=== PATIENT | female | born 1965 ===

== ENCOUNTER 2017-07-31 14:46 | Emergency (ER) | payer OTHER ==
[2017-07-31 14:46] VITALS: BMI 23.4
[2017-07-31 15:07] VITALS: RESP 18; O2SAT 98
--- NOTE | 2017-07-31 15:30 | ED PDOC ---
HPI: General Adult Time Seen by Provider: 07/31/17 15:08 Chief Complaint (Nursing): Headache Chief Complaint (Provider): Headache History Per: Patient Onset/Duration Of Symptoms: Days (x 4) Current Symptoms Are (Timing): Still Present Additional Complaint(s): 52yo female with past medical history of diabetes and hypertension, presents to the ED for evaluation of headache and blurry vision, present for the past 4 days. Patient states she develops these symptoms when she injects her insulin; also reports that she feels her insulin regimen is not controlling her glucose level. Patient has an additional complaint of abdominal pain; denies nausea, vomiting, and urinary symptoms. No other complaints. PMD: Provider TBD Past Medical History Vital Signs: Last Vital Signs Temp 95.8 F L 07/31/17 14:59 Pulse 91 H 07/31/17 14:59 Resp 18 07/31/17 14:59 BP 158/93 H 07/31/17 14:59 Pulse Ox 98 07/31/17 16:57 - Medical History PMH: Arthritis, Diabetes, HTN, Hypercholesterolemia Denies: HIV, Chronic Kidney Disease - Surgical History Surgical History: - Family History Family History: States: Unknown Family Hx, Diabetes - Social History Alcohol: None Drugs: Denies - Home Medications Home Medications: Ambulatory Orders Medication Instructions Recorded Cephalexin [cephalexin] 500 mg PO Q6 #28 cap 04/22/16 Insulin NPH Hum/Reg Insulin Hm 20 unit SC QPM 04/22/16 [Novolin 70-30 100 Unit/ml Vial] Insulin NPH Hum/Reg Insulin Hm 30 unit SC QAM 04/22/16 [Novolin 70-30 100 Unit/ml Vial] Sulfamethoxazole/Trimethoprim 2 tab PO BID #28 tab 04/22/16 [Bactrim 400 mg-80 mg] Amoxicillin/Clavulanate [Augmentin 1 tab PO BID #14 tab 08/28/16 875 MG-125 MG] Amoxicillin/Clavulanate [Augmentin 1 tab PO BID #20 tab 11/26/16 875 MG-125 MG] Ibuprofen [Motrin Tab] 600 mg PO Q8 PRN #60 tab 11/26/16 traMADol [Ultram] 50 mg PO TID PRN 3 Days tab 11/26/16 Nitrofurantoin Macrocrystals 100 mg PO BID #14 cap 12/07/16 [Macrobid] Cephalexin [Keflex] 500 mg PO BID #14 capsule 06/19/17 Meloxicam [Mobic] 7.5 mg PO DAILY #15 tab 06/19/17 Ciprofloxacin HCl [Cipro] 500 mg PO BID #20 tab 07/31/17 - Allergies Allergies/Adverse Reactions: Allergies Allergy/AdvReac Type Severity Reaction Status Date / Time No Known Allergies Allergy Verified 08/28/16 11:38 Review of Systems ROS Statement: Except As Marked, All Systems Reviewed And Found Negative Gastrointestinal: Positive for: Abdominal Pain. Negative for: Vomiting, Diarrhea Genitourinary Female: Negative for: Dysuria, Frequency Neurological: Positive for: Headache, Other (Blurry Vision) Physical Exam - Reviewed Nursing Documentation Reviewed: Yes Vital Signs Reviewed: Yes - Physical Exam Appears: Positive for: Non-toxic Head Exam: Positive for: ATRAUMATIC, NORMAL INSPECTION, NORMOCEPHALIC Skin: Positive for: Normal Color Eye Exam: Positive for: Normal appearance Neck: Positive for: Supple Cardiovascular/Chest: Positive for: Regular Rate, Rhythm. Negative for: Murmur Respiratory: Positive for: Normal Breath Sounds. Negative for: Respiratory Distress Gastrointestinal/Abdominal: Positive for: Soft, Tenderness (Bilateral Lower Quadrant) Neurologic/Psych: Positive for: Alert, Oriented (x 3). Negative for: Motor/ Sensory Deficits - Laboratory Results Result Diagrams: 07/31/17 15:50 07/31/17 15:50 - ECG O2 Sat by Pulse Oximetry: 98 (RA) Pulse Ox Interpretation: Normal Medical Decision Making Medical Decision Making: Time: 1518 Initial Plan: - CT Head without Contrast - CMP - CBC - Sodium Chloride 0.9% 1,000 ml IV 100 mls/hr - Toradol 30 mg IVP - Zofran Inj 4 mg IVP - Transvaginal Ultrasound Time: 15:50 CT Head Without Contrast FINDINGS: HEMORRHAGE: No intracranial hemorrhage. BRAIN: No mass effect or edema. No atrophy or chronic microvascular ischemic changes. VENTRICLES: Unremarkable. No hydrocephalus. CALVARIUM: Unremarkable. PARANASAL SINUSES: Negative study for acute paranasal sinusitis. Chronic disease involving theethmoid air cells MASTOID AIR CELLS: Unremarkable as visualized. No inflammatory changes. OTHER FINDINGS: None. IMPRESSION: No acute intracranial abnormalities. No significant findings to account for the clinical presentation Time: 2 US Transvaginal IMPRESSION: No acute findings related to/accounting for the clinical presentation. Limitations of the current examination: Nonvisualization of the adnexa bilaterally. Time: 16:49 Transvaginal US FINDINGS: UTERUS: Measures 4.1 x 5.1 x 8.5 cm. Normal in size and appearance. No fibroid or other mass lesion seen. ENDOMETRIUM: Measures 8.2 mm in diameter. No ultrasound findings to suggest gestational sac, fluid, debris, mass or polyp or other pathologic process within the endometrium. CERVIX: No cervical abnormality identified.Incidental finding: Nabothian cysts RIGHT OVARY: Not visualized. LEFT OVARY: Not visualized. FREE FLUID: No significant free fluid noted. OTHER FINDINGS: None. IMPRESSION: No acute findings related to/accounting for the clinical presentation. Limitations of the current examination: Nonvisualization of the adnexa bilaterally. Scribe Attestation: Documented by Noe Gomes, acting as a scribe for Loco Jones MD Provider Scribe Attestation: All medical record entries made by the Scribe were at my direction and personally dictated by me. I have reviewed the chart and agree that the record accurately reflects my personal performance of the history, physical exam, medical decision making, and the department course for this patient. I have also personally directed, reviewed, and agree with the discharge instructions and disposition. Disposition - Clinical Impression Clinical Impression: UTI (urinary tract infection) - Patient ED Disposition Is Patient to be Admitted: No Counseled Patient/Family Regarding: Studies Performed, Diagnosis, Need For Followup, Rx Given - Disposition Referrals: [facility] [Outside] Disposition: Routine/Home Disposition Time: 16:59 Condition: FAIR Prescriptions: Ciprofloxacin HCl [Cipro] 500 mg PO BID #20 tab Instructions: Urinary Tract Infection in Women (ED) Forms: [employer] (Brazilian) Print Language: SINHALA
--- NOTE | 2017-07-31 15:52 | CT ---
PROCEDURE: CT HEAD WITHOUT CONTRAST. HISTORY: headache COMPARISON: None available. TECHNIQUE: Axial computed tomography images were obtained through the head/brain without intravenous contrast. Coronal and sagittal reconstructed images. Radiation dose: Total exam DLP = 824.96 mGy-cm. This CT exam was performed using one or more of the following dose reduction techniques: Automated exposure control, adjustment of the mA and/or kV according to patient size, and/or use of iterative reconstruction technique. FINDINGS: HEMORRHAGE: No intracranial hemorrhage. BRAIN: No mass effect or edema. No atrophy or chronic microvascular ischemic changes. VENTRICLES: Unremarkable. No hydrocephalus. CALVARIUM: Unremarkable. PARANASAL SINUSES: Negative study for acute paranasal sinusitis. Chronic disease involving theethmoid air cells MASTOID AIR CELLS: Unremarkable as visualized. No inflammatory changes. OTHER FINDINGS: None. IMPRESSION: No acute intracranial abnormalities. No significant findings to account for the clinical presentation.
[2017-07-31 15:56] LABS: BASO % 0.1 % (0.0-2.0); EOS # 0.2 K/uL (0.0-0.7); HEMATOCRIT 37.7 % (34.0-47.0); LYMPH # 1.4 K/uL (1.0-4.3); LYMPH % 30.3 % (20.0-40.0); MEAN CELL VOLUME 81.2 fl (81.0-99.0); MEAN CORPUSCULAR HEMOGLOBIN 26.8 pg (27.0-31.0); MEAN PLATELET VOLUME 7.3 fl (7.2-11.7); MONO # 0.3 K/uL (0.0-0.8); MONO % 5.7 % (0.0-10.0); NEUT # 2.8 K/uL (1.8-7.0); NEUT % 59.9 % (50.0-75.0); NRBC % 0.1 % (0.0-0.0); RED CELL DISTRIBUTION WIDTH 15.6 % (11.5-14.5); WHITE BLOOD COUNT 4.6 K/uL (4.8-10.8)
[2017-07-31] MEDS: Sodium Chloride 0.9% 1,000 ML IV STA (16:10)
--- NOTE | 2017-07-31 16:51 | US ---
HISTORY: pelvic pain COMPARISON: None available. TECHNIQUE: Transvaginal only. Real -time technique with 2D, duplex and color Doppler FINDINGS: UTERUS: Measures 4.1 x 5.1 x 8.5 cm. Normal in size and appearance. No fibroid or other mass lesion seen. ENDOMETRIUM: Measures 8.2 mm in diameter. No ultrasound findings to suggest gestational sac, fluid, debris, mass or polyp or other pathologic process within the endometrium. CERVIX: No cervical abnormality identified.Incidental finding: Nabothian cysts RIGHT OVARY: Not visualized. LEFT OVARY: Not visualized. FREE FLUID: No significant free fluid noted. OTHER FINDINGS: None. IMPRESSION: No acute findings related to/accounting for the clinical presentation. Limitations of the current examination: Nonvisualization of the adnexa bilaterally.
[2017-07-31 16:56] LABS: BLOOD UREA NITROGEN 15 mg/dl (7-17); CALCIUM 9.4 mg/dL (8.4-10.2); CARBON DIOXIDE 27 mmol/L (22-30); CHLORIDE 102 mmol/L (98-107); GFR AFRICAN-AMERICAN > 60; GLUCOSE,RANDOM 160 mg/dL (65-105); POTASSIUM 4.2 MMOL/L (3.6-5.0); SODIUM 142 mmol/l (132-148); TOTAL PROTEIN 8.9 G/DL (6.3-8.2)
[2017-07-31 16:57] LABS: ALKALINE PHOSPHATASE 204 U/L (38-126); ALT/SGPT 36 U/L (9-52); AST/SGOT 44 U/L (14-36); BILIRUBIN,TOTAL 0.3 mg/dl (0.2-1.3)
--- NOTE | 2017-07-31 17:11 | ED PDOC ---
- Laboratory Results Result Diagrams: 07/31/17 15:50 07/31/17 15:50 - ECG O2 Sat by Pulse Oximetry: 98 (RA) Pulse Ox Interpretation: Normal - Progress ED Course And Treament: seen and eval by podiatry will f/u in wound care clinic in one week. will d/c on antibiotics. pt agree's wtih plan. Re-evaluation Time: 19:05 Condition: Improved Medical Decision Making Medical Decision Making: Time: 1704 Patient signed out to me by Dr. Jones pending podiatry evaluation. Disposition Counseled Patient/Family Regarding: Studies Performed, Diagnosis, Need For Followup, Rx Given - Clinical Impression Clinical Impression: UTI (urinary tract infection) - POA Present On Arrival: None - Disposition Referrals: [facility] [Outside] Disposition: Routine/Home Disposition Time: 19:06 Condition: FAIR Prescriptions: Ciprofloxacin HCl [Cipro] 500 mg PO BID #20 tab Instructions: Urinary Tract Infection in Women (ED) Forms: [employer] (Guamanian) Print Language: GEORGIAN
--- NOTE | 2017-07-31 19:17 | CP.PCM.CON ---
History of Present Illness - History of Present Illness History of Present Illness: Podiatry Progress Note - Dr. Galloway 52 year old female patient PMHx diabetes, HTN, hypercholesterolemia seen in ED at the request for podiatry consultation. Patient presented to ED for headache and blurry vision. Patient states that she has been seeing Dr. Galloway in the wound care clinic for a healed wound on the top of her right foot along with a wound on the top of her left 4th toe. Patient states the wounds developed approximately 1 month ago, but the wound on the top of her 4th toe has yet to resolve. Patient admits to occasional soreness. Patient denies seeing any drainage or purulence coming from her toe. Patient states she has an appointment with Dr. Galloway tomorrow. Patient denies N/V/F/D/C/SOB/calf pain. Offers no other pedal complaints at this time. Review of Systems - Review of Systems All systems: reviewed and no additional remarkable complaints except (as per HPI ) Past Patient History - Infectious Disease Hx of Infectious Diseases: None - Past Medical History & Family History Past Medical History?: Yes - Past Social History Alcohol: None Drugs: Denies - CARDIAC Hx Hypercholesterolemia: Yes Hx Hypertension: Yes - PULMONARY Hx Respiratory Disorders: No - NEUROLOGICAL Hx Neurological Disorder: No - HEENT Hx HEENT Problems: No - RENAL Hx Chronic Kidney Disease: No - ENDOCRINE/METABOLIC Hx Endocrine Disorders: Yes Hx Diabetes Mellitus Type 2: Yes - HEMATOLOGICAL/ONCOLOGICAL Hx Human Immunodeficiency Virus (HIV): No - INTEGUMENTARY Hx Dermatological Problems: No - MUSCULOSKELETAL/RHEUMATOLOGICAL Hx Arthritis: Yes - GASTROINTESTINAL Hx Gastrointestinal Disorders: No - GENITOURINARY/GYNECOLOGICAL Hx Genitourinary Disorders: No - PSYCHIATRIC Hx Psychophysiologic Disorder: No Hx Emotional Abuse: No Hx Physical Abuse: No Hx Substance Use: No Other/Comment: pyelonephritis - SURGICAL HISTORY 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) - ANESTHESIA Hx Anesthesia: Yes Hx Anesthesia Reactions: No Hx Malignant Hyperthermia: No Meds Home Medications: Home Medication List Medication Instructions Recorded Confirmed Type Ciprofloxacin HCl [Cipro] 500 mg PO BID #20 tab 07/31/17 Rx Allergies/Adverse Reactions: Allergies Allergy/AdvReac Type Severity Reaction Status Date / Time No Known Allergies Allergy Verified 08/28/16 11:38 - Medications Medications: Current Medications Sodium Chloride (Sodium Chloride 0.9%) 1,000 mls @ 100 mls/hr IV .Q10H STA Stop: 08/01/17 01:18 Last Admin: 07/31/17 16:10 Dose: 100 mls/hr Physical Exam - Constitutional Appears: Well, Non-toxic, No Acute Distress - Extremities Exam Additional comments: Dressing to right foot appears clean/dry/intact with no strikethrough noted. CAM walker to RLE VASC: DP/PT pulses palpable 2/4 BL, TG warm to warm, CFT <3 seconds to digits, Nonpitting edema noted to left 4th digit NEURO: Gross sensation diminished bilaterally DERM: Dorsal aspect of L foot 4th digit noted to have superficial ulceration measuring approximately 0.5 x 0.5 x 0.1 cm hyperpigmented rim; no active drainage, purulence, fluctuance noted. ORTHO: No pain on palpation right lateral midfoot and left 4th digit; amputation of left 2nd digit, HAV deformity bilateral, hammering of digits 3-5 on left and 2-5 on right - Neurological Exam Neurological exam: Alert, Oriented x3 - Psychiatric Exam Psychiatric exam: Normal Affect, Normal Mood Results - Vital Signs Recent Vital Signs: Last Vital Signs Temp 95.8 F L 07/31/17 14:59 Pulse 91 H 07/31/17 14:59 Resp 18 07/31/17 14:59 BP 158/93 H 07/31/17 14:59 Pulse Ox 98 07/31/17 19:07 - Labs Result Diagrams: 07/31/17 15:50 07/31/17 15:50 Labs: Laboratory Results - last 24 hr 07/31/17 07/31/17 15:50 15:50 WBC 4.6 L RBC 4.65 Hgb 12.5 Hct 37.7 MCV 81.2 MCH 26.8 L MCHC 33.0 RDW 15.6 H Plt Count 228 MPV 7.3 Neut % (Auto) 59.9 Lymph % (Auto) 30.3 Oliver % (Auto) 5.7 Eos % (Auto) 4.0 Baso % (Auto) 0.1 Neut # 2.8 Lymph # 1.4 Oliver # 0.3 Eos # 0.2 Baso # 0.0 Sodium 142 Potassium 4.2 Chloride 102 Carbon Dioxide 27 Anion Gap 17 BUN 15 Creatinine 0.6 L Est GFR ( Amer) > 60 Est GFR (Non-Af Amer) > 60 Random Glucose 160 H Calcium 9.4 Total Bilirubin 0.3 AST 44 H D ALT 36 Alkaline Phosphatase 204 H D Total Protein 8.9 H Albumin 4.4 Globulin 4.4 H Albumin/Globulin Ratio 1.0 Assessment & Plan - Assessment and Plan (Free Text) Assessment: 52 year old female with superficial ulceration left 4th digit 2/2 DM Plan: Patient seen and evaluated at bedside Discussed with attending, Dr. Galloway afebrile, WBC wnl @ 6.2, glucose 160 Left foot XR reviewed: ST swelling noted to 4th digit, no ST emphysema noted, no acute osseous process Bacitracin applied to left 4th digit and dressed with 4x4 gauze MUKUL bandage applied to R foot to decrease swelling Patient to follow up with Dr. Galloway in wound care clinic tomorrow, 08/01 Stable from podiatry standpoint Thank you for the consult, please re-consult podiatry as needed
[2017-07-31 19:57] VITALS: BP 148/78; PULSE 78; TEMP 98.4
--- NOTE | 2017-08-01 08:43 | RAD ---
PROCEDURE: Left Foot Radiographs. HISTORY: pain COMPARISON: Left foot radiographs dated 04/22/2016. FINDINGS: BONES: Stable hallux valgus deformity stable appearance of distal 2nd transmetatarsal amputation. Enthesophyte at the insertion of the Achilles tendon. Calcaneal plantar spur. JOINTS: Degenerative changes. SOFT TISSUES: Swelling. OTHER FINDINGS: None. 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 No evidence of fracture, dislocation or periosteal reaction.
== END 2017-07-31 19:58 | disposition home or self-care (01) ==
LOC: H.ER 14:46
DX: N39.0 Urinary tract infection, site not specified (principal); E11.9 Type 2 diabetes mellitus without complications; I10 Essential (primary) hypertension; E78.00 Pure hypercholesterolemia, unspecified; Z79.4 Long term (current) use of insulin
CPT/HCPCS: 70450; 73630; 76830; 80053; 81025; 82948; 85025; 96374; 96375; 99283; J1885; J2405; J7040

== ENCOUNTER 2017-10-26 07:00 | Inpatient (IN) | payer MEDICAID, SELFPAY ==
[2017-10-26 07:22] VITALS: BMI 27.3
[2017-10-26] MEDS ORDERED: Sodium Chloride 0.9% 1,000 ML IV STA ×2 (07:57→12:11)
--- NOTE | 2017-10-26 08:03 | ED PDOC ---
HPI: Abdomen Time Seen by Provider: 10/26/17 07:18 Chief Complaint (Nursing): Flu-like Symptoms Chief Complaint (Provider): Flu-like symptoms History Per: Patient History/Exam Limitations: no limitations Onset/Duration Of Symptoms: Days (x10) Current Symptoms Are (Timing): Still Present Quality Of Discomfort: "Pain" Associated Symptoms: Fever, Chills. denies: Vomiting, Diarrhea Additional Complaint(s): Concepción Zheng is a 52 year old female, with a past medical history of diabetes and hypertension, who presents to the emergency department complaining of fever, chills, dry cough, and abdominal pain onset for x10 days. Patient states the pain radiates to the hip and down the legs bilaterally. She took medication for the fever at 6:00am today. She denies any vomiting, or diarrhea. No further medical complaints. PMD: None provided. Past Medical History Reviewed: Historical Data, Nursing Documentation, Vital Signs Vital Signs: Last Vital Signs Temp 98.6 F 10/26/17 11:33 Pulse 97 H 10/26/17 11:33 Resp 18 10/26/17 10:06 BP 130/78 10/26/17 11:33 Pulse Ox 98 10/26/17 10:25 - Medical History PMH: Arthritis, Diabetes, HTN, Hypercholesterolemia Denies: HIV, Chronic Kidney Disease - Surgical History Surgical History: Other surgeries: ovarian cysts removal - Family History Family History: States: Unknown Family Hx, Diabetes - Social History Ex-Smoker (has not smoked in the last 12 months): Yes Alcohol: None Drugs: Denies - Home Medications Home Medications: Ambulatory Orders Medication Instructions Recorded Cephalexin [cephalexin] 500 mg PO Q6 #28 cap 04/22/16 Insulin NPH Hum/Reg Insulin Hm 20 unit SC QPM 04/22/16 [Novolin 70-30 100 Unit/ml Vial] Insulin NPH Hum/Reg Insulin Hm 30 unit SC QAM 04/22/16 [Novolin 70-30 100 Unit/ml Vial] Sulfamethoxazole/Trimethoprim 2 tab PO BID #28 tab 04/22/16 [Bactrim 400 mg-80 mg] Amoxicillin/Clavulanate [Augmentin 1 tab PO BID #14 tab 08/28/16 875 MG-125 MG] Amoxicillin/Clavulanate [Augmentin 1 tab PO BID #20 tab 11/26/16 875 MG-125 MG] Ibuprofen [Motrin Tab] 600 mg PO Q8 PRN #60 tab 11/26/16 traMADol [Ultram] 50 mg PO TID PRN 3 Days tab 11/26/16 Nitrofurantoin Macrocrystals 100 mg PO BID #14 cap 12/07/16 [Macrobid] Cephalexin [Keflex] 500 mg PO BID #14 capsule 06/19/17 Meloxicam [Mobic] 7.5 mg PO DAILY #15 tab 06/19/17 Ciprofloxacin HCl [Cipro] 500 mg PO BID #20 tab 07/31/17 - Allergies Allergies/Adverse Reactions: Allergies Allergy/AdvReac Type Severity Reaction Status Date / Time No Known Allergies Allergy Verified 08/28/16 11:38 Review of Systems ROS Statement: Except As Marked, All Systems Reviewed And Found Negative Constitutional: Positive for: Fever, Chills Respiratory: Positive for: Cough (dry) Gastrointestinal: Positive for: Abdominal Pain (radiates to hip and b/l legs.). Negative for: Vomiting, Diarrhea Physical Exam - Reviewed Nursing Documentation Reviewed: Yes Vital Signs Reviewed: Yes - Physical Exam Appears: Positive for: Non-toxic Head Exam: Positive for: ATRAUMATIC, NORMAL INSPECTION, NORMOCEPHALIC Skin: Positive for: Normal Color, Warm, Dry Eye Exam: Positive for: Normal appearance, EOMI, PERRL Neck: Positive for: Painless ROM, Supple Cardiovascular/Chest: Positive for: Tachycardia. Negative for: Murmur Respiratory: Positive for: Normal Breath Sounds (clear b/l). Negative for: Respiratory Distress Gastrointestinal/Abdominal: Positive for: Normal Exam, Soft. Negative for: Tenderness, Guarding, Rebound Back: Positive for: Normal Inspection. Negative for: L CVA Tenderness, R CVA Tenderness, Vertebral Tenderness Extremity: Positive for: Normal ROM. Negative for: Tenderness, Deformity, Swelling Neurologic/Psych: Positive for: Alert, Oriented - Laboratory Results Result Diagrams: 10/26/17 08:00 10/26/17 08:00 - ECG O2 Sat by Pulse Oximetry: 98 (RA) Pulse Ox Interpretation: Normal Medical Decision Making Medical Decision Making: Initial Impression: Viral syndrome Initial Plan: --EKG --CMP --Urine dipstick --CBC w/ differential --PTT --PT --Chest two views (PA/LAT) [RAD] --Motrin tab 600 mg PO --Sodium Chloride 1,000 ml IV 1,000 mls/hr --Tylenol 325mg tab 650 mg PO --Blood culture --reevaluation 09:57 CXR FINDINGS: LUNGS: Poor inspiration with low lung volumes, crowded bronchovascular markings and mild bibasilar atelectasis. PLEURA: No significant pleural effusion identified. No pneumothorax apparent. CARDIOVASCULAR: Normal. OSSEOUS STRUCTURES: No significant abnormalities. VISUALIZED UPPER ABDOMEN: Normal. OTHER FINDINGS: None. IMPRESSION: Poor inspiration with low lung volumes, crowded bronchovascular markings and mild bibasilar atelectasis. Scribe Attestation: Documented by Kenny Lomax, acting as a scribe for Isabel Arnold MD Provider Scribe Attestation: All medical record entries made by the Scribe were at my direction and personally dictated by me. I have reviewed the chart and agree that the record accurately reflects my personal performance of the history, physical exam, medical decision making, and the department course for this patient. I have also personally directed, reviewed, and agree with the discharge instructions and disposition. Disposition - Clinical Impression Clinical Impression: UTI (urinary tract infection), Sepsis - Patient ED Disposition Is Patient to be Admitted: Yes - Disposition Disposition Time: 12:11 Condition: STABLE Forms: [employer] (German) - Pt Status Changed To: Hospital Disposition Of: Inpatient - Admit Certification Admit to Inpatient:: After my assessment, the patient will require hospitalization for at least two midnights. This is because of the severity of symptoms shown, intensity of services needed, and/or the medical risk in this patient being treated as an outpatient. - POA Present On Arrival: Poor Glycemic Control
[2017-10-26 08:26] LABS: BASO % 0.5 % (0.0-2.0); EOS # 0.1 K/uL (0.0-0.7); EOS % 0.6 % (0.0-4.0); HEMOGLOBIN 12.4 g/dL (12.0-16.0); LYMPH # 0.4 K/uL (1.0-4.3); MEAN CELL VOLUME 77.5 fl (81.0-99.0); MEAN CORPUSCULAR HEMOGLOBIN 26.3 pg (27.0-31.0); MEAN PLATELET VOLUME 7.2 fl (7.2-11.7); MONO # 0.3 K/uL (0.0-0.8); MONO % 3.4 % (0.0-10.0); NEUT # 8.3 K/uL (1.8-7.0); NEUT % 91.5 % (50.0-75.0); PLATELET COUNT 194 K/uL (130-400); RBC 4.72 Mil/uL (3.80-5.20); RED CELL DISTRIBUTION WIDTH 14.9 % (11.5-14.5); WHITE BLOOD COUNT 9.1 K/uL (4.8-10.8)
[2017-10-26 08:29] LABS: SQUAMOUS EPITHIAL 22 /hpf (0-5); URINE BACTERIA MANY (<OCC); URINE BILIRUBIN NEGATIVE (NEGATIVE); URINE BLOOD SMALL (NEGATIVE); URINE CLARITY CLOUDY (Clear); URINE COLOR YELLOW (YELLOW); URINE GLUCOSE (UA) 50 mg/dL (Normal); URINE LEUKOCYTE ESTERASE LARGE Leu/uL (Negative); URINE NITRATE POSITIVE (NEGATIVE); URINE PROTEIN 100 mg/dL (NEGATIVE); URINE UROBILINOGEN 0.2-1.0 mg/dL (0.2-1.0)
[2017-10-26 08:36] LABS: ALBUMIN 4.1 g/dL (3.5-5.0); ALT/SGPT 20 U/L (9-52); AST/SGOT 24 U/L (14-36); BLOOD UREA NITROGEN 19 mg/dl (7-17); CALCIUM 9.5 mg/dL (8.4-10.2); GFR AFRICAN-AMERICAN > 60; GFR NON-AFRICAN AMERICAN > 60
[2017-10-26 08:44] LABS: INR 1.2 (0.9-1.2)
--- NOTE | 2017-10-26 09:59 | RAD ---
HISTORY: Cough COMPARISON: No prior. TECHNIQUE: Chest PA and lateral FINDINGS: LUNGS: Poor inspiration with low lung volumes, crowded bronchovascular markings and mild bibasilar atelectasis. PLEURA: No significant pleural effusion identified. No pneumothorax apparent. CARDIOVASCULAR: Normal. OSSEOUS STRUCTURES: No significant abnormalities. VISUALIZED UPPER ABDOMEN: Normal. OTHER FINDINGS: None. IMPRESSION: Poor inspiration with low lung volumes, crowded bronchovascular markings and mild bibasilar atelectasis.
--- NOTE | 2017-10-26 10:49 | CARD ---
APPROVED REPORT EKG Measurement Heart [id number] <Conclusion> Sinus tachycardia ST & T wave abnormality, consider inferior ischemia Abnormal ECG
[2017-10-26 12:06] LABS: VENOUS BLOOD GAS BASE EXCESS 0.3 mmol/L (0.0-2.0); VENOUS BLOOD GAS PCO2 48 mmHg (40-60); VENOUS BLOOD GAS PO2 14 mm/Hg (30-55); VENOUS BLOOD PH 7.35 (7.32-7.43)
[2017-10-26] MEDS ORDERED: cefTRIAXone (Rocephin) 1 gm Inj ONE (12:25)
[2017-10-26 15:28] LABS: BANDS 3 % (0-2); LYMPHOCYTE 5 % (20-50); MONOCYTE 1 % (0-10); NEUTROPHIL 91 % (42-75); TOTAL CELLS COUNTED 100
[2017-10-26 15:29] LABS: ANISOCYTOSIS SLIGHT; MICROCYTOSIS SLIGHT; PLATELET ESTIMATE NORMAL (NORMAL)
[2017-10-26 15:31] LABS: LARGE PLATELETS PRESENT
--- NOTE | 2017-10-26 16:07 | CP.PCM.HP ---
History of Present Illness - History of Present Illness History of Present Illness: CC: abdominal pain HPI: 52 y/o woman w/ pmh of HTN and IDDM2 presents to ED w/ abdominal pain. Patient reports pain started 2 weeks ago but became unbearable today. Patient reports pain is in lower abdomen bilaterally, cramping in nature, radiating to the back, not alleviated by anything, worsened w/ urination. Patient reports dysuria, vaginal pruritus, and fishy odor but denies erythema, rash, discharge, and hematuria. Patient reports generalized body ache, tension headache, chest pain w/ respiration and cough. Patient denies SOB, nausea, vomiting, diarrhea. ED course: vitals: 103.1 F, 125 beats/min, 162/84 mm Hg, resp 20, O2 98% RA CBC w/ differential: 9.1>12.4/36.6<194 CMP: 140/4.6, 102/25, 19/0.7, glucose 226, AST 24, ALT 20, alk phos 240 VBG: pH 7.35, pCO2 48, pO2 14, pHCO3 22.9, K+ 4.6, lactate 0.8, FiO2 21.0 INR: 1.2 PTT: 27.0 PT: 13.0 UA: cloudy, pH 7.0, protein 100, glucose 50, blood small, nitrate positive, large leukocyte esterase, negative for ketones and bilirubin influenza AB: negative Blood culture: pending Urine culture: pending EKG: sinus tachycardia, no acute ST elevation/depression, no prolonged QTc, QRS , or [place] Chest two views (PA/LAT) [RAD]: poor inspiration w/ low lung volumes, crowded bronchovascular markings and mild bibasilar atelectasis Motrin tab 600 mg PO Sodium Chloride 1,000 ml IV 1,000 mls/hr x2 Tylenol 325mg tab 650 mg PO Ceftriaxone 1 gm IV PMD: [facility] PMH: HTN, IDDM2 allergies: NKDA meds: see meds list PSH: ovarian cyst removal 20 years ago Fam: mother 76 y/o has HTN, DM2, and rheumatoid arthritis SOC: denies smoking, alcohol, and drugs ROS: 12 points assessed and negative unless otherwise reported in HPI Present on Admission - Present on Admission Any Indicators Present on Admission: No History of DVT/PE: No History of Uncontrolled Diabetes: No Urinary Catheter: No Decubitus Ulcer Present: No Review of Systems - Review of Systems All systems: reviewed and no additional remarkable complaints except - Constitutional Constitutional: As Per HPI, Chills, Fever, Headache, Malaise - EENT Eyes: Change in Vision - Cardiovascular Cardiovascular: absent: Dyspnea, Dyspnea on Exertion, Leg Edema, Pedal Edema - Respiratory Respiratory: Cough, Pain with Coughing. absent: Wheezing - Gastrointestinal Gastrointestinal: Abdominal Pain. absent: Diarrhea, Hematochezia, Nausea, Vomiting - Genitourinary Genitourinary: Dysuria, Flank Pain. absent: Pyuria - Reproductive: Female Reproductive:Female: Menopausal, Vaginal Odor, Vaginal Pruritis. absent: Vaginal Discharge - Integumentary Integumentary: absent: Rash - Neurological Neurological: absent: Dizziness Past Patient History - Infectious Disease Hx of Infectious Diseases: None - Past Medical History & Family History Past Medical History?: Yes - Past Social History Alcohol: None Drugs: Denies - CARDIAC Hx Hypercholesterolemia: Yes Hx Hypertension: Yes - PULMONARY Hx Respiratory Disorders: No - NEUROLOGICAL Hx Neurological Disorder: No - HEENT Hx HEENT Problems: No - RENAL Hx Chronic Kidney Disease: No - ENDOCRINE/METABOLIC Hx Endocrine Disorders: Yes Hx Diabetes Mellitus Type 2: Yes - HEMATOLOGICAL/ONCOLOGICAL Hx Human Immunodeficiency Virus (HIV): No - INTEGUMENTARY Hx Dermatological Problems: No - MUSCULOSKELETAL/RHEUMATOLOGICAL Hx Arthritis: Yes - GASTROINTESTINAL Hx Gastrointestinal Disorders: No - GENITOURINARY/GYNECOLOGICAL Hx Genitourinary Disorders: No - PSYCHIATRIC Hx Psychophysiologic Disorder: No Hx Emotional Abuse: No Hx Physical Abuse: No Hx Substance Use: No Other/Comment: pyelonephritis - SURGICAL HISTORY 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) - ANESTHESIA Hx Anesthesia: Yes Hx Anesthesia Reactions: No Hx Malignant Hyperthermia: No Meds Allergies/Adverse Reactions: Allergies Allergy/AdvReac Type Severity Reaction Status Date / Time No Known Allergies Allergy Verified 08/28/16 11:38 Physical Exam - Constitutional Appears: No Acute Distress - Head Exam Head Exam: ATRAUMATIC, NORMAL INSPECTION, NORMOCEPHALIC - Eye Exam Eye Exam: Normal appearance - ENT Exam ENT Exam: Mucous Membranes Moist - Neck Exam Neck exam: Positive for: Full Rom. Negative for: Tenderness - Respiratory Exam Respiratory Exam: Clear to Auscultation Bilateral, NORMAL BREATHING PATTERN. absent: Decreased Breath Sounds, Rales, Rhonchi, Wheezes, Respiratory Distress - Cardiovascular Exam Cardiovascular Exam: REGULAR RHYTHM. absent: Tachycardia - GI/Abdominal Exam GI & Abdominal Exam: Normal Bowel Sounds, Soft, Tenderness. absent: Distended, Guarding, Rigid - Extremities Exam Extremities exam: Positive for: normal inspection. Negative for: calf tenderness, pedal edema, tenderness - Back Exam Back exam: CVA tenderness (L), CVA tenderness (R) Additional comments: CVA tenderness more on the left than the right - Neurological Exam Neurological exam: Alert, Oriented x3 - Skin Skin Exam: Dry, Intact, Normal Color, Warm Results - Vital Signs Recent Vital Signs: Last Vital Signs Temp 98.2 F 10/26/17 15:11 Pulse 98 H 10/26/17 15:11 Resp 18 10/26/17 15:11 BP 112/65 10/26/17 15:11 Pulse Ox 98 10/26/17 15:11 - Labs Result Diagrams: 10/26/17 08:00 10/26/17 08:00 Labs: Laboratory Results - last 24 hr 10/26/17 10/26/17 10/26/17 08:00 08:00 08:00 WBC 9.1 D RBC 4.72 Hgb 12.4 Hct 36.6 MCV 77.5 L D MCH 26.3 L MCHC 34.0 RDW 14.9 H Plt Count 194 MPV 7.2 Neut % (Auto) 91.5 H Lymph % (Auto) 4.0 L [place] % (Auto) 3.4 Eos % (Auto) 0.6 Baso % (Auto) 0.5 Neut # (Auto) 8.3 H Lymph # (Auto) 0.4 L [place] # (Auto) 0.3 Eos # (Auto) 0.1 Baso # (Auto) 0.0 Neutrophils % (Manual) 91 H Band Neutrophils % 3 H Lymphocytes % (Manual) 5 L Monocytes % (Manual) 1 Platelet Estimate Normal Large Platelets Present Anisocytosis (manual) Slight Microcytosis (manual) Slight PT 13.0 INR 1.2 APTT 27.0 pO2 VBG pH VBG pCO2 VBG HCO3 VBG Total CO2 VBG O2 Sat (Calc) VBG Base Excess VBG Potassium Glucose Lactate FiO2 Sodium 140 Potassium 4.6 Chloride 102 Carbon Dioxide 25 Anion Gap 18 BUN 19 H Creatinine 0.7 Est GFR ( Amer) > 60 Est GFR (Non-Af Amer) > 60 POC Glucose (mg/dL) Random Glucose 226 H Calcium 9.5 Total Bilirubin 0.5 AST 24 ALT 20 Alkaline Phosphatase 240 H Total Protein 8.2 Albumin 4.1 Globulin 4.1 H Albumin/Globulin Ratio 1.0 Venous Blood Potassium Urine Color Urine Clarity Urine pH Ur Specific [place] Urine Protein Urine Glucose (UA) Urine Ketones Urine Blood Urine Nitrate Urine Bilirubin Urine Urobilinogen Ur Leukocyte Esterase Urine RBC (Auto) Urine Microscopic WBC Ur Squamous Epith Cells Urine Bacteria Influenza Typ A,B (EIA) 10/26/17 10/26/17 10/26/17 08:00 08:19 12:01 WBC RBC Hgb Hct MCV MCH MCHC RDW Plt Count MPV Neut % (Auto) Lymph % (Auto) [place] % (Auto) Eos % (Auto) Baso % (Auto) Neut # (Auto) Lymph # (Auto) [place] # (Auto) Eos # (Auto) Baso # (Auto) Neutrophils % (Manual) Band Neutrophils % Lymphocytes % (Manual) Monocytes % (Manual) Platelet Estimate Large Platelets Anisocytosis (manual) Microcytosis (manual) PT INR APTT pO2 14 L VBG pH 7.35 VBG pCO2 48 VBG HCO3 22.9 VBG Total CO2 28.0 VBG O2 Sat (Calc) 21.9 L VBG Base Excess 0.3 VBG Potassium 4.6 Glucose 189 H Lactate 0.8 FiO2 21.0 Sodium 140.0 Potassium Chloride 108.0 H Carbon Dioxide Anion Gap BUN Creatinine Est GFR ( Amer) Est GFR (Non-Af Amer) POC Glucose (mg/dL) 182 H Random Glucose Calcium Total Bilirubin AST ALT Alkaline Phosphatase Total Protein Albumin Globulin Albumin/Globulin Ratio Venous Blood Potassium 4.6 Urine Color Yellow Urine Clarity Cloudy Urine pH 7.0 Ur Specific [place] 1.019 Urine Protein 100 Urine Glucose (UA) 50 Urine Ketones Negative Urine Blood Small Urine Nitrate Positive H Urine Bilirubin Negative Urine Urobilinogen 0.2-1.0 Ur Leukocyte Esterase Large Urine RBC (Auto) 33 H Urine Microscopic WBC 260 H Ur Squamous Epith Cells 22 H Urine Bacteria Many H Influenza Typ A,B (EIA) 10/26/17 12:20 WBC RBC Hgb Hct MCV MCH MCHC RDW Plt Count MPV Neut % (Auto) Lymph % (Auto) [place] % (Auto) Eos % (Auto) Baso % (Auto) Neut # (Auto) Lymph # (Auto) [place] # (Auto) Eos # (Auto) Baso # (Auto) Neutrophils % (Manual) Band Neutrophils % Lymphocytes % (Manual) Monocytes % (Manual) Platelet Estimate Large Platelets Anisocytosis (manual) Microcytosis (manual) PT INR APTT pO2 VBG pH VBG pCO2 VBG HCO3 VBG Total CO2 VBG O2 Sat (Calc) VBG Base Excess VBG Potassium Glucose Lactate FiO2 Sodium Potassium Chloride Carbon Dioxide Anion Gap BUN Creatinine Est GFR ( Amer) Est GFR (Non-Af Amer) POC Glucose (mg/dL) Random Glucose Calcium Total Bilirubin AST ALT Alkaline Phosphatase Total Protein Albumin Globulin Albumin/Globulin Ratio Venous Blood Potassium Urine Color Urine Clarity Urine pH Ur Specific [place] Urine Protein Urine Glucose (UA) Urine Ketones Urine Blood Urine Nitrate Urine Bilirubin Urine Urobilinogen Ur Leukocyte Esterase Urine RBC (Auto) Urine Microscopic WBC Ur Squamous Epith Cells Urine Bacteria Influenza Typ A,B (EIA) Negative for flu a/b Assessment & Plan - Assessment and Plan (Free Text) Assessment: 52 y/o woman w/ pmh of HTN and IDDM2 presents to ED w/ abdominal pain. Plan: Urosepsis - on admission patient febrile, tachycardic, with urine as source of infection - vitals: 103.1 F, 125 beats/min, 162/84 mm Hg, resp 20, O2 98% RA - CBC w/ differential: 9.1>12.4/36.6<194 - CMP: 140/4.6, 102/25, 19/0.7, glucose 226, AST 24, ALT 20, alk phos 240 - UA: cloudy, pH 7.0, protein 100, glucose 50, blood small, nitrate positive, large leukocyte esterase, negative for ketones and bilirubin - Blood culture: pending - Urine culture: pending - given Motrin tab 600 mg PO - given Sodium Chloride 1,000 ml IV 1,000 mls/hr x2 - given Tylenol 325mg tab 650 mg PO - given Ceftriaxone 1 gm IV - IVF NS @ 100 mL/Hr - c/w Ceftriaxone 1 gm IV daily - f/u CBC, CMP, procalcitonin - admit Tele - monitor for acute changes Bacterial Vaginosis - patient reports fishy odor and vaginal pruritus, denies discharge, rash, and erythema - metronidazole 0.75% Vag BID HTN - controlled w/ medication - on enalapril 5 mg PO daily IDDM2 - Last HbA1c 8.8% (07/24/2017) - on insulin NPH 100 Units/mL 10 units SC HS, 30 units SC QAM, and 20 units SC QPM - hypoglycemic protocol - insulin correction scale - monitor for acute changes Prophylactic measures - DVT: lovenox 40 mg SC daily - GI: PPI
[2017-10-26] MEDS ORDERED: Dextrose 50% SYRINGE Inj (50 ml) IV PRN (16:46)
[2017-10-26] MEDS ORDERED: Glucagon Recombinant 1 mg Inj IM PRN (16:46)
[2017-10-26] MEDS: Insulin NPH Human 100 Units/ml Inj SC SCH ×2 (18:42→22:10)
[2017-10-26] MEDS: METRONIDAZOLE 0.75% VAG SCH (19:21)
[2017-10-27] MEDS: Insulin Lispro (humaLOG) 100 Units/ml Inj SC SCH ×5 (00:15→23:01)
[2017-10-27 05:45] LABS: HEMOGLOBIN 10.4 g/dL (12.0-16.0); MEAN CELL VOLUME 78.6 fl (81.0-99.0); MEAN CORPUSCULAR HEMOGLOBIN 25.5 pg (27.0-31.0); MEAN CORPUSCULAR HGB CONC 32.4 g/dL (33.0-37.0); RBC 4.1 Mil/uL (3.80-5.20); RED CELL DISTRIBUTION WIDTH 14.8 % (11.5-14.5); WHITE BLOOD COUNT 7.4 K/uL (4.8-10.8)
[2017-10-27 06:09] LABS: ALB/GLOB RATIO 0.9 (1.0-2.1); ALT/SGPT 28 U/L (9-52); AST/SGOT 40 U/L (14-36); BLOOD UREA NITROGEN 12 mg/dl (7-17); CALCIUM 8.2 mg/dL (8.4-10.2); GFR AFRICAN-AMERICAN > 60; GFR NON-AFRICAN AMERICAN > 60
--- NOTE | 2017-10-27 08:53 | CP.PCM.PN ---
Subjective - Date & Time of Evaluation Date of Evaluation: 10/27/17 Time of Evaluation: 08:53 - Subjective Subjective: Patient seen and examined bedside this morning. The patient had febrile spike overnight, vomited tylenol PO, given tylenol suppository instead, fever resolved. Patient laying in bed comfortably, NAD. Patient reports feeling better, pain is improved but still present. Patient also complains of left foot pain due to chronic ulcer Objective - Vital Signs/Intake and Output Vital Signs (last 24 hours): Temp Pulse Resp BP Pulse Ox 98.8 F 97 H 18 100/64 95 10/27/17 08:00 10/27/17 08:00 10/27/17 08:00 10/27/17 08:00 10/27/17 08:00 - Medications Medications: Current Medications Acetaminophen (Tylenol 325mg Tab) 650 mg PO Q4 PRN PRN Reason: Fever >100.4 F Last Admin: 10/27/17 00:35 Dose: 650 mg Acetaminophen (Tylenol 650 Mg Supp) 650 mg HI ONCE PRN PRN Reason: Fever >100.4 F Last Admin: 10/27/17 00:54 Dose: 650 mg Dextrose (Dextrose 50% Inj) 0 ml IV STAT PRN; Protocol PRN Reason: Hypoglycemia Protocol Dextrose (Glutose 15) 0 gm PO ONCE PRN; Protocol PRN Reason: Hypoglycemia Protocol Enalapril Maleate (Vasotec) 5 mg PO DAILY RADHA Enoxaparin Sodium (Lovenox) 40 mg SC DAILY RADHA PRN Reason: Protocol Gabapentin (Neurontin) 200 mg PO HS PRN PRN Reason: Nerve pain/neuropathy Glucagon (Glucagen Diagnostic Kit) 0 mg IM STAT PRN; Protocol PRN Reason: Hypoglycemia Protocol Ceftriaxone Sodium 1 gm/ (Sodium Chloride) 100 mls @ 100 mls/hr IVPB DAILY RADHA PRN Reason: Protocol Sodium Chloride (Sodium Chloride 0.9%) 1,000 mls @ 100 mls/hr IV .Q10H RADHA Stop: 10/27/17 16:47 Insulin Human Lispro (Humalog) 0 units SC ACHS RADHA PRN Reason: Protocol Last Admin: 10/27/17 06:44 Dose: 3 units Insulin Human NPH (Humulin N) 10 units SC HS [facility] Last Admin: 10/26/17 22:10 Dose: 10 units Insulin Human NPH (Humulin N) 30 units SC QAM [facility] Insulin Human NPH (Humulin N) 20 units SC QPM [facility] Last Admin: 10/26/17 18:42 Dose: Not Given Metronidazole (Metrogel Cream) 1 applic VAG BID [facility] Last Admin: 10/26/17 19:21 Dose: Not Given Ondansetron HCl (Zofran Inj) 4 mg IVP Q6 PRN PRN Reason: Nausea/Vomiting Last Admin: 10/27/17 00:52 Dose: 4 mg Pantoprazole Sodium (Protonix Ec Tab) 20 mg PO DAILY [facility] - Labs Labs: 10/27/17 05:20 10/27/17 05:20 PT 13.0 Seconds (9.8-13.1) 10/26/17 08:00 INR 1.2 (0.9-1.2) 10/26/17 08:00 APTT 27.0 Seconds (25.6-37.1) 10/26/17 08:00 - Constitutional Appears: No Acute Distress - Head Exam Head Exam: ATRAUMATIC, NORMAL INSPECTION, NORMOCEPHALIC - Eye Exam Eye Exam: Normal appearance - ENT Exam ENT Exam: Mucous Membranes Moist - Neck Exam Neck Exam: Full ROM. absent: Tenderness - Respiratory Exam Respiratory Exam: Clear to Ausculation Bilateral. absent: Decreased Breath Sounds, Rales, Rhonchi, Wheezes, Respiratory Distress - Cardiovascular Exam Cardiovascular Exam: REGULAR RHYTHM. absent: Tachycardia - GI/Abdominal Exam GI & Abdominal Exam: Soft, Tenderness, Normal Bowel Sounds. absent: Distended - Extremities Exam Extremities Exam: absent: Calf Tenderness, Pedal Edema, Tenderness - Back Exam Back Exam: CVA tenderness (L), CVA tenderness (R) Additional comments: CVA tenderness more on the left than the right - Neurological Exam Neurological Exam: Alert, Awake, Oriented x3 - Skin Skin Exam: Dry, Intact, Normal Color, Warm Assessment and Plan - Assessment and Plan (Free Text) Assessment: 52 y/o woman w/ pmh of HTN and IDDM2 presents to ED w/ abdominal pain Plan: Urosepsis - Gram positive bacteremia - on admission patient febrile, tachycardic, with urine as source of infection - on admission vitals: 103.1 F, 125 beats/min, 162/84 mm Hg, resp 20, O2 98% RA - CBC w/ differential: 7.4>10.4/32.2<167 - CMP: 144/4.1, 106/26, 12/0.7, glucose 227, AST 40, ALT 28, alk phos 139 - UA: cloudy, pH 7.0, protein 100, glucose 50, blood small, nitrate positive, large leukocyte esterase, negative for ketones and bilirubin - Blood culture: gram positive cocci - Urine culture: pending - given Motrin tab 600 mg PO - given Sodium Chloride 1,000 ml IV 1,000 mls/hr x2 - given Tylenol 325mg tab 650 mg PO - given Ceftriaxone 1 gm IV - IVF NS @ 100 mL/Hr - DC Ceftriaxone 1 gm IV daily - start cefepime 1 gm Q8h - start vancomycin 1 gm IV Q12 - keep vanc trough <20 - procalcitonin: 1.92 - f/u echo - monitor for acute changes - ID consulted, Dr. Solares, recommendations appreciated - f/u CBC, CMP Left Foot Ulcer - Patient reports following up w/ Dr. Gomez - start vancomycin 1 gm IV Q12 - keep vanc trough <20 - positive blood culture most likely secondary to staph from foot ulcer - podiatry consulted, Dr. Borja - f/u ESR - f/u foot XR Bacterial Vaginosis - patient reports fishy odor and vaginal pruritus, denies discharge, rash, and erythema - metronidazole 0.75% Vag BID HTN - controlled w/ medication - on enalapril 5 mg PO daily - heart healthy diet Depression - patient feels down due to problems from DM2 - psychiatry consulted, Dr. Mayers, recommendations appreciated IDDM2 - Last HbA1c 8.8% (07/24/2017) - on insulin NPH 100 Units/mL 10 units SC HS, 30 units SC QAM, and 20 units SC QPM - hypoglycemic protocol - insulin correction scale - monitor for acute changes Prophylactic measures - DVT: lovenox 40 mg SC daily - GI: PPI
[2017-10-27] MEDS: Insulin NPH Human 100 Units/ml Inj SC SCH ×3 (08:59→23:03)
[2017-10-27] MEDS: METRONIDAZOLE 0.75% VAG SCH ×2 (09:00→16:23)
[2017-10-27] MEDS: Enoxaparin 40 mg Syringe SC SCH (09:00)
[2017-10-27] MEDS: Sodium Chloride 0.9% 1,000 ML IV SCH ×2 (09:01→15:17)
[2017-10-27] MEDS: Pantoprazole 20 mg EC Tab PO SCH (09:01)
--- NOTE | 2017-10-27 11:11 | CP.PCM.CON ---
History of Present Illness - History of Present Illness History of Present Illness: Infectious Disease Consultation Note- Asked to see this patient at the request of family practice team for fever and pos blood cx. HPI- Patient is a 52 year old female with PMH of DM II, HTN, HLD who is admitted with c/o 2 weeks of abdominal pain after eating which has progressively worsened and today had nausea and vomiting as well. pt. states the abdominal pain radiates to her left groin and flank region. + fever . she also c/o itching and burning with urination, however, she states she has h/ o vaginitis frequently as well. she denies any h/o renal stones. ED course: vitals: 103.1 F, 125 beats/min, 162/84 mm Hg, resp 20, O2 98% RA CBC w/ differential: 9.1>12.4/36.6<194 CMP: 140/4.6, 102/25, 19/0.7, glucose 226, AST 24, ALT 20, alk phos 240 VBG: pH 7.35, pCO2 48, pO2 14, pHCO3 22.9, K+ 4.6, lactate 0.8, FiO2 21.0 INR: 1.2 PTT: 27.0 PT: 13.0 UA: cloudy, pH 7.0, protein 100, glucose 50, blood small, nitrate positive, large leukocyte esterase, negative for ketones and bilirubin influenza AB: negative EKG: sinus tachycardia, no acute ST elevation/depression, no prolonged QTc, QRS , or SD Chest two views (PA/LAT) [RAD]: poor inspiration w/ low lung volumes, crowded bronchovascular markings and mild bibasilar atelectasis Motrin tab 600 mg PO Sodium Chloride 1,000 ml IV 1,000 mls/hr x2 Tylenol 325mg tab 650 mg PO Ceftriaxone 1 gm IV PMD: GAC PMH: HTN, IDDM2 allergies: NKDA meds: see meds list PSH: ovarian cyst removal 20 years ago Fam: mother 76 y/o has HTN, DM2, and rheumatoid arthritis SOC: denies smoking, alcohol, and drugs Review of Systems - Review of Systems Review of Systems: ROS- + fever + abd pain in left side radiating to left groin and flank, + nause and vomiting , denies any diarrhea, + dysurea and also vaginal itchy discharge denies any sob, denies any chest pain, denies any [place] denies any recent travel denies any sick contacts Past Patient History - Infectious Disease Hx of Infectious Diseases: None - Past Medical History & Family History Past Medical History?: Yes - Past Social History Smoking Status: Never Smoked Alcohol: None Drugs: Denies Home Situation {Lives}: With Family - CARDIAC Hx Hypercholesterolemia: Yes Hx Hypertension: Yes - PULMONARY Hx Respiratory Disorders: No - NEUROLOGICAL Hx Neurological Disorder: No - HEENT Hx HEENT Problems: No - RENAL Hx Chronic Kidney Disease: No - ENDOCRINE/METABOLIC Hx Endocrine Disorders: Yes Hx Diabetes Mellitus Type 2: Yes - HEMATOLOGICAL/ONCOLOGICAL Hx Blood Disorders: No - INTEGUMENTARY Hx Dermatological Problems: No - MUSCULOSKELETAL/RHEUMATOLOGICAL Hx Arthritis: Yes Hx Falls: No - GASTROINTESTINAL Hx Gastrointestinal Disorders: No - GENITOURINARY/GYNECOLOGICAL Hx Genitourinary Disorders: No - PSYCHIATRIC Hx Psychophysiologic Disorder: No Hx Depression: Yes Hx Emotional Abuse: No Hx Physical Abuse: No Hx Substance Use: No Other/Comment: pyelonephritis - SURGICAL HISTORY 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) - ANESTHESIA Hx Anesthesia: Yes Hx Anesthesia Reactions: No Hx Malignant Hyperthermia: No Meds Allergies/Adverse Reactions: Allergies Allergy/AdvReac Type Severity Reaction Status Date / Time No Known Allergies Allergy Verified 08/28/16 11:38 - Medications Medications: Current Medications Acetaminophen (Tylenol 325mg Tab) 650 mg PO Q4 PRN PRN Reason: Fever >100.4 F Last Admin: 10/27/17 00:35 Dose: 650 mg Acetaminophen (Tylenol 650 Mg Supp) 650 mg SD ONCE PRN PRN Reason: Fever >100.4 F Last Admin: 10/27/17 00:54 Dose: 650 mg Dextrose (Dextrose 50% Inj) 0 ml IV STAT PRN; Protocol PRN Reason: Hypoglycemia Protocol Dextrose (Glutose 15) 0 gm PO ONCE PRN; Protocol PRN Reason: Hypoglycemia Protocol Enalapril Maleate (Vasotec) 5 mg PO DAILY [facility] Last Admin: 10/27/17 09:01 Dose: 5 mg Enoxaparin Sodium (Lovenox) 40 mg SC DAILY [facility] PRN Reason: Protocol Last Admin: 10/27/17 09:00 Dose: 40 mg Gabapentin (Neurontin) 200 mg PO HS PRN PRN Reason: Nerve pain/neuropathy Glucagon (Glucagen Diagnostic Kit) 0 mg IM STAT PRN; Protocol PRN Reason: Hypoglycemia Protocol Ceftriaxone Sodium 1 gm/ (Sodium Chloride) 100 mls @ 100 mls/hr IVPB DAILY [facility] PRN Reason: Protocol Last Admin: 10/27/17 09:02 Dose: 100 mls/hr Sodium Chloride (Sodium Chloride 0.9%) 1,000 mls @ 100 mls/hr IV .Q10H [facility] Stop: 10/27/17 16:47 Last Admin: 10/27/17 09:01 Dose: 100 mls/hr Insulin Human Lispro (Humalog) 0 units SC ACHS [facility] PRN Reason: Protocol Last Admin: 10/27/17 10:56 Dose: 8 units Insulin Human NPH (Humulin N) 10 units SC HS [facility] Last Admin: 10/26/17 22:10 Dose: 10 units Insulin Human NPH (Humulin N) 30 units SC QAM [facility] Last Admin: 10/27/17 08:59 Dose: 30 units Insulin Human NPH (Humulin N) 20 units SC QPM [facility] Last Admin: 10/26/17 18:42 Dose: Not Given Metronidazole (Metrogel Cream) 1 applic VAG BID [facility] Last Admin: 10/27/17 09:00 Dose: 1 applic Ondansetron HCl (Zofran Inj) 4 mg IVP Q6 PRN PRN Reason: Nausea/Vomiting Last Admin: 10/27/17 00:52 Dose: 4 mg Pantoprazole Sodium (Protonix Ec Tab) 20 mg PO DAILY [facility] Last Admin: 10/27/17 09:01 Dose: 20 mg Physical Exam - Constitutional Appears: No Acute Distress - Head Exam Head Exam: ATRAUMATIC - Eye Exam Eye Exam: EOMI, PERRL - ENT Exam ENT Exam: Normal Oropharynx - Neck Exam Neck exam: Positive for: Full Rom - Respiratory Exam Respiratory Exam: Clear to Auscultation Bilateral, NORMAL BREATHING PATTERN - Cardiovascular Exam Cardiovascular Exam: RRR, +S1, +S2 - GI/Abdominal Exam GI & Abdominal Exam: Normal Bowel Sounds, Soft Additional comments: + tenderness in left lower quadrant and pelvic region mild left CVA tenderness as well - Extremities Exam Extremities exam: Positive for: normal inspection - Neurological Exam Neurological exam: Alert, Oriented x3 Results - Vital Signs Recent Vital Signs: Last Vital Signs Temp 98.8 F 10/27/17 08:00 Pulse 97 H 10/27/17 08:00 Resp 18 10/27/17 08:00 BP 100/64 10/27/17 08:00 Pulse Ox 95 10/27/17 08:00 - Labs Result Diagrams: 10/27/17 05:20 10/27/17 05:20 Labs: Laboratory Results - last 24 hr 10/26/17 10/26/17 10/26/17 08:00 12:01 12:20 WBC RBC Hgb Hct MCV MCH MCHC RDW Plt Count Neutrophils % (Manual) 91 H Band Neutrophils % 3 H Lymphocytes % (Manual) 5 L Monocytes % (Manual) 1 Platelet Estimate Normal Large Platelets Present Anisocytosis (manual) Slight Microcytosis (manual) Slight pO2 14 L VBG pH 7.35 VBG pCO2 48 VBG HCO3 22.9 VBG Total CO2 28.0 VBG O2 Sat (Calc) 21.9 L VBG Base Excess 0.3 VBG Potassium 4.6 Sodium 140.0 Chloride 108.0 H Glucose 189 H Lactate 0.8 FiO2 21.0 Potassium Carbon Dioxide Anion Gap BUN Creatinine Est GFR ( Amer) Est GFR (Non-Af Amer) POC Glucose (mg/dL) Random Glucose Calcium Total Bilirubin AST ALT Alkaline Phosphatase Troponin I Total Protein Albumin Globulin Albumin/Globulin Ratio Venous Blood Potassium 4.6 Influenza Typ A,B (EIA) Negative for flu a/b 10/26/17 10/26/17 10/27/17 20:19 21:18 05:20 WBC 7.4 RBC 4.10 Hgb 10.4 L D Hct 32.2 L MCV 78.6 L MCH 25.5 L MCHC 32.4 L RDW 14.8 H Plt Count 167 Neutrophils % (Manual) Band Neutrophils % Lymphocytes % (Manual) Monocytes % (Manual) Platelet Estimate Large Platelets Anisocytosis (manual) Microcytosis (manual) pO2 VBG pH VBG pCO2 VBG HCO3 VBG Total CO2 VBG O2 Sat (Calc) VBG Base Excess VBG Potassium Sodium Chloride Glucose Lactate FiO2 Potassium Carbon Dioxide Anion Gap BUN Creatinine Est GFR ( Amer) Est GFR (Non-Af Amer) POC Glucose (mg/dL) 290 H Random Glucose Calcium Total Bilirubin AST ALT Alkaline Phosphatase Troponin I < 0.0120 Total Protein Albumin Globulin Albumin/Globulin Ratio Venous Blood Potassium Influenza Typ A,B (EIA) 10/27/17 10/27/1718 05:20 05:20 05:41 WBC RBC Hgb Hct MCV MCH MCHC RDW Plt Count Neutrophils % (Manual) Band Neutrophils % Lymphocytes % (Manual) Monocytes % (Manual) Platelet Estimate Large Platelets Anisocytosis (manual) Microcytosis (manual) pO2 VBG pH VBG pCO2 VBG HCO3 VBG Total CO2 VBG O2 Sat (Calc) VBG Base Excess VBG Potassium Sodium 144 Chloride 106 Glucose Lactate FiO2 Potassium 4.1 Carbon Dioxide 26 Anion Gap 16 BUN 12 Creatinine 0.7 Est GFR ( Amer) > 60 Est GFR (Non-Af Amer) > 60 POC Glucose (mg/dL) 229 H Random Glucose 227 H Calcium 8.2 L Total Bilirubin 0.3 AST 40 H D ALT 28 Alkaline Phosphatase 139 H D Troponin I < 0.0120 Total Protein 6.5 Albumin 3.0 L D Globulin 3.4 Albumin/Globulin Ratio 0.9 L Venous Blood Potassium Influenza Typ A,B (EIA) 10/27/17 10/27/17 08:39 10:48 WBC RBC Hgb Hct MCV MCH MCHC RDW Plt Count Neutrophils % (Manual) Band Neutrophils % Lymphocytes % (Manual) Monocytes % (Manual) Platelet Estimate Large Platelets Anisocytosis (manual) Microcytosis (manual) pO2 VBG pH VBG pCO2 VBG HCO3 VBG Total CO2 VBG O2 Sat (Calc) VBG Base Excess VBG Potassium Sodium Chloride Glucose Lactate FiO2 Potassium Carbon Dioxide Anion Gap BUN Creatinine Est GFR ( Amer) Est GFR (Non-Af Amer) POC Glucose (mg/dL) 366 H Random Glucose Calcium Total Bilirubin AST ALT Alkaline Phosphatase Troponin I < 0.0120 Total Protein Albumin Globulin Albumin/Globulin Ratio Venous Blood Potassium Influenza Typ A,B (EIA) Laboratory Results - last 72 hr 10/26/17 10/26/17 10/26/17 08:00 08:00 08:00 WBC 9.1 D RBC 4.72 Hgb 12.4 Hct 36.6 MCV 77.5 L D MCH 26.3 L MCHC 34.0 RDW 14.9 H Plt Count 194 MPV 7.2 Neut % (Auto) 91.5 H Lymph % (Auto) 4.0 L [place] % (Auto) 3.4 Eos % (Auto) 0.6 Baso % (Auto) 0.5 Neut # (Auto) 8.3 H Lymph # (Auto) 0.4 L [place] # (Auto) 0.3 Eos # (Auto) 0.1 Baso # (Auto) 0.0 Neutrophils % (Manual) 91 H Band Neutrophils % 3 H Lymphocytes % (Manual) 5 L Monocytes % (Manual) 1 Platelet Estimate Normal Large Platelets Present Anisocytosis (manual) Slight Microcytosis (manual) Slight PT 13.0 INR 1.2 APTT 27.0 pO2 VBG pH VBG pCO2 VBG HCO3 VBG Total CO2 VBG O2 Sat (Calc) VBG Base Excess VBG Potassium Glucose Lactate FiO2 Sodium 140 Potassium 4.6 Chloride 102 Carbon Dioxide 25 Anion Gap 18 BUN 19 H Creatinine 0.7 Est GFR ( Amer) > 60 Est GFR (Non-Af Amer) > 60 POC Glucose (mg/dL) Random Glucose 226 H Calcium 9.5 Total Bilirubin 0.5 AST 24 ALT 20 Alkaline Phosphatase 240 H Troponin I Total Protein 8.2 Albumin 4.1 Globulin 4.1 H Albumin/Globulin Ratio 1.0 Venous Blood Potassium Urine Color Urine Clarity Urine pH Ur Specific [place] Urine Protein Urine Glucose (UA) Urine Ketones Urine Blood Urine Nitrate Urine Bilirubin Urine Urobilinogen Ur Leukocyte Esterase Urine RBC (Auto) Urine Microscopic WBC Ur Squamous Epith Cells Urine Bacteria Influenza Typ A,B (EIA) 10/26/17 10/26/17 10/26/17 08:00 08:19 12:01 WBC RBC Hgb Hct MCV MCH MCHC RDW Plt Count MPV Neut % (Auto) Lymph % (Auto) [place] % (Auto) Eos % (Auto) Baso % (Auto) Neut # (Auto) Lymph # (Auto) [place] # (Auto) Eos # (Auto) Baso # (Auto) Neutrophils % (Manual) Band Neutrophils % Lymphocytes % (Manual) Monocytes % (Manual) Platelet Estimate Large Platelets Anisocytosis (manual) Microcytosis (manual) PT INR APTT pO2 14 L VBG pH 7.35 VBG pCO2 48 VBG HCO3 22.9 VBG Total CO2 28.0 VBG O2 Sat (Calc) 21.9 L VBG Base Excess 0.3 VBG Potassium 4.6 Glucose 189 H Lactate 0.8 FiO2 21.0 Sodium 140.0 Potassium Chloride 108.0 H Carbon Dioxide Anion Gap BUN Creatinine Est GFR ( Amer) Est GFR (Non-Af Amer) POC Glucose (mg/dL) 182 H Random Glucose Calcium Total Bilirubin AST ALT Alkaline Phosphatase Troponin I Total Protein Albumin Globulin Albumin/Globulin Ratio Venous Blood Potassium 4.6 Urine Color Yellow Urine Clarity Cloudy Urine pH 7.0 Ur Specific [place] 1.019 Urine Protein 100 Urine Glucose (UA) 50 Urine Ketones Negative Urine Blood Small Urine Nitrate Positive H Urine Bilirubin Negative Urine Urobilinogen 0.2-1.0 Ur Leukocyte Esterase Large Urine RBC (Auto) 33 H Urine Microscopic WBC 260 H Ur Squamous Epith Cells 22 H Urine Bacteria Many H Influenza Typ A,B (EIA) 10/26/17 10/26/17 10/26/17 12:20 20:19 21:18 WBC RBC Hgb Hct MCV MCH MCHC RDW Plt Count MPV Neut % (Auto) Lymph % (Auto) [place] % (Auto) Eos % (Auto) Baso % (Auto) Neut # (Auto) Lymph # (Auto) [place] # (Auto) Eos # (Auto) Baso # (Auto) Neutrophils % (Manual) Band Neutrophils % Lymphocytes % (Manual) Monocytes % (Manual) Platelet Estimate Large Platelets Anisocytosis (manual) Microcytosis (manual) PT INR APTT pO2 VBG pH VBG pCO2 VBG HCO3 VBG Total CO2 VBG O2 Sat (Calc) VBG Base Excess VBG Potassium Glucose Lactate FiO2 Sodium Potassium Chloride Carbon Dioxide Anion Gap BUN Creatinine Est GFR ( Amer) Est GFR (Non-Af Amer) POC Glucose (mg/dL) 290 H Random Glucose Calcium Total Bilirubin AST ALT Alkaline Phosphatase Troponin I < 0.0120 Total Protein Albumin Globulin Albumin/Globulin Ratio Venous Blood Potassium Urine Color Urine Clarity Urine pH Ur Specific [place] Urine Protein Urine Glucose (UA) Urine Ketones Urine Blood Urine Nitrate Urine Bilirubin Urine Urobilinogen Ur Leukocyte Esterase Urine RBC (Auto) Urine Microscopic WBC Ur Squamous Epith Cells Urine Bacteria Influenza Typ A,B (EIA) Negative for flu a/b 10/27/17 10/27/17 10/27/17 05:20 05:20 05:20 WBC 7.4 RBC 4.10 Hgb 10.4 L D Hct 32.2 L MCV 78.6 L MCH 25.5 L MCHC 32.4 L RDW 14.8 H Plt Count 167 MPV Neut % (Auto) Lymph % (Auto) [place] % (Auto) Eos % (Auto) Baso % (Auto) Neut # (Auto) Lymph # (Auto) [place] # (Auto) Eos # (Auto) Baso # (Auto) Neutrophils % (Manual) Band Neutrophils % Lymphocytes % (Manual) Monocytes % (Manual) Platelet Estimate Large Platelets Anisocytosis (manual) Microcytosis (manual) PT INR APTT pO2 VBG pH VBG pCO2 VBG HCO3 VBG Total CO2 VBG O2 Sat (Calc) VBG Base Excess VBG Potassium Glucose Lactate FiO2 Sodium 144 Potassium 4.1 Chloride 106 Carbon Dioxide 26 Anion Gap 16 BUN 12 Creatinine 0.7 Est GFR ( Amer) > 60 Est GFR (Non-Af Amer) > 60 POC Glucose (mg/dL) Random Glucose 227 H Calcium 8.2 L Total Bilirubin 0.3 AST 40 H D ALT 28 Alkaline Phosphatase 139 H D Troponin I < 0.0120 Total Protein 6.5 Albumin 3.0 L D Globulin 3.4 Albumin/Globulin Ratio 0.9 L Venous Blood Potassium Urine Color Urine Clarity Urine pH Ur Specific [place] Urine Protein Urine Glucose (UA) Urine Ketones Urine Blood Urine Nitrate Urine Bilirubin Urine Urobilinogen Ur Leukocyte Esterase Urine RBC (Auto) Urine Microscopic WBC Ur Squamous Epith Cells Urine Bacteria Influenza Typ A,B (EIA) 10/27/17 10/27/17 10/27/17 05:41 08:39 10:48 WBC RBC Hgb Hct MCV MCH MCHC RDW Plt Count MPV Neut % (Auto) Lymph % (Auto) [place] % (Auto) Eos % (Auto) Baso % (Auto) Neut # (Auto) Lymph # (Auto) [place] # (Auto) Eos # (Auto) Baso # (Auto) Neutrophils % (Manual) Band Neutrophils % Lymphocytes % (Manual) Monocytes % (Manual) Platelet Estimate Large Platelets Anisocytosis (manual) Microcytosis (manual) PT INR APTT pO2 VBG pH VBG pCO2 VBG HCO3 VBG Total CO2 VBG O2 Sat (Calc) VBG Base Excess VBG Potassium Glucose Lactate FiO2 Sodium Potassium Chloride Carbon Dioxide Anion Gap BUN Creatinine Est GFR ( Amer) Est GFR (Non-Af Amer) POC Glucose (mg/dL) 229 H 366 H Random Glucose Calcium Total Bilirubin AST ALT Alkaline Phosphatase Troponin I < 0.0120 Total Protein Albumin Globulin Albumin/Globulin Ratio Venous Blood Potassium Urine Color Urine Clarity Urine pH Ur Specific [place] Urine Protein Urine Glucose (UA) Urine Ketones Urine Blood Urine Nitrate Urine Bilirubin Urine Urobilinogen Ur Leukocyte Esterase Urine RBC (Auto) Urine Microscopic WBC Ur Squamous Epith Cells Urine Bacteria Influenza Typ A,B (EIA) Microbiology 10/26/17 17:20 Urine Urine Culture - Preliminary Gram Negative Chris 10/26/17 08:00 Blood S.aureus & Coag-Neg Staph PNA FISH - Preliminary 10/26/17 08:00 Blood Blood Culture - Preliminary Gram Positive Cocci 10/26/17 08:00 Blood Gram Stain - Final Microbiology 07/24/17 13:18 Urine,Clean Catch Urine Culture - Final Escherichia Coli 06/23/17 16:15 Foot - Right Gram Stain - Final 06/23/17 16:15 Foot - Right Wound Culture - Final Coagulase Neg Staphylococcus 06/19/17 13:02 Blood-Venous Blood Culture - Final 06/19/17 13:02 Blood-Venous Gram Stain - Final NO GROWTH AFTER 5 DAYS TEST NOT PERFORMED 06/19/17 12:47 Blood-Venous Blood Culture - Final 06/19/17 12:47 Blood-Venous Gram Stain - Final NO GROWTH AFTER 5 DAYS TEST NOT PERFORMED 12/16/16 15:40 Foot - Right Gram Stain - Final 12/16/16 15:40 Foot - Right Wound Culture - Final Corynebacterium Species Patient Name / ID : FREDA CRAFT / [id number] Exam Date : 10/26/2017 08:03:47 ( Approved ) Study Comment : Sex / Age : F / [id number] Creator : Faheem Saini MD Dictator : Faheem Saini MD Data Migration Consultant : Iron Setter : Faheem Saini MD Approver2 : Report Date : 10/26/2017 09:57:14 My Comment : HISTORY: Cough COMPARISON: No prior. TECHNIQUE: Chest PA and lateral FINDINGS: LUNGS: Poor inspiration with low lung volumes, crowded bronchovascular markings and mild bibasilar atelectasis. PLEURA: No significant pleural effusion identified. No pneumothorax apparent. CARDIOVASCULAR: Normal. OSSEOUS STRUCTURES: No significant abnormalities. VISUALIZED UPPER ABDOMEN: Normal. OTHER FINDINGS: None. IMPRESSION: Poor inspiration with low lung volumes, crowded bronchovascular markings and mild bibasilar atelectasis. Assessment & Plan (1) Sepsis Status: Acute (2) UTI (urinary tract infection) Status: Acute (3) Diabetes Status: Acute (4) Bacteremia Status: Acute - Assessment and Plan (Free Text) Assessment: A/P- 52 y/o female with DM II, HTN, HLD admitted with LLQ abd pain and dysurea. found to be febrile + UA and urine cx prelim - GNR Blood cx prelim GPC. plan- await ID and sens of the blood cx could be contaminant but also based on previous cx report shad GPC in foot cx in past , hence advise to start IV vancomycin pending further results. keep trough <20. advise to d/c ceftriaxone and start pt. on cefepime pending ID and sens of the GNR in Urine cx. check TTE r/o vegetations. check 2 more blood cx. may need abd Ct r/o pyelo. Thank you for allowing me to take part in the care of this patient. All above d/w patient at length and answered all her questions. case d/w Dr.Pierre Johnson as well.
--- NOTE | 2017-10-27 16:05 | CP.PCM.CON ---
History of Present Illness - History of Present Illness History of Present Illness: HPI: 52 y/o woman w/ pmh of HTN and IDDM2 presents to ED w/ abdominal pain. pt has been noted by staff to be depressed, on evaluation pt reported depressed mood due to diabetic neuropathy, reported decreased sleep, no changes in appetite no other depressive manic or psychotic symptoms denied S/HI Past Patient History - Infectious Disease Hx of Infectious Diseases: None - Past Medical History & Family History Past Medical History?: Yes - Past Social History Smoking Status: Never Smoked - CARDIAC Hx Hypercholesterolemia: Yes Hx Hypertension: Yes - PULMONARY Hx Respiratory Disorders: No - NEUROLOGICAL Hx Neurological Disorder: No - HEENT Hx HEENT Problems: No - RENAL Hx Chronic Kidney Disease: No - ENDOCRINE/METABOLIC Hx Endocrine Disorders: Yes Hx Diabetes Mellitus Type 2: Yes - HEMATOLOGICAL/ONCOLOGICAL Hx Human Immunodeficiency Virus (HIV): No - INTEGUMENTARY Hx Dermatological Problems: No - MUSCULOSKELETAL/RHEUMATOLOGICAL Hx Arthritis: Yes Hx Falls: No - GASTROINTESTINAL Hx Gastrointestinal Disorders: No - GENITOURINARY/GYNECOLOGICAL Hx Genitourinary Disorders: No - PSYCHIATRIC Hx Psychophysiologic Disorder: No Hx Depression: Yes Hx Emotional Abuse: No Hx Physical Abuse: No Hx Substance Use: No Other/Comment: pyelonephritis - SURGICAL HISTORY 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) - ANESTHESIA Hx Anesthesia: Yes Hx Anesthesia Reactions: No Hx Malignant Hyperthermia: No Meds Allergies/Adverse Reactions: Allergies Allergy/AdvReac Type Severity Reaction Status Date / Time No Known Allergies Allergy Verified 08/28/16 11:38 - Medications Medications: Current Medications Acetaminophen (Tylenol 325mg Tab) 650 mg PO Q4 PRN PRN Reason: Fever >100.4 F Last Admin: 10/27/17 00:35 Dose: 650 mg Acetaminophen (Tylenol 650 Mg Supp) 650 mg RI ONCE PRN PRN Reason: Fever >100.4 F Last Admin: 10/27/17 00:54 Dose: 650 mg Dextrose (Dextrose 50% Inj) 0 ml IV STAT PRN; Protocol PRN Reason: Hypoglycemia Protocol Dextrose (Glutose 15) 0 gm PO ONCE PRN; Protocol PRN Reason: Hypoglycemia Protocol Enalapril Maleate (Vasotec) 5 mg PO DAILY [facility] Last Admin: 10/27/17 09:01 Dose: 5 mg Enoxaparin Sodium (Lovenox) 40 mg SC DAILY [facility] PRN Reason: Protocol Last Admin: 10/27/17 09:00 Dose: 40 mg Gabapentin (Neurontin) 200 mg PO HS PRN PRN Reason: Nerve pain/neuropathy Glucagon (Glucagen Diagnostic Kit) 0 mg IM STAT PRN; Protocol PRN Reason: Hypoglycemia Protocol Hydromorphone HCl (Dilaudid) 0.25 mg IVP Q6H PRN PRN Reason: Pain, severe (8-10) Last Admin: 10/27/17 15:13 Dose: 0.25 mg Ceftriaxone Sodium 1 gm/ (Sodium Chloride) 100 mls @ 100 mls/hr IVPB DAILY [facility] PRN Reason: Protocol Last Admin: 10/27/17 09:02 Dose: 100 mls/hr Sodium Chloride (Sodium Chloride 0.9%) 1,000 mls @ 100 mls/hr IV .Q10H [facility] Stop: 10/27/17 16:47 Last Admin: 10/27/17 15:17 Dose: 100 mls/hr Ibuprofen (Motrin Tab) 600 mg PO Q8 PRN PRN Reason: Pain, moderate (4-7) Last Admin: 10/27/17 13:47 Dose: 600 mg Insulin Human Lispro (Humalog) 0 units SC ACHS [facility] PRN Reason: Protocol Last Admin: 10/27/17 10:56 Dose: 8 units Insulin Human NPH (Humulin N) 10 units SC HS [facility] Last Admin: 10/26/17 22:10 Dose: 10 units Insulin Human NPH (Humulin N) 30 units SC QAM [facility] Last Admin: 10/27/17 08:59 Dose: 30 units Insulin Human NPH (Humulin N) 20 units SC QPM [facility] Last Admin: 10/26/17 18:42 Dose: Not Given Metronidazole (Metrogel Cream) 1 applic VAG BID [facility] Last Admin: 10/27/17 09:00 Dose: 1 applic Ondansetron HCl (Zofran Inj) 4 mg IVP Q6 PRN PRN Reason: Nausea/Vomiting Last Admin: 10/27/17 00:52 Dose: 4 mg Pantoprazole Sodium (Protonix Ec Tab) 20 mg PO DAILY [facility] Last Admin: 10/27/17 09:01 Dose: 20 mg Physical Exam - Psychiatric Exam Additional comments: PT SEEN IN BED [employer] CONTACT SPEECH NORMAL THOUGHT FORM COHERENT MOOD REPORTED SAD AT TIMES , AFFECT APPROPRIATE DENIED SUICIDAL OR HOMIOCIDAL IDEATIONS DENIED PERCEPTUAL DISTURBANCES Results - Vital Signs Recent Vital Signs: Last Vital Signs Temp 100.0 F H 10/27/17 15:58 Pulse 82 10/27/17 15:58 Resp 20 10/27/17 15:58 BP 100/65 10/27/17 15:58 Pulse Ox 97 10/27/17 15:58 - Labs Result Diagrams: 10/27/17 05:20 10/27/17 05:20 Labs: Laboratory Results - last 24 hr 10/26/17 10/26/17 10/27/17 20:19 21:18 05:20 WBC 7.4 RBC 4.10 Hgb 10.4 L D Hct 32.2 L MCV 78.6 L MCH 25.5 L MCHC 32.4 L RDW 14.8 H Plt Count 167 Sodium Potassium Chloride Carbon Dioxide Anion Gap BUN Creatinine Est GFR ( Amer) Est GFR (Non-Af Amer) POC Glucose (mg/dL) 290 H Random Glucose Calcium Total Bilirubin AST ALT Alkaline Phosphatase Troponin I < 0.0120 Total Protein Albumin Globulin Albumin/Globulin Ratio 10/27/17 10/27/17 10/27/17 05:20 05:20 05:41 WBC RBC Hgb Hct MCV MCH MCHC RDW Plt Count Sodium 144 Potassium 4.1 Chloride 106 Carbon Dioxide 26 Anion Gap 16 BUN 12 Creatinine 0.7 Est GFR ( Amer) > 60 Est GFR (Non-Af Amer) > 60 POC Glucose (mg/dL) 229 H Random Glucose 227 H Calcium 8.2 L Total Bilirubin 0.3 AST 40 H D ALT 28 Alkaline Phosphatase 139 H D Troponin I < 0.0120 Total Protein 6.5 Albumin 3.0 L D Globulin 3.4 Albumin/Globulin Ratio 0.9 L 10/27/17 10/27/17 08:39 10:48 WBC RBC Hgb Hct MCV MCH MCHC RDW Plt Count Sodium Potassium Chloride Carbon Dioxide Anion Gap BUN Creatinine Est GFR ( Amer) Est GFR (Non-Af Amer) POC Glucose (mg/dL) 366 H Random Glucose Calcium Total Bilirubin AST ALT Alkaline Phosphatase Troponin I < 0.0120 Total Protein Albumin Globulin Albumin/Globulin Ratio Assessment & Plan - Assessment and Plan (Free Text) Assessment: MOOD DISORDER DUE TO MEDICAL CONDITION WITH DEPRESSIVE FEATURES Plan: RECOMMEND [employer] RESPIRATORY CARE ASSISTANT TO ASSIST IN LINKING THE PT TO OUTPATIENT PSYCHIATRIC CARE
[2017-10-27] MEDS: Cefepime 1 GM in Sodium Chloride 0.9% 100 ML IVPB SCH (17:31)
--- NOTE | 2017-10-27 18:50 | CARD ---
APPROVED REPORT EXAM: Two-dimensional and M-mode echocardiogram with Doppler and color Doppler. Other Information Quality : AverageRhythm : Tachycardia INDICATION ICD: Sepsis 2D DIMENSIONS IVSd1.03 (0.7-1.1cm)LVDd3.29 (3.9-5.9cm) LVOT Diameter1.91 (1.8-2.4cm)PWd0.99 (0.7-1.1cm) IVSs1.59 (0.8-1.2cm)LVDs2.01 (2.5-4.0cm) FS (%) 38.9 %PWs1.30 (0.8-1.2cm) M-Mode DIMENSIONS Left Atrium (MM)3.97 (2.5-4.0cm)IVSd0.88 (0.7-1.1cm) Aortic Root2.67 (2.2-3.7cm)LVDd3.92 (4.0-5.6cm) Aortic Cusp Exc.1.82 (1.5-2.0cm)PWd1.02 (0.7-1.1cm) IVSs1.68 cmFS (%) 51 % LVDs1.93 (2.0-3.8cm)PWs1.49 cm Mitral Valve E/A ratio0.0 TDI E/Lateral E'0.0E/Medial E'0.0 Pulmonary Valve PV Peak Eurjmrtv54.8cm/s LEFT VENTRICLE The left ventricle is normal in size. There is normal left ventricular wall thickness. The left ventricular function is normal. The left ventricular ejection fraction is - 70%. There is normal LV segmental wall motion. Transmitral Doppler flow pattern is abnormal. No left ventricle thrombus noted on this study. There is no ventricular septal defect visualized. There is no left ventricular aneurysm. There is no mass noted in the left ventricle. RIGHT VENTRICLE The right ventricle is normal size. There is normal right ventricular wall thickness. The right ventricular systolic function is normal. ATRIA The left atrium size is normal. There is no thrombus suspected in the left atrium. The right atrium size is normal. The interatrial septum is intact with no evidence for an atrial septal defect. AORTIC VALVE The aortic valve is normal in structure. No aortic regurgitation is present. There is no aortic valvular stenosis. There is no aortic valvular vegetation. MITRAL VALVE The mitral valve is normal in structure. There is no evidence of mitral valve prolapse. There is no mitral valve stenosis. Mitral regurgitation is trace. TRICUSPID VALVE The tricuspid valve is normal in structure. There is no tricuspid valve regurgitation noted. There is no tricuspid valve prolapse or vegetation. There is no tricuspid valve stenosis. PULMONIC VALVE The pulmonary valve is normal in structure. There is no pulmonic valvular regurgitation. GREAT VESSELS The aortic root is normal in size. The IVC is normal in size and collapses >50% with inspiration. PERICARDIAL EFFUSION The pericardium appears normal. There is no pleural effusion. <Conclusion> The left ventricle is normal in size and wall thickness. The left ventricular function is normal. The left ventricular ejection fraction is - 70%. The left atrium, right ventricle and right atrium are normal in size. The mitral, aortic and tricuspid valves are normal No valvular vegetations were seen. There is trace mitral regurgitation.
--- NOTE | 2017-10-27 19:01 | CARD ---
APPROVED REPORT EKG Measurement Heart [id number] <Conclusion> Normal sinus rhythm Normal ECG
[2017-10-27] MEDS ORDERED: Povidone Iodine Topical 10% Sol ONE (20:56)
--- NOTE | 2017-10-27 21:34 | CP.PCM.CON ---
History of Present Illness - History of Present Illness History of Present Illness: Consult note - Dr. Gomez 52 year old female patient with PMHx of diabetes, HTN, hypercholesterolemia was seen and evaluated at bedside for left foot 4th digit wound and right lateral foot wound. Patient reports that she has been seeing Dr. Gomez in the wound care center for the wounds. Patient reports that she came to the hospital for abdominal pain couple of days ago. Patient reports that she has had these wounds for a while. Patient reports that she has little pain on the left side but does not bother her too much. Patient reports that she has been having fever and has been vomiting. Patient denies of any other pedal complains at this time. PMHx: diabetes, HTN, hypercholesterolemia PSHx: ovarian cyst removal 20 years ago Allergies: NKDA SHx: denies smoking, alcohol, and drugs Review of Systems - Constitutional Constitutional: As Per HPI Past Patient History - Infectious Disease Hx of Infectious Diseases: None - Past Medical History & Family History Past Medical History?: Yes - Past Social History Smoking Status: Never Smoked Alcohol: None Drugs: Denies Home Situation {Lives}: With Family - CARDIAC Hx Hypercholesterolemia: Yes Hx Hypertension: Yes - PULMONARY Hx Respiratory Disorders: No - NEUROLOGICAL Hx Neurological Disorder: No - HEENT Hx HEENT Problems: No - RENAL Hx Chronic Kidney Disease: No - ENDOCRINE/METABOLIC Hx Endocrine Disorders: Yes Hx Diabetes Mellitus Type 2: Yes - HEMATOLOGICAL/ONCOLOGICAL Hx Blood Disorders: No - INTEGUMENTARY Hx Dermatological Problems: No - MUSCULOSKELETAL/RHEUMATOLOGICAL Hx Arthritis: Yes Hx Falls: No - GASTROINTESTINAL Hx Gastrointestinal Disorders: No - GENITOURINARY/GYNECOLOGICAL Hx Genitourinary Disorders: No - PSYCHIATRIC Hx Psychophysiologic Disorder: No Hx Depression: Yes Hx Emotional Abuse: No Hx Physical Abuse: No Hx Substance Use: No Other/Comment: pyelonephritis - SURGICAL HISTORY 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) - ANESTHESIA Hx Anesthesia: Yes Hx Anesthesia Reactions: No Hx Malignant Hyperthermia: No Meds Allergies/Adverse Reactions: Allergies Allergy/AdvReac Type Severity Reaction Status Date / Time No Known Allergies Allergy Verified 08/28/16 11:38 - Medications Medications: Current Medications Acetaminophen (Tylenol 325mg Tab) 650 mg PO Q4 PRN PRN Reason: Fever >100.4 F Last Admin: 10/27/17 00:35 Dose: 650 mg Acetaminophen (Tylenol 650 Mg Supp) 650 mg NE ONCE PRN PRN Reason: Fever >100.4 F Last Admin: 10/27/17 00:54 Dose: 650 mg Dextrose (Dextrose 50% Inj) 0 ml IV STAT PRN; Protocol PRN Reason: Hypoglycemia Protocol Dextrose (Glutose 15) 0 gm PO ONCE PRN; Protocol PRN Reason: Hypoglycemia Protocol Enalapril Maleate (Vasotec) 5 mg PO DAILY [facility] Last Admin: 10/27/17 09:01 Dose: 5 mg Enoxaparin Sodium (Lovenox) 40 mg SC DAILY [facility] PRN Reason: Protocol Last Admin: 10/27/17 09:00 Dose: 40 mg Gabapentin (Neurontin) 200 mg PO HS PRN PRN Reason: Nerve pain/neuropathy Glucagon (Glucagen Diagnostic Kit) 0 mg IM STAT PRN; Protocol PRN Reason: Hypoglycemia Protocol Hydromorphone HCl (Dilaudid) 0.25 mg IVP Q6H PRN PRN Reason: Pain, severe (8-10) Last Admin: 10/27/17 15:13 Dose: 0.25 mg Vancomycin HCl 1 gm/ Sodium (Chloride) 250 mls @ 166.667 mls/hr IVPB Q12 [facility] PRN Reason: Protocol Last Admin: 10/27/17 20:32 Dose: 166.667 mls/hr Cefepime HCl 1 gm/ Sodium (Chloride) 100 mls @ 100 mls/hr IVPB Q8 [facility] PRN Reason: Protocol Last Admin: 10/27/17 17:31 Dose: 100 mls/hr Ibuprofen (Motrin Tab) 600 mg PO Q8 PRN PRN Reason: Pain, moderate (4-7) Last Admin: 10/27/17 13:47 Dose: 600 mg Insulin Human Lispro (Humalog) 0 units SC ACHS [facility] PRN Reason: Protocol Last Admin: 10/27/17 16:25 Dose: 4 units Insulin Human NPH (Humulin N) 10 units SC HS [facility] Last Admin: 10/26/17 22:10 Dose: 10 units Insulin Human NPH (Humulin N) 30 units SC QAM [facility] Last Admin: 10/27/17 08:59 Dose: 30 units Insulin Human NPH (Humulin N) 20 units SC QPM [facility] Last Admin: 10/27/17 17:34 Dose: 20 unit Metronidazole (Metrogel Cream) 1 applic VAG BID [facility] Last Admin: 10/27/17 16:23 Dose: 1 applic Ondansetron HCl (Zofran Inj) 4 mg IVP Q6 PRN PRN Reason: Nausea/Vomiting Last Admin: 10/27/17 17:30 Dose: 4 mg Pantoprazole Sodium (Protonix Ec Tab) 20 mg PO DAILY [facility] Last Admin: 10/27/17 09:01 Dose: 20 mg Physical Exam - Constitutional Appears: Well, Non-toxic, No Acute Distress - Extremities Exam Additional comments: Bilateral LE exam: VASC: DP/PT pulses are palpable 2/4 B/L. Cap refill time: < 3 seconds to all digits. Skin temperature warm to warm from proximal to distal on the left and warm to cool from proximal to distal. mild non-pitting edema noted at the distal aspect of the foot on the left accompanied by erythema which extends proximally to the level of midfoot DERM: left foot 4th digit appears to have hyperpigmented gangrenous changes to the distal medial aspect of the digit with superficial skin shedding and purulent drainage, malodor present, + probe to bone to the middle/head of the proximal phalanx, erythema extending to the midfoot, suspicious of active infection. Proximal lateral aspect of the right foot appears to have two small circular wounds surrounded by very macerated skin measuring approx 3 cm x 4 cm. No active drainage, no purulence, mild fluctuence, no yao-wound erythema, suspicious of an abscess NEURO: Protective sensation grossly diminished ORTHO: mild tenderness on palpation of the left foot 4th digit - Neurological Exam Neurological exam: Alert, Oriented x3 - Psychiatric Exam Psychiatric exam: Normal Affect, Normal Mood Results - Vital Signs Recent Vital Signs: Last Vital Signs Temp 97.6 F 10/27/17 21:05 Pulse 88 10/27/17 21:05 Resp 20 10/27/17 21:05 BP 119/76 10/27/17 21:05 Pulse Ox 97 10/27/17 21:05 - Labs Result Diagrams: 10/27/17 05:20 10/27/17 05:20 Labs: Laboratory Results - last 24 hr 10/26/17 10/26/17 10/27/17 18:54 21:18 05:20 WBC 7.4 RBC 4.10 Hgb 10.4 L D Hct 32.2 L MCV 78.6 L MCH 25.5 L MCHC 32.4 L RDW 14.8 H Plt Count 167 ESR Sodium Potassium Chloride Carbon Dioxide Anion Gap BUN Creatinine Est GFR ( Amer) Est GFR (Non-Af Amer) POC Glucose (mg/dL) 290 H Random Glucose Calcium Total Bilirubin AST ALT Alkaline Phosphatase Troponin I Total Protein Albumin Globulin Albumin/Globulin Ratio Procalcitonin 1.92 H 10/27/17 10/27/17 10/27/17 05:20 05:20 05:41 WBC RBC Hgb Hct MCV MCH MCHC RDW Plt Count ESR Sodium 144 Potassium 4.1 Chloride 106 Carbon Dioxide 26 Anion Gap 16 BUN 12 Creatinine 0.7 Est GFR ( Amer) > 60 Est GFR (Non-Af Amer) > 60 POC Glucose (mg/dL) 229 H Random Glucose 227 H Calcium 8.2 L Total Bilirubin 0.3 AST 40 H D ALT 28 Alkaline Phosphatase 139 H D Troponin I < 0.0120 Total Protein 6.5 Albumin 3.0 L D Globulin 3.4 Albumin/Globulin Ratio 0.9 L Procalcitonin 10/27/17 10/27/17 10/27/17 08:39 10:48 16:53 WBC RBC Hgb Hct MCV MCH MCHC RDW Plt Count ESR 95 H Sodium Potassium Chloride Carbon Dioxide Anion Gap BUN Creatinine Est GFR ( Amer) Est GFR (Non-Af Amer) POC Glucose (mg/dL) 366 H Random Glucose Calcium Total Bilirubin AST ALT Alkaline Phosphatase Troponin I < 0.0120 Total Protein Albumin Globulin Albumin/Globulin Ratio Procalcitonin Assessment & Plan - Assessment and Plan (Free Text) Assessment: 52 year old female patient with PMHx of DM, HTN evaluated at bedside for 1). left foot 4th digit infected wound with gangrenous changes 2) cellulitis of the left foot 3). possible abscess on the right foot Plan: Patient seen and evaluated at bedside Patient discussed in details with attending Dr. Gomez Labs, vitals and charts reviewed - febrile, no leukocytosis Blood culture: + for G + cocci Bilateral wound cultures taken - Pending results X-rays of the bilateral foot ordered - pending MRI of the bilateral LE ordered - pending IV abx as per ID - Cedepimeme, Vancomycin Patient will need medical optimization for OR next week Thank you for the podiatry consult and allowing to take part in patient care Podiatry to follow patient while in-house - Date & Time Date: 10/27/17 Time: 21:50
[2017-10-28] MEDS: Cefepime 1 GM in Sodium Chloride 0.9% 100 ML IVPB SCH ×2 (00:17→08:39)
[2017-10-28] MEDS: Insulin Lispro (humaLOG) 100 Units/ml Inj SC SCH (06:50)
[2017-10-28 06:56] LABS: HEMOGLOBIN 10.3 g/dL (12.0-16.0); MEAN CELL VOLUME 77.3 fl (81.0-99.0); MEAN CORPUSCULAR HEMOGLOBIN 25.9 pg (27.0-31.0); MEAN CORPUSCULAR HGB CONC 33.6 g/dL (33.0-37.0); RBC 3.95 Mil/uL (3.80-5.20); RED CELL DISTRIBUTION WIDTH 14.8 % (11.5-14.5); WHITE BLOOD COUNT 5.6 K/uL (4.8-10.8)
[2017-10-28 07:41] LABS: ALB/GLOB RATIO 0.8 (1.0-2.1); ALT/SGPT 25 U/L (9-52); AST/SGOT 22 U/L (14-36); BLOOD UREA NITROGEN 9 mg/dl (7-17); CALCIUM 8.4 mg/dL (8.4-10.2); GFR AFRICAN-AMERICAN > 60; GFR NON-AFRICAN AMERICAN > 60
[2017-10-28] MEDS ORDERED: Potassium Chloride 20 mEq ER Tab PO ONE (08:01)
[2017-10-28] MEDS: Pantoprazole 20 mg EC Tab PO SCH (08:36)
[2017-10-28] MEDS: Enoxaparin 40 mg Syringe SC SCH (08:37)
[2017-10-28] MEDS: METRONIDAZOLE 0.75% VAG SCH ×2 (08:38→16:27)
[2017-10-28] MEDS: Insulin NPH Human 100 Units/ml Inj SC SCH (08:49)
--- NOTE | 2017-10-28 09:14 | RAD ---
PROCEDURE: HISTORY: possible OM of the left 3rd digit R lateral calc COMPARISON: 07/31/2017 TECHNIQUE: Multiple views FINDINGS: Status post right midfoot surgery with bilateral screws. Extensive degenerative changes with paraspinous deformity and spur formation and partial ankylosis of the midfoot bones. No acute fracture. Hallux valgus of the left foot. No acute fracture. IMPRESSION: As above.
--- NOTE | 2017-10-28 09:15 | CP.PCM.PN ---
Subjective - Date & Time of Evaluation Date of Evaluation: 10/28/17 Time of Evaluation: 08:40 - Subjective Subjective: Progress note - Dr. Gomez 52 year old female patient with PMHx of DM, HTN was seen and evaluated at bedside for left 4th digit infected wound with wet gangrenous changes accompanied with cellulitis and possible abscess on the right foot. Patient is AAOx3 and is in NAD. Patient appears to be resting comfortably in her bed and denies of any acute overnight events. Patient reports she has mild pain to her left foot and leg but she is managing it well. Patient denies of any other pedal complains today. Patient denies of having overnight F/N/V/C/SOB/CP/ headache/diarrhea. Objective - Vital Signs/Intake and Output Vital Signs (last 24 hours): Temp Pulse Resp BP Pulse Ox 98.4 F 91 H 18 118/74 96 10/28/17 08:00 10/28/17 08:00 10/28/17 08:00 10/28/17 08:00 10/28/17 08:00 Intake and Output: 10/28/17 10/28/17 06:59 18:59 Intake Total 1950 Balance 1950 - Medications Medications: Current Medications Acetaminophen (Tylenol 325mg Tab) 650 mg PO Q4 PRN PRN Reason: Fever >100.4 F Last Admin: 10/27/17 00:35 Dose: 650 mg Acetaminophen (Tylenol 650 Mg Supp) 650 mg CO ONCE PRN PRN Reason: Fever >100.4 F Last Admin: 10/27/17 00:54 Dose: 650 mg Dextrose (Dextrose 50% Inj) 0 ml IV STAT PRN; Protocol PRN Reason: Hypoglycemia Protocol Dextrose (Glutose 15) 0 gm PO ONCE PRN; Protocol PRN Reason: Hypoglycemia Protocol Enalapril Maleate (Vasotec) 5 mg PO DAILY [facility] Last Admin: 10/28/17 08:36 Dose: 5 mg Enoxaparin Sodium (Lovenox) 40 mg SC DAILY [facility] PRN Reason: Protocol Last Admin: 10/28/17 08:37 Dose: 40 mg Gabapentin (Neurontin) 200 mg PO HS PRN PRN Reason: Nerve pain/neuropathy Glucagon (Glucagen Diagnostic Kit) 0 mg IM STAT PRN; Protocol PRN Reason: Hypoglycemia Protocol Hydromorphone HCl (Dilaudid) 0.25 mg IVP Q6H PRN PRN Reason: Pain, severe (8-10) Last Admin: 10/27/17 15:13 Dose: 0.25 mg Vancomycin HCl 1 gm/ Sodium (Chloride) 250 mls @ 166.667 mls/hr IVPB Q12 [facility] PRN Reason: Protocol Last Admin: 10/27/17 20:32 Dose: 166.667 mls/hr Cefepime HCl 1 gm/ Sodium (Chloride) 100 mls @ 100 mls/hr IVPB Q8 [facility] PRN Reason: Protocol Last Admin: 10/28/17 08:39 Dose: 100 mls/hr Ibuprofen (Motrin Tab) 600 mg PO Q8 PRN PRN Reason: Pain, moderate (4-7) Last Admin: 10/27/17 13:47 Dose: 600 mg Insulin Human Lispro (Humalog) 0 units SC ACHS [facility] PRN Reason: Protocol Last Admin: 10/28/17 06:50 Dose: 2 units Insulin Human NPH (Humulin N) 10 units SC HS [facility] Last Admin: 10/27/17 23:03 Dose: 10 units Insulin Human NPH (Humulin N) 30 units SC QAM [facility] Last Admin: 10/28/17 08:49 Dose: 30 units Insulin Human NPH (Humulin N) 20 units SC QPM [facility] Last Admin: 10/27/17 17:34 Dose: 20 unit Metronidazole (Metrogel Cream) 1 applic VAG BID [facility] Last Admin: 10/28/17 08:38 Dose: 1 applic Ondansetron HCl (Zofran Inj) 4 mg IVP Q6 PRN PRN Reason: Nausea/Vomiting Last Admin: 10/27/17 23:25 Dose: 4 mg Pantoprazole Sodium (Protonix Ec Tab) 20 mg PO DAILY [facility] Last Admin: 10/28/17 08:36 Dose: 20 mg - Labs Labs: 10/28/17 06:30 10/28/17 06:30 PT 13.0 Seconds (9.8-13.1) 10/26/17 08:00 INR 1.2 (0.9-1.2) 10/26/17 08:00 APTT 27.0 Seconds (25.6-37.1) 10/26/17 08:00 - Constitutional Appears: Well, Non-toxic, No Acute Distress - Extremities Exam Extremities Exam: absent: Calf Tenderness Additional comments: Bilateral LE exam: VASC: DP/PT pulses are palpable 2/4 B/L. Cap refill time: < 3 seconds to all digits. Skin temperature warm to warm from proximal to distal on the left and warm to cool from proximal to distal. mild non-pitting edema noted at the distal aspect of the foot on the left accompanied by erythema which extends proximally to the level of midfoot DERM: left foot 4th digit appears to have hyperpigmented gangrenous changes to the distal medial aspect of the digit with superficial skin shedding and purulent drainage, malodor present, + probe to bone to the middle/head of the proximal phalanx, erythema extending to the midfoot, suspicious of active infection. Proximal lateral aspect of the right foot appears to have two small circular wounds surrounded by very macerated skin measuring approx 3 cm x 4 cm - maceration appears to be resolving; No active drainage, no purulence, mild fluctuence, no yao-wound erythema, suspicious of an abscess NEURO: Protective sensation grossly diminished ORTHO: mild tenderness on palpation of the left foot 4th digit - Neurological Exam Neurological Exam: Alert, Awake, Oriented x3 - Psychiatric Exam Psychiatric exam: Normal Affect, Normal Mood Assessment and Plan - Assessment and Plan (Free Text) Assessment: 52 year old female patient with PMHx of DM, HTN evaluated at bedside for 1). left foot 4th digit infected wound with wet gangrenous changes 2) cellulitis of the left foot 3). possible abscess on the right foot Plan: Patient seen and evaluated at bedside Patient discussed in details with attending Dr. Gomez Labs, vitals and charts reviewed - febrile, no leukocytosis Blood culture: + for G + cocci Bilateral wound cultures taken - Pending results X-rays of the bilateral foot ordered/reviewed - No evidence of soft tissue emphysema MRI of the LLE ordered/reviewed - On T2 and STIR image, increase in signal intensity extending to the base of the 4th proximal phalanx, possibly distal aspect of the 4th metatarsal head - consistent with OM of the 4th ray IV abx as per ID - Cefepime, Vancomycin Patient will need medical optimization for OR next week Podiatry to follow patient while in-house
--- NOTE | 2017-10-28 09:29 | CP.PCM.PN ---
Subjective - Date & Time of Evaluation Date of Evaluation: 10/28/17 Time of Evaluation: 09:29 - Subjective Subjective: Patient seen and examined bedside this morning. The patient had febrile spike overnight, vomited tylenol PO, given tylenol suppository instead, fever resolved. Patient laying in bed comfortably, NAD. Patient reports feeling better, pain is improved but still present. Patient also complains of left foot pain due to chronic ulcer Objective - Vital Signs/Intake and Output Vital Signs (last 24 hours): Temp Pulse Resp BP Pulse Ox 98.4 F 91 H 18 118/74 96 10/28/17 08:00 10/28/17 08:00 10/28/17 08:00 10/28/17 08:00 10/28/17 08:00 Intake and Output: 10/28/17 10/28/17 06:59 18:59 Intake Total 1950 Balance 1950 - Medications Medications: Current Medications Acetaminophen (Tylenol 325mg Tab) 650 mg PO Q4 PRN PRN Reason: Fever >100.4 F Last Admin: 10/27/17 00:35 Dose: 650 mg Acetaminophen (Tylenol 650 Mg Supp) 650 mg NE ONCE PRN PRN Reason: Fever >100.4 F Last Admin: 10/27/17 00:54 Dose: 650 mg Dextrose (Dextrose 50% Inj) 0 ml IV STAT PRN; Protocol PRN Reason: Hypoglycemia Protocol Dextrose (Glutose 15) 0 gm PO ONCE PRN; Protocol PRN Reason: Hypoglycemia Protocol Enalapril Maleate (Vasotec) 5 mg PO DAILY [facility] Last Admin: 10/28/17 08:36 Dose: 5 mg Enoxaparin Sodium (Lovenox) 40 mg SC DAILY RADHA PRN Reason: Protocol Last Admin: 10/28/17 08:37 Dose: 40 mg Gabapentin (Neurontin) 200 mg PO HS PRN PRN Reason: Nerve pain/neuropathy Glucagon (Glucagen Diagnostic Kit) 0 mg IM STAT PRN; Protocol PRN Reason: Hypoglycemia Protocol Hydromorphone HCl (Dilaudid) 0.25 mg IVP Q6H PRN PRN Reason: Pain, severe (8-10) Last Admin: 10/27/17 15:13 Dose: 0.25 mg Vancomycin HCl 1 gm/ Sodium (Chloride) 250 mls @ 166.667 mls/hr IVPB Q12 RADHA PRN Reason: Protocol Last Admin: 10/27/17 20:32 Dose: 166.667 mls/hr Cefepime HCl 1 gm/ Sodium (Chloride) 100 mls @ 100 mls/hr IVPB Q8 RADHA PRN Reason: Protocol Last Admin: 10/28/17 08:39 Dose: 100 mls/hr Ibuprofen (Motrin Tab) 600 mg PO Q8 PRN PRN Reason: Pain, moderate (4-7) Last Admin: 10/27/17 13:47 Dose: 600 mg Insulin Human Lispro (Humalog) 0 units SC ACHS [facility] PRN Reason: Protocol Last Admin: 10/28/17 06:50 Dose: 2 units Insulin Human NPH (Humulin N) 10 units SC HS [facility] Last Admin: 10/27/17 23:03 Dose: 10 units Insulin Human NPH (Humulin N) 30 units SC QAM [facility] Last Admin: 10/28/17 08:49 Dose: 30 units Insulin Human NPH (Humulin N) 20 units SC QPM [facility] Last Admin: 10/27/17 17:34 Dose: 20 unit Metronidazole (Metrogel Cream) 1 applic VAG BID [facility] Last Admin: 10/28/17 08:38 Dose: 1 applic Ondansetron HCl (Zofran Inj) 4 mg IVP Q6 PRN PRN Reason: Nausea/Vomiting Last Admin: 10/27/17 23:25 Dose: 4 mg Pantoprazole Sodium (Protonix Ec Tab) 20 mg PO DAILY [facility] Last Admin: 10/28/17 08:36 Dose: 20 mg - Labs Labs: 10/28/17 06:30 10/28/17 06:30 PT 13.0 Seconds (9.8-13.1) 10/26/17 08:00 INR 1.2 (0.9-1.2) 10/26/17 08:00 APTT 27.0 Seconds (25.6-37.1) 10/26/17 08:00 - Constitutional Appears: No Acute Distress - Head Exam Head Exam: ATRAUMATIC, NORMAL INSPECTION, NORMOCEPHALIC - Eye Exam Eye Exam: Normal appearance - ENT Exam ENT Exam: Mucous Membranes Moist - Neck Exam Neck Exam: Full ROM. absent: Tenderness - Respiratory Exam Respiratory Exam: Clear to Ausculation Bilateral, NORMAL BREATHING PATTERN. absent: Decreased Breath Sounds, Rales, Rhonchi, Wheezes, Respiratory Distress - Cardiovascular Exam Cardiovascular Exam: REGULAR RHYTHM. absent: Tachycardia - GI/Abdominal Exam GI & Abdominal Exam: Soft, Tenderness, Normal Bowel Sounds. absent: Distended - Extremities Exam Extremities Exam: absent: Calf Tenderness Additional comments: left foot 4th digit appears to have hyperpigmented gangrenous changes to the distal medial aspect of the digit with superficial skin shedding and purulent drainage, malodor present, + probe to bone to the middle/head of the proximal phalanx, erythema extending to the midfoot, suspicious of active infection. Proximal lateral aspect of the right foot appears to have two small circular wounds surrounded by very macerated skin measuring approx 3 cm x 4 cm - maceration appears to be resolving; No active drainage, no purulence, mild fluctuence, no yao-wound erythema, suspicious of an abscess - Back Exam Back Exam: CVA tenderness (L), CVA tenderness (R) Additional comments: CVA tenderness more on the left than the right - Neurological Exam Neurological Exam: Alert, Awake, Oriented x3 - Skin Skin Exam: Dry Assessment and Plan - Assessment and Plan (Free Text) Assessment: 52 y/o woman w/ pmh of HTN and IDDM2 presents to ED w/ abdominal pain Plan: Urosepsis - ESBL E. coli - possibly 2/2 pyelonephritis - on admission patient febrile, tachycardic, with urine as source of infection - on admission vitals: 103.1 F, 125 beats/min, 162/84 mm Hg, resp 20, O2 98% RA - CBC w/ differential: 5.6>10.3/30.6<177 - CMP: 142/3.5, 107/25, 14/0.5, glucose 170, AST 22, ALT 25, alk phos 134 - UA: cloudy, pH 7.0, protein 100, glucose 50, blood small, nitrate positive, large leukocyte esterase, negative for ketones and bilirubin - Blood culture: gram positive cocci - Urine culture: ESBL E.coli - start for ESBL meropenem 1 gm IV Q8 - vancomycin 1 gm IV Q12 day 1 - keep vanc trough <20 - procalcitonin: 1.92 - echo: no valvular vegetations - monitor for acute changes - ID consulted, Dr. Solares, recommendations appreciated - f/u CBC, CMP - f/u blood culture - f/u renal ultrasound Left Foot Ulcer and infected 4th digit - Patient reports following up w/ Dr. Gomez - left foot 4th digit infected wound with wet gangrenous changes, cellulitis of the left foot, possible abscess on the right foot - vancomycin 1 gm IV Q12 day 1 - keep vanc trough <20 - possible debridement and amputation of 4th digit next week - podiatry consulted, Dr. Borja, recommendations appreciated - ESR: 95 - b/l foot XR: No evidence of soft tissue emphysema - f/u b/l foot MRI Bacterial Vaginosis - patient reports fishy odor and vaginal pruritus, denies discharge, rash, and erythema - metronidazole 0.75% Vag BID HTN - controlled w/ medication - on enalapril 5 mg PO daily - heart healthy diet Depression - patient feels down due to problems from DM2 - psychiatry consulted, Dr. Mayers, recommendations appreciated IDDM2 - Last HbA1c 8.8% (07/24/2017) - on insulin NPH 100 Units/mL 10 units SC HS, 30 units SC QAM, and 20 units SC QPM - uncontrolled blood glucose - hypoglycemic protocol - endocrinology consulted, Dr. Bedoya, recommendations appreciated - Insulin NPH 20 units SC HS - Insulin 30 units SC ACB - Insulin humulin 12 units SC ACBD - insulin humulin correction scale: - less than 250 = none - 251-300 = 3 units - 301-350 = 4 units - 351-400 = 5 units - 401-higher= 6 units - monitor for acute changes Prophylactic measures - DVT: lovenox 40 mg SC daily
[2017-10-28] MEDS ORDERED: Insulin Lispro (humaLOG) 100 Units/ml Inj SC SCH (11:11)
--- NOTE | 2017-10-28 14:21 | CP.PCM.PN ---
Subjective - Date & Time of Evaluation Date of Evaluation: 10/28/17 Time of Evaluation: 14:21 - Subjective Subjective: ID Note- Pt. seen and examined today. States feels a bit better and has less abd pain. states feels cold but there is no fever. states has mild burning with urination still. Objective - Vital Signs/Intake and Output Vital Signs (last 24 hours): Temp Pulse Resp BP Pulse Ox 99.1 F 117 H 18 159/98 H 96 10/28/17 12:00 10/28/17 12:00 10/28/17 12:00 10/28/17 12:00 10/28/17 12:00 Intake and Output: 10/28/17 10/28/17 06:59 18:59 Intake Total 1950 Balance 1950 - Medications Medications: Current Medications Acetaminophen (Tylenol 325mg Tab) 650 mg PO Q4 PRN PRN Reason: Fever >100.4 F Last Admin: 10/27/17 00:35 Dose: 650 mg Acetaminophen (Tylenol 650 Mg Supp) 650 mg IA ONCE PRN PRN Reason: Fever >100.4 F Last Admin: 10/27/17 00:54 Dose: 650 mg Dextrose (Dextrose 50% Inj) 0 ml IV STAT PRN; Protocol PRN Reason: Hypoglycemia Protocol Dextrose (Glutose 15) 0 gm PO ONCE PRN; Protocol PRN Reason: Hypoglycemia Protocol Enalapril Maleate (Vasotec) 5 mg PO DAILY [facility] Last Admin: 10/28/17 08:36 Dose: 5 mg Enoxaparin Sodium (Lovenox) 40 mg SC DAILY [facility] PRN Reason: Protocol Last Admin: 10/28/17 08:37 Dose: 40 mg Gabapentin (Neurontin) 300 mg PO HS [facility] Glucagon (Glucagen Diagnostic Kit) 0 mg IM STAT PRN; Protocol PRN Reason: Hypoglycemia Protocol Hydromorphone HCl (Dilaudid) 0.25 mg IVP Q6H PRN PRN Reason: Pain, severe (8-10) Last Admin: 10/27/17 15:13 Dose: 0.25 mg Vancomycin HCl 1 gm/ Sodium (Chloride) 250 mls @ 166.667 mls/hr IVPB Q12 RAD[facility] PRN Reason: Protocol Last Admin: 10/28/17 11:14 Dose: 166.667 mls/hr Ibuprofen (Motrin Tab) 600 mg PO Q8 PRN PRN Reason: Pain, moderate (4-7) Last Admin: 10/27/17 13:47 Dose: 600 mg Insulin Human NPH (Humulin N) 20 units SC HS [facility] Insulin Human NPH (Humulin N) 30 units SC ACB [facility] Insulin Human Regular (Humulin R) 0 units SC ACHS [facility] Insulin Human Regular (Humulin R) 12 units SC ACBD [facility] Lidocaine (Lidoderm) 2 ea TD DAILY [facility] Metoprolol Tartrate (Lopressor) 12.5 mg PO Q12 [facility] Metronidazole (Metrogel Cream) 1 applic VAG BID [facility] Last Admin: 10/28/17 08:38 Dose: 1 applic Morphine Sulfate (Morphine Immediate Release Tab) 15 mg PO BID [facility] Ondansetron HCl (Zofran Inj) 4 mg IVP Q6 PRN PRN Reason: Nausea/Vomiting Last Admin: 10/27/17 23:25 Dose: 4 mg Pantoprazole Sodium (Protonix Ec Tab) 20 mg PO DAILY [facility] Last Admin: 10/28/17 08:36 Dose: 20 mg - Labs Labs: - Additional Findings Additional findings: - Constitutional Appears: No Acute Distress - Head Exam Head Exam: ATRAUMATIC - Eye Exam Eye Exam: EOMI, PERRL - ENT Exam ENT Exam: Normal Oropharynx - Neck Exam Neck exam: Positive for: Full Rom - Respiratory Exam Respiratory Exam: Clear to Auscultation Bilateral, NORMAL BREATHING PATTERN - Cardiovascular Exam Cardiovascular Exam: RRR, +S1, +S2 - GI/Abdominal Exam GI & Abdominal Exam: Normal Bowel Sounds, Soft Additional comments: less tenderness in left lower quadrant and pelvic region no distention - Extremities Exam Extremities exam: left foot 4th digit gangrenous changes to the distal aspect of the digit with superficial skin shedding and purulent drainage, malodor present - Neurological Exam Neurological exam: Alert, Oriented x 3 Laboratory Results - last 72 hr 10/26/17 10/26/17 10/26/17 08:00 08:00 08:00 WBC 9.1 D RBC 4.72 Hgb 12.4 Hct 36.6 MCV 77.5 L D MCH 26.3 L MCHC 34.0 RDW 14.9 H Plt Count 194 MPV 7.2 Neut % (Auto) 91.5 H Lymph % (Auto) 4.[address] [place] % (Auto) 3.4 Eos % (Auto) 0.6 Baso % (Auto) 0.5 Neut # (Auto) 8.3 H Lymph # (Auto) 0.[address] [place] # (Auto) 0.3 Eos # (Auto) 0.1 Baso # (Auto) 0.0 Neutrophils % (Manual) 91 H Band Neutrophils % 3 H Lymphocytes % (Manual) 5 L Monocytes % (Manual) 1 Platelet Estimate Normal Large Platelets Present Anisocytosis (manual) Slight Microcytosis (manual) Slight ESR PT 13.0 INR 1.2 APTT 27.0 pO2 VBG pH VBG pCO2 VBG HCO3 VBG Total CO2 VBG O2 Sat (Calc) VBG Base Excess VBG Potassium Glucose Lactate FiO2 Sodium 140 Potassium 4.6 Chloride 102 Carbon Dioxide 25 Anion Gap 18 BUN 19 H Creatinine 0.7 Est GFR ( Amer) > 60 Est GFR (Non-Af Amer) > 60 POC Glucose (mg/dL) Random Glucose 226 H Calcium 9.5 Total Bilirubin 0.5 AST 24 ALT 20 Alkaline Phosphatase 240 H Troponin I Total Protein 8.2 Albumin 4.1 Globulin 4.1 H Albumin/Globulin Ratio 1.0 Procalcitonin Venous Blood Potassium Urine Color Urine Clarity Urine pH Ur Specific [place] Urine Protein Urine Glucose (UA) Urine Ketones Urine Blood Urine Nitrate Urine Bilirubin Urine Urobilinogen Ur Leukocyte Esterase Urine RBC (Auto) Urine Microscopic WBC Ur Squamous Epith Cells Urine Bacteria Influenza Typ A,B (EIA) 10/26/17 10/26/17 10/26/17 08:00 08:19 12:01 WBC RBC Hgb Hct MCV MCH MCHC RDW Plt Count MPV Neut % (Auto) Lymph % (Auto) [place] % (Auto) Eos % (Auto) Baso % (Auto) Neut # (Auto) Lymph # (Auto) [place] # (Auto) Eos # (Auto) Baso # (Auto) Neutrophils % (Manual) Band Neutrophils % Lymphocytes % (Manual) Monocytes % (Manual) Platelet Estimate Large Platelets Anisocytosis (manual) Microcytosis (manual) ESR PT INR APTT pO2 14 L VBG pH 7.35 VBG pCO2 48 VBG HCO3 22.9 VBG Total CO2 28.0 VBG O2 Sat (Calc) 21.9 L VBG Base Excess 0.3 VBG Potassium 4.6 Glucose 189 H Lactate 0.8 FiO2 21.0 Sodium 140.0 Potassium Chloride 108.0 H Carbon Dioxide Anion Gap BUN Creatinine Est GFR ( Amer) Est GFR (Non-Af Amer) POC Glucose (mg/dL) 182 H Random Glucose Calcium Total Bilirubin AST ALT Alkaline Phosphatase Troponin I Total Protein Albumin Globulin Albumin/Globulin Ratio Procalcitonin Venous Blood Potassium 4.6 Urine Color Yellow Urine Clarity Cloudy Urine pH 7.0 Ur Specific [place] 1.019 Urine Protein 100 Urine Glucose (UA) 50 Urine Ketones Negative Urine Blood Small Urine Nitrate Positive H Urine Bilirubin Negative Urine Urobilinogen 0.2-1.0 Ur Leukocyte Esterase Large Urine RBC (Auto) 33 H Urine Microscopic WBC 260 H Ur Squamous Epith Cells 22 H Urine Bacteria Many H Influenza Typ A,B (EIA) 10/26/17 10/26/17 10/26/17 12:20 18:54 20:19 WBC RBC Hgb Hct MCV MCH MCHC RDW Plt Count MPV Neut % (Auto) Lymph % (Auto) [place] % (Auto) Eos % (Auto) Baso % (Auto) Neut # (Auto) Lymph # (Auto) [place] # (Auto) Eos # (Auto) Baso # (Auto) Neutrophils % (Manual) Band Neutrophils % Lymphocytes % (Manual) Monocytes % (Manual) Platelet Estimate Large Platelets Anisocytosis (manual) Microcytosis (manual) ESR PT INR APTT pO2 VBG pH VBG pCO2 VBG HCO3 VBG Total CO2 VBG O2 Sat (Calc) VBG Base Excess VBG Potassium Glucose Lactate FiO2 Sodium Potassium Chloride Carbon Dioxide Anion Gap BUN Creatinine Est GFR ( Amer) Est GFR (Non-Af Amer) POC Glucose (mg/dL) Random Glucose Calcium Total Bilirubin AST ALT Alkaline Phosphatase Troponin I < 0.0120 Total Protein Albumin Globulin Albumin/Globulin Ratio Procalcitonin 1.92 H Venous Blood Potassium Urine Color Urine Clarity Urine pH Ur Specific [place] Urine Protein Urine Glucose (UA) Urine Ketones Urine Blood Urine Nitrate Urine Bilirubin Urine Urobilinogen Ur Leukocyte Esterase Urine RBC (Auto) Urine Microscopic WBC Ur Squamous Epith Cells Urine Bacteria Influenza Typ A,B (EIA) Negative for flu a/b 10/26/17 10/27/17 10/27/17 21:18 05:20 05:20 WBC 7.4 RBC 4.10 Hgb 10.4 L D Hct 32.2 L MCV 78.6 L MCH 25.5 L MCHC 32.4 L RDW 14.8 H Plt Count 167 MPV Neut % (Auto) Lymph % (Auto) [place] % (Auto) Eos % (Auto) Baso % (Auto) Neut # (Auto) Lymph # (Auto) [place] # (Auto) Eos # (Auto) Baso # (Auto) Neutrophils % (Manual) Band Neutrophils % Lymphocytes % (Manual) Monocytes % (Manual) Platelet Estimate Large Platelets Anisocytosis (manual) Microcytosis (manual) ESR PT INR APTT pO2 VBG pH VBG pCO2 VBG HCO3 VBG Total CO2 VBG O2 Sat (Calc) VBG Base Excess VBG Potassium Glucose Lactate FiO2 Sodium 144 Potassium 4.1 Chloride 106 Carbon Dioxide 26 Anion Gap 16 BUN 12 Creatinine 0.7 Est GFR ( Amer) > 60 Est GFR (Non-Af Amer) > 60 POC Glucose (mg/dL) 290 H Random Glucose 227 H Calcium 8.2 L Total Bilirubin 0.3 AST 40 H D ALT 28 Alkaline Phosphatase 139 H D Troponin I Total Protein 6.5 Albumin 3.0 L D Globulin 3.4 Albumin/Globulin Ratio 0.9 L Procalcitonin Venous Blood Potassium Urine Color Urine Clarity Urine pH Ur Specific [place] Urine Protein Urine Glucose (UA) Urine Ketones Urine Blood Urine Nitrate Urine Bilirubin Urine Urobilinogen Ur Leukocyte Esterase Urine RBC (Auto) Urine Microscopic WBC Ur Squamous Epith Cells Urine Bacteria Influenza Typ A,B (EIA) 10/27/17 10/27/17 10/27/17 05:20 05:41 08:39 WBC RBC Hgb Hct MCV MCH MCHC RDW Plt Count MPV Neut % (Auto) Lymph % (Auto) [place] % (Auto) Eos % (Auto) Baso % (Auto) Neut # (Auto) Lymph # (Auto) [place] # (Auto) Eos # (Auto) Baso # (Auto) Neutrophils % (Manual) Band Neutrophils % Lymphocytes % (Manual) Monocytes % (Manual) Platelet Estimate Large Platelets Anisocytosis (manual) Microcytosis (manual) ESR PT INR APTT pO2 VBG pH VBG pCO2 VBG HCO3 VBG Total CO2 VBG O2 Sat (Calc) VBG Base Excess VBG Potassium Glucose Lactate FiO2 Sodium Potassium Chloride Carbon Dioxide Anion Gap BUN Creatinine Est GFR ( Amer) Est GFR (Non-Af Amer) POC Glucose (mg/dL) 229 H Random Glucose Calcium Total Bilirubin AST ALT Alkaline Phosphatase Troponin I < 0.0120 < 0.0120 Total Protein Albumin Globulin Albumin/Globulin Ratio Procalcitonin Venous Blood Potassium Urine Color Urine Clarity Urine pH Ur Specific [place] Urine Protein Urine Glucose (UA) Urine Ketones Urine Blood Urine Nitrate Urine Bilirubin Urine Urobilinogen Ur Leukocyte Esterase Urine RBC (Auto) Urine Microscopic WBC Ur Squamous Epith Cells Urine Bacteria Influenza Typ A,B (EIA) 10/27/17 10/27/17 10/27/17 10:48 16:24 16:53 WBC RBC Hgb Hct MCV MCH MCHC RDW Plt Count MPV Neut % (Auto) Lymph % (Auto) [place] % (Auto) Eos % (Auto) Baso % (Auto) Neut # (Auto) Lymph # (Auto) [place] # (Auto) Eos # (Auto) Baso # (Auto) Neutrophils % (Manual) Band Neutrophils % Lymphocytes % (Manual) Monocytes % (Manual) Platelet Estimate Large Platelets Anisocytosis (manual) Microcytosis (manual) ESR 95 H PT INR APTT pO2 VBG pH VBG pCO2 VBG HCO3 VBG Total CO2 VBG O2 Sat (Calc) VBG Base Excess VBG Potassium Glucose Lactate FiO2 Sodium Potassium Chloride Carbon Dioxide Anion Gap BUN Creatinine Est GFR ( Amer) Est GFR (Non-Af Amer) POC Glucose (mg/dL) 366 H 252 H Random Glucose Calcium Total Bilirubin AST ALT Alkaline Phosphatase Troponin I Total Protein Albumin Globulin Albumin/Globulin Ratio Procalcitonin Venous Blood Potassium Urine Color Urine Clarity Urine pH Ur Specific [place] Urine Protein Urine Glucose (UA) Urine Ketones Urine Blood Urine Nitrate Urine Bilirubin Urine Urobilinogen Ur Leukocyte Esterase Urine RBC (Auto) Urine Microscopic WBC Ur Squamous Epith Cells Urine Bacteria Influenza Typ A,B (EIA) 10/27/17 10/28/17 10/28/17 21:55 06:30 06:30 WBC 5.6 RBC 3.95 Hgb 10.3 L Hct 30.6 L MCV 77.3 L MCH 25.9 L MCHC 33.6 RDW 14.8 H Plt Count 177 MPV Neut % (Auto) Lymph % (Auto) [place] % (Auto) Eos % (Auto) Baso % (Auto) Neut # (Auto) Lymph # (Auto) [place] # (Auto) Eos # (Auto) Baso # (Auto) Neutrophils % (Manual) Band Neutrophils % Lymphocytes % (Manual) Monocytes % (Manual) Platelet Estimate Large Platelets Anisocytosis (manual) Microcytosis (manual) ESR PT INR APTT pO2 VBG pH VBG pCO2 VBG HCO3 VBG Total CO2 VBG O2 Sat (Calc) VBG Base Excess VBG Potassium Glucose Lactate FiO2 Sodium 142 Potassium 3.5 L Chloride 107 Carbon Dioxide 25 Anion Gap 14 BUN 9 Creatinine 0.5 L Est GFR ( Amer) > 60 Est GFR (Non-Af Amer) > 60 POC Glucose (mg/dL) 231 H Random Glucose 170 H Calcium 8.4 Total Bilirubin 0.5 AST 22 ALT 25 Alkaline Phosphatase 134 H Troponin I Total Protein 6.7 Albumin 3.0 L Globulin 3.7 Albumin/Globulin Ratio 0.8 L Procalcitonin Venous Blood Potassium Urine Color Urine Clarity Urine pH Ur Specific [place] Urine Protein Urine Glucose (UA) Urine Ketones Urine Blood Urine Nitrate Urine Bilirubin Urine Urobilinogen Ur Leukocyte Esterase Urine RBC (Auto) Urine Microscopic WBC Ur Squamous Epith Cells Urine Bacteria Influenza Typ A,B (EIA) 10/28/17 11:18 WBC RBC Hgb Hct MCV MCH MCHC RDW Plt Count MPV Neut % (Auto) Lymph % (Auto) [place] % (Auto) Eos % (Auto) Baso % (Auto) Neut # (Auto) Lymph # (Auto) [place] # (Auto) Eos # (Auto) Baso # (Auto) Neutrophils % (Manual) Band Neutrophils % Lymphocytes % (Manual) Monocytes % (Manual) Platelet Estimate Large Platelets Anisocytosis (manual) Microcytosis (manual) ESR PT INR APTT pO2 VBG pH VBG pCO2 VBG HCO3 VBG Total CO2 VBG O2 Sat (Calc) VBG Base Excess VBG Potassium Glucose Lactate FiO2 Sodium Potassium Chloride Carbon Dioxide Anion Gap BUN Creatinine Est GFR ( Amer) Est GFR (Non-Af Amer) POC Glucose (mg/dL) 183 H Random Glucose Calcium Total Bilirubin AST ALT Alkaline Phosphatase Troponin I Total Protein Albumin Globulin Albumin/Globulin Ratio Procalcitonin Venous Blood Potassium Urine Color Urine Clarity Urine pH Ur Specific [place] Urine Protein Urine Glucose (UA) Urine Ketones Urine Blood Urine Nitrate Urine Bilirubin Urine Urobilinogen Ur Leukocyte Esterase Urine RBC (Auto) Urine Microscopic WBC Ur Squamous Epith Cells Urine Bacteria Influenza Typ A,B (EIA) Microbiology 10/26/17 17:20 Urine Urine Culture - Final Escherichia Coli 10/27/17 10:20 Blood Blood Culture - Preliminary NO GROWTH AFTER 24 HOURS 10/26/17 08:00 Blood S.aureus & Coag-Neg Staph PNA FISH - Preliminary 10/26/17 08:00 Blood Blood Culture - Preliminary Gram Positive Cocci 10/26/17 08:00 Blood Gram Stain - Final Accession No. : [id number] Patient Name / ID : FREDA CRAFT / [id number] Exam Date : 10/27/2017 22:05:43 ( Approved ) Study Comment : Sex / Age : F / 52Y Creator : Gigi Pozo MD Dictator : Gigi Pozo MD Vice President [employer] : Industrial Automation Engineer : Gigi Pozo MD Approver2 : Report Date : 10/28/2017 09:08:13 My Comment : PROCEDURE: HISTORY: possible OM of the left 3rd digit R lateral calc COMPARISON: 07/31/2017 TECHNIQUE: Multiple views FINDINGS: Status post right midfoot surgery with bilateral screws. Extensive degenerative changes with paraspinous deformity and spur formation and partial ankylosis of the midfoot bones. No acute fracture. Hallux valgus of the left foot. No acute fracture. IMPRESSION: As above. Assessment and Plan (1) Sepsis Status: Acute (2) UTI (urinary tract infection) Status: Acute (3) Diabetes Status: Acute (4) Bacteremia Status: Acute - Assessment and Plan (Free Text) Assessment: A/P- 52 y/o female with DM II, HTN, HLD admitted with LLQ abd pain and dysurea. afebrile today + UA urine cx- IDentified as ESBL e.coli R to cefepime Blood cx - GPC left fourth toe wound cx- pending plan- await ID and sens of the blood cx GPC, source most likely the fourth gangrenous digit advise to continue with IV vancomycin at this time. keep trough <20 d/c cefepime. start meropnem for ESBL e.coli UTI. check 2 more blood cx. check TTE r/o veg. await wound cx.
[2017-10-28] MEDS ORDERED: Piperacillin/Tazobact 3.375 GM in Sodium Chloride 0.9% 100 ML IVPB SCH (16:00)
[2017-10-28] MEDS ORDERED: Sodium Chloride 0.9% 1,000 ML IV SCH (16:30)
[2017-10-28] MEDS: Meropenem 1 GM in Sodium Chloride 0.9% 100 ML IVPB SCH (16:37)
[2017-10-28] MEDS: Insulin Regular 100 units/ml SC SCH ×3 (17:18→22:22)
[2017-10-28] MEDS: Lidocaine 5% Patch TD SCH (17:47)
[2017-10-28] MEDS: Morphine 15 mg Immediate Release Tab PO SCH (18:26)
[2017-10-28] MEDS: Sodium Chloride 0.9% 1,000 ML IV SCH (19:50)
[2017-10-28] MEDS ORDERED: Insulin NPH Human 100 Units/ml Inj SC SCH (22:00)
--- NOTE | 2017-10-28 22:50 | CON ---
ENDOCRINOLOGY CONSULT DATE: LOCATION: In room 410. HISTORY OF PRESENT ILLNESS: This is a 52-year-old female with known history of type 2 insulin-requiring diabetes, now admitted with diffuse lower abdominal pain with associated dysuria and urinary tract infection and is now being referred for diabetic evaluation and management. PAST MEDICAL HISTORY: As mentioned above, history of type 2 insulin-requiring diabetes, currently on a premixed insulin regimen using Humulin 70/30, given as 30 units in the morning, 20 units at dinnertime, and 10 units at bedtime, history of hypertensive cardiovascular disease and dyslipidemia, history of diabetic retinopathy, and polyneuropathy. FAMILY HISTORY: Positive for diabetes and hypertension. SOCIAL HISTORY: The patient has supportive family. No known substance use. REVIEW OF SYSTEMS: Admits to generalized body weakness with easy fatigability and tiredness and suboptimal energy level, worse in the last week or so prior to admission. Also admits to episodic dizziness and lightheadedness, worse on the day of admission. No chest pains or palpitations or PND. Her oral intake has been variable with nausea, dyspepsia, and supervening diffuse abdominal pain localized in the lower abdominal quadrants as noted. She also admits to marked polyuria, nocturia, and polydipsia with severe dysuria, worse on the day of admission. PHYSICAL EXAMINATION: GENERAL: This is an average-built female in no apparent distress. VITAL SIGNS: Blood pressure of 140/80, pulse of 70 beats per minute and regular, temperature 98, respirations 20, height is 5 feet 3 inches, and weight is 154 pounds. HEENT: Head normocephalic. Eyes anicteric with pink conjunctivae. Funduscopy not possible at this time. Ears, nose, and throat otherwise normal. NECK: Supple. Thyroid gland is normal in size. No carotid bruits or cervical adenopathy. CARDIOPULMONARY: Some adynamic precordium. S1 and S2 is rapid and regular. LUNGS: Clear to auscultation. ABDOMEN: Flat and soft with positive bowel sounds. No rebound tenderness noted. EXTREMITIES: No peripheral edema. Pulses are +2 bilaterally. LABORATORY DATA: Her chemistry showed a BUN of 9, sodium 142, potassium 3.5, chloride 107, CO2 27, glucose 170, and creatinine 0.5. Her glucose levels are ranging from 183 to 231 and 366 mg/dL. ASSESSMENT AND PLAN: This is a 52-year-old female with uncontrolled and decompensated type 2 insulin-requiring diabetes, presenting here with lower abdominal pain and associated dysuria, polyuria, and nocturia with the possibility of an urinary tract infection and bacteremia and is undergoing IV antibiotic management as given. Plan of management as discussed with the patient and staff. We will modify her current insulin regimen to a more physiologic basal and bolus drug combination, especially with the underlying financial constraints and expensive insulin analogues as would have been ideal for her at this time. We will compromise with more affordable conventional insulin combination therapy and we will start her with Humulin NPH given as 30 units in the morning and 20 units at bedtime to start today. We will also add regular insulin to be given as twice daily before breakfast and before dinner to start today also. We will titrate incremental as indicated to optimize metabolic control. We will modify the coverage scale to obviate hypoglycemia and regular insulin coverage will also be given a.c. and at bedtime as ordered. We will add basal insulin with NPH given at bedtime at 20 units subcutaneously as ordered to start tonight. We will obtain serial chemistries and supplement accordingly as needed. We will follow. Violet Bedoya MD
[2017-10-29] MEDS: Meropenem 1 GM in Sodium Chloride 0.9% 100 ML IVPB SCH ×3 (00:20→16:36)
[2017-10-29] MEDS: Sodium Chloride 0.9% 1,000 ML IV SCH ×3 (03:20→16:37)
[2017-10-29] MEDS: Insulin Regular 100 units/ml SC SCH ×6 (06:37→22:47)
[2017-10-29 07:00] LABS: HEMOGLOBIN 9.7 g/dL (12.0-16.0); MEAN CELL VOLUME 78.1 fl (81.0-99.0); MEAN CORPUSCULAR HEMOGLOBIN 25.5 pg (27.0-31.0); MEAN CORPUSCULAR HGB CONC 32.6 g/dL (33.0-37.0); RBC 3.81 Mil/uL (3.80-5.20); RED CELL DISTRIBUTION WIDTH 14.6 % (11.5-14.5); WHITE BLOOD COUNT 5.9 K/uL (4.8-10.8)
[2017-10-29] MEDS ORDERED: Insulin NPH Human 100 Units/ml Inj SC SCH (07:30)
[2017-10-29 07:39] LABS: ALB/GLOB RATIO 0.8 (1.0-2.1); ALBUMIN 2.9 g/dL (3.5-5.0); ALT/SGPT 24 U/L (9-52); AST/SGOT 25 U/L (14-36); BLOOD UREA NITROGEN 5 mg/dl (7-17); CALCIUM 8.5 mg/dL (8.4-10.2); GFR AFRICAN-AMERICAN > 60; GFR NON-AFRICAN AMERICAN > 60
[2017-10-29] MEDS: Enoxaparin 40 mg Syringe SC SCH (08:14)
[2017-10-29] MEDS: METRONIDAZOLE 0.75% VAG SCH ×2 (08:15→16:36)
[2017-10-29] MEDS: Lidocaine 5% Patch TD SCH (08:17)
[2017-10-29] MEDS: Morphine 15 mg Immediate Release Tab PO SCH ×2 (08:20→16:39)
--- NOTE | 2017-10-29 09:35 | CP.PCM.PN ---
Subjective - Date & Time of Evaluation Date of Evaluation: 10/29/17 Time of Evaluation: 08:15 - Subjective Subjective: Patient seen and examined at bedside. She is sitting comfortably in bed eating breakfast. Patient reports mild pain in the distal lower extremities b/l (Lt>Rt) . Pain is pins and needles like and worse with weight bearing. Pain has been improving. She reports that her abdominal/flank pain has resolved. She had fever and chills overnight but denies nausea, vomiting. Urine culture returned positive for ESBL ecoli and patient is on contact precautions. Objective - Vital Signs/Intake and Output Vital Signs (last 24 hours): Temp Pulse Resp BP Pulse Ox 100.2 F H 93 H 18 139/83 96 10/29/17 08:00 10/29/17 08:16 10/29/17 08:00 10/29/17 08:16 10/29/17 08:00 - Medications Medications: Current Medications Acetaminophen (Tylenol 325mg Tab) 650 mg PO Q4 PRN PRN Reason: Fever >100.4 F Last Admin: 10/28/17 16:23 Dose: 650 mg Acetaminophen (Tylenol 650 Mg Supp) 650 mg IN ONCE PRN PRN Reason: Fever >100.4 F Last Admin: 10/27/17 00:54 Dose: 650 mg Dextrose (Dextrose 50% Inj) 0 ml IV STAT PRN; Protocol PRN Reason: Hypoglycemia Protocol Dextrose (Glutose 15) 0 gm PO ONCE PRN; Protocol PRN Reason: Hypoglycemia Protocol Enalapril Maleate (Vasotec) 5 mg PO DAILY [facility] Last Admin: 10/29/17 08:17 Dose: 5 mg Enoxaparin Sodium (Lovenox) 40 mg SC DAILY [facility] PRN Reason: Protocol Last Admin: 10/29/17 08:14 Dose: 40 mg Gabapentin (Neurontin) 300 mg PO HS [facility] Last Admin: 10/28/17 21:27 Dose: Not Given Glucagon (Glucagen Diagnostic Kit) 0 mg IM STAT PRN; Protocol PRN Reason: Hypoglycemia Protocol Hydromorphone HCl (Dilaudid) 0.25 mg IVP Q6H PRN PRN Reason: Pain, severe (8-10) Last Admin: 10/27/17 15:13 Dose: 0.25 mg Vancomycin HCl 1 gm/ Sodium (Chloride) 250 mls @ 166.667 mls/hr IVPB Q12 [facility] PRN Reason: Protocol Last Admin: 10/29/17 08:13 Dose: 166.667 mls/hr Meropenem 1 gm/ Sodium (Chloride) 100 mls @ 100 mls/hr IVPB Q8 [facility] PRN Reason: Protocol Last Admin: 10/29/17 08:14 Dose: 100 mls/hr Sodium Chloride (Sodium Chloride 0.9%) 1,000 mls @ 150 mls/hr IV .Q6H40M [facility] Stop: 10/29/17 16:23 Last Admin: 10/29/17 08:26 Dose: 150 mls/hr Ibuprofen (Motrin Tab) 600 mg PO Q8 PRN PRN Reason: Pain, moderate (4-7) Last Admin: 10/27/17 13:47 Dose: 600 mg Insulin Human NPH (Humulin N) 20 units SC HS [facility] Last Admin: 10/28/17 22:22 Dose: Not Given Insulin Human NPH (Humulin N) 30 units SC ACB [facility] Insulin Human Regular (Humulin R) 0 units SC ACHS [facility] Last Admin: 10/29/17 06:37 Dose: Not Given Insulin Human Regular (Humulin R) 12 units SC ACBD [facility] Last Admin: 10/29/17 08:17 Dose: 12 u Lidocaine (Lidoderm) 2 ea TD DAILY [facility] Last Admin: 10/29/17 08:17 Dose: 2 ea Metoprolol Tartrate (Lopressor) 12.5 mg PO Q12 [facility] Last Admin: 10/29/17 08:16 Dose: 12.5 mg Metronidazole (Metrogel Cream) 1 applic VAG BID [facility] Last Admin: 10/29/17 08:15 Dose: 1 applic Morphine Sulfate (Morphine Immediate Release Tab) 15 mg PO BID [facility] Last Admin: 10/29/17 08:20 Dose: 15 mg Ondansetron HCl (Zofran Inj) 4 mg IVP Q6 PRN PRN Reason: Nausea/Vomiting Last Admin: 10/27/17 23:25 Dose: 4 mg - Labs Labs: 10/29/17 06:21 10/29/17 06:21 PT 13.0 Seconds (9.8-13.1) 10/26/17 08:00 INR 1.2 (0.9-1.2) 10/26/17 08:00 APTT 27.0 Seconds (25.6-37.1) 10/26/17 08:00 - Constitutional Appears: Non-toxic, No Acute Distress - Head Exam Head Exam: ATRAUMATIC, NORMAL INSPECTION, NORMOCEPHALIC - Eye Exam Eye Exam: EOMI, Normal appearance - ENT Exam ENT Exam: Mucous Membranes Moist - Respiratory Exam Respiratory Exam: Clear to Ausculation Bilateral, NORMAL BREATHING PATTERN. absent: Rales, Rhonchi, Wheezes - Cardiovascular Exam Cardiovascular Exam: RRR, +S1, +S2 - GI/Abdominal Exam GI & Abdominal Exam: Soft, Tenderness (mild suprapubic tenderness), Normal Bowel Sounds. absent: Guarding, Rebound - Extremities Exam Additional comments: b/l lower extremity dressings in place are clean, dry intact to ankle. no proximal erythema or warmth palpable b/l. no calf tenderness b/l. - Neurological Exam Neurological Exam: Alert, Oriented x3 - Psychiatric Exam Psychiatric exam: Normal Affect, Normal Mood Assessment and Plan - Assessment and Plan (Free Text) Assessment: 52 y/o F with PMH including IDDM2, HTN and diabetic foot ulcers presented to with abdominal/left flank pain associated with fever. During admission patient found to have positive ESBL ecoli urine culture and gram positive bacteremia. Currently receiving IV antiobiotics. Plan: Sepsis, improving -Etiology possible seconday to UTI/Pyelonephritis vs infected diabetic foot ulcer -Patient hemodynamically stable today -Last temp: 100.2 this AM. Tmax 24hr: 102.8 on 10/28 @16:23. -No leukocytosis. WBC: 5.9 today. -Blood culture from 10/26 reveals gram positive bacteremia, final ID/sensitivity pending -Urine culture reveals ESBL ecoli -Echo: no valvular vegetation -Meropenem 1gm IV Q8h (Started 10/28, Current day 2) -Vancomycin 1gm IV Q12h (Started 10/27, Current day 3) -Received cefepime 1gm Q8h (10/27-10/28) -Keep vanc trough <20 -ID consulted, Dr. Solares, recommendations appreciated ESBL E Coli UTI -Urine culture from 10/26 reveals ESBL E.coli -On meropenem 1 gm IV Q8 -Contact precautions Left foot ulcer and infected 4th digit -Left foot 4th digit infected wound with wet gangrenous changes, cellulitis of the left foot, possible abscess on the right foot -Wound culture pending -ESR: 95 -On empiric Vancomycin 1 gm IV Q12 (Started 10/27, Current day 3) -Target vanc trough <20 -Podiatry consulted, Dr. Borja, recommendations appreciated -Pending possible debridement and amputation of 4th digit -B/l foot XRay: No evidence of soft tissue emphysema -B/l foot MRI ordered, results pending -Pain control: -Morphine 15mg PO BID [facility] -Gabapentin 300mg PO HS for neuropathic pain -Lidoderm patch daily -Motrin 600mg PO Q8h prn moderate -Dilaudid 0.25mg IV Q6h prn severe IDDM2, with hyperglycemia -Last HbA1c 8.8% (07/24/2017) -Endocrinology consulted, Dr. Bedoya, recommendations appreciated and insulin coverage adjusted as follows: -Insulin NPH 30 units SC ACB and 20 units SC HS for long acting coverage -Humulin R 12 units SC ACBD -Sliding scale -ACCUchecks ACHS -Hypoglycemia precautions HTN -Controlled w/ medication -Enalapril 5 mg PO daily -Metoprolol 12.5mg PO Q12 added due to associated tachycardia -Heart healthy diet Bacterial Vaginosis -On empiric metronidazole 0.75% Vag BID Depression -Patient feels down due to problems from DM2 -Psychiatry consulted, Dr. Mayers, recommendations appreciated DVT Prophylaxis -Lovenox 40 mg SC daily
--- NOTE | 2017-10-29 10:18 | RAD ---
PROCEDURE: CHEST RADIOGRAPH, 1 VIEW HISTORY: tachycardia, fever COMPARISON: None available. FINDINGS: LUNGS: Clear. PLEURA: No pneumothorax or pleural fluid seen. CARDIOVASCULAR: Normal. OSSEOUS STRUCTURES: No significant abnormalities. VISUALIZED UPPER ABDOMEN: Normal. OTHER FINDINGS: None. IMPRESSION: No active disease.
--- NOTE | 2017-10-29 10:55 | MRI ---
PROCEDURE: MRI Right Foot HISTORY: Pain. COMPARISON: Radiographs dated 06/29/2018 TECHNIQUE: Multiecho multiplanar sequences were performed through the right foot without the use of intravenous contrast. FINDINGS: Evaluation demonstrates minimal high signal in the base of the 2nd metatarsal with increased bone marrow signal in the 3rd and 4th metatarsal base and proximal shaft. Findings suspicious for early osteomyelitis. There is an ulcer in the plantar surface of the foot with a pocket of fluid near the base of the 3rd and 4th metatarsal heads seen on STIR images. Recommend correlation with fluid from ulceration drainage On previous radiographs there is lucency surrounding the screw traversing the cuboid. The possibility of loosening or hardware infection is not excluded. Moderate degenerative changes involving the lateral ankle mortise is present. Moderate to severe degenerative changes involving the medial ankle mortise is noted. There is diffuse narrowing of the ankle joint. Screws traversing the tarsal bones are noted. There is blooming hardware artifact which limits assessment. Soft tissue swelling is noted overlying the plantar surface of the tarsal bones. IMPRESSION: Findings suspicious for osteomyelitis. Please see discussion above.
--- NOTE | 2017-10-29 11:01 | MRI ---
PROCEDURE: MRI Left Foot HISTORY: Pain. COMPARISON: Radiographs of the foot dated 06/19/2017 TECHNIQUE: Multiecho multiplanar sequences were performed through the left foot without the use of intravenous contrast. 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 There are subchondral changes involving the head of the metatarsal base of the proximal phalanx of the great toe heterogeneous marrow signal involving the distal tuft of the great toe is noted. The 2nd metatarsals unremarkable. There is minimal fluid around the medial surface of the head of the 4th metatarsal as well as along the head of the 3rd metatarsal. Edema is noted in the proximal phalanx of the 4th toe suspicious for osteomyelitis with dorsal soft tissue ulcer. There is soft tissue swelling involving the dorsal and plantar surface of the left forefoot and midfoot representing edema and cellulitis. IMPRESSION: Findings suspicious for osteomyelitis of the proximal phalanx of the 4th toe with associated dorsal soft tissue ulcer. Please see discussion above.
--- NOTE | 2017-10-29 12:58 | CP.PCM.PN ---
Subjective - Date & Time of Evaluation Date of Evaluation: 10/29/17 Time of Evaluation: 12:00 - Subjective Subjective: Progress note - Dr. Gomez 52 year old female patient with PMHx of DM, HTN was seen and evaluated at bedside for left 4th digit infected wound with wet gangrenous changes accompanied with cellulitis and possible abscess on the right foot. Patient is AAOx3 and is in NAD. Patient appears to be resting comfortably in her bed and denies of any acute overnight events. Patient reports that she is feeling a lot better today. Patient reports she has mild pain to her left foot and leg but she is managing it well. Patient denies of any other pedal complains today. Patient denies of having overnight F/N/V/C/SOB/CP/headache/diarrhea. Objective - Vital Signs/Intake and Output Vital Signs (last 24 hours): Temp Pulse Resp BP Pulse Ox 98.2 F 84 18 102/66 96 10/29/17 12:00 10/29/17 12:00 10/29/17 12:00 10/29/17 12:00 10/29/17 12:00 - Medications Medications: Current Medications Acetaminophen (Tylenol 325mg Tab) 650 mg PO Q4 PRN PRN Reason: Fever >100.4 F Last Admin: 10/28/17 16:23 Dose: 650 mg Acetaminophen (Tylenol 650 Mg Supp) 650 mg LA ONCE PRN PRN Reason: Fever >100.4 F Last Admin: 10/27/17 00:54 Dose: 650 mg Dextrose (Dextrose 50% Inj) 0 ml IV STAT PRN; Protocol PRN Reason: Hypoglycemia Protocol Dextrose (Glutose 15) 0 gm PO ONCE PRN; Protocol PRN Reason: Hypoglycemia Protocol Enalapril Maleate (Vasotec) 5 mg PO DAILY [facility] Last Admin: 10/29/17 08:17 Dose: 5 mg Enoxaparin Sodium (Lovenox) 40 mg SC DAILY [facility] PRN Reason: Protocol Last Admin: 10/29/17 08:14 Dose: 40 mg Gabapentin (Neurontin) 300 mg PO HS [facility] Last Admin: 10/28/17 21:27 Dose: Not Given Glucagon (Glucagen Diagnostic Kit) 0 mg IM STAT PRN; Protocol PRN Reason: Hypoglycemia Protocol Hydromorphone HCl (Dilaudid) 0.25 mg IVP Q6H PRN PRN Reason: Pain, severe (8-10) Last Admin: 10/27/17 15:13 Dose: 0.25 mg Vancomycin HCl 1 gm/ Sodium (Chloride) 250 mls @ 166.667 mls/hr IVPB Q12 [facility] PRN Reason: Protocol Last Admin: 10/29/17 09:30 Dose: 166.667 mls/hr Meropenem 1 gm/ Sodium (Chloride) 100 mls @ 100 mls/hr IVPB Q8 [facility] PRN Reason: Protocol Last Admin: 10/29/17 09:00 Dose: 100 mls/hr Sodium Chloride (Sodium Chloride 0.9%) 1,000 mls @ 150 mls/hr IV .Q6H40M [facility] Stop: 10/29/17 16:23 Last Admin: 10/29/17 08:26 Dose: 150 mls/hr Ibuprofen (Motrin Tab) 600 mg PO Q8 PRN PRN Reason: Pain, moderate (4-7) Last Admin: 10/27/17 13:47 Dose: 600 mg Insulin Human NPH (Humulin N) 24 units SC HS [facility] Insulin Human NPH (Humulin N) 34 units SC ACB [facility] Insulin Human Regular (Humulin R) 0 units SC ACHS [facility] Last Admin: 10/29/17 12:04 Dose: Not Given Insulin Human Regular (Humulin R) 14 units SC ACBD [facility] Lidocaine (Lidoderm) 2 ea TD DAILY [facility] Last Admin: 10/29/17 08:17 Dose: 2 ea Metoprolol Tartrate (Lopressor) 12.5 mg PO Q12 [facility] Last Admin: 10/29/17 08:16 Dose: 12.5 mg Metronidazole (Metrogel Cream) 1 applic VAG BID [facility] Last Admin: 10/29/17 08:15 Dose: 1 applic Morphine Sulfate (Morphine Immediate Release Tab) 15 mg PO BID [facility] Last Admin: 10/29/17 08:20 Dose: 15 mg Ondansetron HCl (Zofran Inj) 4 mg IVP Q6 PRN PRN Reason: Nausea/Vomiting Last Admin: 10/27/17 23:25 Dose: 4 mg - Labs Labs: 10/29/17 06:21 10/29/17 06:21 PT 13.0 Seconds (9.8-13.1) 10/26/17 08:00 INR 1.2 (0.9-1.2) 10/26/17 08:00 APTT 27.0 Seconds (25.6-37.1) 10/26/17 08:00 - Constitutional Appears: Well, Non-toxic, No Acute Distress - Extremities Exam Additional comments: Bilateral LE exam: VASC: DP/PT pulses are palpable 2/4 B/L. Cap refill time: < 3 seconds to all digits. Skin temperature warm to warm from proximal to distal on the left and warm to cool from proximal to distal. mild non-pitting edema noted at the distal aspect of the foot on the left accompanied by erythema which extends proximally to the level of midfoot - appears to have mild improvement DERM: left foot 4th digit appears to have hyperpigmented gangrenous changes to the distal medial aspect of the digit with superficial skin shedding and purulent drainage, malodor present, + probe to bone to the middle/head of the proximal phalanx, erythema extending to the midfoot (appears to have some improvement today), suspicious of active infection. Proximal lateral aspect of the right foot appears to have two small circular wounds surrounded by very macerated skin measuring approx 3 cm x 4 cm - maceration appears to be resolving ; No active drainage, no purulence, mild fluctuence, no yao-wound erythema, suspicious of an abscess NEURO: Protective sensation grossly diminished ORTHO: mild tenderness on palpation of the left foot 4th digit - Neurological Exam Neurological Exam: Alert, Awake, Oriented x3 - Psychiatric Exam Psychiatric exam: Normal Affect, Normal Mood Assessment and Plan - Assessment and Plan (Free Text) Assessment: 52 year old female patient with PMHx of DM, HTN evaluated at bedside for 1). left foot 4th digit infected wound with wet gangrenous changes 2) cellulitis of the left foot 3). possible abscess on the right foot Plan: Patient seen and evaluated at bedside Patient discussed in details with attending Dr. Gomez Labs, vitals and charts reviewed - afebrile, no leukocytosis Blood culture: + for G + cocci Bilateral wound cultures taken - Right foot: Corynebacterium; Left foot: pending X-rays of the bilateral foot ordered/reviewed - No evidence of soft tissue emphysema MRI of the LLE ordered/reviewed - On T2 and STIR image, increase in signal intensity extending to the base of the 4th proximal phalanx, possibly distal aspect of the 4th metatarsal head - consistent with OM of the 4th ray IV abx as per ID - Meropenem, Vancomycin Patient will need medical optimization for OR next week Podiatry to follow patient while in-house
--- NOTE | 2017-10-29 13:56 | US ---
PROCEDURE: Ultrasound of the Kidneys HISTORY: uti r/o pyelonephritis COMPARISON: None available. TECHNIQUE: Sonogram of the kidneys. FINDINGS: RIGHT KIDNEY: Measures: cm. Normal in size, contour and echogenicity. No stone, solid mass lesion or hydronephrosis visualized. LEFT KIDNEY: Measures: cm. Normal in size, contour and echogenicity. No stone, solid mass lesion or hydronephrosis visualized. OTHER FINDINGS: None. IMPRESSION: Unremarkable renal sonogram.
--- NOTE | 2017-10-29 18:03 | PN ---
ENDOCRINOLOGY FOLLOWUP NOTE DATE: LOCATION: In room 412 telemetry SUBJECTIVE: This is a 52-year-old female with recent uncontrolled type 2 insulin-requiring diabetes, now being followed closely for metabolic management. Her glycemic levels are fluctuating, but improved and the glucose levels have ranged from 95 to 218 mg/dL. The latest chemistry showed a BUN of 5, sodium 139, potassium 3.8, chloride 105, CO2 of 26, glucose 221, and creatinine 0.6. So, at this time, we will modify once again her basal and bolus insulin regimen and increase the regular insulin to 14 units before breakfast and dinner to start tonight. We will also increase her basal insulin with NPH given as 34 units before breakfast and 24 units at bedtime as ordered. We will titrate incremental as indicated to optimize metabolic control. We will follow and advise accordingly. Violet Bedoya MD
[2017-10-29] MEDS: Insulin NPH Human 100 Units/ml Inj SC SCH (22:46)
[2017-10-30] MEDS: Meropenem 1 GM in Sodium Chloride 0.9% 100 ML IVPB SCH ×3 (01:48→18:49)
--- NOTE | 2017-10-30 07:04 | CP.PCM.PN ---
Subjective - Date & Time of Evaluation Date of Evaluation: 10/30/17 Time of Evaluation: 07:04 - Subjective Subjective: Patient seen and examined at bedside this morning. Patient laying in bed comfortably, NAD. Patient reports mild pain in the distal lower extremities b/ l (Lt>Rt). Pain is pins and needles-like and worse with weight bearing. Pain improving and relieved with meds but returns when wears off. She reports that her abdominal/flank pain has resolved. Patient afebrile overnight. Patient denies nausea, vomiting. Urine culture returned positive for ESBL E.coli and patient is on contact precautions. Patient is medically optimized for procedure tomorrow. Objective - Vital Signs/Intake and Output Vital Signs (last 24 hours): Temp Pulse Resp BP Pulse Ox 98.6 F 91 H 18 128/78 95 10/30/17 05:42 10/30/17 05:42 10/30/17 05:42 10/30/17 05:42 10/30/17 05:42 - Medications Medications: Current Medications Acetaminophen (Tylenol 325mg Tab) 650 mg PO Q4 PRN PRN Reason: Fever >100.4 F Last Admin: 10/28/17 16:23 Dose: 650 mg Acetaminophen (Tylenol 650 Mg Supp) 650 mg HI ONCE PRN PRN Reason: Fever >100.4 F Last Admin: 10/27/17 00:54 Dose: 650 mg Dextrose (Dextrose 50% Inj) 0 ml IV STAT PRN; Protocol PRN Reason: Hypoglycemia Protocol Dextrose (Glutose 15) 0 gm PO ONCE PRN; Protocol PRN Reason: Hypoglycemia Protocol Enalapril Maleate (Vasotec) 5 mg PO DAILY [facility] Last Admin: 10/29/17 08:17 Dose: 5 mg Enoxaparin Sodium (Lovenox) 40 mg SC DAILY [facility] PRN Reason: Protocol Last Admin: 10/29/17 08:14 Dose: 40 mg Gabapentin (Neurontin) 300 mg PO HS [facility] Last Admin: 10/29/17 22:48 Dose: 300 mg Glucagon (Glucagen Diagnostic Kit) 0 mg IM STAT PRN; Protocol PRN Reason: Hypoglycemia Protocol Hydromorphone HCl (Dilaudid) 0.25 mg IVP Q6H PRN PRN Reason: Pain, severe (8-10) Last Admin: 10/27/17 15:13 Dose: 0.25 mg Vancomycin HCl 1 gm/ Sodium (Chloride) 250 mls @ 166.667 mls/hr IVPB Q12 [facility] PRN Reason: Protocol Last Admin: 10/29/17 22:49 Dose: Not Given Meropenem 1 gm/ Sodium (Chloride) 100 mls @ 100 mls/hr IVPB Q8 [facility] PRN Reason: Protocol Last Admin: 10/30/17 01:48 Dose: 100 mls/hr Ibuprofen (Motrin Tab) 600 mg PO Q8 PRN PRN Reason: Pain, moderate (4-7) Last Admin: 10/27/17 13:47 Dose: 600 mg Insulin Human NPH (Humulin N) 24 units SC HS [facility] Last Admin: 10/29/17 22:46 Dose: 24 unit Insulin Human NPH (Humulin N) 34 units SC ACB [facility] Insulin Human Regular (Humulin R) 0 units SC ACHS [facility] Last Admin: 10/29/17 22:47 Dose: 3 unit Insulin Human Regular (Humulin R) 14 units SC ACBD [facility] Last Admin: 10/29/17 16:35 Dose: 14 units Lidocaine (Lidoderm) 2 ea TD DAILY [facility] Last Admin: 10/29/17 08:17 Dose: 2 ea Metoprolol Tartrate (Lopressor) 12.5 mg PO Q12 [facility] Last Admin: 10/29/17 22:42 Dose: Not Given Metronidazole (Metrogel Cream) 1 applic VAG BID [facility] Last Admin: 10/29/17 16:36 Dose: 1 applic Morphine Sulfate (Morphine Immediate Release Tab) 15 mg PO BID [facility] Last Admin: 10/29/17 16:39 Dose: 15 mg Ondansetron HCl (Zofran Inj) 4 mg IVP Q6 PRN PRN Reason: Nausea/Vomiting Last Admin: 10/27/17 23:25 Dose: 4 mg - Labs Labs: 10/29/17 06:21 10/29/17 06:21 PT 13.0 Seconds (9.8-13.1) 10/26/17 08:00 INR 1.2 (0.9-1.2) 10/26/17 08:00 APTT 27.0 Seconds (25.6-37.1) 10/26/17 08:00 - Constitutional Appears: No Acute Distress - Head Exam Head Exam: ATRAUMATIC, NORMAL INSPECTION, NORMOCEPHALIC - Eye Exam Eye Exam: Normal appearance - ENT Exam ENT Exam: Mucous Membranes Moist - Neck Exam Neck Exam: Full ROM. absent: Tenderness - Respiratory Exam Respiratory Exam: Clear to Ausculation Bilateral, NORMAL BREATHING PATTERN. absent: Decreased Breath Sounds, Rales, Rhonchi, Wheezes, Respiratory Distress - Cardiovascular Exam Cardiovascular Exam: RRR. absent: Tachycardia - GI/Abdominal Exam GI & Abdominal Exam: Soft, Tenderness, Normal Bowel Sounds. absent: Distended Additional comments: mild suprapubic tenderness - Extremities Exam Extremities Exam: absent: Calf Tenderness Additional comments: b/l lower extremity dressings in place are clean, dry intact to ankle. no proximal erythema or warmth palpable b/l. no calf tenderness b/l. - Back Exam Back Exam: absent: CVA tenderness (L), CVA tenderness (R) Additional comments: no CVA tenderness today - Neurological Exam Neurological Exam: Alert, Awake, Oriented x3 - Skin Skin Exam: Dry Assessment and Plan - Assessment and Plan (Free Text) Assessment: 52 y/o woman w/ pmh of IDDM2, HTN and diabetic foot ulcers presented with abdominal/left flank pain associated with fever. During admission patient found to have positive ESBL ecoli urine culture and gram positive bacteremia. Currently receiving IV antiobiotics. Plan: Sepsis, improving - Etiology possible seconday to UTI/Pyelonephritis vs infected diabetic foot ulcer - Patient hemodynamically stable today - Last temp: 98.7 this AM. Tmax 24hr: 100.2 on 10/29 @08:00. - No leukocytosis. WBC: 5.9 today. - Blood culture from 10/26 reveals gram positive bacteremia, final ID/ sensitivity pending - Urine culture reveals ESBL ecoli - Echo: no valvular vegetation - Meropenem 1gm IV Q8h (Started 10/28, Current day 3) - Received cefepime 1gm Q8h (10/27-10/28) - ID consulted, Dr. Solares, recommendations appreciated ESBL E Coli UTI - Urine culture from 10/26 reveals ESBL E.coli - On meropenem 1 gm IV Q8h day 3 - Contact precautions Left foot ulcer and infected 4th digit - Osteomyelitis - Left foot 4th digit infected wound with wet gangrenous changes, cellulitis of the left foot, osteomyelitis, possible abscess on the right foot - Wound culture: Corynebacterium species - ESR: 95 - On empiric Vancomycin 1 gm IV Q12 (Started 10/27, Current day 4) - Keep vanc trough <20 - vanc trough 22 (10/29/2017) - PICC line insertion ordered - Podiatry consulted, Dr. Borja, recommendations appreciated - Debridement and amputation of 4th digit tomorrow @ 15:30, patient is medically optimized for procedure tomorrow (CXR: no active disease, EKG NSR, Echo normal) - NPO after midnight - B/l foot XRay: No evidence of soft tissue emphysema - B/l foot MRI: - right, findings suspicious for osteomyelitis of the proximal phalanx of the 4th toe w/ associated dorsal soft tissue ulcer - left, suspicious for osteomyelitis - Pain control: - Morphine 15mg PO BID RADHA - Gabapentin 300mg PO BID for neuropathic pain - Lidoderm patch daily - Motrin 600mg PO Q8h prn moderate - Dilaudid 0.25mg IV Q6h prn severe IDDM2, with hyperglycemia - Last HbA1c 8.8% (07/24/2017) - Endocrinology consulted, Dr. Bedoya, recommendations appreciated and insulin coverage adjusted as follows: - Insulin NPH 34 units SC ACB and 24 units SC HS for long acting coverage - Humulin R 14 units SC ACBD - Correction scale - ACCUchecks ACHS - Hypoglycemia precautions HTN - Controlled w/ medication - Enalapril 5 mg PO daily - Metoprolol 25 mg PO Q12 added due to associated tachycardia - Heart healthy diet Bacterial Vaginosis - On empiric metronidazole 0.75% Vag BID Depression - Patient feels down due to problems from DM2 - Psychiatry consulted, Dr. Mayers, recommendations appreciated DVT Prophylaxis - Lovenox 40 mg SC daily, hold tomorrow for procedure
--- NOTE | 2017-10-30 07:09 | CP.PCM.PN ---
Subjective - Date & Time of Evaluation Date of Evaluation: 10/30/17 Time of Evaluation: 07:20 - Subjective Subjective: Progress note - Dr. Gomez 52 year old female patient with PMHx of DM, HTN was seen and evaluated at bedside for left 4th digit infected wound with wet gangrenous changes accompanied with cellulitis and possible abscess on the right foot. Patient is AAOx3 and is in NAD. Patient appears to be resting comfortably in her bed and denies of any acute overnight events. Patient denies of any pain today but reports that she has a little itchy feeling to the left foot toe. Patient denies of any other pedal complains today. Patient denies of having overnight F/ N/V/C/SOB/CP/headache/diarrhea. Objective - Vital Signs/Intake and Output Vital Signs (last 24 hours): Temp Pulse Resp BP Pulse Ox 98.6 F 91 H 18 128/78 95 10/30/17 05:42 10/30/17 05:42 10/30/17 05:42 10/30/17 05:42 10/30/17 05:42 - Medications Medications: Current Medications Acetaminophen (Tylenol 325mg Tab) 650 mg PO Q4 PRN PRN Reason: Fever >100.4 F Last Admin: 10/28/17 16:23 Dose: 650 mg Acetaminophen (Tylenol 650 Mg Supp) 650 mg OR ONCE PRN PRN Reason: Fever >100.4 F Last Admin: 10/27/17 00:54 Dose: 650 mg Dextrose (Dextrose 50% Inj) 0 ml IV STAT PRN; Protocol PRN Reason: Hypoglycemia Protocol Dextrose (Glutose 15) 0 gm PO ONCE PRN; Protocol PRN Reason: Hypoglycemia Protocol Enalapril Maleate (Vasotec) 5 mg PO DAILY [facility] Last Admin: 10/29/17 08:17 Dose: 5 mg Enoxaparin Sodium (Lovenox) 40 mg SC DAILY [facility] PRN Reason: Protocol Last Admin: 10/29/17 08:14 Dose: 40 mg Gabapentin (Neurontin) 300 mg PO HS [facility] Last Admin: 10/29/17 22:48 Dose: 300 mg Glucagon (Glucagen Diagnostic Kit) 0 mg IM STAT PRN; Protocol PRN Reason: Hypoglycemia Protocol Hydromorphone HCl (Dilaudid) 0.25 mg IVP Q6H PRN PRN Reason: Pain, severe (8-10) Last Admin: 10/27/17 15:13 Dose: 0.25 mg Vancomycin HCl 1 gm/ Sodium (Chloride) 250 mls @ 166.667 mls/hr IVPB Q12 [facility] PRN Reason: Protocol Last Admin: 10/29/17 22:49 Dose: Not Given Meropenem 1 gm/ Sodium (Chloride) 100 mls @ 100 mls/hr IVPB Q8 [facility] PRN Reason: Protocol Last Admin: 10/30/17 01:48 Dose: 100 mls/hr Ibuprofen (Motrin Tab) 600 mg PO Q8 PRN PRN Reason: Pain, moderate (4-7) Last Admin: 10/27/17 13:47 Dose: 600 mg Insulin Human NPH (Humulin N) 24 units SC HS [facility] Last Admin: 10/29/17 22:46 Dose: 24 unit Insulin Human NPH (Humulin N) 34 units SC ACB [facility] Insulin Human Regular (Humulin R) 0 units SC ACHS [facility] Last Admin: 10/29/17 22:47 Dose: 3 unit Insulin Human Regular (Humulin R) 14 units SC ACBD [facility] Last Admin: 10/29/17 16:35 Dose: 14 units Lidocaine (Lidoderm) 2 ea TD DAILY [facility] Last Admin: 10/29/17 08:17 Dose: 2 ea Metoprolol Tartrate (Lopressor) 12.5 mg PO Q12 [facility] Last Admin: 10/29/17 22:42 Dose: Not Given Metronidazole (Metrogel Cream) 1 applic VAG BID [facility] Last Admin: 10/29/17 16:36 Dose: 1 applic Morphine Sulfate (Morphine Immediate Release Tab) 15 mg PO BID [facility] Last Admin: 10/29/17 16:39 Dose: 15 mg Ondansetron HCl (Zofran Inj) 4 mg IVP Q6 PRN PRN Reason: Nausea/Vomiting Last Admin: 10/27/17 23:25 Dose: 4 mg - Labs Labs: 10/29/17 06:21 10/29/17 06:21 PT 13.0 Seconds (9.8-13.1) 10/26/17 08:00 INR 1.2 (0.9-1.2) 10/26/17 08:00 APTT 27.0 Seconds (25.6-37.1) 10/26/17 08:00 - Constitutional Appears: Well, Non-toxic, No Acute Distress - Extremities Exam Additional comments: Bilateral LE exam: VASC: DP/PT pulses are palpable 2/4 B/L. Cap refill time: < 3 seconds to all digits. Skin temperature warm to warm from proximal to distal on the left and warm to cool from proximal to distal. mild non-pitting edema noted at the distal aspect of the foot on the left accompanied by erythema which extends proximally to the level of midfoot - appears to have mild improvement DERM: left foot 4th digit appears to have hyperpigmented gangrenous changes to the distal medial aspect of the digit with superficial skin shedding and purulent drainage, malodor present, + probe to bone to the middle/head of the proximal phalanx, erythema extending to the midfoot (appears to have some improvement today), suspicious of active infection. Proximal lateral aspect of the right foot appears to have two small circular wounds surrounded by very macerated skin measuring approx 3 cm x 4 cm - maceration appears to be resolved ; No active drainage, no purulence, no fluctuence, no yao-wound erythema, since there is no drainage from squeezing the wound and no fluctuence at this point and no maceration not suspecting an abscess at this point NEURO: Protective sensation grossly diminished ORTHO: mild tenderness on palpation of the left foot 4th digit - Neurological Exam Neurological Exam: Alert, Awake, Oriented x3 - Psychiatric Exam Psychiatric exam: Normal Affect, Normal Mood Assessment and Plan - Assessment and Plan (Free Text) Assessment: 52 year old female patient with PMHx of DM, HTN evaluated at bedside for 1). left foot 4th digit infected wound with wet gangrenous changes 2) cellulitis of the left foot 3). non-infected wound to the right Plan: Patient seen and evaluated at bedside Patient discussed in details with attending Dr. Gomez Labs, vitals and charts reviewed - afebrile, no leukocytosis Blood culture: + for G + cocci Bilateral wound cultures taken - bilateral foot: Corynebacterium X-rays of the bilateral foot ordered/reviewed - No evidence of soft tissue emphysema MRI of the LLE ordered/reviewed - On T2 and STIR image, increase in signal intensity extending to the base of the 4th proximal phalanx, possibly distal aspect of the 4th metatarsal head - consistent with OM of the 4th ray IV abx as per ID - Meropenem, Vancomycin Patient will need medical optimization for OR tomorrow at 3:30 PM for left foot 4th digit amputation and debridement -Patient to remain NPO -Hold [facility] tomorrow Podiatry to follow patient while in-house
[2017-10-30] MEDS: Insulin NPH Human 100 Units/ml Inj SC SCH ×2 (08:10→22:52)
[2017-10-30] MEDS: Insulin Regular 100 units/ml SC SCH ×7 (08:22→22:53)
--- NOTE | 2017-10-30 09:10 | CARD ---
APPROVED REPORT EKG Measurement Heart [id number] <Conclusion> Normal sinus rhythm Normal ECG
[2017-10-30] MEDS: Morphine 15 mg Immediate Release Tab PO SCH ×2 (09:50→18:51)
[2017-10-30] MEDS: METRONIDAZOLE 0.75% VAG SCH ×2 (09:50→18:52)
[2017-10-30] MEDS: Enoxaparin 40 mg Syringe SC SCH (09:50)
[2017-10-30] MEDS: Lidocaine 5% Patch TD SCH (09:51)
--- NOTE | 2017-10-30 10:33 | CP.PCM.PN ---
Subjective - Date & Time of Evaluation Date of Evaluation: 10/30/17 Time of Evaluation: 13:00 - Subjective Subjective: ID Note- pt. seen and examined today with nurse at bedside. Pt. states she feels better and no longer has any abdominal or flank pain but states her feet are bothering her. as per pt's nurse pt. is supposed to have left 4th gangrenous toe amputation tomm. Objective - Vital Signs/Intake and Output Vital Signs (last 24 hours): Temp Pulse Resp BP Pulse Ox 98.7 F 89 20 155/89 H 97 10/30/17 08:00 10/30/17 08:00 10/30/17 08:00 10/30/17 08:00 10/30/17 08:00 - Medications Medications: Current Medications Acetaminophen (Tylenol 325mg Tab) 650 mg PO Q4 PRN PRN Reason: Fever >100.4 F Last Admin: 10/28/17 16:23 Dose: 650 mg Acetaminophen (Tylenol 650 Mg Supp) 650 mg DE ONCE PRN PRN Reason: Fever >100.4 F Last Admin: 10/27/17 00:54 Dose: 650 mg Dextrose (Dextrose 50% Inj) 0 ml IV STAT PRN; Protocol PRN Reason: Hypoglycemia Protocol Dextrose (Glutose 15) 0 gm PO ONCE PRN; Protocol PRN Reason: Hypoglycemia Protocol Enalapril Maleate (Vasotec) 5 mg PO DAILY [facility] Last Admin: 10/30/17 09:53 Dose: 5 mg Enoxaparin Sodium (Lovenox) 40 mg SC DAILY [facility] PRN Reason: Protocol Last Admin: 10/30/17 09:50 Dose: 40 mg Gabapentin (Neurontin) 300 mg PO HS [facility] Last Admin: 10/29/17 22:48 Dose: 300 mg Glucagon (Glucagen Diagnostic Kit) 0 mg IM STAT PRN; Protocol PRN Reason: Hypoglycemia Protocol Hydromorphone HCl (Dilaudid) 0.25 mg IVP Q6H PRN PRN Reason: Pain, severe (8-10) Last Admin: 10/27/17 15:13 Dose: 0.25 mg Vancomycin HCl 1 gm/ Sodium (Chloride) 250 mls @ 166.667 mls/hr IVPB Q12 [facility] PRN Reason: Protocol Last Admin: 10/30/17 09:53 Dose: 166.667 mls/hr Meropenem 1 gm/ Sodium (Chloride) 100 mls @ 100 mls/hr IVPB Q8 RADHA PRN Reason: Protocol Last Admin: 10/30/17 09:52 Dose: 100 mls/hr Ibuprofen (Motrin Tab) 600 mg PO Q8 PRN PRN Reason: Pain, moderate (4-7) Last Admin: 10/27/17 13:47 Dose: 600 mg Insulin Human NPH (Humulin N) 24 units SC HS [facility] Last Admin: 10/29/17 22:46 Dose: 24 unit Insulin Human NPH (Humulin N) 34 units SC ACB [facility] Last Admin: 10/30/17 08:10 Dose: 34 unit Insulin Human Regular (Humulin R) 0 units SC ACHS [facility] Last Admin: 10/30/17 08:22 Dose: Not Given Insulin Human Regular (Humulin R) 14 units SC ACBD [facility] Last Admin: 10/30/17 09:59 Dose: 14 units Lidocaine (Lidoderm) 2 ea TD DAILY [facility] Last Admin: 10/30/17 09:51 Dose: 2 ea Metoprolol Tartrate (Lopressor) 12.5 mg PO Q12 [facility] Last Admin: 10/30/17 09:51 Dose: 12.5 mg Metronidazole (Metrogel Cream) 1 applic VAG BID [facility] Last Admin: 10/30/17 09:50 Dose: 1 applic Morphine Sulfate (Morphine Immediate Release Tab) 15 mg PO BID [facility] Last Admin: 10/30/17 09:50 Dose: 15 mg Ondansetron HCl (Zofran Inj) 4 mg IVP Q6 PRN PRN Reason: Nausea/Vomiting Last Admin: 10/27/17 23:25 Dose: 4 mg - Labs Labs: - Additional Findings Additional findings: - Constitutional Appears: No Acute Distress - Head Exam Head Exam: ATRAUMATIC - Eye Exam Eye Exam: EOMI, PERRL - ENT Exam ENT Exam: Normal Oropharynx - Neck Exam Neck exam: Positive for: Full Rom - Respiratory Exam Respiratory Exam: Clear to Auscultation Bilateral, NORMAL BREATHING PATTERN - Cardiovascular Exam Cardiovascular Exam: RRR, +S1, +S2 - GI/Abdominal Exam GI & Abdominal Exam: Normal Bowel Sounds, Soft Additional comments: No tenderness, No distention - Extremities Exam Extremities exam: left foot 4th digit gangrenous changes to the distal aspect of the digit with superficial skin shedding and purulent drainage, malodor present and right dorsal lateral foot with slight edema and 2 small round areas of pus like discharge - Neurological Exam Neurological exam: Alert, Oriented x 3 Laboratory Results - last 72 hr 10/26/17 10/27/17 10/27/17 18:54 16:24 16:53 WBC RBC Hgb Hct MCV MCH MCHC RDW Plt Count ESR 95 H Sodium Potassium Chloride Carbon Dioxide Anion Gap BUN Creatinine Est GFR ( Amer) Est GFR (Non-Af Amer) POC Glucose (mg/dL) 252 H Random Glucose Calcium Total Bilirubin AST ALT Alkaline Phosphatase Total Protein Albumin Globulin Albumin/Globulin Ratio Procalcitonin 1.92 H Vancomycin Trough 10/27/17 10/28/17 10/28/17 21:55 05:37 06:30 WBC 5.6 RBC 3.95 Hgb 10.3 L Hct 30.6 L MCV 77.3 L MCH 25.9 L MCHC 33.6 RDW 14.8 H Plt Count 177 ESR Sodium Potassium Chloride Carbon Dioxide Anion Gap BUN Creatinine Est GFR ( Amer) Est GFR (Non-Af Amer) POC Glucose (mg/dL) 231 H 174 H Random Glucose Calcium Total Bilirubin AST ALT Alkaline Phosphatase Total Protein Albumin Globulin Albumin/Globulin Ratio Procalcitonin Vancomycin Trough 10/28/17 10/28/17 10/28/17 06:30 11:18 15:58 WBC RBC Hgb Hct MCV MCH MCHC RDW Plt Count ESR Sodium 142 Potassium 3.5 L Chloride 107 Carbon Dioxide 25 Anion Gap 14 BUN 9 Creatinine 0.5 L Est GFR ( Amer) > 60 Est GFR (Non-Af Amer) > 60 POC Glucose (mg/dL) 183 H 190 H Random Glucose 170 H Calcium 8.4 Total Bilirubin 0.5 AST 22 ALT 25 Alkaline Phosphatase 134 H Total Protein 6.7 Albumin 3.0 L Globulin 3.7 Albumin/Globulin Ratio 0.8 L Procalcitonin Vancomycin Trough 10/28/17 10/29/17 10/29/17 21:38 05:29 06:21 WBC 5.9 RBC 3.81 Hgb 9.7 L Hct 29.7 L MCV 78.1 L MCH 25.5 L MCHC 32.6 L RDW 14.6 H Plt Count 181 ESR Sodium Potassium Chloride Carbon Dioxide Anion Gap BUN Creatinine Est GFR ( Amer) Est GFR (Non-Af Amer) POC Glucose (mg/dL) 95 218 H Random Glucose Calcium Total Bilirubin AST ALT Alkaline Phosphatase Total Protein Albumin Globulin Albumin/Globulin Ratio Procalcitonin Vancomycin Trough 10/29/17 10/29/17 10/29/17 06:21 08:36 11:00 WBC RBC Hgb Hct MCV MCH MCHC RDW Plt Count ESR Sodium 139 Potassium 3.8 Chloride 105 Carbon Dioxide 26 Anion Gap 12 BUN 5 L Creatinine 0.6 L Est GFR ( Amer) > 60 Est GFR (Non-Af Amer) > 60 POC Glucose (mg/dL) 221 H Random Glucose 221 H Calcium 8.5 Total Bilirubin 0.2 AST 25 ALT 24 Alkaline Phosphatase 130 H Total Protein 6.6 Albumin 2.9 L Globulin 3.7 Albumin/Globulin Ratio 0.8 L Procalcitonin Vancomycin Trough 22.0 H 10/29/17 10/29/17 10/30/17 16:12 22:12 05:41 WBC RBC Hgb Hct MCV MCH MCHC RDW Plt Count ESR Sodium Potassium Chloride Carbon Dioxide Anion Gap BUN Creatinine Est GFR ( Amer) Est GFR (Non-Af Amer) POC Glucose (mg/dL) 178 H 234 H 157 H Random Glucose Calcium Total Bilirubin AST ALT Alkaline Phosphatase Total Protein Albumin Globulin Albumin/Globulin Ratio Procalcitonin Vancomycin Trough 10/30/17 11:32 WBC RBC Hgb Hct MCV MCH MCHC RDW Plt Count ESR Sodium Potassium Chloride Carbon Dioxide Anion Gap BUN Creatinine Est GFR ( Amer) Est GFR (Non-Af Amer) POC Glucose (mg/dL) 236 H Random Glucose Calcium Total Bilirubin AST ALT Alkaline Phosphatase Total Protein Albumin Globulin Albumin/Globulin Ratio Procalcitonin Vancomycin Trough Microbiology 10/27/17 10:20 Blood Blood Culture - Preliminary NO GROWTH AFTER 3 DAYS 10/29/17 06:21 Blood Blood Culture - Preliminary NO GROWTH AFTER 24 HOURS 10/26/17 08:00 Blood S.aureus & Coag-Neg Staph PNA FISH - Final 10/26/17 08:00 Blood Blood Culture - Final Streptococcus Pyogenes Grp A 10/26/17 08:00 Blood Gram Stain - Final 10/28/17 16:20 Foot - Left Gram Stain - Final 10/28/17 16:20 Foot - Left Wound Culture - Final Corynebacterium Species 10/27/17 08:10 Foot - Right Gram Stain - Final 10/27/17 08:10 Foot - Right Wound Culture - Final Corynebacterium Species 10/26/17 17:20 Urine Urine Culture - FinAccession No. : [id number] Patient Name / ID : FREDA CRAFT / [id number] Exam Date : 10/28/2017 10:33:45 ( Approved ) Study Comment : Sex / Age : F / 52Y Creator : Gigi Pozo MD Dictator : Gigi Pozo MD Hot Car Operator : Systems Trainer : Gigi Pozo MD Approver2 : Report Date : 10/29/2017 10:55:00 My Comment : PROCEDURE: MRI Left Foot HISTORY: Pain. COMPARISON: Radiographs of the foot dated 06/19/2017 TECHNIQUE: Multiecho multiplanar sequences were performed through the left foot without the use of intravenous contrast. 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 There are subchondral changes involving the head of the metatarsal base of the proximal phalanx of the great toe heterogeneous marrow signal involving the distal tuft of the great toe is noted. The 2nd metatarsals unremarkable. There is minimal fluid around the medial surface of the head of the 4th metatarsal as well as along the head of the 3rd metatarsal. Edema is noted in the proximal phalanx of the 4th toe suspicious for osteomyelitis with dorsal soft tissue ulcer. There is soft tissue swelling involving the dorsal and plantar surface of the left forefoot and midfoot representing edema and cellulitis. IMPRESSION: Findings suspicious for osteomyelitis of the proximal phalanx of the 4th toe with associated dorsal soft tissue ulcer. Please see discussion above. Accession No. : [id number] Patient Name / ID : FREDA CRAFT / [id number] Exam Date : 10/28/2017 15:14:45 ( Approved ) Study Comment : Sex / Age : F / 52Y Creator : Gigi Pozo MD Dictator : Gigi Pozo MD Hot Car Operator : Systems Trainer : Gigi Pozo MD Approver2 : Report Date : 10/29/2017 13:50:20 My Comment : PROCEDURE: Ultrasound of the Kidneys HISTORY: uti r/o pyelonephritis COMPARISON: None available. TECHNIQUE: Sonogram of the kidneys. FINDINGS: RIGHT KIDNEY: Measures: cm. Normal in size, contour and echogenicity. No stone, solid mass lesion or hydronephrosis visualized. LEFT KIDNEY: Measures: cm. Normal in size, contour and echogenicity. No stone, solid mass lesion or hydronephrosis visualized. OTHER FINDINGS: None. IMPRESSION: Unremarkable renal sonogram. Assessment and Plan (1) Sepsis Status: Acute (2) UTI (urinary tract infection) Status: Acute (3) Diabetes Status: Acute (4) Bacteremia Status: Acute - Assessment and Plan (Free Text) Assessment: A/P- 52 y/o female with DM II, HTN, HLD admitted with LLQ abd pain and dysurea. afebrile today + UA urine cx- IDentified as ESBL e.coli Blood cx 10/26/2017- strep pyogenes blood cx from 10/27 and 10/29- neg left fourth toe wound cx- corynebacterium right foot wound cx- corynebacterium MRI report- OM of left fourth toe TTE- no vegetation as per report. plan- advise to continue with IV vancomycin for strep pyogenes bacteremia day #4 keep trough <20 will need at least 2 weeks of the Iv vanco. vanco would treat the corynabcaterium as well, however, will ask micro to Identify the type (species) of corynebacterium. continue with meropnem for ESBL e.coli UTI. day #3 advise to send bone biospy and bone culture as well form OR.
--- NOTE | 2017-10-30 22:21 | PN ---
ENDOCRINOLOGY FOLLOWUP NOTE DATE: LOCATION: In room 412, telemetry. SUBJECTIVE: This is a 52-year-old female with recent uncontrolled type 2 insulin-requiring diabetes presenting here with urinary tract infection and possible bacteremia, and is now being followed closely for metabolic management. Her glycemic levels are fluctuating, but improved and have ranged from 157 to 234 and 236 mg/dL. So, at this time, we will continue the same basal and bolus insulin drug combination as given with Humulin NPH given as 34 units in the morning and 24 units in the evening to start tonight. We will also continue the long-acting basal insulin with NPH given as 34 units before breakfast and 24 units before bedtime as ordered. We will continue the regular insulin given as 14 units subcutaneously t.i.d. before meals as given. We will titrate incremental as indicated to optimize metabolic control. We will follow. Violet Bedoya MD
[2017-10-31] MEDS: Meropenem 1 GM in Sodium Chloride 0.9% 100 ML IVPB SCH ×3 (01:35→17:18)
[2017-10-31 06:03] LABS: MEAN CELL VOLUME 78.6 fl (81.0-99.0); MEAN CORPUSCULAR HEMOGLOBIN 24.9 pg (27.0-31.0); MEAN CORPUSCULAR HGB CONC 31.7 g/dL (33.0-37.0); RBC 3.6 Mil/uL (3.80-5.20); RED CELL DISTRIBUTION WIDTH 14.9 % (11.5-14.5); WHITE BLOOD COUNT 5.1 K/uL (4.8-10.8)
[2017-10-31 06:15] LABS: BLOOD UREA NITROGEN 6 mg/dl (7-17); CALCIUM 8.6 mg/dL (8.4-10.2); GFR AFRICAN-AMERICAN > 60; GFR NON-AFRICAN AMERICAN > 60
--- NOTE | 2017-10-31 07:29 | CP.PCM.PN ---
Subjective - Date & Time of Evaluation Date of Evaluation: 10/31/17 Time of Evaluation: 07:30 - Subjective Subjective: Progress note - Dr. Gomez 52 year old female patient with PMHx of DM, HTN was seen and evaluated at bedside for left 4th digit infected wound with wet gangrenous changes accompanied with cellulitis and possible abscess on the right foot. Patient is AAOx3 and is in NAD. Patient appears to be resting comfortably in her bed and denies of any acute overnight events. Patient confirms the NPO status and is aware of the surgery today. Patient reports that she has a little pain in her foot today but she is managing it well. Denies of F/N/V/C/SOB/CP. Denies of any other pedal complains at this time. Objective - Vital Signs/Intake and Output Vital Signs (last 24 hours): Temp Pulse Resp BP Pulse Ox 98.3 F 76 18 107/67 94 L 10/31/17 04:47 10/31/17 04:47 10/31/17 04:47 10/31/17 04:47 10/31/17 04:47 - Medications Medications: Current Medications Acetaminophen (Tylenol 325mg Tab) 650 mg PO Q4 PRN PRN Reason: Fever >100.4 F Last Admin: 10/28/17 16:23 Dose: 650 mg Acetaminophen (Tylenol 650 Mg Supp) [address] ONCE PRN PRN Reason: Fever >100.4 F Last Admin: 10/27/17 00:54 Dose: 650 mg Atorvastatin Calcium (Lipitor) 40 mg PO DAILY [facility] Last Admin: 10/30/17 13:43 Dose: 40 mg Dextrose (Dextrose 50% Inj) 0 ml IV STAT PRN; Protocol PRN Reason: Hypoglycemia Protocol Dextrose (Glutose 15) 0 gm PO ONCE PRN; Protocol PRN Reason: Hypoglycemia Protocol Enalapril Maleate (Vasotec) 5 mg PO DAILY [facility] Last Admin: 10/30/17 09:53 Dose: 5 mg Enoxaparin Sodium (Lovenox) 40 mg SC DAILY [facility] PRN Reason: Protocol Last Admin: 10/30/17 09:50 Dose: 40 mg Gabapentin (Neurontin) 300 mg PO BID [facility] Last Admin: 10/30/17 18:52 Dose: 300 mg Glucagon (Glucagen Diagnostic Kit) 0 mg IM STAT PRN; Protocol PRN Reason: Hypoglycemia Protocol Hydromorphone HCl (Dilaudid) 0.25 mg IVP Q6H PRN PRN Reason: Pain, severe (8-10) Last Admin: 10/27/17 15:13 Dose: 0.25 mg Vancomycin HCl 1 gm/ Sodium (Chloride) 250 mls @ 166.667 mls/hr IVPB Q12 [facility] PRN Reason: Protocol Last Admin: 10/30/17 09:53 Dose: 166.667 mls/hr Meropenem 1 gm/ Sodium (Chloride) 100 mls @ 100 mls/hr IVPB Q8 [facility] PRN Reason: Protocol Last Admin: 10/31/17 01:35 Dose: 100 mls/hr Ibuprofen (Motrin Tab) 600 mg PO Q8 PRN PRN Reason: Pain, moderate (4-7) Last Admin: 10/27/17 13:47 Dose: 600 mg Insulin Human NPH (Humulin N) 24 units SC HS [facility] Last Admin: 10/30/17 22:52 Dose: 24 unit Insulin Human NPH (Humulin N) 34 units SC ACB [facility] Last Admin: 10/30/17 08:10 Dose: 34 unit Insulin Human Regular (Humulin R) 0 units SC ACHS [facility] Last Admin: 10/30/17 22:53 Dose: Not Given Insulin Human Regular (Humulin R) 14 units SC ACBD [facility] Last Admin: 10/30/17 18:47 Dose: 14 units Lidocaine (Lidoderm) 2 ea TD DAILY [facility] Last Admin: 10/30/17 09:51 Dose: 2 ea Metoprolol Tartrate (Lopressor) 25 mg PO Q12 [facility] Last Admin: 10/30/17 21:54 Dose: 25 mg Metronidazole (Metrogel Cream) 1 applic VAG BID [facility] Last Admin: 10/30/17 18:52 Dose: 1 applic Morphine Sulfate (Morphine Immediate Release Tab) 15 mg PO BID [facility] Last Admin: 10/30/17 18:51 Dose: 15 mg Ondansetron HCl (Zofran Inj) 4 mg IVP Q6 PRN PRN Reason: Nausea/Vomiting Last Admin: 10/27/17 23:25 Dose: 4 mg - Labs Labs: 10/31/17 04:30 10/31/17 04:30 PT 13.0 Seconds (9.8-13.1) 10/26/17 08:00 INR 1.2 (0.9-1.2) 10/26/17 08:00 APTT 27.0 Seconds (25.6-37.1) 10/26/17 08:00 - Constitutional Appears: Well, Non-toxic, No Acute Distress - Extremities Exam Additional comments: Dressing is clean, dry and intact. No active strike through noted from the dressing aside from betadine spots. - Neurological Exam Neurological Exam: Alert, Awake, Oriented x3 - Psychiatric Exam Psychiatric exam: Normal Affect, Normal Mood Assessment and Plan - Assessment and Plan (Free Text) Assessment: 52 year old female patient with PMHx of DM, HTN evaluated at bedside for 1). left foot 4th digit infected wound with wet gangrenous changes 2) cellulitis of the left foot 3). non-infected wound to the right Plan: Patient seen and evaluated at bedside Patient discussed in details with attending Dr. Gomez Labs, vitals and charts reviewed - afebrile, no leukocytosis Blood culture: + for G + cocci Bilateral wound cultures taken - bilateral foot: Corynebacterium X-rays of the bilateral foot ordered/reviewed - No evidence of soft tissue emphysema MRI of the LLE ordered/reviewed - On T2 and STIR image, increase in signal intensity extending to the base of the 4th proximal phalanx, possibly distal aspect of the 4th metatarsal head - consistent with OM of the 4th ray IV abx as per ID - Meropenem, Vancomycin Patient to go to OR today for 4th digit amputation -[facility] remain [facility] while in-house
[2017-10-31] MEDS: Insulin Regular 100 units/ml SC SCH ×6 (08:41→22:39)
--- NOTE | 2017-10-31 08:45 | CP.PCM.PN ---
Subjective - Date & Time of Evaluation Date of Evaluation: 10/31/17 Time of Evaluation: 07:20 - Subjective Subjective: Patient seen and examined at bedside this morning. Patient laying in bed comfortably, NAD. Patient reports mild pain in the distal lower extremities b/ l (Lt>Rt). Pain is pins and needles-like and worse with weight bearing. Pain improving and relieved with meds. She reports that her abdominal/flank pain has resolved. Patient afebrile over 48 hours. Patient denies nausea, vomiting. Urine culture returned positive for ESBL E.coli and patient is on contact precautions. Patient had PICC line placed this morning. Patient is medically optimized for procedure today. Objective - Vital Signs/Intake and Output Vital Signs (last 24 hours): Temp Pulse Resp BP Pulse Ox 98.7 F 69 20 116/69 97 10/31/17 08:00 10/31/17 08:32 10/31/17 08:00 10/31/17 08:00 10/31/17 08:00 - Medications Medications: Current Medications Acetaminophen (Tylenol 325mg Tab) 650 mg PO Q4 PRN PRN Reason: Fever >100.4 F Last Admin: 10/28/17 16:23 Dose: 650 mg Acetaminophen (Tylenol 650 Mg Supp) 650 mg IN ONCE PRN PRN Reason: Fever >100.4 F Last Admin: 10/27/17 00:54 Dose: 650 mg Atorvastatin Calcium (Lipitor) 40 mg PO DAILY [facility] Last Admin: 10/30/17 13:43 Dose: 40 mg Dextrose (Dextrose 50% Inj) 0 ml IV STAT PRN; Protocol PRN Reason: Hypoglycemia Protocol Dextrose (Glutose 15) 0 gm PO ONCE PRN; Protocol PRN Reason: Hypoglycemia Protocol Enalapril Maleate (Vasotec) 5 mg PO DAILY [facility] Last Admin: 10/30/17 09:53 Dose: 5 mg Enoxaparin Sodium (Lovenox) 40 mg SC DAILY [facility] PRN Reason: Protocol Last Admin: 10/30/17 09:50 Dose: 40 mg Gabapentin (Neurontin) 300 mg PO BID [facility] Last Admin: 10/30/17 18:52 Dose: 300 mg Glucagon (Glucagen Diagnostic Kit) 0 mg IM STAT PRN; Protocol PRN Reason: Hypoglycemia Protocol Hydromorphone HCl (Dilaudid) 0.25 mg IVP Q6H PRN PRN Reason: Pain, severe (8-10) Last Admin: 10/27/17 15:13 Dose: 0.25 mg Vancomycin HCl 1 gm/ Sodium (Chloride) 250 mls @ 166.667 mls/hr IVPB Q12 [facility] PRN Reason: Protocol Last Admin: 10/30/17 09:53 Dose: 166.667 mls/hr Meropenem 1 gm/ Sodium (Chloride) 100 mls @ 100 mls/hr IVPB Q8 [facility] PRN Reason: Protocol Last Admin: 10/31/17 01:35 Dose: 100 mls/hr Ibuprofen (Motrin Tab) 600 mg PO Q8 PRN PRN Reason: Pain, moderate (4-7) Last Admin: 10/27/17 13:47 Dose: 600 mg Insulin Human NPH (Humulin N) 24 units SC HS [facility] Last Admin: 10/30/17 22:52 Dose: 24 unit Insulin Human NPH (Humulin N) 34 units SC ACB [facility] Last Admin: 10/30/17 08:10 Dose: 34 unit Insulin Human Regular (Humulin R) 0 units SC ACHS [facility] Last Admin: 10/31/17 08:41 Dose: Not Given Insulin Human Regular (Humulin R) 14 units SC ACBD [facility] Last Admin: 10/31/17 08:42 Dose: Not Given Lidocaine (Lidoderm) 2 ea TD DAILY [facility] Last Admin: 10/30/17 09:51 Dose: 2 ea Metoprolol Tartrate (Lopressor) 25 mg PO Q12 [facility] Last Admin: 10/30/17 21:54 Dose: 25 mg Metronidazole (Metrogel Cream) 1 applic VAG BID [facility] Last Admin: 10/30/17 18:52 Dose: 1 applic Morphine Sulfate (Morphine Immediate Release Tab) 15 mg PO BID [facility] Last Admin: 10/30/17 18:51 Dose: 15 mg Ondansetron HCl (Zofran Inj) 4 mg IVP Q6 PRN PRN Reason: Nausea/Vomiting Last Admin: 10/27/17 23:25 Dose: 4 mg - Labs Labs: 10/31/17 04:30 10/31/17 04:30 PT 13.0 Seconds (9.8-13.1) 10/26/17 08:00 INR 1.2 (0.9-1.2) 10/26/17 08:00 APTT 27.0 Seconds (25.6-37.1) 10/26/17 08:00 - Constitutional Appears: No Acute Distress - Head Exam Head Exam: ATRAUMATIC, NORMAL INSPECTION, NORMOCEPHALIC - Eye Exam Eye Exam: Normal appearance - ENT Exam ENT Exam: Mucous Membranes Moist - Neck Exam Neck Exam: Full ROM. absent: Tenderness - Respiratory Exam Respiratory Exam: Clear to Ausculation Bilateral, NORMAL BREATHING PATTERN. absent: Decreased Breath Sounds, Rales, Rhonchi, Wheezes, Respiratory Distress - Cardiovascular Exam Cardiovascular Exam: RRR. absent: Tachycardia - GI/Abdominal Exam GI & Abdominal Exam: Soft, Normal Bowel Sounds. absent: Distended, Tenderness Additional comments: minimal suprapubic tenderness - Extremities Exam Extremities Exam: absent: Calf Tenderness Additional comments: b/l lower extremity dressings in place are clean, dry intact to ankle. no proximal erythema or warmth palpable b/l. no calf tenderness b/l. - Back Exam Back Exam: absent: CVA tenderness (L), CVA tenderness (R) - Neurological Exam Neurological Exam: Alert, Awake, Oriented x3 - Skin Skin Exam: Dry Assessment and Plan - Assessment and Plan (Free Text) Assessment: 52 y/o woman w/ pmh of IDDM2, HTN and diabetic foot ulcers presented with abdominal/left flank pain associated with fever. During admission patient found to have positive ESBL ecoli urine culture and gram positive bacteremia. Currently receiving IV antiobiotics. Plan: Sepsis, improving - Etiology possible seconday to UTI/Pyelonephritis vs infected diabetic foot ulcer - Patient hemodynamically stable today - Last temp: 98.7 this AM. Tmax 24hr: 98.8 on 10/31 @00:13. - No leukocytosis. WBC: 5.1 today. - Blood culture from 10/26 reveals gram positive bacteremia, final ID/ sensitivity pending - Urine culture reveals ESBL ecoli - Echo: no valvular vegetation - Meropenem 1gm IV Q8h (Started 10/28, Current day 4) - Received cefepime 1gm Q8h (10/27-10/28) - ID consulted, Dr. Solares, recommendations appreciated ESBL E Coli UTI - Urine culture from 10/26 reveals ESBL E.coli - On meropenem 1 gm IV Q8h day 4 - Contact precautions Left foot ulcer and infected 4th digit - Osteomyelitis - Left foot 4th digit infected wound with wet gangrenous changes, cellulitis of the left foot, osteomyelitis, possible abscess on the right foot - Wound culture: Corynebacterium species - ESR: 95 - On empiric Vancomycin 1 gm IV Q12 (Started 10/27, Current day 5) - Keep vanc trough <20 - random vanc trough 8.7 (10/31/2017) (dose was skipped 10/29 @ 21:00) - PICC line insertion, right arm, this morning for long-term antibiotics - Podiatry consulted, Dr. Borja, recommendations appreciated - Debridement and amputation of 4th digit today @ 15:30, patient is medically optimized for procedure tomorrow (CXR: no active disease, EKG NSR, Echo normal) - NPO after midnight - B/l foot XRay: No evidence of soft tissue emphysema - B/l foot MRI: - right, findings suspicious for osteomyelitis of the proximal phalanx of the 4th toe w/ associated dorsal soft tissue ulcer - left, suspicious for osteomyelitis - Pain control: - Morphine 15mg PO BID RADHA - Gabapentin 300mg PO BID for neuropathic pain - Lidoderm patch daily - Motrin 600mg PO Q8h prn moderate - Dilaudid 0.25mg IV Q6h prn severe Anemia - Hb today 9.0, previous 9.7 - patient had been given IVF boluses and maintenance fluids for sepsis treatment but currently not on IVF - f/u CBC, iron studies, and FOBT IDDM2, with hyperglycemia - Last HbA1c 8.8% (07/24/2017) - Endocrinology consulted, Dr. Bedoya, recommendations appreciated and insulin coverage adjusted as follows: - Insulin NPH 34 units SC ACB and 24 units SC HS for long acting coverage - Humulin R 14 units SC ACBD - Correction scale - ACCUchecks ACHS - Hypoglycemia precautions - morning NPH 34 units held this morning due to NPO status for procedure and morning blood glucose of 102 HTN - Controlled w/ medication - Enalapril 5 mg PO daily - Metoprolol 25 mg PO Q12 added due to associated tachycardia - Heart healthy diet Bacterial Vaginosis - On empiric metronidazole 0.75% Vag BID day 5 Depression - Patient feels down due to problems from DM2 - Psychiatry consulted, Dr. Mayers, recommendations appreciated DVT Prophylaxis - Lovenox 40 mg SC daily, hold today for procedure, resume tomorrow
[2017-10-31] MEDS ORDERED: Lidocaine 1% Inj (20ml) ONE ×2 (09:07→18:47)
--- NOTE | 2017-10-31 09:40 | PCM.SURG1 ---
Surgeon's Initial Post Op Note - Surgeon's Notes Surgeon: Norman Olivarez MD Material Expeditor: NONE Type of Anesthesia: Local Pre-Operative Diagnosis: Poor venous access Operative Findings: US showed patent brachial vein Post-Operative Diagnosis: Poor venous access Operation Performed: placement of a single lumen right arm picc, 33 cm. Tip is in the SVC. Specimen/Specimens Removed: none Estimated Blood Loss: EBL {In ML}: 2 Blood Products Given: N/A Drains Used: No Drains Post-Op Condition: Fair Date of Surgery/Procedure: 10/31/17 Time of Surgery/Procedure: 09:35
[2017-10-31] MEDS: Insulin NPH Human 100 Units/ml Inj SC SCH ×2 (10:18→22:38)
[2017-10-31] MEDS: Morphine 15 mg Immediate Release Tab PO SCH ×2 (10:20→19:31)
[2017-10-31] MEDS: METRONIDAZOLE 0.75% VAG SCH ×2 (10:23→17:20)
[2017-10-31] MEDS: Lidocaine 5% Patch TD SCH (10:24)
[2017-10-31] MEDS ORDERED: Bupivacaine 0.5% Inj(30mL) ONE (18:47)
[2017-10-31] MEDS ORDERED: Dextrose 5%/0.9% NS 1,000 ML IV ONE (18:48)
[2017-10-31] MEDS ORDERED: Propofol 10 mg/ml Inj (20 ML) ONE (18:50)
[2017-10-31] MEDS ORDERED: Midazolam 2 MG/2 ML VIAL ONE (18:50)
[2017-10-31] MEDS ORDERED: Lidocaine 1% Inj (20ml) IJ ONE (19:06)
[2017-10-31] MEDS ORDERED: Bupivacaine 0.5% 50 ML IJ ONE (19:06)
[2017-10-31] MEDS ORDERED: Sodium Chloride 0.9% 500 ML IV ONE (19:23)
--- NOTE | 2017-10-31 19:31 | PCM.SURG1 ---
Surgeon's Initial Post Op Note - Surgeon's Notes Surgeon: Dr. Gaurav Gomez DPM [employer]: Dr. Melissa Walker DPM PGY-1, Dr. Nicole Astudillo DPM PGY-1 Type of Anesthesia: IV Sedation, Local Anesthesia Administered By: Dr. Christophe LAKE Pre-Operative Diagnosis: See dictation. M: none. I: 13 cc of 1:1 1% lidocain plain : 0.5% marcain plain Operative Findings: See dictation Post-Operative Diagnosis: Same Operation Performed: Excision of left 4th digit with removal of all non-viable soft tissue Specimen/Specimens Removed: left 4th digit. Intra-op cultures taken Estimated Blood Loss: EBL {In ML}: 10 Blood Products Given: N/A Drains Used: No Drains Post-Op Condition: Good Date of Surgery/Procedure: 10/31/17 Time of Surgery/Procedure: 19:31
[2017-10-31] MEDS: Sodium Chloride 0.9% 500 ML IV SCH (21:00)
[2017-11-01] MEDS: Meropenem 1 GM in Sodium Chloride 0.9% 100 ML IVPB SCH ×3 (00:18→18:07)
[2017-11-01] MEDS: Sodium Chloride 0.9% 500 ML IV SCH ×5 (00:20→22:00)
[2017-11-01 05:30] LABS: HEMOGLOBIN 10.2 g/dL (12.0-16.0); MEAN CELL VOLUME 77.7 fl (81.0-99.0); MEAN CORPUSCULAR HEMOGLOBIN 26.3 pg (27.0-31.0); MEAN CORPUSCULAR HGB CONC 33.9 g/dL (33.0-37.0); RBC 3.87 Mil/uL (3.80-5.20); RED CELL DISTRIBUTION WIDTH 14.5 % (11.5-14.5); WHITE BLOOD COUNT 6.4 K/uL (4.8-10.8)
[2017-11-01 06:18] LABS: IRON 33 ug/dL (37-170)
[2017-11-01 06:23] LABS: BLOOD UREA NITROGEN 6 mg/dl (7-17); CALCIUM 8.7 mg/dL (8.4-10.2); GFR AFRICAN-AMERICAN > 60; GFR NON-AFRICAN AMERICAN > 60
[2017-11-01 06:27] LABS: % IRON SATURATION 13 % (20-55); TOTAL IRON BINDING CAPACITY 259 ug/dL (250-450)
[2017-11-01] MEDS: Insulin Regular 100 units/ml SC SCH ×6 (06:37→21:28)
--- NOTE | 2017-11-01 08:21 | CP.PCM.PN ---
Subjective - Date & Time of Evaluation Date of Evaluation: 11/01/17 Time of Evaluation: 08:30 - Subjective Subjective: Progress note - Dr. Gomez 52 year old female patient with PMHx of DM, HTN was seen and evaluated at bedside 1 day s/p left 4th digit amputation. Patient is AAOx3 and is in NAD. Patient appears to be resting comfortably in her bed and denies of any acute overnight events. Patient reports that she has a little pain in her foot today but she is managing it well. Denies of F/N/V/C/SOB/CP. Denies of any other pedal complains at this time. Objective - Vital Signs/Intake and Output Vital Signs (last 24 hours): Temp Pulse Resp BP Pulse Ox 98.8 F 80 20 154/83 H 97 11/01/17 08:00 11/01/17 08:00 11/01/17 08:00 11/01/17 08:00 11/01/17 08:00 Intake and Output: 11/01/17 11/01/17 06:59 18:59 Intake Total 100 Balance 100 - Medications Medications: Current Medications Acetaminophen (Tylenol 325mg Tab) 650 mg PO Q4 PRN PRN Reason: Fever >100.4 F Last Admin: 10/28/17 16:23 Dose: 650 mg Acetaminophen (Tylenol 650 Mg Supp) 650 mg SC ONCE PRN PRN Reason: Fever >100.4 F Last Admin: 10/27/17 00:54 Dose: 650 mg Atorvastatin Calcium (Lipitor) 40 mg PO DAILY [facility] Last Admin: 10/31/17 10:19 Dose: Not Given Dextrose (Dextrose 50% Inj) 0 ml IV STAT PRN; Protocol PRN Reason: Hypoglycemia Protocol Dextrose (Glutose 15) 0 gm PO ONCE PRN; Protocol PRN Reason: Hypoglycemia Protocol Enalapril Maleate (Vasotec) 5 mg PO DAILY [facility] Last Admin: 10/31/17 11:21 Dose: 5 mg Enoxaparin Sodium (Lovenox) 40 mg SC DAILY [facility] PRN Reason: Protocol Last Admin: 10/30/17 09:50 Dose: 40 mg Gabapentin (Neurontin) 300 mg PO BID [facility] Last Admin: 10/31/17 19:31 Dose: Not Given Glucagon (Glucagen Diagnostic Kit) 0 mg IM STAT PRN; Protocol PRN Reason: Hypoglycemia Protocol Hydromorphone HCl (Dilaudid) 0.25 mg IVP Q6H PRN PRN Reason: Pain, severe (8-10) Last Admin: 10/27/17 15:13 Dose: 0.25 mg Vancomycin HCl 1 gm/ Sodium (Chloride) 250 mls @ 166.667 mls/hr IVPB Q12 [facility] PRN Reason: Protocol Last Admin: 10/31/17 22:42 Dose: 166.667 mls/hr Meropenem 1 gm/ Sodium (Chloride) 100 mls @ 100 mls/hr IVPB Q8 [facility] PRN Reason: Protocol Last Admin: 11/01/17 00:18 Dose: 100 mls/hr Sodium Chloride (Sodium Chloride 0.9%) 500 mls @ 100 mls/hr IV .Q5H [facility] Last Admin: 11/01/17 05:25 Dose: Not Given Ibuprofen (Motrin Tab) 600 mg PO Q8 PRN PRN Reason: Pain, moderate (4-7) Last Admin: 10/27/17 13:47 Dose: 600 mg Insulin Human NPH (Humulin N) 34 units SC ACB [facility] Last Admin: 10/31/17 10:18 Dose: Not Given Insulin Human NPH (Humulin N) 20 units SC HS [facility] Last Admin: 10/31/17 22:38 Dose: Not Given Insulin Human Regular (Humulin R) 0 units SC ACHS [facility] Last Admin: 11/01/17 06:37 Dose: Not Given Insulin Human Regular (Humulin R) 12 units SC ACBD [facility] Last Admin: 10/31/17 17:16 Dose: Not Given Lidocaine (Lidoderm) 2 ea TD DAILY [facility] Last Admin: 10/31/17 10:24 Dose: 2 ea Metoprolol Tartrate (Lopressor) 25 mg PO Q12 [facility] Last Admin: 10/31/17 22:34 Dose: 25 mg Metronidazole (Metrogel Cream) 1 applic VAG BID [facility] Last Admin: 10/31/17 17:20 Dose: 1 applic Morphine Sulfate (Morphine Immediate Release Tab) 15 mg PO BID [facility] Last Admin: 10/31/17 19:31 Dose: Not Given Ondansetron HCl (Zofran Inj) 4 mg IVP Q6 PRN PRN Reason: Nausea/Vomiting Last Admin: 10/27/17 23:25 Dose: 4 mg - Labs Labs: 11/01/17 04:35 11/01/17 04:35 PT 13.0 Seconds (9.8-13.1) 10/26/17 08:00 INR 1.2 (0.9-1.2) 10/26/17 08:00 APTT 27.0 Seconds (25.6-37.1) 10/26/17 08:00 - Constitutional Appears: Well, Non-toxic, No Acute Distress - Extremities Exam Additional comments: Bilateral LE exam: VASC: DP/PT pulses are palpable 2/4 B/L. Cap refill time: < 3 seconds to all digits. Skin temperature warm to cool from proximal to distal on the left and warm to cool from proximal to distal. mild non-pitting edema noted at the distal aspect of the foot DERM: Surgical site remains open with active healthy bleeding, metatarsal head exposed, no periwound erythema, no clinical suspicion of active infection at this time. Proximal lateral aspect of the right foot appears to have two small circular wounds surrounded by very macerated skin measuring approx 3 cm x 4 cm - maceration appears to be resolved; No active drainage, no purulence, no fluctuence, no yao-wound erythema, since there is no drainage from squeezing the wound and no fluctuence at this point and no maceration not suspecting an abscess at this point NEURO: Protective sensation grossly diminished ORTHO: mild tenderness on palpation of the left foot 4th digit - Neurological Exam Neurological Exam: Alert, Awake, Oriented x3 - Psychiatric Exam Psychiatric exam: Normal Affect, Normal Mood Assessment and Plan - Assessment and Plan (Free Text) Assessment: 52 year old female patient with PMHx of DM, HTN evaluated at bedside for 1). 1 day s/p left 4th digit amputation 2). non-infected wound to the right Plan: Patient seen and evaluated at bedside Patient discussed in details with attending Dr. Gomez Labs, vitals and charts reviewed - afebrile, no leukocytosis Blood culture: + for G + cocci Bilateral wound cultures taken - Pre-op: bilateral foot: Corynebacterium Intra-op cultures taken - pending Pre-op X-rays of the bilateral foot ordered/reviewed - No evidence of soft tissue emphysema Pre-op MRI of the LLE ordered/reviewed - On T2 and STIR image, increase in signal intensity extending to the base of the 4th proximal phalanx, possibly distal aspect of the 4th metatarsal head - consistent with OM of the 4th ray IV abx as per ID - Meropenem, Vancomycin Patient is stable from podiatry standpoint Podiatry to follow patient while in-house - please follow up with Dr. Gomez in wound care center once discharged from the hospital
[2017-11-01] MEDS: Insulin NPH Human 100 Units/ml Inj SC SCH ×2 (08:30→21:29)
--- NOTE | 2017-11-01 09:08 | CP.PCM.PN ---
Subjective - Date & Time of Evaluation Date of Evaluation: 11/01/17 Time of Evaluation: 08:25 - Subjective Subjective: Patient seen and examined at bedside this morning. Patient laying in bed comfortably, NAD. Patient reports mild pain in the distal lower extremities b/ l (Lt>Rt). Patient is post-op day 1 s/p left foot 4th digit amputation, had procedure yesterday and is recovering appropriately. Pain improving and relieved with meds. She reports that her abdominal/flank pain has resolved. Patient afebrile over 3 days. Patient denies nausea, vomiting. Urine culture returned positive for ESBL E.coli and patient is on contact precautions. Patient had PICC line placed 10/31/2017. Objective - Vital Signs/Intake and Output Vital Signs (last 24 hours): Temp Pulse Resp BP Pulse Ox 98.8 F 80 20 154/83 H 97 11/01/17 08:00 11/01/17 08:00 11/01/17 08:00 11/01/17 08:00 11/01/17 08:00 Intake and Output: 11/01/17 11/01/17 06:59 18:59 Intake Total 100 Balance 100 - Medications Medications: Current Medications Acetaminophen (Tylenol 325mg Tab) 650 mg PO Q4 PRN PRN Reason: Fever >100.4 F Last Admin: 10/28/17 16:23 Dose: 650 mg Acetaminophen (Tylenol 650 Mg Supp) 650 mg [place] ONCE PRN PRN Reason: Fever >100.4 F Last Admin: 10/27/17 00:54 Dose: 650 mg Atorvastatin Calcium (Lipitor) 40 mg PO DAILY [facility] Last Admin: 10/31/17 10:19 Dose: Not Given Dextrose (Dextrose 50% Inj) 0 ml IV STAT PRN; Protocol PRN Reason: Hypoglycemia Protocol Dextrose (Glutose 15) 0 gm PO ONCE PRN; Protocol PRN Reason: Hypoglycemia Protocol Enalapril Maleate (Vasotec) 5 mg PO DAILY [facility] Last Admin: 10/31/17 11:21 Dose: 5 mg Enoxaparin Sodium (Lovenox) 40 mg SC DAILY [facility] PRN Reason: Protocol Last Admin: 10/30/17 09:50 Dose: 40 mg Gabapentin (Neurontin) 300 mg PO BID [facility] Last Admin: 10/31/17 19:31 Dose: Not Given Glucagon (Glucagen Diagnostic Kit) 0 mg IM STAT PRN; Protocol PRN Reason: Hypoglycemia Protocol Hydromorphone HCl (Dilaudid) 0.25 mg IVP Q6H PRN PRN Reason: Pain, severe (8-10) Last Admin: 10/27/17 15:13 Dose: 0.25 mg Vancomycin HCl 1 gm/ Sodium (Chloride) 250 mls @ 166.667 mls/hr IVPB Q12 [facility] PRN Reason: Protocol Last Admin: 10/31/17 22:42 Dose: 166.667 mls/hr Meropenem 1 gm/ Sodium (Chloride) 100 mls @ 100 mls/hr IVPB Q8 [facility] PRN Reason: Protocol Last Admin: 11/01/17 00:18 Dose: 100 mls/hr Sodium Chloride (Sodium Chloride 0.9%) 500 mls @ 100 mls/hr IV .Q5H [facility] Last Admin: 11/01/17 05:25 Dose: Not Given Ibuprofen (Motrin Tab) 600 mg PO Q8 PRN PRN Reason: Pain, moderate (4-7) Last Admin: 10/27/17 13:47 Dose: 600 mg Insulin Human NPH (Humulin N) 34 units SC ACB [facility] Last Admin: 10/31/17 10:18 Dose: Not Given Insulin Human NPH (Humulin N) 20 units SC HS [facility] Last Admin: 10/31/17 22:38 Dose: Not Given Insulin Human Regular (Humulin R) 0 units SC ACHS [facility] Last Admin: 11/01/17 06:37 Dose: Not Given Insulin Human Regular (Humulin R) 12 units SC ACBD [facility] Last Admin: 10/31/17 17:16 Dose: Not Given Lidocaine (Lidoderm) 2 ea TD DAILY [facility] Last Admin: 10/31/17 10:24 Dose: 2 ea Metoprolol Tartrate (Lopressor) 25 mg PO Q12 [facility] Last Admin: 10/31/17 22:34 Dose: 25 mg Metronidazole (Metrogel Cream) 1 applic VAG BID [facility] Last Admin: 10/31/17 17:20 Dose: 1 applic Morphine Sulfate (Morphine Immediate Release Tab) 15 mg PO BID [facility] Last Admin: 10/31/17 19:31 Dose: Not Given Ondansetron HCl (Zofran Inj) 4 mg IVP Q6 PRN PRN Reason: Nausea/Vomiting Last Admin: 10/27/17 23:25 Dose: 4 mg - Labs Labs: 11/01/17 04:35 11/01/17 04:35 PT 13.0 Seconds (9.8-13.1) 10/26/17 08:00 INR 1.2 (0.9-1.2) 10/26/17 08:00 APTT 27.0 Seconds (25.6-37.1) 10/26/17 08:00 - Constitutional Appears: No Acute Distress - Head Exam Head Exam: ATRAUMATIC, NORMAL INSPECTION, NORMOCEPHALIC - Eye Exam Eye Exam: Normal appearance - ENT Exam ENT Exam: Mucous Membranes Moist - Neck Exam Neck Exam: Full ROM. absent: Tenderness - Respiratory Exam Respiratory Exam: Clear to Ausculation Bilateral, NORMAL BREATHING PATTERN. absent: Decreased Breath Sounds, Rales, Rhonchi, Wheezes, Respiratory Distress - Cardiovascular Exam Cardiovascular Exam: REGULAR RHYTHM - GI/Abdominal Exam GI & Abdominal Exam: Soft, Normal Bowel Sounds. absent: Distended, Tenderness - Extremities Exam Extremities Exam: absent: Calf Tenderness Additional comments: b/l lower extremity dressings in place are clean, dry intact to ankle. no proximal erythema or warmth palpable b/l. no calf tenderness b/l. - Back Exam Back Exam: absent: CVA tenderness (L), CVA tenderness (R) - Neurological Exam Neurological Exam: Alert, Awake, Oriented x3 - Skin Skin Exam: Dry Assessment and Plan - Assessment and Plan (Free Text) Assessment: 52 y/o woman w/ pmh of IDDM2, HTN and diabetic foot ulcers presented with abdominal/left flank pain associated with fever. During admission patient found to have positive ESBL ecoli urine culture. Currently receiving IV antiobiotics. Plan: 1. Sepsis, improving - Etiology possible seconday to UTI vs infected diabetic foot ulcer - Blood culture from 10/26: Streptococcus pyogenes group A - blood cultures 10/27 and 10/29 show no growth - Urine culture reveals ESBL ecoli - Echo: no valvular vegetation - Meropenem 1gm IV Q8h (Started 10/28, Current day 5) - ID consulted, Dr. Solares, recommendations appreciated 2. ESBL E Coli UTI - Urine culture from 10/26 reveals ESBL E.coli - On meropenem 1 gm IV Q8h day 5 - Contact precautions 3. Left foot ulcer and infected 4th digit - Osteomyelitis - Left foot 4th digit infected wound with wet gangrenous changes, cellulitis of the left foot, osteomyelitis, possible abscess on the right foot - Wound culture: Corynebacterium species - ESR: 95 - On empiric Vancomycin 1 gm IV Q12 (Started 10/27, however dose held for 1 day, current day 4) - Keep vanc trough <20 - random vanc trough 8.7 (10/31/2017) (dose held 10/29 @ 21:00, 10/30 @21:00, @ 09:00) - PICC line insertion, right arm, this morning for long-term antibiotics - Podiatry consulted, Dr. Borja, recommendations appreciated - Post-op Day 1 s/p Debridement and amputation of 4th digit - B/l foot XRay: No evidence of soft tissue emphysema - B/l foot MRI: - right, findings suspicious for osteomyelitis of the proximal phalanx of the 4th toe w/ associated dorsal soft tissue ulcer - left, suspicious for osteomyelitis 4. Pain management - Morphine 15mg PO BID [facility] - Gabapentin 300mg PO BID for neuropathic pain - Lidoderm patch daily - Motrin 600mg PO Q8h prn moderate - Dilaudid 0.25mg IV Q6h prn severe Anemia - Hb today 10.2, previous 9.0 - patient had been given IVF boluses and maintenance fluids for sepsis treatment but currently not on IVF - iron 33, % saturation 13 - TIBC 259 - ferritin 148 - f/u FOBT IDDM2, with hyperglycemia - Last HbA1c 8.8% (07/24/2017) - Endocrinology consulted, Dr. Bedoya, recommendations appreciated and insulin coverage adjusted as follows: - Insulin NPH 34 units SC ACB and 24 units SC HS for long acting coverage - Humulin R 14 units SC ACBD - Correction scale - ACCUchecks ACHS - Hypoglycemia precautions HTN - Controlled w/ medication - Enalapril 5 mg PO daily - Metoprolol 25 mg PO Q12 added due to associated tachycardia - Heart healthy diet Bacterial Vaginosis - On empiric metronidazole 0.75% Vag BID day 6 Depression - Patient feels down due to problems from DM2 - Psychiatry consulted, Dr. Mayers, recommendations appreciated DVT Prophylaxis - Lovenox 40 mg SC daily Dispo: transfer to [facility]
[2017-11-01] MEDS: Enoxaparin 40 mg Syringe SC SCH (09:19)
[2017-11-01] MEDS: METRONIDAZOLE 0.75% VAG SCH ×2 (09:19→19:04)
[2017-11-01] MEDS: Lidocaine 5% Patch TD SCH (09:21)
[2017-11-01] MEDS: Morphine 15 mg Immediate Release Tab PO SCH ×2 (09:36→18:03)
--- NOTE | 2017-11-01 10:32 | VASCULAR ---
PROCEDURE: Date of procedure: 10/31/2017 Procedure: 1. Placement of a right arm PICC with ultrasound and fluoroscopic guidance, CPT 97366 2. PICC tip confirmation with spot radiograph and is in the superior vena cava Medications: 1 percent lidocaine Total Fluoro time: 3.4 seconds Radiation: 0.53 MGy EBL: 2 cc HISTORY: Infection requiring long-term IV antibiotics TECHNIQUE: Following informed consent and procedure time-out, the patient was placed supine on the interventional table and the right arm prepped and draped in the usual sterile fashion. Ultrasound showed a patent and compressible right basilic vein. After the skin was anesthetized with lidocaine, the basilic vein was accessed with micro micropuncture technique using ultrasound guidance. A guidewire was then advanced under fluoroscopic guidance into the superior vena cava. An image documenting ultrasound guidance for vascular access was permanently saved. The length of the single-lumen 4 [place] PICC was trimmed to 33 centimeters and advanced through a peel-away sheath. The PICC was position with tip of PICC confirm a spot radiograph the superior vena cava. The PICC was secured to the patient's skin. The PICC was flushed. A biopatch and sterile dressing was applied. IMPRESSION: Placement of a single-lumen 4 [place] PICC trimmed to 33 centimeters via right basilic vein. The tip of the PICC is confirmed with spot radiograph and is in the superior vena cava.
[2017-11-02] MEDS: Meropenem 1 GM in Sodium Chloride 0.9% 100 ML IVPB SCH ×3 (00:46→17:25)
[2017-11-02] MEDS: Sodium Chloride 0.9% 500 ML IV SCH ×4 (01:20→21:31)
[2017-11-02] MEDS: Insulin Regular 100 units/ml SC SCH ×6 (06:49→23:02)
[2017-11-02] MEDS: Insulin NPH Human 100 Units/ml Inj SC SCH ×2 (08:45→23:06)
[2017-11-02] MEDS: METRONIDAZOLE 0.75% VAG SCH ×2 (08:49→17:26)
[2017-11-02] MEDS: Enoxaparin 40 mg Syringe SC SCH (08:49)
[2017-11-02] MEDS: Lidocaine 5% Patch TD SCH (08:51)
[2017-11-02] MEDS: Morphine 15 mg Immediate Release Tab PO SCH (08:54)
--- NOTE | 2017-11-02 09:24 | CP.PCM.PN ---
Subjective - Date & Time of Evaluation Date of Evaluation: 11/02/17 Time of Evaluation: 08:00 - Subjective Subjective: Progress note - Dr. Gomez 52 year old female patient with PMHx of DM, HTN was seen and evaluated at bedside 2 day s/p left 4th digit amputation. Patient appears to be resting comfortably in her bed and denies of any acute overnight events. Patient is AAOx3 and is in NAD. Patient denies of any pain today. Denies of F/N/V/C/SOB/ CP. Denies of any other pedal complains at this time. Objective - Vital Signs/Intake and Output Vital Signs (last 24 hours): Temp Pulse Resp BP Pulse Ox 98.3 F 79 18 144/78 98 11/02/17 08:00 11/02/17 08:50 11/02/17 08:00 11/02/17 08:50 11/02/17 08:00 Intake and Output: 11/02/17 11/02/17 06:59 18:59 Intake Total 1200 Balance 1200 - Medications Medications: Current Medications Acetaminophen (Tylenol 325mg Tab) 650 mg PO Q4 PRN PRN Reason: Fever >100.4 F Last Admin: 10/28/17 16:23 Dose: 650 mg Acetaminophen (Tylenol 650 Mg Supp) 650 mg NE ONCE PRN PRN Reason: Fever >100.4 F Last Admin: 10/27/17 00:54 Dose: 650 mg Atorvastatin Calcium (Lipitor) 40 mg PO DAILY [facility] Last Admin: 11/02/17 08:51 Dose: 40 mg Dextrose (Dextrose 50% Inj) 0 ml IV STAT PRN; Protocol PRN Reason: Hypoglycemia Protocol Dextrose (Glutose 15) 0 gm PO ONCE PRN; Protocol PRN Reason: Hypoglycemia Protocol Enalapril Maleate (Vasotec) 5 mg PO DAILY [facility] Last Admin: 11/02/17 08:50 Dose: 5 mg Enoxaparin Sodium (Lovenox) 40 mg SC DAILY [facility] PRN Reason: Protocol Last Admin: 11/02/17 08:49 Dose: 40 mg Gabapentin (Neurontin) 300 mg PO BID [facility] Last Admin: 11/02/17 08:49 Dose: 300 mg Glucagon (Glucagen Diagnostic Kit) 0 mg IM STAT PRN; Protocol PRN Reason: Hypoglycemia Protocol Hydromorphone HCl (Dilaudid) 0.25 mg IVP Q6H PRN PRN Reason: Pain, severe (8-10) Last Admin: 10/27/17 15:13 Dose: 0.25 mg Vancomycin HCl 1 gm/ Sodium (Chloride) 250 mls @ 166.667 mls/hr IVPB Q12 [facility] PRN Reason: Protocol Last Admin: 11/01/17 21:25 Dose: 166.667 mls/hr Meropenem 1 gm/ Sodium (Chloride) 100 mls @ 100 mls/hr IVPB Q8 [facility] PRN Reason: Protocol Last Admin: 11/02/17 08:48 Dose: 100 mls/hr Sodium Chloride (Sodium Chloride 0.9%) 500 mls @ 100 mls/hr IV .Q5H [facility] Last Admin: 11/02/17 06:54 Dose: 100 mls/hr Ibuprofen (Motrin Tab) 600 mg PO Q8 PRN PRN Reason: Pain, moderate (4-7) Last Admin: 10/27/17 13:47 Dose: 600 mg Insulin Human NPH (Humulin N) 34 units SC ACB [facility] Last Admin: 11/02/17 08:45 Dose: Not Given Insulin Human NPH (Humulin N) 20 units SC HS [facility] Last Admin: 11/01/17 21:29 Dose: Not Given Insulin Human Regular (Humulin R) 0 units SC ACHS [facility] Last Admin: 11/02/17 06:49 Dose: Not Given Insulin Human Regular (Humulin R) 12 units SC ACBD [facility] Last Admin: 11/02/17 08:46 Dose: Not Given Lidocaine (Lidoderm) 2 ea TD DAILY [facility] Last Admin: 11/02/17 08:51 Dose: 2 ea Metoprolol Tartrate (Lopressor) 25 mg PO Q12 [facility] Last Admin: 11/02/17 08:50 Dose: 25 mg Metronidazole (Metrogel Cream) 1 applic VAG BID [facility] Last Admin: 11/02/17 08:49 Dose: 1 applic Morphine Sulfate (Morphine Immediate Release Tab) 15 mg PO BID [facility] Last Admin: 11/02/17 08:54 Dose: 15 mg Ondansetron HCl (Zofran Inj) 4 mg IVP Q6 PRN PRN Reason: Nausea/Vomiting Last Admin: 10/27/17 23:25 Dose: 4 mg - Labs Labs: 11/01/17 04:35 11/01/17 04:35 PT 13.0 Seconds (9.8-13.1) 10/26/17 08:00 INR 1.2 (0.9-1.2) 10/26/17 08:00 APTT 27.0 Seconds (25.6-37.1) 10/26/17 08:00 - Constitutional Appears: Well, Non-toxic, No Acute Distress - Extremities Exam Additional comments: Bilateral LE exam: VASC: DP/PT pulses are palpable 2/4 B/L. Cap refill time: < 3 seconds to all digits. Skin temperature warm to cool from proximal to distal on the left and warm to cool from proximal to distal. mild non-pitting edema noted at the distal aspect of the foot DERM: Surgical site remains open with active healthy bleeding which has decreased since yesterday - very minimal to no bleeding during dressing change today, metatarsal head exposed, no periwound erythema, mild maceration noted surrounding the surgical site, no clinical suspicion of active infection at this time. Proximal lateral aspect of the right foot appears to have two small circular wounds surrounded by very macerated skin measuring approx 3 cm x 4 cm - maceration appears to be resolved; No active drainage, no purulence, no fluctuence, no yao-wound erythema, since there is no drainage from squeezing the wound and no fluctuence at this time and no maceration - not suspecting an abscess at this point NEURO: Protective sensation grossly diminished ORTHO: mild tenderness on palpation of the surgical site - Neurological Exam Neurological Exam: Alert, Awake, Oriented x3 - Psychiatric Exam Psychiatric exam: Normal Affect, Normal Mood Assessment and Plan - Assessment and Plan (Free Text) Assessment: 52 year old female patient with PMHx of DM, HTN evaluated at bedside for 1). 2 days s/p left 4th digit amputation 2). non-infected wound to the right Plan: Patient seen and evaluated at bedside Patient discussed in details with attending Dr. Gomez Labs, vitals and charts reviewed - afebrile, no leukocytosis Blood culture: No growth Bilateral wound cultures taken - Pre-op: bilateral foot: Corynebacterium Intra-op cultures taken - no growth Pre-op X-rays of the bilateral foot ordered/reviewed - No evidence of soft tissue emphysema Pre-op MRI of the LLE ordered/reviewed - On T2 and STIR image, increase in signal intensity extending to the base of the 4th proximal phalanx, possibly distal aspect of the 4th metatarsal head - consistent with OM of the 4th ray IV abx as per ID - Meropenem, Vancomycin Patient is stable from podiatry standpoint Podiatry to follow patient while in-house - please follow up with Dr. Gomez in wound care center once discharged from the hospital
--- NOTE | 2017-11-02 09:56 | CP.PCM.PN ---
Subjective - Date & Time of Evaluation Date of Evaluation: 11/02/17 Time of Evaluation: 09:35 - Subjective Subjective: Patient seen and examined at bedside this morning. Patient laying in bed comfortably, NAD. Patient reports mild pain in the distal lower extremities b/ l (Lt>Rt). Patient is post-op day 2 s/p left foot 4th digit amputation and is recovering appropriately. Pain improving and relieved with meds. She reports that her abdominal/flank pain has resolved. Patient afebrile over 4 days. Patient denies nausea, vomiting. Urine culture returned positive for ESBL E.coli and patient is on contact precautions. Patient had PICC line placed . Objective - Vital Signs/Intake and Output Vital Signs (last 24 hours): Temp Pulse Resp BP Pulse Ox 98.3 F 79 18 144/78 98 11/02/17 08:00 11/02/17 08:50 11/02/17 08:00 11/02/17 08:50 11/02/17 08:00 Intake and Output: 11/02/17 11/02/17 06:59 18:59 Intake Total 1200 Balance 1200 - Medications Medications: Current Medications Acetaminophen (Tylenol 325mg Tab) 650 mg PO Q4 PRN PRN Reason: Fever >100.4 F Last Admin: 10/28/17 16:23 Dose: 650 mg Acetaminophen (Tylenol 650 Mg Supp) 650 mg [place] ONCE PRN PRN Reason: Fever >100.4 F Last Admin: 10/27/17 00:54 Dose: 650 mg Atorvastatin Calcium (Lipitor) 40 mg PO DAILY [facility]S [facility] Last Admin: 11/02/17 08:51 Dose: 40 mg Dextrose (Dextrose 50% Inj) 0 ml IV STAT PRN; Protocol PRN Reason: Hypoglycemia Protocol Dextrose (Glutose 15) 0 gm PO ONCE PRN; Protocol PRN Reason: Hypoglycemia Protocol Enalapril Maleate (Vasotec) 5 mg PO DAILY [facility]S [facility] Last Admin: 11/02/17 08:50 Dose: 5 mg Enoxaparin Sodium (Lovenox) 40 mg SC DAILY [facility] PRN Reason: Protocol Last Admin: 11/02/17 08:49 Dose: 40 mg Gabapentin (Neurontin) 300 mg PO BID [facility] 234 B[facility]S [facility] Last Admin: 11/02/17 08:49 Dose: 300 mg Glucagon (Glucagen Diagnostic Kit) 0 mg IM STAT PRN; Protocol PRN Reason: Hypoglycemia Protocol Hydromorphone HCl (Dilaudid) 0.25 mg IVP Q6H PRN PRN Reason: Pain, severe (8-10) Last Admin: 10/27/17 15:13 Dose: 0.25 mg Vancomycin HCl 1 gm/ Sodium (Chloride) 250 mls @ 166.667 mls/hr IVPB Q12 [facility] PRN Reason: Protocol Last Admin: 11/01/17 21:25 Dose: 166.667 mls/hr Meropenem 1 gm/ Sodium (Chloride) 100 mls @ 100 mls/hr IVPB Q8 [facility] PRN Reason: Protocol Last Admin: 11/02/17 08:48 Dose: 100 mls/hr Sodium Chloride (Sodium Chloride 0.9%) 500 mls @ 100 mls/hr IV .Q5H [facility] 234 B[facility]S [facility] Last Admin: 11/02/17 06:54 Dose: 100 mls/hr Ibuprofen (Motrin Tab) 600 mg PO Q8 PRN PRN Reason: Pain, moderate (4-7) Last Admin: 10/27/17 13:47 Dose: 600 mg Insulin Human NPH (Humulin N) 34 units SC ACB [facility] 234 B[facility]S [facility] Last Admin: 11/02/17 08:45 Dose: Not Given Insulin Human NPH (Humulin N) 20 units SC HS [facility] 234 [facility]S [facility] Last Admin: 11/01/17 21:29 Dose: Not Given Insulin Human Regular (Humulin R) 0 units SC ACHS [facility] 234 B[facility]S [facility] Last Admin: 11/02/17 06:49 Dose: Not Given Insulin Human Regular (Humulin R) 12 units SC ACBD [facility] 234 [facility]S [facility] Last Admin: 11/02/17 08:46 Dose: Not Given Lidocaine (Lidoderm) 2 ea TD DAILY [facility] Last Admin: 11/02/17 08:51 Dose: 2 ea Metoprolol Tartrate (Lopressor) 25 mg PO Q12 [facility] 234 [facility]S [facility] Last Admin: 11/02/17 08:50 Dose: 25 mg Metronidazole (Metrogel Cream) 1 applic VAG BID [facility] 234 B[facility]S AT [facility] Last Admin: 11/02/17 08:49 Dose: 1 applic Morphine Sulfate (Morphine Immediate Release Tab) 15 mg PO BID [facility]S [facility] Last Admin: 11/02/17 08:54 Dose: 15 mg Ondansetron HCl (Zofran Inj) 4 mg IVP Q6 PRN PRN Reason: Nausea/Vomiting Last Admin: 10/27/17 23:25 Dose: 4 mg - Labs Labs: 11/01/17 04:35 11/01/17 04:35 PT 13.0 Seconds (9.8-13.1) 10/26/17 08:00 INR 1.2 (0.9-1.2) 10/26/17 08:00 APTT 27.0 Seconds (25.6-37.1) 10/26/17 08:00 - Constitutional Appears: No Acute Distress - Head Exam Head Exam: ATRAUMATIC, NORMAL INSPECTION, NORMOCEPHALIC - Eye Exam Eye Exam: Normal appearance - ENT Exam ENT Exam: Mucous Membranes Moist - Neck Exam Neck Exam: Full ROM. absent: Tenderness - Respiratory Exam Respiratory Exam: Clear to Ausculation Bilateral, NORMAL BREATHING PATTERN. absent: Decreased Breath Sounds, Rales, Rhonchi, Wheezes, Respiratory Distress - Cardiovascular Exam Cardiovascular Exam: REGULAR RHYTHM. absent: Tachycardia - GI/Abdominal Exam GI & Abdominal Exam: Soft, Normal Bowel Sounds. absent: Distended, Tenderness - Extremities Exam Extremities Exam: absent: Calf Tenderness Additional comments: b/l lower extremity dressings in place are clean, dry intact to ankle. no proximal erythema or warmth palpable b/l. no calf tenderness b/l. - Back Exam Back Exam: absent: CVA tenderness (L), CVA tenderness (R) - Neurological Exam Neurological Exam: Alert, Awake, Oriented x3 - Skin Skin Exam: Dry Assessment and Plan - Assessment and Plan (Free Text) Assessment: 52 y/o woman w/ pmh of IDDM2, HTN and diabetic foot ulcers presented with abdominal/left flank pain associated with fever. During admission patient found to have positive ESBL ecoli urine culture. Currently receiving IV antiobiotics. Plan: 1. Sepsis, improving - Etiology possible seconday to UTI vs infected diabetic foot ulcer - Blood culture from 10/26: Streptococcus pyogenes group A - blood cultures 10/27 and 10/29 show no growth - Urine culture reveals ESBL ecoli - Echo: no valvular vegetation - Meropenem 1gm IV Q8h (Started 10/28, Current day 6) - ID consulted, Dr. Solares, recommendations appreciated 2. ESBL E Coli UTI - Urine culture from 10/26 reveals ESBL E.coli - On meropenem 1 gm IV Q8h day 6 - Contact precautions - as per ID, 2 more days of meropenem - f/u UA 3. Left foot ulcer and infected 4th digit - Osteomyelitis - Left foot 4th digit infected wound with wet gangrenous changes, cellulitis of the left foot, osteomyelitis, possible abscess on the right foot - Wound culture: Corynebacterium species - ESR: 95 - On empiric Vancomycin 1 gm IV Q12 (Started 10/27, however dose held for 1 day, current day 5) - as per ID, 8 more days of vanc - Keep vanc trough <20 - f/u vanc trough - PICC line insertion, right arm, this morning for long-term antibiotics - Podiatry consulted, Dr. Borja, recommendations appreciated - Post-op Day 2 s/p Debridement and amputation of 4th digit - B/l foot XRay: No evidence of soft tissue emphysema - B/l foot MRI: - right, findings suspicious for osteomyelitis of the proximal phalanx of the 4th toe w/ associated dorsal soft tissue ulcer - left, suspicious for osteomyelitis 4. Pain management - Morphine 15mg PO BID prn - Gabapentin 300mg PO BID for neuropathic pain - Lidoderm patch daily - Motrin 600mg PO Q8h prn moderate - Dilaudid 0.25mg IV Q6h prn severe 5. Anemia - stable - Hb today 10.2, previous 9.0 - patient had been given IVF boluses and maintenance fluids for sepsis treatment but currently not on IVF - iron 33, % saturation 13 - TIBC 259 - ferritin 148 - FOBT : negative 6. IDDM2, with hyperglycemia - Last HbA1c 8.8% (07/24/2017) - Endocrinology consulted, Dr. Bedoya, recommendations appreciated and insulin coverage adjusted as follows: - Insulin NPH 34 units SC ACB and 24 units SC HS for long acting coverage - Humulin R 14 units SC ACBD - Correction scale - ACCUchecks ACHS - Hypoglycemia precautions 7. HTN - Controlled w/ medication - Enalapril 5 mg PO daily - Metoprolol 25 mg PO Q12 added due to associated tachycardia - Heart healthy diet 8. Bacterial Vaginosis - On empiric metronidazole 0.75% Vag BID day 7 9. Depression - Patient feels down due to problems from DM2 - Psychiatry consulted, Dr. Mayers, recommendations appreciated 10. DVT Prophylaxis - Lovenox 40 mg SC daily Dispo: transfer to [facility]
[2017-11-02] MEDS ORDERED: Morphine 15 mg Immediate Release Tab PO PRN (11:32)
--- NOTE | 2017-11-02 12:05 | CP.PCM.PN ---
Subjective - Date & Time of Evaluation Date of Evaluation: 11/02/17 Time of Evaluation: 12:05 - Subjective Subjective: ID Note- Pt. seen and examined today. pt. in good spirits and denies any complaints today. remains afebrile s/p left fourth toe amputation 2 days ago by podiatry. Objective - Vital Signs/Intake and Output Vital Signs (last 24 hours): Temp Pulse Resp BP Pulse Ox 98.2 F 74 18 130/76 93 L 11/02/17 11:52 11/02/17 11:52 11/02/17 11:52 11/02/17 11:52 11/02/17 11:52 Intake and Output: 11/02/17 11/02/17 06:59 18:59 Intake Total 1200 Balance 1200 - Medications Medications: Current Medications Acetaminophen (Tylenol 325mg Tab) 650 mg PO Q4 PRN PRN Reason: Fever >100.4 F Last Admin: 10/28/17 16:23 Dose: 650 mg Acetaminophen (Tylenol 650 Mg Supp) 650 mg [place] ONCE PRN PRN Reason: Fever >100.4 F Last Admin: 10/27/17 00:54 Dose: 650 mg Atorvastatin Calcium (Lipitor) 40 mg PO DAILY [facility] Last Admin: 11/02/17 08:51 Dose: 40 mg Dextrose (Dextrose 50% Inj) 0 ml IV STAT PRN; Protocol PRN Reason: Hypoglycemia Protocol Dextrose (Glutose 15) 0 gm PO ONCE PRN; Protocol PRN Reason: Hypoglycemia Protocol Enalapril Maleate (Vasotec) 5 mg PO DAILY [facility] Last Admin: 11/02/17 08:50 Dose: 5 mg Enoxaparin Sodium (Lovenox) 40 mg SC DAILY [facility] PRN Reason: Protocol Last Admin: 11/02/17 08:49 Dose: 40 mg Gabapentin (Neurontin) 300 mg PO BID [facility] Last Admin: 11/02/17 08:49 Dose: 300 mg Glucagon (Glucagen Diagnostic Kit) 0 mg IM STAT PRN; Protocol PRN Reason: Hypoglycemia Protocol Hydromorphone HCl (Dilaudid) 0.25 mg IVP Q6H PRN PRN Reason: Pain, severe (8-10) Last Admin: 10/27/17 15:13 Dose: 0.25 mg Vancomycin HCl 1 gm/ Sodium (Chloride) 250 mls @ 166.667 mls/hr IVPB Q12 [facility] PRN Reason: Protocol Last Admin: 11/01/17 21:25 Dose: 166.667 mls/hr Meropenem 1 gm/ Sodium (Chloride) 100 mls @ 100 mls/hr IVPB Q8 [facility] PRN Reason: Protocol Last Admin: 11/02/17 08:48 Dose: 100 mls/hr Sodium Chloride (Sodium Chloride 0.9%) 500 mls @ 100 mls/hr IV .Q5H [facility] Last Admin: 11/02/17 06:54 Dose: 100 mls/hr Ibuprofen (Motrin Tab) 600 mg PO Q8 PRN PRN Reason: Pain, moderate (4-7) Last Admin: 10/27/17 13:47 Dose: 600 mg Insulin Human NPH (Humulin N) 34 units SC ACB [facility] Last Admin: 11/02/17 08:45 Dose: Not Given Insulin Human NPH (Humulin N) 20 units SC HS [facility] Last Admin: 11/01/17 21:29 Dose: Not Given Insulin Human Regular (Humulin R) 0 units SC ACHS [facility] Last Admin: 11/02/17 06:49 Dose: Not Given Insulin Human Regular (Humulin R) 12 units SC ACBD [facility] Last Admin: 11/02/17 08:46 Dose: Not Given Lidocaine (Lidoderm) 2 ea TD DAILY [facility] Last Admin: 11/02/17 08:51 Dose: 2 ea Metoprolol Tartrate (Lopressor) 25 mg PO Q12 [facility] Last Admin: 11/02/17 08:50 Dose: 25 mg Metronidazole (Metrogel Cream) 1 applic VAG BID [facility] Last Admin: 11/02/17 08:49 Dose: 1 applic Morphine Sulfate (Morphine Immediate Release Tab) 15 mg PO BID PRN PRN Reason: Pain, moderate (4-7) Ondansetron HCl (Zofran Inj) 4 mg IVP Q6 PRN PRN Reason: Nausea/Vomiting Last Admin: 10/27/17 23:25 Dose: 4 mg - Labs Labs: - Additional Findings Additional findings: - Constitutional Appears: No Acute Distress - Head Exam Head Exam: ATRAUMATIC - Eye Exam Eye Exam: EOMI, PERRL - ENT Exam ENT Exam: Normal Oropharynx - Neck Exam Neck exam: Positive for: Full Rom - Respiratory Exam Respiratory Exam: Clear to Auscultation Bilateral, NORMAL BREATHING PATTERN - Cardiovascular Exam Cardiovascular Exam: RRR, +S1, +S2 - GI/Abdominal Exam GI & Abdominal Exam: Normal Bowel Sounds, Soft Additional comments: No tenderness, No distention - Extremities Exam Extremities exam: left foot 4th digit amputation site with open wound, no purulent discharge, sanguinous discharge only and right dorsal lateral foot with slight edema and 2 small round areas of minimal yellow like discharge - Neurological Exam Neurological exam: Alert, Oriented x 3 Laboratory Results - last 72 hr 10/30/17 10/30/17 10/31/17 16:18 20:56 04:30 WBC RBC Hgb Hct MCV MCH MCHC RDW Plt Count Retic Count Sodium Potassium Chloride Carbon Dioxide Anion Gap BUN Creatinine Est GFR ( Amer) Est GFR (Non-Af Amer) POC Glucose (mg/dL) 261 H 130 H Random Glucose Calcium Iron TIBC % Saturation Ferritin Stool Occult Blood Vancomycin Trough 8.7 10/31/17 10/31/17 10/31/17 04:30 04:30 05:04 WBC 5.1 RBC 3.60 L Hgb 9.0 L Hct 28.3 L MCV 78.6 L MCH 24.9 L MCHC 31.7 L RDW 14.9 H Plt Count 206 Retic Count Sodium 142 Potassium 3.9 Chloride 102 Carbon Dioxide 28 Anion Gap 16 BUN 6 L Creatinine 0.6 L Est GFR ( Amer) > 60 Est GFR (Non-Af Amer) > 60 POC Glucose (mg/dL) 102 Random Glucose 114 H Calcium 8.6 Iron TIBC % Saturation Ferritin Stool Occult Blood Vancomycin Trough 10/31/17 10/31/17 10/31/17 11:37 15:48 18:43 WBC RBC Hgb Hct MCV MCH MCHC RDW Plt Count Retic Count Sodium Potassium Chloride Carbon Dioxide Anion Gap BUN Creatinine Est GFR ( Amer) Est GFR (Non-Af Amer) POC Glucose (mg/dL) 94 88 95 Random Glucose Calcium Iron TIBC % Saturation Ferritin Stool Occult Blood Vancomycin Trough 10/31/17 10/31/17 11/01/17 19:27 21:15 04:35 WBC RBC Hgb Hct MCV MCH MCHC RDW Plt Count Retic Count Sodium Potassium Chloride Carbon Dioxide Anion Gap BUN Creatinine Est GFR ( Amer) Est GFR (Non-Af Amer) POC Glucose (mg/dL) 164 H 126 H Random Glucose Calcium Iron 33 L TIBC 259 % Saturation 13 L Ferritin Stool Occult Blood Vancomycin Trough 11/01/17 11/01/17 11/01/17 04:35 04:35 05:14 WBC 6.4 RBC 3.87 Hgb 10.2 L Hct 30.1 L MCV 77.7 L MCH 26.3 L MCHC 33.9 RDW 14.5 Plt Count 248 Retic Count 1.6 H Sodium 141 Potassium 3.9 Chloride 103 Carbon Dioxide 29 Anion Gap 13 BUN 6 L Creatinine 0.6 L Est GFR ( Amer) > 60 Est GFR (Non-Af Amer) > 60 POC Glucose (mg/dL) 150 H Random Glucose 178 H Calcium 8.7 Iron TIBC % Saturation Ferritin 148.0 Stool Occult Blood Vancomycin Trough 11/01/17 11/01/17 11/01/17 09:28 11:36 15:48 WBC RBC Hgb Hct MCV MCH MCHC RDW Plt Count Retic Count Sodium Potassium Chloride Carbon Dioxide Anion Gap BUN Creatinine Est GFR ( Amer) Est GFR (Non-Af Amer) POC Glucose (mg/dL) 159 H 113 H Random Glucose Calcium Iron TIBC % Saturation Ferritin Stool Occult Blood Negative Vancomycin Trough 11/01/17 11/02/17 11/02/17 21:06 05:20 10:54 WBC RBC Hgb Hct MCV MCH MCHC RDW Plt Count Retic Count Sodium Potassium Chloride Carbon Dioxide Anion Gap BUN Creatinine Est GFR ( Amer) Est GFR (Non-Af Amer) POC Glucose (mg/dL) 162 H 71 117 H Random Glucose Calcium Iron TIBC % Saturation Ferritin Stool Occult Blood Vancomycin Trough Microbiology 10/31/17 12:00 Toe Gram Stain - Final 10/31/17 12:00 Toe Wound Culture - Preliminary NO GROWTH AFTER 24 HOURS 10/29/17 06:21 Blood Blood Culture - Preliminary NO GROWTH AFTER 4 DAYS 10/27/17 10:20 Blood Blood Culture - Final NO GROWTH AFTER 5 DAYS 10/27/17 10:20 Blood Gram Stain - Final TEST NOT PERFORMED 10/26/17 08:00 Blood S.aureus & Coag-Neg Staph PNA FISH - Final 10/26/17 08:00 Blood Blood Culture - Final Streptococcus Pyogenes Grp A 10/26/17 08:00 Blood Gram Stain - Final 10/28/17 16:20 Foot - Left Gram Stain - Final 10/28/17 16:20 Foot - Left Wound Culture - Final Corynebacterium Species 10/27/17 08:10 Foot - Right Gram Stain - Final 10/27/17 08:10 Foot - Right Wound Culture - Final Corynebacterium Species 10/26/17 17:20 Urine Urine Culture - Final Escherichia Coli Assessment and Plan (1) Sepsis Status: Acute (2) UTI (urinary tract infection) Status: Acute (3) Diabetes Status: Acute (4) Bacteremia Status: Acute - Assessment and Plan (Free Text) Assessment: A/P- 52 y/o female with DM II, HTN, HLD admitted with LLQ abd pain and dysurea. afebrile past 2 days. + UA urine cx- ESBL e.coli Blood cx 10/26/2017- strep pyogenes blood cx from 10/27 and 10/29- neg left fourth toe wound cx- corynebacterium right foot wound cx- corynebacterium OR wound cx from 10/31/2017-negative so far MRI report- OM of left fourth toe TTE- no vegetation as per report. plan- advise to continue with IV vancomycin for strep pyogenes bacteremia day #6 keep trough <20 will need at least 2 weeks of the Iv vanco.( 8 more days) vanco would treat the corynabcaterium as well, however, will ask micro to Identify the type (species) of corynebacterium. continue with meropnem for ESBL e.coli UTI. day #5. check repeat UA. continue meropnem for 2 more days. all above d/w Dr.Pierre Johnson.
--- NOTE | 2017-11-02 13:24 | OP ---
PROCEDURE DATE: 10/31/2017 PREOPERATIVE DIAGNOSIS: Left foot fourth digit osteomyelitis with gangrenous changes. POSTOPERATIVE DIAGNOSIS: Left foot fourth digit osteomyelitis with gangrenous changes.. NAME OF THE PROCEDURE: Left foot fourth digit amputation. SURGEON: Gaurav Galloway DPM PLASTIC ROLLER: 1. Melissa Walker, PGY-1 2. Nicole Astudillo, PGY-1 ANESTHESIOLOGIST: Malik Huffman MD TYPE OF ANESTHESIA: IV sedation with local. INDICATIONS: The patient is a 52-year-old female with the above diagnosis. The patient has exhausted all conservative treatment at this time and now requires surgical interventions. The patient signed the consent after careful explanation of the risks, benefits, complications, and alternatives for surgical procedure. No guarantees were given nor implied. N.p.o. status was confirmed prior to taking the patient to the OR. PREPARATION: The patient was brought into the operating room and placed on the operating room table in a supine position. Time-out was performed for identification of the correct patient and procedure. The patient received a total of 13 mL of a 1:1 mixture of 1% lidocaine plain and 0.5% Marcaine plain in a digital block fashion to the left foot fourth digit. The left foot was then prepped and draped in normal sterile manner and the procedure began. No tourniquet was utilized during the procedure. DESCRIPTION OF THE PROCEDURE: Attention was then drawn to the dorsal aspect of the left foot fourth digit, where a fishmouth circumferential incision was made extending from the dorsal aspect of the fourth metatarsal head distally and plantarly around the fourth digit using a number 15 blade. The incision was then extending down to the subcutaneous layers down to the level of bone. Using a bone clamp to stabilized the toe, the fourth digit was then disarticulated from the foot at the level of the MPJ. All bone and soft tissue was sent for pathology at this time. At this time, deep wound cultures were performed. The wound was then copiously irrigated with sterile saline. The surgical site was then left open and packed with 0.5 inch iodoform packing and dressed with 4 x 4 gauze, ABD pads and Kerlix dressing with light Mikie bandage. POSTOPERATIVE CONDITION: The patient tolerated the local anesthesia and IV sedation as well as procedure well and was escorted to the recovery room with neurovascular status intact to the left foot. The patient is to remain nonweightbearing at this time. The patient will remain in house and Podiatry will continue to follow. Upon discharge, the patient is to followup in the [facility] with Dr. Galloway, within one week of discharge. Melissa Walker DPM Gaurav Galloway DPM
[2017-11-03] MEDS: Meropenem 1 GM in Sodium Chloride 0.9% 100 ML IVPB SCH ×3 (01:21→16:09)
[2017-11-03 05:58] LABS: HEMOGLOBIN 9.6 g/dL (12.0-16.0); MEAN CELL VOLUME 78.6 fl (81.0-99.0); MEAN CORPUSCULAR HEMOGLOBIN 25.9 pg (27.0-31.0); MEAN CORPUSCULAR HGB CONC 32.9 g/dL (33.0-37.0); RBC 3.71 Mil/uL (3.80-5.20); RED CELL DISTRIBUTION WIDTH 14.4 % (11.5-14.5); WHITE BLOOD COUNT 4.1 K/uL (4.8-10.8)
[2017-11-03 06:47] LABS: BLOOD UREA NITROGEN 10 mg/dl (7-17); CALCIUM 8.4 mg/dL (8.4-10.2); GFR AFRICAN-AMERICAN > 60; GFR NON-AFRICAN AMERICAN > 60
[2017-11-03] MEDS: Insulin Regular 100 units/ml SC SCH ×6 (06:54→21:48)
--- NOTE | 2017-11-03 08:45 | CP.PCM.PN ---
Subjective - Date & Time of Evaluation Date of Evaluation: 11/03/17 Time of Evaluation: 08:00 - Subjective Subjective: Progress note - Dr. Gomez 52 year old female patient with PMHx of DM, HTN was seen and evaluated at bedside 3 day s/p left 4th digit amputation. Patient appears to be resting comfortably in her bed and denies of any acute overnight events. Patient is AAOx3 and is in NAD. Patient denies of any pain today. Denies of F/N/V/C/SOB/ CP. Denies of any other pedal complains at this time. Objective - Vital Signs/Intake and Output Vital Signs (last 24 hours): Temp Pulse Resp BP Pulse Ox 98.4 F 70 18 148/78 96 11/03/17 08:00 11/03/17 08:00 11/03/17 08:00 11/03/17 08:00 11/03/17 08:00 - Medications Medications: Current Medications Acetaminophen (Tylenol 325mg Tab) 650 mg PO Q4 PRN PRN Reason: Fever >100.4 F Last Admin: 10/28/17 16:23 Dose: 650 mg Acetaminophen (Tylenol 650 Mg Supp) 650 mg LA ONCE PRN PRN Reason: Fever >100.4 F Last Admin: 10/27/17 00:54 Dose: 650 mg Atorvastatin Calcium (Lipitor) 40 mg PO DAILY [facility] Last Admin: 11/02/17 08:51 Dose: 40 mg Dextrose (Dextrose 50% Inj) 0 ml IV STAT PRN; Protocol PRN Reason: Hypoglycemia Protocol Dextrose (Glutose 15) 0 gm PO ONCE PRN; Protocol PRN Reason: Hypoglycemia Protocol Enalapril Maleate (Vasotec) 5 mg PO DAILY [facility] Last Admin: 11/02/17 08:50 Dose: 5 mg Enoxaparin Sodium (Lovenox) 40 mg SC DAILY [facility] PRN Reason: Protocol Last Admin: 11/02/17 08:49 Dose: 40 mg Gabapentin (Neurontin) 300 mg PO BID [facility] Last Admin: 11/02/17 17:31 Dose: 300 mg Glucagon (Glucagen Diagnostic Kit) 0 mg IM STAT PRN; Protocol PRN Reason: Hypoglycemia Protocol Hydromorphone HCl (Dilaudid) 0.25 mg IVP Q6H PRN PRN Reason: Pain, severe (8-10) Last Admin: 10/27/17 15:13 Dose: 0.25 mg Vancomycin HCl 1 gm/ Sodium (Chloride) 250 mls @ 166.667 mls/hr IVPB Q12 [facility] PRN Reason: Protocol Last Admin: 11/02/17 21:24 Dose: 166.667 mls/hr Meropenem 1 gm/ Sodium (Chloride) 100 mls @ 100 mls/hr IVPB Q8 [facility] PRN Reason: Protocol Last Admin: 11/03/17 01:21 Dose: 100 mls/hr Sodium Chloride (Sodium Chloride 0.9%) 500 mls @ 100 mls/hr IV .Q5H [facility] Last Admin: 11/02/17 21:31 Dose: 100 mls/hr Ibuprofen (Motrin Tab) 600 mg PO Q8 PRN PRN Reason: Pain, moderate (4-7) Last Admin: 10/27/17 13:47 Dose: 600 mg Insulin Human NPH (Humulin N) 30 units SC ACB [facility] Insulin Human NPH (Humulin N) 14 units SC HS [facility] Last Admin: 11/02/17 23:06 Dose: 14 units Insulin Human Regular (Humulin R) 0 units SC ACHS [facility] Last Admin: 11/03/17 06:54 Dose: Not Given Insulin Human Regular (Humulin R) 10 units SC ACBD [facility] Last Admin: 11/02/17 17:28 Dose: 10 units Lidocaine (Lidoderm) 2 ea TD DAILY [facility] Last Admin: 11/02/17 08:51 Dose: 2 ea Metoprolol Tartrate (Lopressor) 25 mg PO Q12 [facility] Last Admin: 11/02/17 21:23 Dose: 25 mg Metronidazole (Metrogel Cream) 1 applic VAG BID [facility] Last Admin: 11/02/17 17:26 Dose: 1 applic Morphine Sulfate (Morphine Immediate Release Tab) 15 mg PO BID PRN PRN Reason: Pain, moderate (4-7) Ondansetron HCl (Zofran Inj) 4 mg IVP Q6 PRN PRN Reason: Nausea/Vomiting Last Admin: 10/27/17 23:25 Dose: 4 mg - Labs Labs: 11/03/17 05:15 11/03/17 05:15 PT 13.0 Seconds (9.8-13.1) 10/26/17 08:00 INR 1.2 (0.9-1.2) 10/26/17 08:00 APTT 27.0 Seconds (25.6-37.1) 10/26/17 08:00 - Constitutional Appears: Well, Non-toxic, No Acute Distress - Extremities Exam Additional comments: Bilateral LE exam: VASC: DP/PT pulses are palpable 2/4 B/L. Cap refill time: < 3 seconds to all digits. Skin temperature warm to cool from proximal to distal on the left and warm to cool from proximal to distal. mild non-pitting edema noted at the distal aspect of the foot DERM: Surgical site remains open with metatarsal head exposed, no periwound erythema, mild maceration noted surrounding the surgical site, no bleeding noted at this time, no active purulence, no malodor, no clinical suspicion of active infection at this time. Proximal lateral aspect of the right foot appears to have two small circular wounds measuring approx 3 cm x 4 cm - maceration appears to be resolved; No active drainage, no purulence, no fluctuence, no yao-wound erythema, since there is no drainage from squeezing the wound and no fluctuence at this time and no maceration - not suspecting an abscess at this point NEURO: Protective sensation grossly diminished ORTHO: mild tenderness on palpation of the surgical site - Neurological Exam Neurological Exam: Alert, Awake, Oriented x3 - Psychiatric Exam Psychiatric exam: Normal Affect, Normal Mood Assessment and Plan - Assessment and Plan (Free Text) Assessment: 52 year old female patient with PMHx of DM, HTN evaluated at bedside for 1). 3 days s/p left 4th digit amputation 2). non-infected wound to the right Plan: Patient seen and evaluated at bedside Patient discussed in details with attending Dr. Gomez Labs, vitals and charts reviewed - afebrile, no leukocytosis Blood culture: No growth Bilateral wound cultures taken - Pre-op: bilateral foot: Corynebacterium Intra-op cultures taken - no growth Pre-op X-rays of the bilateral foot ordered/reviewed - No evidence of soft tissue emphysema Pre-op MRI of the LLE ordered/reviewed - On T2 and STIR image, increase in signal intensity extending to the base of the 4th proximal phalanx, possibly distal aspect of the 4th metatarsal head - consistent with OM of the 4th ray IV abx as per ID - Meropenem, Vancomycin Patient is stable from podiatry standpoint Podiatry to follow patient while in-house - please follow up with Dr. Gomez in wound care center once discharged from the hospital
--- NOTE | 2017-11-03 08:53 | CP.PCM.PN ---
Subjective - Date & Time of Evaluation Date of Evaluation: 11/03/17 Time of Evaluation: 07:40 - Subjective Subjective: Patient seen and examined at bedside this morning. Patient laying in bed comfortably, NAD. Patient reports mild pain in the distal lower extremities b/ l (Lt>Rt) relieved w/ medication. Patient is post-op day 3 s/p left foot 4th digit amputation and is recovering appropriately. Patient afebrile over 5 days. Patient denies nausea, vomiting. Urine culture returned positive for ESBL E.coli and patient is on contact precautions. Patient had PICC line placed 10/31/2017. Objective - Vital Signs/Intake and Output Vital Signs (last 24 hours): Temp Pulse Resp BP Pulse Ox 98.4 F 70 18 148/78 96 11/03/17 08:00 11/03/17 08:00 11/03/17 08:00 11/03/17 08:00 11/03/17 08:00 - Medications Medications: Current Medications Acetaminophen (Tylenol 325mg Tab) 650 mg PO Q4 PRN PRN Reason: Fever >100.4 F Last Admin: 10/28/17 16:23 Dose: 650 mg Acetaminophen (Tylenol 650 Mg Supp) 650 mg VT ONCE PRN PRN Reason: Fever >100.4 F Last Admin: 10/27/17 00:54 Dose: 650 mg Atorvastatin Calcium (Lipitor) 40 mg PO DAILY [facility] Last Admin: 11/02/17 08:51 Dose: 40 mg Dextrose (Dextrose 50% Inj) 0 ml IV STAT PRN; Protocol PRN Reason: Hypoglycemia Protocol Dextrose (Glutose 15) 0 gm PO ONCE PRN; Protocol PRN Reason: Hypoglycemia Protocol Enalapril Maleate (Vasotec) 5 mg PO DAILY [facility] Last Admin: 11/02/17 08:50 Dose: 5 mg Enoxaparin Sodium (Lovenox) 40 mg SC DAILY [facility] PRN Reason: Protocol Last Admin: 11/02/17 08:49 Dose: 40 mg Gabapentin (Neurontin) 300 mg PO BID [facility] Last Admin: 11/02/17 17:31 Dose: 300 mg Glucagon (Glucagen Diagnostic Kit) 0 mg IM STAT PRN; Protocol PRN Reason: Hypoglycemia Protocol Hydromorphone HCl (Dilaudid) 0.25 mg IVP Q6H PRN PRN Reason: Pain, severe (8-10) Last Admin: 10/27/17 15:13 Dose: 0.25 mg Vancomycin HCl 1 gm/ Sodium (Chloride) 250 mls @ 166.667 mls/hr IVPB Q12 [facility] PRN Reason: Protocol Last Admin: 11/02/17 21:24 Dose: 166.667 mls/hr Meropenem 1 gm/ Sodium (Chloride) 100 mls @ 100 mls/hr IVPB Q8 [facility] PRN Reason: Protocol Last Admin: 11/03/17 01:21 Dose: 100 mls/hr Sodium Chloride (Sodium Chloride 0.9%) 500 mls @ 100 mls/hr IV .Q5H [facility] Last Admin: 11/02/17 21:31 Dose: 100 mls/hr Ibuprofen (Motrin Tab) 600 mg PO Q8 PRN PRN Reason: Pain, moderate (4-7) Last Admin: 10/27/17 13:47 Dose: 600 mg Insulin Human NPH (Humulin N) 30 units SC ACB [facility] Insulin Human NPH (Humulin N) 14 units SC HS [facility] Last Admin: 11/02/17 23:06 Dose: 14 units Insulin Human Regular (Humulin R) 0 units SC ACHS [facility] Last Admin: 11/03/17 06:54 Dose: Not Given Insulin Human Regular (Humulin R) 10 units SC ACBD [facility] Last Admin: 11/02/17 17:28 Dose: 10 units Lidocaine (Lidoderm) 2 ea TD DAILY [facility] Last Admin: 11/02/17 08:51 Dose: 2 ea Metoprolol Tartrate (Lopressor) 25 mg PO Q12 [facility] Last Admin: 11/02/17 21:23 Dose: 25 mg Metronidazole (Metrogel Cream) 1 applic VAG BID [facility] Last Admin: 11/02/17 17:26 Dose: 1 applic Morphine Sulfate (Morphine Immediate Release Tab) 15 mg PO BID PRN PRN Reason: Pain, moderate (4-7) Ondansetron HCl (Zofran Inj) 4 mg IVP Q6 PRN PRN Reason: Nausea/Vomiting Last Admin: 10/27/17 23:25 Dose: 4 mg - Labs Labs: 11/03/17 05:15 11/03/17 05:15 PT 13.0 Seconds (9.8-13.1) 10/26/17 08:00 INR 1.2 (0.9-1.2) 10/26/17 08:00 APTT 27.0 Seconds (25.6-37.1) 10/26/17 08:00 - Constitutional Appears: No Acute Distress - Head Exam Head Exam: ATRAUMATIC, NORMAL INSPECTION, NORMOCEPHALIC - Eye Exam Eye Exam: Normal appearance - ENT Exam ENT Exam: Mucous Membranes Moist - Neck Exam Neck Exam: Full ROM. absent: Tenderness - Respiratory Exam Respiratory Exam: Clear to Ausculation Bilateral. absent: Rhonchi, Wheezes, Respiratory Distress - Cardiovascular Exam Cardiovascular Exam: REGULAR RHYTHM. absent: Tachycardia - GI/Abdominal Exam GI & Abdominal Exam: Soft. absent: Distended, Tenderness - Extremities Exam Extremities Exam: absent: Calf Tenderness Additional comments: b/l lower extremity dressings in place are clean, dry intact to ankle. no proximal erythema or warmth palpable b/l. no calf tenderness b/l. - Back Exam Back Exam: absent: CVA tenderness (L), CVA tenderness (R) - Neurological Exam Neurological Exam: Alert, Awake, Oriented x3 - Skin Skin Exam: Dry Assessment and Plan - Assessment and Plan (Free Text) Assessment: 52 y/o woman w/ pmh of IDDM2, HTN and diabetic foot ulcers presented with abdominal/left flank pain associated with fever. During admission patient found to have positive ESBL ecoli urine culture. Currently receiving IV antiobiotics. Plan: 1. Sepsis, improving - Etiology possible seconday to UTI vs infected diabetic foot ulcer - Blood culture from 10/26: Streptococcus pyogenes group A - blood cultures 10/27 and 10/29 show no growth - Urine culture reveals ESBL ecoli - Echo: no valvular vegetation - Meropenem 1gm IV Q8h (Started 10/28, Current day 7) - ID consulted, Dr. Solares, recommendations appreciated 2. ESBL E Coli UTI - Urine culture from 10/26 reveals ESBL E.coli - On meropenem 1 gm IV Q8h day 7 - Contact precautions - as per ID, 1 more day of meropenem - f/u UA 3. Left foot ulcer and infected 4th digit - Osteomyelitis - Left foot 4th digit infected wound with wet gangrenous changes, cellulitis of the left foot, osteomyelitis, possible abscess on the right foot - Wound culture: Corynebacterium species - ESR: 95 - On empiric Vancomycin 1 gm IV Q12 (Started 10/27, however dose held for 1 day, current day 6) - as per ID, 7 more days of vanc - Keep vanc trough <20 - vanc trough: 24.3 - PICC line insertion, right arm, this morning for long-term antibiotics - Podiatry consulted, Dr. Borja, recommendations appreciated - Post-op Day 2 s/p Debridement and amputation of 4th digit - B/l foot XRay: No evidence of soft tissue emphysema - B/l foot MRI: - right, findings suspicious for osteomyelitis of the proximal phalanx of the 4th toe w/ associated dorsal soft tissue ulcer - left, suspicious for osteomyelitis 4. Pain management - Morphine 15 mg PO BID prn - Gabapentin 300 mg PO BID for neuropathic pain - Lidoderm patch daily - Motrin 600 mg PO Q8h prn moderate - Dilaudid 0.25 mg IV Q6h prn severe 5. Anemia - stable - Hb today 9.6, previous 10.2 - patient had been given IVF boluses and maintenance fluids for sepsis treatment but currently not on IVF - iron 33, % saturation 13 - TIBC 259 - ferritin 148 - FOBT : negative - monitor for acute changes 6. IDDM2, with hyperglycemia - Last HbA1c 8.8% (07/24/2017) - Endocrinology consulted, Dr. Bedoya, recommendations appreciated and insulin coverage adjusted as follows: - Insulin NPH 34 units SC ACB and 24 units SC HS for long acting coverage - Humulin R 14 units SC ACBD - Correction scale - ACCUchecks ACHS - Hypoglycemia precautions 7. HTN - Controlled w/ medication - Enalapril 5 mg PO daily - Metoprolol 25 mg PO Q12 added due to associated tachycardia - Heart healthy diet 8. Bacterial Vaginosis - On empiric metronidazole 0.75% Vag BID day 7 - DC'ed metrogel 9. Depression - Patient feels down due to problems from DM2 - Psychiatry consulted, Dr. Mayers, recommendations appreciated 10. Deconditioning - physical therapy consulted, recommendations appreciated - patient ambulatory w/ surgical walking shoes 11. DVT Prophylaxis - Lovenox 40 mg SC daily Dispo: transfer to [facility]
[2017-11-03] MEDS: Enoxaparin 40 mg Syringe SC SCH (09:29)
[2017-11-03] MEDS: METRONIDAZOLE 0.75% VAG SCH (09:31)
[2017-11-03] MEDS: Sodium Chloride 0.9% 500 ML IV SCH ×2 (09:31→22:30)
[2017-11-03] MEDS: Insulin NPH Human 100 Units/ml Inj SC SCH ×2 (09:32→21:45)
[2017-11-03] MEDS: Lidocaine 5% Patch TD SCH (09:34)
[2017-11-04] MEDS: Meropenem 1 GM in Sodium Chloride 0.9% 100 ML IVPB SCH ×3 (01:03→17:10)
[2017-11-04] MEDS: Sodium Chloride 0.9% 500 ML IV SCH (03:30)
[2017-11-04] MEDS: Insulin Regular 100 units/ml SC SCH ×6 (06:41→22:26)
[2017-11-04] MEDS: Insulin NPH Human 100 Units/ml Inj SC SCH ×2 (08:35→22:26)
[2017-11-04] MEDS: Lidocaine 5% Patch TD SCH (08:40)
[2017-11-04] MEDS: Enoxaparin 40 mg Syringe SC SCH (08:44)
--- NOTE | 2017-11-04 09:40 | CP.PCM.PN ---
Subjective - Date & Time of Evaluation Date of Evaluation: 11/04/17 Time of Evaluation: 09:10 - Subjective Subjective: Patient seen and examined at bedside this morning. Patient laying in bed comfortably, NAD. Patient reports mild pain in the distal lower extremities b/ l (Lt>Rt) relieved w/ medication. Patient is post-op day 4 s/p left foot 4th digit amputation and is recovering appropriately. Patient afebrile. Patient denies nausea, vomiting. Urine culture returned positive for ESBL E.coli and patient is on contact precautions. Patient had PICC line placed 10/31/2017. Objective - Vital Signs/Intake and Output Vital Signs (last 24 hours): Temp Pulse Resp BP Pulse Ox 98.4 F 81 18 149/88 95 11/04/17 08:15 11/04/17 08:44 11/04/17 08:15 11/04/17 08:44 11/04/17 08:15 - Medications Medications: Current Medications Acetaminophen (Tylenol 325mg Tab) 650 mg PO Q4 PRN PRN Reason: Fever >100.4 F Last Admin: 10/28/17 16:23 Dose: 650 mg Acetaminophen (Tylenol 650 Mg Supp) 650 mg MS ONCE PRN PRN Reason: Fever >100.4 F Last Admin: 10/27/17 00:54 Dose: 650 mg Atorvastatin Calcium (Lipitor) 40 mg PO DAILY [facility] Last Admin: 11/04/17 08:44 Dose: 40 mg Dextrose (Dextrose 50% Inj) 0 ml IV STAT PRN; Protocol PRN Reason: Hypoglycemia Protocol Dextrose (Glutose 15) 0 gm PO ONCE PRN; Protocol PRN Reason: Hypoglycemia Protocol Enalapril Maleate (Vasotec) 5 mg PO DAILY [facility] Last Admin: 11/04/17 08:44 Dose: 5 mg Enoxaparin Sodium (Lovenox) 40 mg SC DAILY [facility] PRN Reason: Protocol Last Admin: 11/04/17 08:44 Dose: 40 mg Gabapentin (Neurontin) 300 mg PO BID [facility] Last Admin: 11/04/17 08:45 Dose: 300 mg Glucagon (Glucagen Diagnostic Kit) 0 mg IM STAT PRN; Protocol PRN Reason: Hypoglycemia Protocol Hydromorphone HCl (Dilaudid) 0.25 mg IVP Q6H PRN PRN Reason: Pain, severe (8-10) Last Admin: 10/27/17 15:13 Dose: 0.25 mg Meropenem 1 gm/ Sodium (Chloride) 100 mls @ 100 mls/hr IVPB Q8 [facility] PRN Reason: Protocol Last Admin: 11/04/17 08:45 Dose: 100 mls/hr Sodium Chloride (Sodium Chloride 0.9%) 500 mls @ 100 mls/hr IV .Q5H [facility] Last Admin: 11/04/17 03:30 Dose: 100 mls/hr Vancomycin HCl 1 gm/ Sodium (Chloride) 250 mls @ 166.667 mls/hr IVPB DAILY [facility] PRN Reason: Protocol Ibuprofen (Motrin Tab) 600 mg PO Q8 PRN PRN Reason: Pain, moderate (4-7) Last Admin: 10/27/17 13:47 Dose: 600 mg Insulin Human NPH (Humulin N) 30 units SC ACB [facility] Last Admin: 11/04/17 08:35 Dose: 30 units Insulin Human NPH (Humulin N) 14 units SC HS [facility] Last Admin: 11/03/17 21:45 Dose: 14 units Insulin Human Regular (Humulin R) 0 units SC ACHS [facility] Last Admin: 11/04/17 06:41 Dose: Not Given Insulin Human Regular (Humulin R) 10 units SC ACBD [facility] Last Admin: 11/04/17 08:38 Dose: 10 units Lidocaine (Lidoderm) 2 ea TD DAILY [facility] Last Admin: 11/04/17 08:40 Dose: 2 ea Metoprolol Tartrate (Lopressor) 25 mg PO Q12 [facility] Last Admin: 11/04/17 08:44 Dose: 25 mg Morphine Sulfate (Morphine Immediate Release Tab) 15 mg PO BID PRN PRN Reason: Pain, moderate (4-7) Ondansetron HCl (Zofran Inj) 4 mg IVP Q6 PRN PRN Reason: Nausea/Vomiting Last Admin: 10/27/17 23:25 Dose: 4 mg - Labs Labs: 11/03/17 05:15 11/03/17 05:15 PT 13.0 Seconds (9.8-13.1) 10/26/17 08:00 INR 1.2 (0.9-1.2) 10/26/17 08:00 APTT 27.0 Seconds (25.6-37.1) 10/26/17 08:00 - Constitutional Appears: No Acute Distress - Head Exam Head Exam: ATRAUMATIC, NORMAL INSPECTION, NORMOCEPHALIC - Eye Exam Eye Exam: Normal appearance - ENT Exam ENT Exam: Mucous Membranes Moist - Neck Exam Neck Exam: Full ROM. absent: Tenderness - Respiratory Exam Respiratory Exam: Clear to Ausculation Bilateral. absent: Decreased Breath Sounds, Rales, Rhonchi, Wheezes, Respiratory Distress - Cardiovascular Exam Cardiovascular Exam: REGULAR RHYTHM. absent: Tachycardia - GI/Abdominal Exam GI & Abdominal Exam: Distended, Soft, Normal Bowel Sounds. absent: Tenderness - Extremities Exam Extremities Exam: absent: Calf Tenderness Additional comments: b/l lower extremity dressings in place are clean, dry intact to ankle. no proximal erythema or warmth palpable b/l. no calf tenderness b/l. - Back Exam Back Exam: absent: CVA tenderness (L), CVA tenderness (R) - Neurological Exam Neurological Exam: Alert, Awake, Oriented x3 - Skin Skin Exam: Dry Assessment and Plan - Assessment and Plan (Free Text) Assessment: 52 y/o woman w/ pmh of IDDM2, HTN and diabetic foot ulcers presented with abdominal/left flank pain associated with fever. During admission patient found to have positive ESBL ecoli urine culture. Currently receiving IV antibiotics. Plan: 1. Sepsis, improving - Etiology possible seconday to UTI vs infected diabetic foot ulcer - Blood culture from 10/26: Streptococcus pyogenes group A - blood cultures 10/27 and 10/29 show no growth - Urine culture reveals ESBL ecoli - Echo: no valvular vegetation - Meropenem 1gm IV Q8h (Started 10/28, Current day 8) - ID consulted, Dr. Solares, recommendations appreciated 2. ESBL E Coli UTI - Urine culture from 10/26 reveals ESBL E.coli - On meropenem 1 gm IV Q8h day 8 - Contact precautions - meropenem course completed - f/u UA, urine culture 3. Left foot ulcer and infected 4th digit - Osteomyelitis - Left foot 4th digit infected wound with wet gangrenous changes, cellulitis of the left foot, osteomyelitis, possible abscess on the right foot - Wound culture: Corynebacterium species - ESR: 95 - On empiric Vancomycin 1 gm IV Q12 (Started 10/27, however dose held for 1 day, current day 7) - as per ID, 7 more days of vanc - Keep vanc trough <20 - f/u vanc trough - PICC line insertion, right arm, this morning for long-term antibiotics - Podiatry consulted, Dr. Borja, recommendations appreciated - Post-op Day 4 s/p Debridement and amputation of 4th digit - B/l foot XRay: No evidence of soft tissue emphysema - B/l foot MRI: - right, findings suspicious for osteomyelitis of the proximal phalanx of the 4th toe w/ associated dorsal soft tissue ulcer - left, suspicious for osteomyelitis 4. Pain management - Morphine 15 mg PO BID prn - Gabapentin 300 mg PO BID for neuropathic pain - Lidoderm patch daily - Motrin 600 mg PO Q8h prn moderate - Dilaudid 0.25 mg IV Q6h prn severe 5. Anemia - stable - Hb today 9.6, previous 10.2 - patient had been given IVF boluses and maintenance fluids for sepsis treatment but currently not on IVF - iron 33, % saturation 13 - TIBC 259 - ferritin 148 - FOBT : negative - monitor for acute changes 6. IDDM2, with hyperglycemia - Last HbA1c 8.8% (07/24/2017) - Endocrinology consulted, Dr. Bedoya, recommendations appreciated and insulin coverage adjusted as follows: - Insulin NPH 34 units SC ACB and 24 units SC HS for long acting coverage - Humulin R 14 units SC ACBD - Correction scale - ACCUchecks ACHS - Hypoglycemia precautions 7. HTN - Controlled w/ medication - Enalapril 5 mg PO daily - Metoprolol 25 mg PO Q12 added due to associated tachycardia - Heart healthy diet 8. Bacterial Vaginosis - On empiric metronidazole 0.75% Vag BID day 7 - DC'ed metrogel 9. Depression - Patient feels down due to problems from DM2 - Psychiatry consulted, Dr. Mayers, recommendations appreciated 10. Deconditioning - physical therapy consulted, recommendations appreciated - patient ambulatory w/ surgical walking shoes 11. DVT Prophylaxis - Lovenox 40 mg SC daily Dispo: Discharge tomorrow 11/05/2017, return to infusion center for daily vanc starting 11/06/2017
--- NOTE | 2017-11-04 13:49 | CP.PCM.PN ---
Subjective - Date & Time of Evaluation Date of Evaluation: 11/04/17 Time of Evaluation: 11:00 - Subjective Subjective: Podiatry Progress note - Dr. Gomez 52 year old female patient with PMHx of DM, HTN was seen and evaluated at bedside 4 day s/p left 4th digit amputation. Patient appears to be resting comfortably in bed, in NAD, and AA0x3. Patient denies of any acute overnight events. Denies of F/N/V/C/SOB/CP. Denies of any other pedal complains at this time. Objective - Vital Signs/Intake and Output Vital Signs (last 24 hours): Temp Pulse Resp BP Pulse Ox 98.5 F 75 18 144/80 97 11/04/17 12:18 11/04/17 12:18 11/04/17 12:18 11/04/17 12:18 11/04/17 12:18 - Medications Medications: Current Medications Acetaminophen (Tylenol 325mg Tab) 650 mg PO Q4 PRN PRN Reason: Fever >100.4 F Last Admin: 10/28/17 16:23 Dose: 650 mg Acetaminophen (Tylenol 650 Mg Supp) 650 mg IA ONCE PRN PRN Reason: Fever >100.4 F Last Admin: 10/27/17 00:54 Dose: 650 mg Atorvastatin Calcium (Lipitor) 40 mg PO DAILY [facility] Last Admin: 11/04/17 08:44 Dose: 40 mg Dextrose (Dextrose 50% Inj) 0 ml IV STAT PRN; Protocol PRN Reason: Hypoglycemia Protocol Dextrose (Glutose 15) 0 gm PO ONCE PRN; Protocol PRN Reason: Hypoglycemia Protocol Enalapril Maleate (Vasotec) 5 mg PO DAILY [facility] Last Admin: 11/04/17 08:44 Dose: 5 mg Enoxaparin Sodium (Lovenox) 40 mg SC DAILY [facility] PRN Reason: Protocol Last Admin: 11/04/17 08:44 Dose: 40 mg Gabapentin (Neurontin) 300 mg PO BID [facility] Last Admin: 11/04/17 08:45 Dose: 300 mg Glucagon (Glucagen Diagnostic Kit) 0 mg IM STAT PRN; Protocol PRN Reason: Hypoglycemia Protocol Hydromorphone HCl (Dilaudid) 0.25 mg IVP Q6H PRN PRN Reason: Pain, severe (8-10) Last Admin: 10/27/17 15:13 Dose: 0.25 mg Meropenem 1 gm/ Sodium (Chloride) 100 mls @ 100 mls/hr IVPB Q8 [facility] PRN Reason: Protocol Last Admin: 11/04/17 08:45 Dose: 100 mls/hr Sodium Chloride (Sodium Chloride 0.9%) 500 mls @ 100 mls/hr IV .Q5H [facility] Last Admin: 11/04/17 03:30 Dose: 100 mls/hr Vancomycin HCl 1 gm/ Sodium (Chloride) 250 mls @ 166.667 mls/hr IVPB DAILY [facility] PRN Reason: Protocol Last Admin: 11/04/17 10:37 Dose: 166.667 mls/hr Ibuprofen (Motrin Tab) 600 mg PO Q8 PRN PRN Reason: Pain, moderate (4-7) Last Admin: 10/27/17 13:47 Dose: 600 mg Insulin Human NPH (Humulin N) 30 units SC ACB [facility] Last Admin: 11/04/17 08:35 Dose: 30 units Insulin Human NPH (Humulin N) 14 units SC HS [facility] Last Admin: 11/03/17 21:45 Dose: 14 units Insulin Human Regular (Humulin R) 0 units SC ACHS [facility] Last Admin: 11/04/17 12:57 Dose: 4 unit Insulin Human Regular (Humulin R) 10 units SC ACBD [facility] Last Admin: 11/04/17 08:38 Dose: 10 units Lidocaine (Lidoderm) 2 ea TD DAILY [facility] Last Admin: 11/04/17 08:40 Dose: 2 ea Metoprolol Tartrate (Lopressor) 25 mg PO Q12 [facility] Last Admin: 11/04/17 08:44 Dose: 25 mg Morphine Sulfate (Morphine Immediate Release Tab) 15 mg PO BID PRN PRN Reason: Pain, moderate (4-7) Ondansetron HCl (Zofran Inj) 4 mg IVP Q6 PRN PRN Reason: Nausea/Vomiting Last Admin: 10/27/17 23:25 Dose: 4 mg - Labs Labs: 11/03/17 05:15 11/03/17 05:15 PT 13.0 Seconds (9.8-13.1) 10/26/17 08:00 INR 1.2 (0.9-1.2) 10/26/17 08:00 APTT 27.0 Seconds (25.6-37.1) 10/26/17 08:00 - Constitutional Appears: Well, Non-toxic, No Acute Distress - Extremities Exam Extremities Exam: absent: Calf Tenderness Additional comments: Bilateral LE exam: VASC: DP/PT pulses are palpable 2/4 B/L. Cap refill time: < 3 seconds to all digits. Skin temperature warm to cool from proximal to distal on the left and warm to cool from proximal to distal. mild non-pitting edema noted at the distal aspect of the foot DERM: Surgical site remains open with metatarsal head exposed, no periwound erythema, mild maceration noted surrounding the surgical site, no bleeding noted at this time, no active purulence, no malodor, no clinical suspicion of active infection at this time. Proximal lateral aspect of the right foot appears to have two small circular wounds measuring approx 3 cm x 4 cm - maceration appears to be resolved; No active drainage, no purulence, no fluctuence, no yao-wound erythema, since there is no drainage from squeezing the wound and no fluctuence at this time and no maceration - not suspecting an abscess at this point NEURO: Protective sensation grossly diminished ORTHO: mild tenderness on palpation of the surgical site - Neurological Exam Neurological Exam: Alert, Awake, Oriented x3 - Psychiatric Exam Psychiatric exam: Normal Affect, Normal Mood Assessment and Plan - Assessment and Plan (Free Text) Assessment: 52 year old female patient with PMHx of DM, HTN evaluated at bedside for 1) 4 days s/p left 4th digit amputation 2) non-infected wound to the right Plan: Patient seen and evaluated at bedside Patient discussed in details with attending Dr. Goemz Labs, vitals and charts reviewed - afebrile, no leukocytosis (WBC=4.1 on 11/03/17 ) Positive blood culture 10/26/17 S. Pyogenes Group A X-rays on 10/27/17 of the bilateral foot - No evidence of soft tissue emphysema Bilateral wound cultures taken on 10/28/17 shows Corynebacterium MRI on 10/28/17 the LLE - On T2 and STIR image, increase in signal intensity extending to the base of the 4th proximal phalanx, possibly distal aspect of the 4th metatarsal head - consistent with OM of the 4th ray Patient went to the OR on 10/31/17 for left 4th digit amputation and removal of all non-viable soft tissue Patient is 4 days s/p left 4th digit amputation, doing well Repeat Blood culture on 10/27 and 10/29: No growth Intra-op cultures taken - no growth c/w IV abx as per ID - Meropenem, Vancomycin Patient is stable from podiatry standpoint Podiatry to follow patient while in-house - please follow up with Dr. Gomez within 1 week in wound care center once discharged from the hospital
[2017-11-04 20:07] VITALS: RESP 18
[2017-11-05 01:33] LABS: SQUAMOUS EPITHIAL < 1 /hpf (0-5); URINE BILIRUBIN NEGATIVE (NEGATIVE); URINE BLOOD MODERATE (NEGATIVE); URINE CLARITY CLEAR (Clear); URINE COLOR STRAW (YELLOW); URINE GLUCOSE (UA) 50 mg/dL (Normal); URINE LEUKOCYTE ESTERASE NEG Leu/uL (Negative); URINE NITRATE NEGATIVE (NEGATIVE); URINE PROTEIN NEGATIVE (NEGATIVE); URINE UROBILINOGEN 0.2-1.0 mg/dL (0.2-1.0)
[2017-11-05] MEDS: Meropenem 1 GM in Sodium Chloride 0.9% 100 ML IVPB SCH ×2 (01:43→09:03)
[2017-11-05] MEDS: Sodium Chloride 0.9% 500 ML IV SCH ×2 (04:46→12:08)
[2017-11-05] MEDS: Lidocaine 5% Patch TD SCH (09:06)
[2017-11-05] MEDS: Insulin NPH Human 100 Units/ml Inj SC SCH (09:07)
[2017-11-05] MEDS: Enoxaparin 40 mg Syringe SC SCH (09:08)
[2017-11-05] MEDS: Insulin Regular 100 units/ml SC SCH ×2 (09:10→09:11)
--- NOTE | 2017-11-05 10:17 | CP.PCM.DIS ---
Provider - Provider Date of Admission: 10/26/17 12:08 Attending physician: Payton Morgan MD Consults: Podiatry, Dr Gomez ID, Dr Solares Endocrinology, Dr Bedoya Psychiatry, Dr Mayers Time Spent in preparation of Discharge (in minutes): 30 Diagnosis - Discharge Diagnosis (1) Gram-positive bacteremia Status: Acute (2) Diabetic ulcer of left foot Status: Acute (3) Sepsis Status: Resolved (4) Diabetic foot ulcer associated with type 2 diabetes mellitus Status: Acute Hospital Course - Lab Results Lab Results: Micro Results 10/31/17 12:00 Toe Gram Stain - Final 10/31/17 12:00 Toe Wound Culture - Final No growth. 10/29/17 06:21 Blood Blood Culture - Final NO GROWTH AFTER 5 DAYS 10/29/17 06:21 Blood Gram Stain - Final TEST NOT PERFORMED 10/27/17 10:20 Blood Blood Culture - Final NO GROWTH AFTER 5 DAYS 10/27/17 10:20 Blood Gram Stain - Final TEST NOT PERFORMED 10/26/17 08:00 Blood S.aureus & Coag-Neg Staph PNA FISH - Final 10/26/17 08:00 Blood Blood Culture - Final Streptococcus Pyogenes Grp A 10/26/17 08:00 Blood Gram Stain - Final 10/28/17 16:20 Foot - Left Gram Stain - Final 10/28/17 16:20 Foot - Left Wound Culture - Final Corynebacterium Species 10/27/17 08:10 Foot - Right Gram Stain - Final 10/27/17 08:10 Foot - Right Wound Culture - Final Corynebacterium Species 10/26/17 17:20 Urine Urine Culture - Final Escherichia Coli Most Recent Lab Values WBC 4.1 K/uL (4.8-10.8) L 11/03/17 05:15 RBC 3.71 Mil/uL (3.80-5.20) L 11/03/17 05:15 Hgb 9.6 g/dL (12.0-16.0) L 11/03/17 05:15 Hct 29.2 % (34.0-47.0) L 11/03/17 05:15 MCV 78.6 fl (81.0-99.0) L 11/03/17 05:15 MCH 25.9 pg (27.0-31.0) L 11/03/17 05:15 MCHC 32.9 g/dL (33.0-37.0) L 11/03/17 05:15 RDW 14.4 % (11.5-14.5) 11/03/17 05:15 Plt Count 237 K/uL (130-400) 11/03/17 05:15 MPV 7.2 fl (7.2-11.7) 10/26/17 08:00 Neut % (Auto) 91.5 % (50.0-75.0) H 10/26/17 08:00 Lymph % (Auto) 4.0 % (20.0-40.0) L 10/26/17 08:00 Jones % (Auto) 3.4 % (0.0-10.0) 10/26/17 08:00 Eos % (Auto) 0.6 % (0.0-4.0) 10/26/17 08:00 Baso % (Auto) 0.5 % (0.0-2.0) 10/26/17 08:00 Neut # (Auto) 8.3 K/uL (1.8-7.0) H 10/26/17 08:00 Lymph # (Auto) 0.4 K/uL (1.0-4.3) L 10/26/17 08:00 Jones # (Auto) 0.3 K/uL (0.0-0.8) 10/26/17 08:00 Eos # (Auto) 0.1 K/uL (0.0-0.7) 10/26/17 08:00 Baso # (Auto) 0.0 K/uL (0.0-0.2) 10/26/17 08:00 Neutrophils % (Manual) 91 % (42-75) H 10/26/17 08:00 Band Neutrophils % 3 % (0-2) H 10/26/17 08:00 Lymphocytes % (Manual) 5 % (20-50) L 10/26/17 08:00 Monocytes % (Manual) 1 % (0-10) 10/26/17 08:00 Platelet Estimate Normal (NORMAL) 10/26/17 08:00 Large Platelets Present 10/26/17 08:00 Anisocytosis (manual) Slight 10/26/17 08:00 Microcytosis (manual) Slight 10/26/17 08:00 ESR 95 mm/hr (0-20) H 10/27/17 16:53 Retic Count 1.6 % (0.5-1.5) H 11/01/17 04:35 PT 13.0 Seconds (9.8-13.1) 10/26/17 08:00 INR 1.2 (0.9-1.2) 10/26/17 08:00 APTT 27.0 Seconds (25.6-37.1) 10/26/17 08:00 pO2 14 mm/Hg (30-55) L 10/26/17 12:01 VBG pH 7.35 (7.32-7.43) 10/26/17 12:01 VBG pCO2 48 mmHg (40-60) 10/26/17 12:01 VBG HCO3 22.9 mmol/L 10/26/17 12:01 VBG Total CO2 28.0 mmol/L (22-28) 10/26/17 12:01 VBG O2 Sat (Calc) 21.9 % (40-65) L 10/26/17 12:01 VBG Base Excess 0.3 mmol/L (0.0-2.0) 10/26/17 12:01 VBG Potassium 4.6 mmol/L (3.6-5.2) 10/26/17 12:01 Sodium 140.0 mmol/L (132-148) 10/26/17 12:01 Chloride 108.0 mmol/L (98-107) H 10/26/17 12:01 Glucose 189 mg/dL (65-105) H 10/26/17 12:01 Lactate 0.8 mmol/L (0.7-2.1) 10/26/17 12:01 FiO2 21.0 % 10/26/17 12:01 Sodium 145 mmol/l (132-148) 11/03/17 05:15 Potassium 4.0 MMOL/L (3.6-5.0) 11/03/17 05:15 Chloride 106 mmol/L (98-107) 11/03/17 05:15 Carbon Dioxide 29 mmol/L (22-30) 11/03/17 05:15 Anion Gap 14 (10-20) 11/03/17 05:15 BUN 10 mg/dl (7-17) 11/03/17 05:15 Creatinine 0.7 mg/dl (0.7-1.2) 11/03/17 05:15 Est GFR ( Amer) > 60 11/03/17 05:15 Est GFR (Non-Af Amer) > 60 11/03/17 05:15 POC Glucose (mg/dL) 210 mg/dL (65-110) H 11/04/17 21:03 Random Glucose 147 mg/dL (65-105) H 11/03/17 05:15 Calcium 8.4 mg/dL (8.4-10.2) 11/03/17 05:15 Iron 33 ug/dL (37-170) L 11/01/17 04:35 TIBC 259 ug/dL (250-450) 11/01/17 04:35 % Saturation 13 % (20-55) L 11/01/17 04:35 Ferritin 148.0 ng/Ml (11.1-264.0) 11/01/17 04:35 Total Bilirubin 0.2 mg/dl (0.2-1.3) 10/29/17 06:21 AST 25 U/L (14-36) 10/29/17 06:21 ALT 24 U/L (9-52) 10/29/17 06:21 Alkaline Phosphatase 130 U/L (38-126) H 10/29/17 06:21 Troponin I < 0.0120 ng/mL (0.00-0.120) 10/27/17 08:39 Total Protein 6.6 G/DL (6.3-8.2) 10/29/17 06:21 Albumin 2.9 g/dL (3.5-5.0) L 10/29/17 06:21 Globulin 3.7 gm/dL (2.2-3.9) 10/29/17 06:21 Albumin/Globulin Ratio 0.8 (1.0-2.1) L 10/29/17 06:21 Procalcitonin 1.92 NG/ML (0.19-0.49) H 10/26/17 18:54 Venous Blood Potassium 4.6 mmol/L (3.6-5.2) 10/26/17 12:01 Urine Color Straw (YELLOW) 11/05/17 01:15 Urine Clarity Clear (Clear) 11/05/17 01:15 Urine pH 7.0 (5.0-8.0) 11/05/17 01:15 Ur Specific [place] 1.006 (1.003-1.030) 11/05/17 01:15 Urine Protein Negative mg/dL (NEGATIVE) 11/05/17 01:15 Urine Glucose (UA) 50 mg/dL (Normal) 11/05/17 01:15 Urine Ketones Negative mg/dL (NEGATIVE) 11/05/17 01:15 Urine Blood Moderate (NEGATIVE) 11/05/17 01:15 Urine Nitrate Negative (NEGATIVE) 11/05/17 01:15 Urine Bilirubin Negative (NEGATIVE) 11/05/17 01:15 Urine Urobilinogen 0.2-1.0 mg/dL (0.2-1.0) 11/05/17 01:15 Ur Leukocyte Esterase Neg [place]/uL (Negative) 11/05/17 01:15 Urine RBC (Auto) 5 /hpf (0-3) H 11/05/17 01:15 Urine Microscopic WBC 1 /hpf (0-5) 11/05/17 01:15 Ur Squamous Epith Cells < 1 /hpf (0-5) 11/05/17 01:15 Urine Bacteria Many (<OCC) H 10/26/17 08:00 Stool Occult Blood Negative (NEGATIVE) 11/01/17 09:28 Vancomycin Trough 11.2 ug/mL (5.0-10.0) H 11/05/17 06:00 Influenza Typ A,B (EIA) Negative for flu a/b (NEGATIVE) 10/26/17 12:20 - Hospital Course Hospital Course: 52 y/o F with PMH including IDDM2, HTN and diabetic foot ulcers presented with abdominal/left flank pain and left foot pain associated with fever. Patient was subsequently admitted with sepsis likely related to infected diabetic ulcer and UTI. During admission patient found to have positive ESBL ecoli in the urine and gram positive bacteremia. She was found to have osteomyelitis of the left 4th toe and an excision of the left 4th toe on 10/31/17. Decision made by ID to complete course of IV Vancomycin daily until 11/10/17. Patient to be discharged today and return for daily IV antibiotics and follow up with Dr Gomez wound care clinic as outpatient. Discharge Exam - Head Exam Head Exam: ATRAUMATIC, NORMAL INSPECTION, NORMOCEPHALIC - Eye Exam Eye Exam: EOMI, Normal appearance - ENT Exam ENT Exam: Mucous Membranes Moist - Respiratory Exam Respiratory Exam: Clear to PA & Lateral, UNREMARKABLE. absent: Rhonchi, Wheezes , Respiratory Distress - Cardiovascular Exam Cardiovascular Exam: REGULAR RHYTHM, RRR, +S1, +S2 - GI/Abdominal Exam GI & Abdominal Exam: Normal Bowel Sounds, Soft. absent: Distended, Guarding, Rebound, Tenderness - Extremities Exam Additional comments: B/l lower extremity dressings clean, dry, intact to ankles. No proximal erythema noted. Calves nontender, no pitting edema. - Neurological Exam Neurological exam: Alert, Oriented x3 - Psychiatric Exam Psychiatric exam: Normal Affect, Normal Mood - Skin Skin Exam: Warm Additional comments: See extremities, above Discharge Plan - Discharge Medications Prescriptions: Atorvastatin [Lipitor] 40 mg PO DAILY #30 tab Enalapril Maleate [Vasotec] 5 mg PO DAILY #30 tab Gabapentin [Neurontin] 300 mg PO BID #60 cap Insulin Human Isophane (NPH) [Novolin N] 30 unit SC ACB #1 vial Insulin NPH Human Isophane [Novolin N] 14 unit SC HS #1 vial Metoprolol Tartrate [Lopressor] 25 mg PO Q12 #60 tab Vancomycin 1 GM [Vancomycin 1GM in Normal Saline Addvantage] 1 gm IVPB DAILY 5 Days bag - Follow Up Plan Condition: IMPROVED Disposition: HOME/ ROUTINE Patient education suggested?: Yes Instructions: Diabetic Foot Ulcer (DC), Osteomyelitis (DC) Additional Instructions: Follow up daily for IV antibiotics until November 10, [address] Gomez within 1 week at wound care center Follow up with your PCP at [facility] on November 13, 3:20PM Discharge medications: Enalapril 5mg PO daily Metoprolol tartrate 25mg PO BID Atorvastatin 40mg PO HS Gabapentin 300mg PO BID Novolin NPH 30 units SC ACB, 14 units HS Vancomycin 1gm IV daily to complete on 11/10/17 Referrals: Gaurav Gomez DPM [Staff Provider] - Podiatry Clinic [Outside] [facility] [Outside]
[2017-11-05 12:23] VITALS: BP 156/83; PULSE 73; TEMP 97.8; O2SAT 98
--- NOTE | 2017-11-05 12:51 | CP.PCM.PN ---
Subjective - Date & Time of Evaluation Date of Evaluation: 11/05/17 Time of Evaluation: 11:40 - Subjective Subjective: Podiatry Progress note - Dr. Rodarte 52 year old female patient with PMHx of DM, HTN was seen and evaluated at bedside 5 days s/p left 4th digit amputation. Patientis resting comfortably in bed, in NAD, and AA0x3. Patient denies of any acute overnight events. Denies of F/N/V/C/SOB/CP. Denies of any other pedal complains at this time. Objective - Vital Signs/Intake and Output Vital Signs (last 24 hours): Temp Pulse Resp BP Pulse Ox 97.8 F 73 18 156/83 H 98 11/05/17 12:05 11/05/17 12:05 11/05/17 12:05 11/05/17 12:05 11/05/17 12:05 - Medications Medications: Current Medications Acetaminophen (Tylenol 325mg Tab) 650 mg PO Q4 PRN PRN Reason: Fever >100.4 F Last Admin: 10/28/17 16:23 Dose: 650 mg Acetaminophen (Tylenol 650 Mg Supp) 650 mg AL ONCE PRN PRN Reason: Fever >100.4 F Last Admin: 10/27/17 00:54 Dose: 650 mg Atorvastatin Calcium (Lipitor) 40 mg PO DAILY [facility] Last Admin: 11/05/17 09:10 Dose: 40 mg Dextrose (Dextrose 50% Inj) 0 ml IV STAT PRN; Protocol PRN Reason: Hypoglycemia Protocol Dextrose (Glutose 15) 0 gm PO ONCE PRN; Protocol PRN Reason: Hypoglycemia Protocol Enalapril Maleate (Vasotec) 5 mg PO DAILY [facility] Last Admin: 11/05/17 09:11 Dose: 5 mg Enoxaparin Sodium (Lovenox) 40 mg SC DAILY [facility] PRN Reason: Protocol Last Admin: 11/05/17 09:08 Dose: 40 mg Gabapentin (Neurontin) 300 mg PO BID [facility] Last Admin: 11/05/17 09:09 Dose: 300 mg Glucagon (Glucagen Diagnostic Kit) 0 mg IM STAT PRN; Protocol PRN Reason: Hypoglycemia Protocol Hydromorphone HCl (Dilaudid) 0.25 mg IVP Q6H PRN PRN Reason: Pain, severe (8-10) Last Admin: 10/27/17 15:13 Dose: 0.25 mg Meropenem 1 gm/ Sodium (Chloride) 100 mls @ 100 mls/hr IVPB Q8 [facility] PRN Reason: Protocol Last Admin: 11/05/17 09:03 Dose: 100 mls/hr Sodium Chloride (Sodium Chloride 0.9%) 500 mls @ 100 mls/hr IV .Q5H [facility] Last Admin: 11/05/17 12:08 Dose: 100 mls/hr Vancomycin HCl 1 gm/ Sodium (Chloride) 250 mls @ 166.667 mls/hr IVPB DAILY [facility] PRN Reason: Protocol Last Admin: 11/05/17 09:04 Dose: 166.667 mls/hr Ibuprofen (Motrin Tab) 600 mg PO Q8 PRN PRN Reason: Pain, moderate (4-7) Last Admin: 10/27/17 13:47 Dose: 600 mg Insulin Human NPH (Humulin N) 30 units SC ACB [facility] Last Admin: 11/05/17 09:07 Dose: 30 units Insulin Human NPH (Humulin N) 14 units SC HS [facility] Last Admin: 11/04/17 22:26 Dose: 14 units Insulin Human Regular (Humulin R) 0 units SC ACHS [facility] Last Admin: 11/05/17 09:11 Dose: Not Given Insulin Human Regular (Humulin R) 10 units SC ACBD [facility] Last Admin: 11/05/17 09:10 Dose: 10 units Lidocaine (Lidoderm) 2 ea TD DAILY [facility] Last Admin: 11/05/17 09:06 Dose: 2 ea Metoprolol Tartrate (Lopressor) 25 mg PO Q12 [facility] Last Admin: 11/05/17 09:09 Dose: 25 mg Morphine Sulfate (Morphine Immediate Release Tab) 15 mg PO BID PRN PRN Reason: Pain, moderate (4-7) Ondansetron HCl (Zofran Inj) 4 mg IVP Q6 PRN PRN Reason: Nausea/Vomiting Last Admin: 10/27/17 23:25 Dose: 4 mg - Labs Labs: 11/03/17 05:15 11/03/17 05:15 PT 13.0 Seconds (9.8-13.1) 10/26/17 08:00 INR 1.2 (0.9-1.2) 10/26/17 08:00 APTT 27.0 Seconds (25.6-37.1) 10/26/17 08:00 - Constitutional Appears: Well, Non-toxic, No Acute Distress - Extremities Exam Additional comments: Bilateral LE exam: VASC: DP/PT pulses are palpable 2/4 B/L. Cap refill time: < 3 seconds to all digits. Skin temperature warm to cool from proximal to distal on the left and warm to cool from proximal to distal. mild non-pitting edema noted at the distal aspect of the foot DERM: Surgical site remains open with metatarsal head exposed, no periwound erythema, mild maceration noted surrounding the surgical site, no bleeding noted at this time, no active purulence, no malodor, no clinical suspicion of active infection at this time. Proximal lateral aspect of the right foot appears to have two small circular wounds measuring approx 3 cm x 4 cm - maceration appears to be resolved; No active drainage, no purulence, no fluctuence, no yao-wound erythema, since there is no drainage from squeezing the wound and no fluctuence at this time and no maceration - not suspecting an abscess at this point NEURO: Protective sensation grossly diminished ORTHO: mild tenderness on palpation of the surgical site - Neurological Exam Neurological Exam: Alert, Awake, Oriented x3 - Psychiatric Exam Psychiatric exam: Normal Affect, Normal Mood Assessment and Plan - Assessment and Plan (Free Text) Assessment: 52 year old female patient with PMHx of DM, HTN evaluated at bedside for 1) 5 days s/p left 4th digit amputation 2) non-infected wound to the right-resolving , maceration diminished Plan: Patient seen and evaluated at bedside Patient discussed in details with attending Dr. Rodarte Labs, vitals and charts reviewed - afebrile, no leukocytosis (WBC=4.1 on 11/03/17 ) Positive blood culture 10/26/17 S. Pyogenes Group A X-rays on 10/27/17 of the bilateral foot - No evidence of soft tissue emphysema Bilateral wound cultures taken on 10/28/17 shows Corynebacterium MRI on 10/28/17 the LLE - On T2 and STIR image, increase in signal intensity extending to the base of the 4th proximal phalanx, possibly distal aspect of the 4th metatarsal head - consistent with OM of the 4th ray Patient went to the OR on 10/31/17 for left 4th digit amputation and removal of all non-viable soft tissue Patient is 5 days s/p left 4th digit amputation, doing well Repeat Blood culture on 10/27 and 10/29: No growth Intra-op cultures taken - no growth c/w IV abx as per ID Patient is stable from podiatry standpoint Patient to follow up with Dr. Rodarte within 1 week in wound care center Patient to keep dressing clean, dry, and intact. Do not get wet. Do not change dressing
== END 2017-11-05 15:20 | disposition home or self-care (01) | DRG 854 ==
LOC: H.ER 07:00 → H.ERHOLD 12:08 → H.TEL 16:38
PROVIDERS: ADMIT Family Medicine Geriatric Medicine; ATTEND Family Medicine Geriatric Medicine
PROC: 02HV33Z Insertion of Infusion Device into Superior Vena Cava, Percutaneous Approach (ICD-10-PCS; 2017-10-30)
PROC: B518ZZA Fluoroscopy of Superior Vena Cava, Guidance (ICD-10-PCS; 2017-10-30)
PROC: B548ZZA Ultrasonography of Superior Vena Cava, Guidance (ICD-10-PCS; 2017-10-30)
PROC: 0Y6W0Z0 Detachment at Left 4th Toe, Complete, Open Approach (ICD-10-PCS; principal; 2017-10-31 16:30)
DX: A41.9 Sepsis, unspecified organism (principal); E11.52 Type 2 diabetes mellitus with diabetic peripheral angiopathy with gangrene; E11.42 Type 2 diabetes mellitus with diabetic polyneuropathy; M86.172 Other acute osteomyelitis, left ankle and foot; L03.116 Cellulitis of left lower limb; L02.611 Cutaneous abscess of right foot; E11.319 Type 2 diabetes mellitus with unspecified diabetic retinopathy without macular edema; B96.89 Other specified bacterial agents as the cause of diseases classified elsewhere; E11.621 Type 2 diabetes mellitus with foot ulcer; E11.69 Type 2 diabetes mellitus with other specified complication; E78.00 Pure hypercholesterolemia, unspecified; E78.5 Hyperlipidemia, unspecified; F06.30 Mood disorder due to known physiological condition, unspecified; F32.9 Major depressive disorder, single episode, unspecified; G44.209 Tension-type headache, unspecified, not intractable; I11.9 Hypertensive heart disease without heart failure; L29.9 Pruritus, unspecified; Z79.4 Long term (current) use of insulin; Z89.422 Acquired absence of other left toe(s); M19.90 Unspecified osteoarthritis, unspecified site; R00.0 Tachycardia, unspecified; L97.529 Non-pressure chronic ulcer of other part of left foot with unspecified severity

== ENCOUNTER 2018-04-17 15:47 | Inpatient (IN) | payer MEDICAID, SELFPAY ==
[2018-04-17 15:47] VITALS: BMI 27.4
[2018-04-17] MEDS ORDERED: Sodium Chloride 0.9% 1,000 ML IV STA (16:53)
--- NOTE | 2018-04-17 17:07 | ED PDOC ---
HPI: Abdomen Time Seen by Provider: 04/17/18 16:43 Chief Complaint (Nursing): Abdominal Pain Chief Complaint (Provider): Abdominal Pain History Per: Patient History/Exam Limitations: no limitations Onset/Duration Of Symptoms: Days (x3) Current Symptoms Are (Timing): Still Present Additional Complaint(s): 53 year old female presents to the ED for evaluation of abdominal pain. Patient states that three days ago, left sided flank pain radiating to her LUQ and LLQ began associated with intractable vomiting, tactile fevers, decreased appetite, nausea, dizziness, headache, and generalized weakness, but has not taken any meds. Patient also notes urinary frequency but no dysuria or hematuria. Otherwise, denies hematemesis, diarrhea, and constipation. She reports seeing her PMD earlier today who advised she come in to the ED for further evaluation. PMD: Bonilla French Past Medical History Reviewed: Historical Data, Nursing Documentation, Vital Signs Vital Signs: Last Vital Signs Temp 97.8 F 04/20/18 16:38 Pulse 78 04/20/18 21:03 Resp 20 04/20/18 16:38 BP 169/97 H 04/20/18 21:03 Pulse Ox 99 04/20/18 16:38 - Medical History PMH: Arthritis, Depression, Diabetes, HTN, Hypercholesterolemia Denies: HIV, Chronic Kidney Disease - Surgical History Surgical History: Other surgeries: ovarian cyst removal - Family History Family History: States: Diabetes, Hypertension - Social History Current smoker - smoking cessation education provided: No Alcohol: None Drugs: Denies - Home Medications Home Medications: Ambulatory Orders Medication Instructions Recorded Atorvastatin [Lipitor] 40 mg PO DAILY #30 tab 11/05/17 Enalapril Maleate [Vasotec] 5 mg PO DAILY #30 tab 11/05/17 Gabapentin [Neurontin] 300 mg PO BID #60 cap 11/05/17 Insulin Human Isophane (NPH) 30 unit SC ACB #1 vial 11/05/17 [Novolin N] Insulin NPH Human Isophane 14 unit SC HS #1 vial 11/05/17 [Novolin N] Metoprolol Tartrate [Lopressor] 25 mg PO Q12 #60 tab 11/05/17 Vancomycin 1 GM [Vancomycin 1GM in 1 gm IVPB DAILY 5 Days bag 11/05/17 Normal Saline Addvantage] - Allergies Allergies/Adverse Reactions: Allergies Allergy/AdvReac Type Severity Reaction Status Date / Time No Known Allergies Allergy Verified 11/06/17 15:07 Review of Systems ROS Statement: Except As Marked, All Systems Reviewed And Found Negative Constitutional: Positive for: Fever (tactile), Weakness (generalized) Gastrointestinal: Positive for: Nausea, Vomiting (Intractable), Abdominal Pain ( radiating from left flank to LLQ and LUQ). Negative for: Diarrhea, Constipation , Hematemesis Genitourinary Female: Positive for: Frequency. Negative for: Dysuria, Hematuria Neurological: Positive for: Headache, Dizziness Physical Exam - Reviewed Nursing Documentation Reviewed: Yes Vital Signs Reviewed: Yes - Physical Exam Appears: Positive for: Uncomfortable, In Acute Distress (tired appearing) Head Exam: Positive for: ATRAUMATIC, NORMOCEPHALIC Skin: Positive for: Warm, Dry Eye Exam: Positive for: EOMI, PERRL ENT: Positive for: Other (dry mucous membranes) Neck: Positive for: Painless ROM, Supple Cardiovascular/Chest: Positive for: Tachycardia (but regular rhythm). Negative for: Murmur Respiratory: Positive for: Normal Breath Sounds. Negative for: Wheezing Gastrointestinal/Abdominal: Positive for: Soft, Tenderness (LUQ and LLQ tenderness). Negative for: Mass, Guarding, Rebound Back: Positive for: L CVA Tenderness. Negative for: R CVA Tenderness Extremity: Positive for: Normal ROM. Negative for: Deformity Lymphatic: Negative for: Adenopathy Neurologic/Psych: Positive for: Alert. Negative for: Motor/Sensory Deficits - Laboratory Results Result Diagrams: 04/20/18 06:05 04/20/18 06:05 - ECG O2 Sat by Pulse Oximetry: 99 (RA) Pulse Ox Interpretation: Normal Medical Decision Making Medical Decision Making: Time: 1651 Initial Impression: abdominal pain and vomiting Ddx includes but is not limited to: pyelonephritis, diverticulitis, colitis, enteritis, sepsis, dehydration Initial Plan: --VBG --EKG --CMP --Lact acid, plasma --Lipase --CBC with differential --Normal saline IV --Toradol 15 mg IVP --Tylenol 975 mg PO --Zofran 8 mg IV --Blood culture --Urine culture --Accucheck --Urinalysis --CT Abd Pelvis w/o contrast Labs c/w UTI 1947 CT Abd / Pelvis FINDINGS: Lung bases: Unremarkable. No mass. No consolidation. ABDOMEN: Liver: Unremarkable. Gallbladder and bile ducts: Unremarkable. No calcified stones. No ductal dilation. Pancreas: Unremarkable. No ductal dilation. Spleen: Unremarkable. No splenomegaly. Adrenals: Unremarkable. No mass. Kidneys and ureters: There is left ureteral urothelial thickening without significant hydronephrosis. No obstructing ureteral stones are seen. There are several large calyceal calcifications in the left kidney, with mild perinephric edema of the left kidney consistent with pyelonephritis. Stomach and bowel: Unremarkable. No obstruction. No mucosal thickening. PELVIS: Appendix: A normal appendix is identified. Bladder: Bladder wall thickening consistent with cystitis. No stones. Reproductive: The uterus and ovaries are grossly normal. ABDOMEN and PELVIS: Intraperitoneal space: Unremarkable. No free air. No significant fluid collection. Bones/joints: No acute fracture. No dislocation. Soft tissues: There is a small fat-containing umbilical hernia. Vasculature: Unremarkable. No abdominal aortic aneurysm. Lymph nodes: Unremarkable. No enlarged lymph nodes. IMPRESSION: UTI and probable acute left pyelonephritis. No obstructing stones are seen. [address] Avalos. Pt to be hospitalized for pyelonephritis, and IV antibiotics. Scribe Attestation: Documented by Lida Olson, acting as a scribe for Katlyn Paz MD. Provider Scribe Attestation: All medical record entries made by the Scribe were at my direction and personally dictated by me. I have reviewed the chart and agree that the record accurately reflects my personal performance of the history, physical exam, medical decision making, and the department course for this patient. I have also personally directed, reviewed, and agree with the discharge instructions and disposition. Disposition - Clinical Impression Clinical Impression: Pyelonephritis - Disposition Disposition Time: 19:45 Condition: FAIR - Pt Status Changed To: Hospital Disposition Of: Observation - POA Present On Arrival: None
[2018-04-17 17:27] LABS: SQUAMOUS EPITHIAL 1 /hpf (0-5); URINE BACTERIA OCC (<OCC); URINE BILIRUBIN NEGATIVE (NEGATIVE); URINE BLOOD MODERATE (NEGATIVE); URINE CLARITY CLOUDY (Clear); URINE COLOR YELLOW (YELLOW); URINE GLUCOSE (UA) NEG (Normal); URINE HYALINE CAST 0-2 /hpf (0-2); URINE LEUKOCYTE ESTERASE LARGE Leu/uL (Negative); URINE PROTEIN 100 mg/dL (NEGATIVE)
[2018-04-17 17:56] LABS: CALCIUM 8.6 mg/dL (8.4-10.2); GFR AFRICAN-AMERICAN > 60; GFR NON-AFRICAN AMERICAN > 60; LIPASE 44 U/L (23-300)
[2018-04-17 17:56] LABS: VENOUS BLOOD GAS BASE EXCESS -0.7 mmol/L (0.0-2.0); VENOUS BLOOD GAS PCO2 40 mmHg (40-60); VENOUS BLOOD GAS PO2 49 mm/Hg (30-55); VENOUS BLOOD PH 7.39 (7.32-7.43)
[2018-04-17 18:02] LABS: ALB/GLOB RATIO 0.8 (1.0-2.1); ALBUMIN 3.9 g/dL (3.5-5.0); ALT/SGPT 17 U/L (9-52); AST/SGOT 29 U/L (14-36); BLOOD UREA NITROGEN 20 mg/dl (7-17)
[2018-04-17 18:05] LABS: BASO # 0.1 K/uL (0.0-0.2); BASO % 0.7 % (0.0-2.0); EOS % 0.5 % (0.0-4.0); HEMOGLOBIN 11.7 g/dL (12.0-16.0); LYMPH # 1.9 K/uL (1.0-4.3); LYMPH % 23.6 % (20.0-40.0); MEAN CELL VOLUME 81.2 fl (81.0-99.0); MEAN CORPUSCULAR HEMOGLOBIN 27.8 pg (27.0-31.0); MEAN CORPUSCULAR HGB CONC 34.3 g/dL (33.0-37.0); MEAN PLATELET VOLUME 8.2 fl (7.2-11.7); MONO # 0.7 K/uL (0.0-0.8); MONO % 8.3 % (0.0-10.0); NEUT # 5.3 K/uL (1.8-7.0); NEUT % 66.9 % (50.0-75.0); NRBC % 0.4 % (0.0-0.0); RBC 4.19 Mil/uL (3.80-5.20); RED CELL DISTRIBUTION WIDTH 13.7 % (11.5-14.5)
[2018-04-17] MEDS ORDERED: Ciprofloxacin 400mg/200ml D5W 400 MG/200 ML BAG IV STA (18:06)
[2018-04-17] MEDS ORDERED: Ciprofloxacin 400mg/200ml D5W 400 MG/200 ML BAG IVPB ONE (18:16)
[2018-04-18] MEDS: Sodium Chloride 0.9% 1,000 ML IV SCH ×2 (04:21→18:43)
--- NOTE | 2018-04-18 07:20 | CARD ---
APPROVED REPORT Date of service: 04/17/2018 <Conclusion> Normal sinus rhythm Normal ECG
[2018-04-18] MEDS: Ciprofloxacin 400mg/200ml D5W 400 MG/200 ML BAG IVPB SCH ×2 (08:55→21:49)
[2018-04-18] MEDS: Insulin NPH Human 100 Units/ml Inj SC SCH ×2 (08:55→21:51)
[2018-04-18] MEDS: Insulin Regular 100 units/ml SC SCH ×4 (08:56→22:00)
[2018-04-18] MEDS: Enoxaparin 40 mg Syringe SC SCH (08:57)
--- NOTE | 2018-04-18 09:57 | CP.PCM.HP ---
<Arcelia Magana - Last Filed: 04/18/18 13:36> History of Present Illness - History of Present Illness History of Present Illness: 53 yo F, hx hypertension, hyperlipidemia, and IDDM2, admitted to [facility] after presenting to ED with severe abdominal pain and nonbloody nonbilious vomiting. Reported pain started 3 days ago in L flank, and radiated to LUQ and LLQ. Admits to dysuria, burning with urination, and increased frequency of urination. Denies hematuria, blood in stool, issues stooling.She also reports decreased appetite, weakness, nausea. Has surg hx of , ovarian cyst removal. CT done in ED: There is left ureteral urothelial thickening without significant hydronephrosis. No obstructing ureteral stones are seen. There are several large calyceal calcifications in the left kidney, with mild perinephric edema of the left kidney consistent with pyelonephritis. Pt seen on rounds this morning with Dr. Maldonado; reported that she still had decreased appetite, but that she felt a little better overall. Still has pain. PMD: Dr French Present on Admission - Present on Admission Any Indicators Present on Admission: Yes History of Uncontrolled Diabetes: Yes Past Patient History - Infectious Disease Hx of Infectious Diseases: None - Past Medical History & Family History Past Medical History?: Yes - Past Social History Smoking Status: Never Smoked - CARDIAC Hx Cardiac Disorders: Yes Hx Hypercholesterolemia: Yes Hx Hypertension: Yes - PULMONARY Hx Respiratory Disorders: No - NEUROLOGICAL Hx Neurological Disorder: No - HEENT Hx HEENT Problems: No - RENAL Hx Chronic Kidney Disease: No - ENDOCRINE/METABOLIC Hx Endocrine Disorders: Yes Hx Diabetes Mellitus Type 2: Yes - HEMATOLOGICAL/ONCOLOGICAL Hx Blood Disorders: No Hx Human Immunodeficiency Virus (HIV): No - INTEGUMENTARY Hx Dermatological Problems: No - MUSCULOSKELETAL/RHEUMATOLOGICAL Hx Musculoskeletal Disorders: Yes Hx Arthritis: Yes Hx Falls: No - GASTROINTESTINAL Hx Gastrointestinal Disorders: No - GENITOURINARY/GYNECOLOGICAL Hx Genitourinary Disorders: No - PSYCHIATRIC Hx Psychophysiologic Disorder: Yes Hx Depression: Yes Hx Substance Use: No - SURGICAL HISTORY Hx Surgeries: Yes 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) Hx Section: Yes Other/Comment: Removal Right Ovarian Cyst - ANESTHESIA Hx Anesthesia: Yes Hx Anesthesia Reactions: No Hx Malignant Hyperthermia: No Has any member of the family had a problem w/ anesthesia?: No Meds Allergies/Adverse Reactions: Allergies Allergy/AdvReac Type Severity Reaction Status Date / Time No Known Allergies Allergy Verified 11/06/17 15:07 Physical Exam - Constitutional Appears: No Acute Distress (but appears uncomfortable) - Head Exam Head Exam: NORMAL INSPECTION - Respiratory Exam Respiratory Exam: Clear to Auscultation Bilateral, NORMAL BREATHING PATTERN - Cardiovascular Exam Cardiovascular Exam: REGULAR RHYTHM, +S1, +S2 - GI/Abdominal Exam GI & Abdominal Exam: Normal Bowel Sounds, Tenderness (LLQ, LUQ) - Extremities Exam Extremities exam: Negative for: calf tenderness Additional comments: s/p amputation of 2 toes on LLE no open lesions on feet b/l - Back Exam Back exam: CVA tenderness (L) - Neurological Exam Neurological exam: Alert - Psychiatric Exam Psychiatric exam: Normal Mood Results - Vital Signs Recent Vital Signs: Last Vital Signs Temp 97.4 F L 04/18/18 00:51 Pulse 107 H 04/18/18 08:57 Resp 20 04/18/18 00:51 BP 153/88 H 04/18/18 08:57 Pulse Ox 96 04/18/18 00:51 - Labs Result Diagrams: 04/17/18 17:40 04/17/18 17:40 Labs: Laboratory Results - last 24 hr 04/17/18 04/17/18 04/17/18 17:16 17:40 17:40 WBC 8.0 D RBC 4.19 Hgb 11.7 L D Hct 34.0 MCV 81.2 D MCH 27.8 MCHC 34.3 RDW 13.7 Plt Count 271 MPV 8.2 Neut % (Auto) 66.9 Lymph % (Auto) 23.6 Mccracken % (Auto) 8.3 Eos % (Auto) 0.5 Baso % (Auto) 0.7 Neut # (Auto) 5.3 Lymph # (Auto) 1.9 Mccracken # (Auto) 0.7 Eos # (Auto) 0.0 Baso # (Auto) 0.1 pO2 VBG pH VBG pCO2 VBG HCO3 VBG Total CO2 VBG O2 Sat (Calc) VBG Base Excess VBG Potassium Glucose Lactate FiO2 Sodium 136 Potassium 4.7 Chloride 103 Carbon Dioxide 19 L Anion Gap 19 BUN 20 H Creatinine 0.9 Est GFR ( Amer) > 60 Est GFR (Non-Af Amer) > 60 POC Glucose (mg/dL) Random Glucose 112 H Calcium 8.6 Total Bilirubin 0.7 AST 29 ALT 17 Alkaline Phosphatase 153 H Total Protein 8.6 H Albumin 3.9 Globulin 4.7 H Albumin/Globulin Ratio 0.8 L Lipase 44 Venous Blood Potassium Urine Color Yellow Urine Clarity Cloudy Urine pH 6.0 Ur Specific Brandon 1.015 Urine Protein 100 Urine Glucose (UA) Neg Urine Ketones Negative Urine Blood Moderate Urine Nitrate Negative Urine Bilirubin Negative Urine Urobilinogen 2.0 H Ur Leukocyte Esterase Large Urine RBC (Auto) 76 H Urine Microscopic WBC 425 H Ur Squamous Epith Cells 1 Urine Bacteria Occ H Hyaline Casts 0-2 04/17/18 04/18/18 17:54 05:18 WBC RBC Hgb Hct MCV MCH MCHC RDW Plt Count MPV Neut % (Auto) Lymph % (Auto) Mccracken % (Auto) Eos % (Auto) Baso % (Auto) Neut # (Auto) Lymph # (Auto) Mccracken # (Auto) Eos # (Auto) Baso # (Auto) pO2 49 VBG pH 7.39 VBG pCO2 40 VBG HCO3 24.0 VBG Total CO2 25.4 VBG O2 Sat (Calc) 88.1 H VBG Base Excess -0.7 L VBG Potassium 3.7 Glucose 108 H Lactate 1.0 FiO2 21.0 Sodium 137.0 Potassium Chloride 106.0 Carbon Dioxide Anion Gap BUN Creatinine Est GFR ( Amer) Est GFR (Non-Af Amer) POC Glucose (mg/dL) 96 Random Glucose Calcium Total Bilirubin AST ALT Alkaline Phosphatase Total Protein Albumin Globulin Albumin/Globulin Ratio Lipase Venous Blood Potassium 3.7 Urine Color Urine Clarity Urine pH Ur Specific Brandon Urine Protein Urine Glucose (UA) Urine Ketones Urine Blood Urine Nitrate Urine Bilirubin Urine Urobilinogen Ur Leukocyte Esterase Urine RBC (Auto) Urine Microscopic WBC Ur Squamous Epith Cells Urine Bacteria Hyaline Casts Assessment & Plan - Assessment and Plan (Free Text) Assessment: 53 yo F with hx hyperlipidemia, hypertension, IDDM admitted due to pyelonephritis. Plan: - admitted to medsurg - antibiotics started; cipro 400 Q12 - IV hydration - urine and blood culture pending - resume home meds for diabetes, HTN, HLD - heart healthy diet - lovenox - rest of plan as ordered <Rashid Maldonado - Last Filed: 04/23/18 08:36> Results - Vital Signs Recent Vital Signs: Last Vital Signs Temp 98.3 F 04/23/18 08:00 Pulse 66 04/23/18 08:00 Resp 18 04/23/18 08:00 BP 125/79 04/23/18 08:00 Pulse Ox 99 04/23/18 08:00 - Labs Result Diagrams: 04/22/18 06:00 04/22/18 06:00 Assessment & Plan - Assessment and Plan (Free Text) Plan: Patient was personally seen and examined by me in rounds with residents. Available labs and diagnostic data reviewed. Case, Patient's condition and management plan discussed with residents in rounds. Agree with resident's progress note. Plan: As ordered.
--- NOTE | 2018-04-18 11:15 | CT ---
Date of service: 04/17/2018 PROCEDURE: CT Abdomen and Pelvis with Oral contrast. HISTORY: LEFT sided abd pain LEFT sided abdominal pain COMPARISON: None. The the the TECHNIQUE: Contiguous axial images of the abdomen and pelvis. Oral contrast was administered. No IV contrast given. Coronal and Sagittal reformats generated. Radiation dose: Total exam DLP = mGy-cm. This CT exam was performed using one or more of the following dose reduction techniques: Automated exposure control, adjustment of the mA and/or kV according to patient size, and/or use of iterative reconstruction technique. Total exam DLP = 786.42 mGy-cm. FINDINGS: LOWER THORAX: Mild passive/dependent type atelectasis both posterior sulci. The no evidence of effusion or basilar pneumothorax. Heart size within range of normal. No significant pericardial effusion. There is a small hiatal hernia. LIVER: Liver is mildly enlarged measuring nearly 20 cm in CC dimension. No obvious hepatic mass or collection. The the. GALLBLADDER AND BILE DUCTS: Gallbladder physiologically distended. No evidence of intraluminal urinary bladder calculi. PANCREAS: The unenhanced pancreas is slightly fatty replaced. No pancreatic masses or collections. SPLEEN: Spleen is enlarged measuring over 14 cm in AP dimension. No splenic masses or collections seen on this noncontrast study. ADRENALS: Unremarkable. KIDNEYS AND URETERS: Staghorn calculi seen in the upper and lower poles of the left kidney. The left kidney appears somewhat boggy /edematous with infiltration changes in the surrounding perinephric fat. There is also urothelial wall thickening of the renal pelvis and proximal -mid right ureter consistent with urinary tract infection/ pyelonephritis. Clinical correlation recommended. BLADDER: There is slight urinary bladder wall thickening which also suggest cystitis despite incomplete distention. No evidence of intraluminal urinary bladder calculi. The the Right kidney appears unremarkable. Uterus appears unremarkable. APPENDIX: Normal-appearing appendix best seen on axial image number [id number]. BOWEL: Evaluation of the bowel slightly limited due to the lack of oral contrast material. The stomach is incompletely distended which presumably accounts for thick-walled appearance. Visualized loops of small bowel exhibit normal contour and caliber. No evidence of acute mechanical small bowel obstruction. Moderate amount of stool seen within the cecum and at ascending and to a slightly lesser degree transverse colon consistent with fecal retention/constipation. No definitive evidence of abnormal mid colonic mural wall thickening. PERITONEUM: Unremarkable. No fluid collection. No free air. There is a small fat containing umbilical hernia. LYMPH NODES: Multiple small to medium-sized left-sided retroperitoneal lymph nodes are present. VASCULATURE: Unremarkable. No aortic aneurysm. . Mild vascular calcifications of the abdominal aorta and iliac arteries. BONES: Minor multilevel degenerative spondylosis of the lower thoracic and lumbar spine. There are no acute compression fractures nor retropulsed fragments. OTHER FINDINGS: Several calcified injection granulomata both buttocks left more numerous than the right. IMPRESSION: Staghorn calculi seen in the upper lower pole left kidney. Left kidney exhibits boggy- edematous appearance with infiltration changes of the perinephric fat. In addition, there is a urothelial wall thickening of the left renal pelvis and proximal to mid left ureter consistent with urinary tract infection/ pyelonephritis. Bladder wall thickening also likely related to urinary tract infection/ cystitis. No evidence of hydronephrosis. Multiple small to medium-sized left-sided retroperitoneal lymph nodes likely related to aforementioned UTI/pyelonephritis. Hepatosplenomegaly. See above discussion for additional details and findings.
[2018-04-19] MEDS: Sodium Chloride 0.9% 1,000 ML IV SCH
[2018-04-19 06:25] LABS: HEMOGLOBIN 9.4 g/dL (12.0-16.0); MEAN CELL VOLUME 81.4 fl (81.0-99.0); MEAN CORPUSCULAR HEMOGLOBIN 27.2 pg (27.0-31.0); MEAN CORPUSCULAR HGB CONC 33.4 g/dL (33.0-37.0); RBC 3.46 Mil/uL (3.80-5.20); RED CELL DISTRIBUTION WIDTH 13.3 % (11.5-14.5); WHITE BLOOD COUNT 4.8 K/uL (4.8-10.8)
[2018-04-19 06:54] LABS: BLOOD UREA NITROGEN 15 mg/dl (7-17); CALCIUM 8.3 mg/dL (8.4-10.2); GFR AFRICAN-AMERICAN > 60; GFR NON-AFRICAN AMERICAN > 60
[2018-04-19] MEDS: Insulin Regular 100 units/ml SC SCH ×4 (08:49→22:19)
[2018-04-19] MEDS: Ciprofloxacin 400mg/200ml D5W 400 MG/200 ML BAG IVPB SCH (08:49)
[2018-04-19] MEDS: Insulin NPH Human 100 Units/ml Inj SC SCH ×2 (08:50→22:17)
[2018-04-19] MEDS: Enoxaparin 40 mg Syringe SC SCH (08:57)
--- NOTE | 2018-04-19 11:33 | CP.PCM.CON ---
History of Present Illness - History of Present Illness History of Present Illness: Infectious Disease Consultation Note0 asked to see this patietn at the request of DMITRY Carrera for UTI/ sepsis. HPI- Patient is a pleasant 53 year old female with PMH of DM II and HTN who is admitted with c/o dysurea, back pain and fever which as per pt. started 6 days ago and has progressively worsened. pt. explains the pain also radiated to her lower abd region, + anusea, no diarrhea. denies any sob or any DOUGLASS or any cough. CT done in ED: There is left ureteral urothelial thickening without significant hydronephrosis. No obstructing ureteral stones are seen. There are several large calyceal calcifications in the left kidney, with mild perinephric edema of the left kidney consistent with pyelonephritis. she is also found to have + UA and + coag neg staph bacteremia. Pt. states she has h/o UTI in the past adn she improves with antibiotics but then it she denies any h/o kidneys tones. denies any sick contacts she also states her urine had malodor at home. denies any hematurea. Review of Systems - Review of Systems Review of Systems: ROS- as stated in HPI. Past Patient History - Infectious Disease Hx of Infectious Diseases: None - Past Medical History & Family History Past Medical History?: Yes - Past Social History Smoking Status: Never Smoked Alcohol: None Drugs: Denies Home Situation {Lives}: With Family - CARDIAC Hx Cardiac Disorders: Yes Hx Hypercholesterolemia: Yes Hx Hypertension: Yes - PULMONARY Hx Respiratory Disorders: No - NEUROLOGICAL Hx Neurological Disorder: No - HEENT Hx HEENT Problems: No - RENAL Hx Chronic Kidney Disease: No - ENDOCRINE/METABOLIC Hx Endocrine Disorders: Yes Hx Diabetes Mellitus Type 2: Yes - HEMATOLOGICAL/ONCOLOGICAL Hx Blood Disorders: No - INTEGUMENTARY Hx Dermatological Problems: No - MUSCULOSKELETAL/RHEUMATOLOGICAL Hx Musculoskeletal Disorders: Yes Hx Arthritis: Yes Hx Falls: No - GASTROINTESTINAL Hx Gastrointestinal Disorders: No - GENITOURINARY/GYNECOLOGICAL Hx Genitourinary Disorders: No - PSYCHIATRIC Hx Psychophysiologic Disorder: Yes Hx Depression: Yes Hx Substance Use: No - SURGICAL HISTORY Hx Surgeries: Yes 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) Hx Section: Yes Other/Comment: Removal Right Ovarian Cyst - ANESTHESIA Hx Anesthesia: Yes Hx Anesthesia Reactions: No Hx Malignant Hyperthermia: No Has any member of the family had a problem w/ anesthesia?: No Meds Allergies/Adverse Reactions: Allergies Allergy/AdvReac Type Severity Reaction Status Date / Time No Known Allergies Allergy Verified 11/06/17 15:07 - Medications Medications: Current Medications Acetaminophen (Tylenol 325mg Tab) 650 mg PO Q6 PRN PRN Reason: Pain, moderate (4-7) Last Admin: 04/19/18 05:31 Dose: 650 mg Atorvastatin Calcium (Lipitor) 40 mg PO DAILY [facility] Last Admin: 04/19/18 08:50 Dose: 40 mg Enalapril Maleate (Vasotec) 5 mg PO DAILY [facility] Last Admin: 04/19/18 08:57 Dose: 5 mg Enoxaparin Sodium (Lovenox) 40 mg SC DAILY [facility] PRN Reason: Protocol Last Admin: 04/19/18 08:57 Dose: 40 mg Gabapentin (Neurontin) 300 mg PO BID [facility] Last Admin: 04/19/18 08:57 Dose: 300 mg Vancomycin HCl 1 gm/ Sodium (Chloride) 250 mls @ 166.667 mls/hr IVPB Q12 [facility] PRN Reason: Protocol Ciprofloxacin (Cipro 400mg/200ml Dsw) 400 mg in 200 mls @ 200 mls/hr IVPB Q12 [facility] PRN Reason: Protocol Insulin Human NPH (Humulin N) 30 units SC ACB [facility] Last Admin: 04/19/18 08:50 Dose: 30 units Insulin Human NPH (Humulin N) 14 units SC HS [facility] Last Admin: 04/18/18 21:51 Dose: 14 u Insulin Human Regular (Humulin R) 0 units SC ACHS [facility] PRN Reason: Protocol Last Admin: 04/19/18 08:49 Dose: Not Given Metoprolol Tartrate (Lopressor) 25 mg PO Q12 [facility] Last Admin: 04/19/18 08:56 Dose: 25 mg Pantoprazole Sodium (Protonix Ec Tab) 40 mg PO DAILY [facility] Physical Exam - Constitutional Appears: No Acute Distress - Head Exam Head Exam: ATRAUMATIC - Eye Exam Eye Exam: EOMI, PERRL - ENT Exam ENT Exam: Normal Oropharynx - Neck Exam Neck exam: Positive for: Full Rom - Respiratory Exam Respiratory Exam: Clear to Auscultation Bilateral, NORMAL BREATHING PATTERN - Cardiovascular Exam Cardiovascular Exam: RRR, +S1, +S2 - GI/Abdominal Exam GI & Abdominal Exam: Normal Bowel Sounds, Soft Additional comments: ND + tendernss in left lower and mid lower abdomen and left flank pain + left CVA tenderness no guarding, no rebound - Extremities Exam Extremities exam: Positive for: normal inspection - Neurological Exam Neurological exam: Alert, Oriented x3 Results - Vital Signs Recent Vital Signs: Last Vital Signs Temp 98.4 F 04/19/18 08:02 Pulse 78 04/19/18 08:56 Resp 20 04/19/18 08:02 BP 117/73 04/19/18 08:56 Pulse Ox 96 04/19/18 08:02 - Labs Result Diagrams: 04/19/18 05:20 04/19/18 05:20 Labs: Laboratory Results - last 24 hr 04/18/18 04/18/18 04/19/18 16:09 21:45 05:20 WBC 4.8 RBC 3.46 L Hgb 9.4 L D Hct 28.1 L MCV 81.4 MCH 27.2 MCHC 33.4 RDW 13.3 Plt Count 229 Sodium Potassium Chloride Carbon Dioxide Anion Gap BUN Creatinine Est GFR ( Amer) Est GFR (Non-Af Amer) POC Glucose (mg/dL) 293 H 141 H Random Glucose Calcium 04/19/18 04/19/18 04/19/18 05:20 06:28 10:51 WBC RBC Hgb Hct MCV MCH MCHC RDW Plt Count Sodium 140 Potassium 4.1 Chloride 107 Carbon Dioxide 24 Anion Gap 13 BUN 15 Creatinine 0.8 Est GFR ( Amer) > 60 Est GFR (Non-Af Amer) > 60 POC Glucose (mg/dL) 137 H 229 H Random Glucose 131 H Calcium 8.3 L Laboratory Results - last 72 hr 04/17/18 04/17/18 04/17/18 17:16 17:40 17:40 WBC 8.0 D RBC 4.19 Hgb 11.7 L D Hct 34.0 MCV 81.2 D MCH 27.8 MCHC 34.3 RDW 13.7 Plt Count 271 MPV 8.2 Neut % (Auto) 66.9 Lymph % (Auto) 23.6 [place] % (Auto) 8.3 Eos % (Auto) 0.5 Baso % (Auto) 0.7 Neut # (Auto) 5.3 Lymph # (Auto) 1.9 [place] # (Auto) 0.7 Eos # (Auto) 0.0 Baso # (Auto) 0.1 pO2 VBG pH VBG pCO2 VBG HCO3 VBG Total CO2 VBG O2 Sat (Calc) VBG Base Excess VBG Potassium Glucose Lactate FiO2 Sodium 136 Potassium 4.7 Chloride 103 Carbon Dioxide 19 L Anion Gap 19 BUN 20 H Creatinine 0.9 Est GFR ( Amer) > 60 Est GFR (Non-Af Amer) > 60 POC Glucose (mg/dL) Random Glucose 112 H Calcium 8.6 Total Bilirubin 0.7 AST 29 ALT 17 Alkaline Phosphatase 153 H Total Protein 8.6 H Albumin 3.9 Globulin 4.7 H Albumin/Globulin Ratio 0.8 L Lipase 44 Venous Blood Potassium Urine Color Yellow Urine Clarity Cloudy Urine pH 6.0 Ur Specific [place] 1.015 Urine Protein 100 Urine Glucose (UA) Neg Urine Ketones Negative Urine Blood Moderate Urine Nitrate Negative Urine Bilirubin Negative Urine Urobilinogen 2.0 H Ur Leukocyte Esterase Large Urine RBC (Auto) 76 H Urine Microscopic WBC 425 H Ur Squamous Epith Cells 1 Urine Bacteria Occ H Hyaline Casts 0-2 04/17/18 04/18/18 04/18/18 17:54 05:18 11:05 WBC RBC Hgb Hct MCV MCH MCHC RDW Plt Count MPV Neut % (Auto) Lymph % (Auto) [place] % (Auto) Eos % (Auto) Baso % (Auto) Neut # (Auto) Lymph # (Auto) [place] # (Auto) Eos # (Auto) Baso # (Auto) pO2 49 VBG pH 7.39 VBG pCO2 40 VBG HCO3 24.0 VBG Total CO2 25.4 VBG O2 Sat (Calc) 88.1 H VBG Base Excess -0.7 L VBG Potassium 3.7 Glucose 108 H Lactate 1.0 FiO2 21.0 Sodium 137.0 Potassium Chloride 106.0 Carbon Dioxide Anion Gap BUN Creatinine Est GFR ( Amer) Est GFR (Non-Af Amer) POC Glucose (mg/dL) 96 235 H Random Glucose Calcium Total Bilirubin AST ALT Alkaline Phosphatase Total Protein Albumin Globulin Albumin/Globulin Ratio Lipase Venous Blood Potassium 3.7 Urine Color Urine Clarity Urine pH Ur Specific [place] Urine Protein Urine Glucose (UA) Urine Ketones Urine Blood Urine Nitrate Urine Bilirubin Urine Urobilinogen Ur Leukocyte Esterase Urine RBC (Auto) Urine Microscopic WBC Ur Squamous Epith Cells Urine Bacteria Hyaline Casts 04/18/18 04/18/18 04/19/18 16:09 21:45 05:20 WBC 4.8 RBC 3.46 L Hgb 9.4 L D Hct 28.1 L MCV 81.4 MCH 27.2 MCHC 33.4 RDW 13.3 Plt Count 229 MPV Neut % (Auto) Lymph % (Auto) [place] % (Auto) Eos % (Auto) Baso % (Auto) Neut # (Auto) Lymph # (Auto) [place] # (Auto) Eos # (Auto) Baso # (Auto) pO2 VBG pH VBG pCO2 VBG HCO3 VBG Total CO2 VBG O2 Sat (Calc) VBG Base Excess VBG Potassium Glucose Lactate FiO2 Sodium Potassium Chloride Carbon Dioxide Anion Gap BUN Creatinine Est GFR ( Amer) Est GFR (Non-Af Amer) POC Glucose (mg/dL) 293 H 141 H Random Glucose Calcium Total Bilirubin AST ALT Alkaline Phosphatase Total Protein Albumin Globulin Albumin/Globulin Ratio Lipase Venous Blood Potassium Urine Color Urine Clarity Urine pH Ur Specific [place] Urine Protein Urine Glucose (UA) Urine Ketones Urine Blood Urine Nitrate Urine Bilirubin Urine Urobilinogen Ur Leukocyte Esterase Urine RBC (Auto) Urine Microscopic WBC Ur Squamous Epith Cells Urine Bacteria Hyaline Casts 04/19/18 04/19/18 04/19/18 05:20 06:28 10:51 WBC RBC Hgb Hct MCV MCH MCHC RDW Plt Count MPV Neut % (Auto) Lymph % (Auto) [place] % (Auto) Eos % (Auto) Baso % (Auto) Neut # (Auto) Lymph # (Auto) [place] # (Auto) Eos # (Auto) Baso # (Auto) pO2 VBG pH VBG pCO2 VBG HCO3 VBG Total CO2 VBG O2 Sat (Calc) VBG Base Excess VBG Potassium Glucose Lactate FiO2 Sodium 140 Potassium 4.1 Chloride 107 Carbon Dioxide 24 Anion Gap 13 BUN 15 Creatinine 0.8 Est GFR ( Amer) > 60 Est GFR (Non-Af Amer) > 60 POC Glucose (mg/dL) 137 H 229 H Random Glucose 131 H Calcium 8.3 L Total Bilirubin AST ALT Alkaline Phosphatase Total Protein Albumin Globulin Albumin/Globulin Ratio Lipase Venous Blood Potassium Urine Color Urine Clarity Urine pH Ur Specific [place] Urine Protein Urine Glucose (UA) Urine Ketones Urine Blood Urine Nitrate Urine Bilirubin Urine Urobilinogen Ur Leukocyte Esterase Urine RBC (Auto) Urine Microscopic WBC Ur Squamous Epith Cells Urine Bacteria Hyaline Casts Microbiology 04/17/18 17:16 Urine,Clean Catch Urine Culture - Final 10-50,000 CFU/ML. MULTIPLE SPECIES. PROBABLE CONTAMINATION. 04/17/18 17:25 Blood S.aureus & Coag-Neg Staph PNA FISH - Final 04/17/18 17:25 Blood Blood Culture - Preliminary Coagulase Neg Staphylococcus 04/17/18 17:25 Blood Gram Stain - Final 04/17/18 17:25 Blood Blood Culture - Preliminary Coagulase Neg Staphylococcus 04/17/18 17:25 Blood Gram Stain - Final Accession No. : [id number] Patient Name / ID : FREDA CRAFT / [id number] Exam Date : 04/17/2018 18:43:11 ( Approved ) Study Comment : Sex / Age : F / 53Y Creator : Faheem Saini MD Dictator : Prism Inspector : Plater Helper : Faheem Saini MD Approver2 : Report Date : 04/18/2018 11:14:02 My Comment : Date of service: 04/17/2018 PROCEDURE: CT Abdomen and Pelvis with Oral contrast. HISTORY: LEFT sided abd pain LEFT sided abdominal pain COMPARISON: None. The the the TECHNIQUE: Contiguous axial images of the abdomen and pelvis. Oral contrast was administered. No IV contrast given. Coronal and Sagittal reformats generated. Radiation dose: Total exam DLP = mGy-cm. This CT exam was performed using one or more of the following dose reduction techniques: Automated exposure control, adjustment of the mA and/or kV according to patient size, and/or use of iterative reconstruction technique. Total exam DLP = 786.42 mGy-cm. FINDINGS: LOWER THORAX: Mild passive/dependent type atelectasis both posterior sulci. The no evidence of effusion or basilar pneumothorax. Heart size within range of normal. No significant pericardial effusion. There is a small hiatal hernia. LIVER: Liver is mildly enlarged measuring nearly 20 cm in CC dimension. No obvious hepatic mass or collection. The the. GALLBLADDER AND BILE DUCTS: Gallbladder physiologically distended. No evidence of intraluminal urinary bladder calculi. PANCREAS: The unenhanced pancreas is slightly fatty replaced. No pancreatic masses or collections. SPLEEN: Spleen is enlarged measuring over 14 cm in AP dimension. No splenic masses or collections seen on this noncontrast study. ADRENALS: Unremarkable. KIDNEYS AND URETERS: Staghorn calculi seen in the upper and lower poles of the left kidney. The left kidney appears somewhat boggy /edematous with infiltration changes in the surrounding perinephric fat. There is also urothelial wall thickening of the renal pelvis and proximal -mid right ureter consistent with urinary tract infection/ pyelonephritis. Clinical correlation recommended. BLADDER: There is slight urinary bladder wall thickening which also suggest cystitis despite incomplete distention. No evidence of intraluminal urinary bladder calculi. The the Right kidney appears unremarkable. Uterus appears unremarkable. APPENDIX: Normal-appearing appendix best seen on axial image number [id number]. BOWEL: Evaluation of the bowel slightly limited due to the lack of oral contrast material. The stomach is incompletely distended which presumably accounts for thick-walled appearance. Visualized loops of small bowel exhibit normal contour and caliber. No evidence of acute mechanical small bowel obstruction. Moderate amount of stool seen within the cecum and at ascending and to a slightly lesser degree transverse colon consistent with fecal retention/ constipation. No definitive evidence of abnormal mid colonic mural wall thickening. PERITONEUM: Unremarkable. No fluid collection. No free air. There is a small fat containing umbilical hernia. LYMPH NODES: Multiple small to medium-sized left-sided retroperitoneal lymph nodes are present. VASCULATURE: Unremarkable. No aortic aneurysm. . Mild vascular calcifications of the abdominal aorta and iliac arteries. BONES: Minor multilevel degenerative spondylosis of the lower thoracic and lumbar spine. There are no acute compression fractures nor retropulsed fragments. OTHER FINDINGS: Several calcified injection granulomata both buttocks left more numerous than the right. IMPRESSION: Staghorn calculi seen in the upper lower pole left kidney. Left kidney exhibits boggy- edematous appearance with infiltration changes of the perinephric fat. In addition, there is a urothelial wall thickening of the left renal pelvis and proximal to mid left ureter consistent with urinary tract infection/ pyelonephritis. Bladder wall thickening also likely related to urinary tract infection/ cystitis. No evidence of hydronephrosis. Multiple small to medium-sized left-sided retroperitoneal lymph nodes likely related to aforementioned UTI/pyelonephritis. Hepatosplenomegaly. See above discussion for additional details and findings. Assessment & Plan (1) Bacteremia Status: Acute (2) Abdominal pain Status: Acute (3) UTI (urinary tract infection) Status: Acute (4) Pyelonephritis Status: Acute - Assessment and Plan (Free Text) Assessment: A/P- 53 year old female with HTN, DM II admitted with UTI,pyelonephritis . febrile normal wbc count + UA urine cx- multiple organisms hence contaminant Blood cx- coag neg staph x 2 plan- check echo r/o any vegetations continue with IV vancomycin day #1 for coag neg staph bacteremia. Keep trough <20. check another urine cx. no objection to continuing with IV cipro pending further results. All above d/w patient and she verbalizes full understanding of all above and agrees with [facility] plan of care. Thank you for allowing me to take part in the care of this patient.
--- NOTE | 2018-04-19 12:57 | PN ---
Copied To: Rashid Maldonado MD Attending MD: Rashid Maldonado MD DATE: 04/19/2018 SUBJECTIVE: The patient seen and examined. Interim events noted. The patient remains in regular medical floor. The patient feels okay, but still has vomiting. Urinary symptoms better. No chest pain. No shortness of breath. No side effects from medication. PHYSICAL EXAMINATION: GENERAL: The patient is in no acute distress. VITAL SIGNS: Stable. HEART: S1 and S2. Normal and regular. LUNGS: Good bilateral air exchange. ABDOMEN: Soft and nontender. No sign of acute abdomen. No guarding. No rigidity. No rebound. Bowel sounds are plus and normal. The patient does have left costovertebral tenderness, seems to be better than yesterday. EXTREMITIES: No edema. No calf swelling. No tenderness. No acute ischemia. TILE DESIGNER: Exam is essentially unchanged. DIAGNOSTIC DATA: Available diagnostic data reviewed. Blood culture is positive for gram-positive cocci. ID and sensitivity are pending. ASSESSMENT AND PLAN: Overall, the patient seems to be slightly better than yesterday. Plan as ordered. Case and plan discussed with patient. Rashid Maldonado MD
[2018-04-19] MEDS: Pantoprazole 40 mg EC Tab PO SCH (13:36)
[2018-04-19] MEDS: Meropenem 1 GM in Sodium Chloride 0.9% 100 ML IVPB SCH (16:41)
--- NOTE | 2018-04-19 17:32 | CARD ---
APPROVED REPORT Date of service: 04/19/2018 EXAM: Two-dimensional and M-mode echocardiogram with Doppler and color Doppler. Other Information Quality : GoodRhythm : NSR INDICATION BACTEREMIA 2D DIMENSIONS IVSd1.00 (0.7-1.1cm)LVDd3.40 (3.9-5.9cm) LVOT Diameter1.87 (1.8-2.4cm)PWd0.94 (0.7-1.1cm) IVSs1.22 (0.8-1.2cm)LVDs2.54 (2.5-4.0cm) FS (%) 13.9 %PWs0.89 (0.8-1.2cm) M-Mode DIMENSIONS Left Atrium (MM)4.41 (2.5-4.0cm)IVSd0.97 (0.7-1.1cm) Aortic Root2.73 (2.2-3.7cm)LVDd4.63 (4.0-5.6cm) Aortic Cusp Exc.1.88 (1.5-2.0cm)PWd1.13 (0.7-1.1cm) IVSs1.76 cmFS (%) 51 % LVDs2.26 (2.0-3.8cm)PWs1.43 cm Aortic Valve AoV Peak Ztokoavb062.4cm/sAoV VTI23.2cmAO Peak GR.5mmHg LVOT Peak Kynyjohl73.0cm/sLVOT VTI16.75cmAO Mean GR.3mmHg Mitral Valve MV E Evmibatd93.5cm/sMV DECEL VTQD195bhBC A Rbxareib34.4cm/s MV UZX66afQ/A ratio1.1MVA (PHT)3.74cm2 TDI Lateral E' Peak V9.29cm/sMedial E' Peak V8.39cm/sE/Lateral E'10.4 E/Medial E'11.5 Pulmonary Valve PV Peak Chtdtjqd33.5cm/s LEFT VENTRICLE The left ventricle is normal size. There is normal left ventricular wall thickness. The left ventricular ejection fraction is within the normal range. The Ejection Fraction is 55-60%. No regional wall motion abnormalities noted.. The left ventricular diastolic function is normal. No left ventricle thrombus noted on this study. There is no ventricular septal defect visualized. There is no mass noted in the left ventricle. RIGHT VENTRICLE The right ventricle is normal size. There is normal right ventricular wall thickness. The right ventricular systolic function is normal. ATRIA The left atrium is mildly dilated. The right atrium size is normal. The interatrial septum is intact with no evidence for an atrial septal defect. AORTIC VALVE The aortic valve is normal in structure. No aortic regurgitation is present. There is no aortic valvular stenosis. MITRAL VALVE The mitral valve is normal in structure. There is no mitral valve stenosis. There is no mitral valve regurgitation noted. TRICUSPID VALVE The tricuspid valve is normal in structure. There is no tricuspid valve regurgitation noted. PULMONIC VALVE The pulmonary valve is normal in structure. There is no pulmonic valvular regurgitation. GREAT VESSELS The aortic root is normal in size. The ascending aorta is normal in size. The pulmonary artery is normal. The IVC is normal in size and collapses >50% with inspiration. PERICARDIAL EFFUSION There is no pericardial effusion. <Conclusion> Dilated left atrium Otherwise normal transthoracic echocardiogram. No evidence of valvular vegetation. If clinically strongly suspect SBE, consideration could be given towards a STEFFANIE
[2018-04-19] MEDS ORDERED: Ciprofloxacin 400mg/200ml D5W 400 MG/200 ML BAG IVPB SCH (21:00)
[2018-04-20] MEDS: Meropenem 1 GM in Sodium Chloride 0.9% 100 ML IVPB SCH ×4 (00:27→23:59)
[2018-04-20 06:31] LABS: HEMOGLOBIN 9.3 g/dL (12.0-16.0); MEAN CORPUSCULAR HEMOGLOBIN 27.3 pg (27.0-31.0); MEAN CORPUSCULAR HGB CONC 33.3 g/dL (33.0-37.0); RBC 3.41 Mil/uL (3.80-5.20); RED CELL DISTRIBUTION WIDTH 13.3 % (11.5-14.5); WHITE BLOOD COUNT 3.8 K/uL (4.8-10.8)
[2018-04-20 07:13] LABS: ALB/GLOB RATIO 0.8 (1.0-2.1); ALBUMIN 3.1 g/dL (3.5-5.0); ALT/SGPT 21 U/L (9-52); AST/SGOT 32 U/L (14-36); BLOOD UREA NITROGEN 10 mg/dl (7-17); CALCIUM 8.7 mg/dL (8.4-10.2); GFR AFRICAN-AMERICAN > 60; GFR NON-AFRICAN AMERICAN > 60
--- NOTE | 2018-04-20 09:15 | CP.PCM.PN ---
<Arcelia Magana - Last Filed: 04/20/18 10:08> Subjective - Date & Time of Evaluation Date of Evaluation: 04/20/18 Time of Evaluation: 07:40 - Subjective Subjective: Pt seen and examined at bedside this morning; did not have acute events overnight. Still c/o left sided abdominal pain, but less than before. Objective - Vital Signs/Intake and Output Vital Signs (last 24 hours): Temp Pulse Resp BP Pulse Ox 97.8 F 78 18 152/87 H 96 04/20/18 08:36 04/20/18 08:36 04/20/18 08:36 04/20/18 08:36 04/20/18 08:36 - Medications Medications: Current Medications Acetaminophen (Tylenol 325mg Tab) 650 mg PO Q6 PRN PRN Reason: Pain, moderate (4-7) Last Admin: 04/19/18 21:51 Dose: 650 mg Atorvastatin Calcium (Lipitor) 40 mg PO DAILY [facility] Last Admin: 04/19/18 08:50 Dose: 40 mg Enalapril Maleate (Vasotec) 5 mg PO DAILY [facility] Last Admin: 04/19/18 08:57 Dose: 5 mg Enoxaparin Sodium (Lovenox) 40 mg SC DAILY [facility] PRN Reason: Protocol Last Admin: 04/19/18 08:57 Dose: 40 mg Gabapentin (Neurontin) 300 mg PO BID [facility] Last Admin: 04/19/18 16:41 Dose: 300 mg Vancomycin HCl 1 gm/ Sodium (Chloride) 250 mls @ 166.667 mls/hr IVPB Q12 [facility] PRN Reason: Protocol Last Admin: 04/19/18 22:41 Dose: 166.667 mls/hr Meropenem 1 gm/ Sodium (Chloride) 100 mls @ 100 mls/hr IVPB Q8 [facility] PRN Reason: Protocol Last Admin: 04/20/18 00:27 Dose: 100 mls/hr Insulin Human NPH (Humulin N) 30 units SC ACB [facility] Last Admin: 04/19/18 08:50 Dose: 30 units Insulin Human NPH (Humulin N) 14 units SC HS [facility] Last Admin: 04/19/18 22:17 Dose: 14 u Insulin Human Regular (Humulin R) 0 units SC ACHS [facility] PRN Reason: Protocol Last Admin: 04/19/18 22:19 Dose: Not Given Metoprolol Tartrate (Lopressor) 25 mg PO Q12 [facility] Last Admin: 04/19/18 21:47 Dose: 25 mg Pantoprazole Sodium (Protonix Ec Tab) 40 mg PO DAILY [facility] Last Admin: 04/19/18 13:36 Dose: 40 mg - Labs Labs: 04/20/18 06:05 04/20/18 06:05 - Constitutional Appears: No Acute Distress - ENT Exam ENT Exam: Mucous Membranes Moist - Respiratory Exam Respiratory Exam: Clear to Ausculation Bilateral, NORMAL BREATHING PATTERN - Cardiovascular Exam Cardiovascular Exam: REGULAR RHYTHM, +S1, +S2 - GI/Abdominal Exam GI & Abdominal Exam: Soft, Tenderness (left suprapubic), Normal Bowel Sounds. absent: Distended, Guarding - Extremities Exam Extremities Exam: absent: Calf Tenderness, Pedal Edema - Back Exam Back Exam: CVA tenderness (L). absent: CVA tenderness (R) - Neurological Exam Neurological Exam: Alert, Oriented x3 Assessment and Plan - Assessment and Plan (Free Text) Assessment: 53 yo F with hx hyperlipidemia, hypertension, IDDM admitted due to pyelonephritis. Plan: - ID consult; Dr. Solares, recs appreciated - antibiotics changed to meropenem 1g Q8 due to hx of pt having ESBL - blood cx- coag neg staph - repeat urine cx, blood cx - echo- no vegetations on TTE - resume home meds for diabetes, HTN, HLD - heart healthy diet - lovenox - rest of plan as ordered <Rashid Maldonado K - Last Filed: 04/23/18 08:37> Objective - Vital Signs/Intake and Output Vital Signs (last 24 hours): Temp Pulse Resp BP Pulse Ox 98.3 F 66 18 125/79 99 04/23/18 08:00 04/23/18 08:00 04/23/18 08:00 04/23/18 08:00 04/23/18 08:00 - Medications Medications: Current Medications Acetaminophen (Tylenol 325mg Tab) 650 mg PO Q6 PRN PRN Reason: Pain, moderate (4-7) Last Admin: 04/22/18 21:43 Dose: 650 mg Atorvastatin Calcium (Lipitor) 40 mg PO DAILY [facility] Last Admin: 04/22/18 09:18 Dose: 40 mg Enalapril Maleate (Vasotec) 5 mg PO DAILY [facility] Last Admin: 04/22/18 09:19 Dose: 5 mg Enoxaparin Sodium (Lovenox) 40 mg SC DAILY [facility] PRN Reason: Protocol Last Admin: 04/22/18 09:18 Dose: 40 mg Gabapentin (Neurontin) 300 mg PO BID [facility] Last Admin: 04/22/18 16:11 Dose: 300 mg Vancomycin HCl 1 gm/ Sodium (Chloride) 250 mls @ 166.667 mls/hr IVPB Q12 [facility] PRN Reason: Protocol Last Admin: 04/22/18 21:27 Dose: 166.667 mls/hr Meropenem 1 gm/ Sodium (Chloride) 100 mls @ 100 mls/hr IVPB Q8 [facility] PRN Reason: Protocol Last Admin: 04/23/18 00:31 Dose: 100 mls/hr Insulin Human NPH (Humulin N) 30 units SC ACB [facility] Last Admin: 04/22/18 09:17 Dose: 30 units Insulin Human NPH (Humulin N) 14 units SC HS [facility] Last Admin: 04/22/18 21:39 Dose: 14 u Insulin Human Regular (Humulin R) 0 units SC ACHS [facility] PRN Reason: Protocol Last Admin: 04/23/18 07:01 Dose: Not Given Metoprolol Tartrate (Lopressor) 25 mg PO Q12 [facility] Last Admin: 04/22/18 21:23 Dose: 25 mg Pantoprazole Sodium (Protonix Ec Tab) 40 mg PO DAILY [facility] Last Admin: 04/22/18 09:19 Dose: 40 mg Senna/Docusate Sodium (Senokot S 50 Mg-8.6 Mg) 1 tab PO [facility] - Labs Labs: 04/23/18 08:17 04/22/18 06:00 Assessment and Plan - Assessment and Plan (Free Text) Plan: Patient was personally seen and examined by me in rounds with residents. Available labs and diagnostic data reviewed. Case, Patient's condition and management plan discussed with residents in rounds. Agree with resident's progress note. Plan: As ordered.
[2018-04-20] MEDS: Insulin NPH Human 100 Units/ml Inj SC SCH ×2 (09:47→22:11)
[2018-04-20] MEDS: Insulin Regular 100 units/ml SC SCH ×4 (09:47→22:07)
[2018-04-20] MEDS: Enoxaparin 40 mg Syringe SC SCH (09:48)
[2018-04-20] MEDS: Pantoprazole 40 mg EC Tab PO SCH (09:48)
--- NOTE | 2018-04-20 11:34 | CP.PCM.PN ---
Subjective - Date & Time of Evaluation Date of Evaluation: 04/20/18 Time of Evaluation: 11:34 - Subjective Subjective: Id note- pt. seen and examined today. Pt. states she feels better compared to yesterday. less dysurea. afebrile today. Objective - Vital Signs/Intake and Output Vital Signs (last 24 hours): Temp Pulse Resp BP Pulse Ox 97.8 F 78 18 152/87 H 96 04/20/18 08:36 04/20/18 09:48 04/20/18 08:36 04/20/18 09:48 04/20/18 08:36 - Medications Medications: Current Medications Acetaminophen (Tylenol 325mg Tab) 650 mg PO Q6 PRN PRN Reason: Pain, moderate (4-7) Last Admin: 04/20/18 09:56 Dose: 650 mg Atorvastatin Calcium (Lipitor) 40 mg PO DAILY [facility] Last Admin: 04/20/18 09:48 Dose: 40 mg Enalapril Maleate (Vasotec) 5 mg PO DAILY [facility] Last Admin: 04/20/18 09:49 Dose: 5 mg Enoxaparin Sodium (Lovenox) 40 mg SC DAILY [facility] PRN Reason: Protocol Last Admin: 04/20/18 09:48 Dose: 40 mg Gabapentin (Neurontin) 300 mg PO BID [facility] Last Admin: 04/20/18 09:48 Dose: 300 mg Vancomycin HCl 1 gm/ Sodium (Chloride) 250 mls @ 166.667 mls/hr IVPB Q12 [facility] PRN Reason: Protocol Last Admin: 04/19/18 22:41 Dose: 166.667 mls/hr Meropenem 1 gm/ Sodium (Chloride) 100 mls @ 100 mls/hr IVPB Q8 [facility] PRN Reason: Protocol Last Admin: 04/20/18 09:50 Dose: 100 mls/hr Insulin Human NPH (Humulin N) 30 units SC ACB [facility] Last Admin: 04/20/18 09:47 Dose: 30 units Insulin Human NPH (Humulin N) 14 units SC HS [facility] Last Admin: 04/19/18 22:17 Dose: 14 u Insulin Human Regular (Humulin R) 0 units SC ACHS [facility] PRN Reason: Protocol Last Admin: 04/20/18 09:47 Dose: 1 units Metoprolol Tartrate (Lopressor) 25 mg PO Q12 [facility] Last Admin: 04/20/18 09:48 Dose: 25 mg Pantoprazole Sodium (Protonix Ec Tab) 40 mg PO DAILY [facility] Last Admin: 04/20/18 09:48 Dose: 40 mg - Labs Labs: - Additional Findings Additional findings: - Constitutional Appears: No Acute Distress - Head Exam Head Exam: ATRAUMATIC - Eye Exam Eye Exam: EOMI, PERRL - ENT Exam ENT Exam: Normal Oropharynx - Neck Exam Neck exam: Positive for: Full Rom - Respiratory Exam Respiratory Exam: Clear to Auscultation Bilateral, NORMAL BREATHING PATTERN - Cardiovascular Exam Cardiovascular Exam: RRR, +S1, +S2 - GI/Abdominal Exam GI & Abdominal Exam: Normal Bowel Sounds, Soft Additional comments: ND minimal tenderness in LLQ but less than yesterday no guarding, no rebound - Extremities Exam Extremities exam: Positive for: normal inspection - Neurological Exam Neurological exam: Alert, Oriented x 3 Laboratory Results - last 72 hr 04/18/18 04/18/18 04/18/18 05:18 11:05 16:09 WBC RBC Hgb Hct MCV MCH MCHC RDW Plt Count Sodium Potassium Chloride Carbon Dioxide Anion Gap BUN Creatinine Est GFR ( Amer) Est GFR (Non-Af Amer) POC Glucose (mg/dL) 96 235 H 293 H Random Glucose Calcium Total Bilirubin AST ALT Alkaline Phosphatase Total Protein Albumin Globulin Albumin/Globulin Ratio 04/18/18 04/19/18 04/19/18 21:45 05:20 05:20 WBC 4.8 RBC 3.46 L Hgb 9.4 L D Hct 28.1 L MCV 81.4 MCH 27.2 MCHC 33.4 RDW 13.3 Plt Count 229 Sodium 140 Potassium 4.1 Chloride 107 Carbon Dioxide 24 Anion Gap 13 BUN 15 Creatinine 0.8 Est GFR ( Amer) > 60 Est GFR (Non-Af Amer) > 60 POC Glucose (mg/dL) 141 H Random Glucose 131 H Calcium 8.3 L Total Bilirubin AST ALT Alkaline Phosphatase Total Protein Albumin Globulin Albumin/Globulin Ratio 04/19/18 04/19/18 04/19/18 06:28 10:51 15:30 WBC RBC Hgb Hct MCV MCH MCHC RDW Plt Count Sodium Potassium Chloride Carbon Dioxide Anion Gap BUN Creatinine Est GFR ( Amer) Est GFR (Non-Af Amer) POC Glucose (mg/dL) 137 H 229 H 174 H Random Glucose Calcium Total Bilirubin AST ALT Alkaline Phosphatase Total Protein Albumin Globulin Albumin/Globulin Ratio 04/19/18 04/20/18 04/20/18 21:08 06:00 06:05 WBC 3.8 L RBC 3.41 L Hgb 9.3 L Hct 28.0 L MCV 82.0 MCH 27.3 MCHC 33.3 RDW 13.3 Plt Count 228 Sodium Potassium Chloride Carbon Dioxide Anion Gap BUN Creatinine Est GFR ( Amer) Est GFR (Non-Af Amer) POC Glucose (mg/dL) 189 H 160 H Random Glucose Calcium Total Bilirubin AST ALT Alkaline Phosphatase Total Protein Albumin Globulin Albumin/Globulin Ratio 04/20/18 04/20/18 04/20/18 06:05 10:57 16:28 WBC RBC Hgb Hct MCV MCH MCHC RDW Plt Count Sodium 142 Potassium 4.3 Chloride 108 H Carbon Dioxide 27 Anion Gap 11 BUN 10 Creatinine 0.8 Est GFR ( Amer) > 60 Est GFR (Non-Af Amer) > 60 POC Glucose (mg/dL) 248 H 206 H Random Glucose 153 H Calcium 8.7 Total Bilirubin 0.2 AST 32 ALT 21 Alkaline Phosphatase 117 Total Protein 6.7 Albumin 3.1 L D Globulin 3.6 Albumin/Globulin Ratio 0.8 L Microbiology 04/19/18 12:49 Blood S.aureus & Coag-Neg Staph PNA FISH - Final 04/19/18 12:49 Blood Blood Culture - Preliminary Gram Positive Cocci 04/19/18 12:49 Blood Gram Stain - Final 04/17/18 17:25 Blood Blood Culture - Final Coagulase Neg Staphylococcus 04/17/18 17:25 Blood Gram Stain - Final 04/17/18 17:25 Blood S.aureus & Coag-Neg Staph PNA FISH - Final 04/17/18 17:25 Blood Blood Culture - Final Coagulase Neg Staphylococcus 04/17/18 17:25 Blood Gram Stain - Final 04/17/18 17:16 Urine,Clean Catch Urine Culture - Final 10-50,000 CFU/ML. MULTIPLE SPECIES. PROBABLE CONTAMINATION. Assessment and Plan (1) Bacteremia Status: Acute (2) Abdominal pain Status: Acute (3) UTI (urinary tract infection) Status: Acute (4) Pyelonephritis Status: Acute - Assessment and Plan (Free Text) Assessment: A/P- 53 year old female with HTN, DM II admitted with UTI,pyelonephritis . febrile normal wbc count + UA urine cx- multiple organisms hence contaminant Blood cx- coag neg staph x 3 TTE- no vegetations as per report. plan- continue with IV vancomycin day #2 for coag neg staph bacteremia. Keep trough <20. check 2 more blood cx. if bactermia does not resolve will need STEFFANIE r/o endocarditis. await another urine cx as first one wa contaminant. continue with empiric meropenem pending urine cx result.
[2018-04-21 07:48] LABS: IRON 28 ug/dL (37-170)
[2018-04-21 07:59] LABS: % IRON SATURATION 11 % (20-55); TOTAL IRON BINDING CAPACITY 260 ug/dL (250-450)
[2018-04-21] MEDS: Insulin Regular 100 units/ml SC SCH ×4 (08:37→21:25)
[2018-04-21] MEDS: Meropenem 1 GM in Sodium Chloride 0.9% 100 ML IVPB SCH ×2 (08:38→16:21)
[2018-04-21] MEDS: Insulin NPH Human 100 Units/ml Inj SC SCH ×2 (08:38→21:31)
[2018-04-21] MEDS: Pantoprazole 40 mg EC Tab PO SCH (08:39)
[2018-04-21] MEDS: Enoxaparin 40 mg Syringe SC SCH (08:39)
--- NOTE | 2018-04-21 14:35 | PN ---
Copied To: Rashid Maldonado MD Attending MD: Rashid Maldonado MD DATE: 04/21/2018 SUBJECTIVE: The patient seen and examined. Interim events noted. Consults noted and appreciated. followup and intervention noted and appreciated. The patient remains in regular medical floor. The patient overall feels better. No new complaint. No chest pain. No shortness of breath. Groin pain improved with urinary symptoms also improved. PHYSICAL EXAMINATION: GENERAL: The patient is in no acute distress. VITAL SIGNS: Stable. HEART: S1 and S2. Normal and regular. LUNGS: Good bilateral air exchange. ABDOMEN: Soft, nontender. EXTREMITIES: No edema, no calf swelling, no tenderness. No acute ischemia. 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 DIAGNOSTIC DATA: Available diagnostic data reviewed. The patient had a repeat blood culture which is positive for gram-positive cocci clusters. ASSESSMENT AND PLAN: Overall, the patient . Plan as ordered. Case and plan discussed with the patient. Rashid Maldonado MD
[2018-04-21 17:07] LABS: FOLATE 8.4 ng/mL
[2018-04-22] MEDS: Meropenem 1 GM in Sodium Chloride 0.9% 100 ML IVPB SCH ×3 (00:02→16:10)
[2018-04-22] MEDS: Insulin Regular 100 units/ml SC SCH ×4 (06:58→21:35)
[2018-04-22 07:39] LABS: HEMOGLOBIN 10.2 g/dL (12.0-16.0); MEAN CORPUSCULAR HEMOGLOBIN 27.3 pg (27.0-31.0); MEAN CORPUSCULAR HGB CONC 33.7 g/dL (33.0-37.0); RBC 3.73 Mil/uL (3.80-5.20); RED CELL DISTRIBUTION WIDTH 13.4 % (11.5-14.5)
[2018-04-22 08:09] LABS: ALB/GLOB RATIO 0.9 (1.0-2.1); ALBUMIN 3.4 g/dL (3.5-5.0); ALT/SGPT 35 U/L (9-52); AST/SGOT 57 U/L (14-36); BLOOD UREA NITROGEN 10 mg/dl (7-17); CALCIUM 8.8 mg/dL (8.4-10.2); GFR AFRICAN-AMERICAN > 60; GFR NON-AFRICAN AMERICAN > 60
[2018-04-22] MEDS: Insulin NPH Human 100 Units/ml Inj SC SCH ×2 (09:17→21:39)
[2018-04-22] MEDS: Enoxaparin 40 mg Syringe SC SCH (09:18)
[2018-04-22] MEDS: Pantoprazole 40 mg EC Tab PO SCH (09:19)
--- NOTE | 2018-04-22 16:49 | PN ---
Copied To: Rashid Maldonado MD Attending MD: Rashid Maldonado MD DATE: 04/22/2018 SUBJECTIVE: The patient is seen and examined. Interim events noted. Consults noted and appreciated. The patient remains in regular medical floor. The patient feels okay. No fever. No back pain. No urinary symptoms. PHYSICAL EXAMINATION: GENERAL: The patient is in no acute distress. VITAL SIGNS: Stable. HEART: S1 and S2. Normal and regular. LUNGS: Good bilateral air exchange. ABDOMEN: Soft and nontender. No tenderness. No guarding. No rigidity. No rebound. Bowel sounds are plus and normal. EXTREMITIES: No edema. No calf swelling. No tenderness. No acute ischemia. 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 DIAGNOSTIC DATA: Available diagnostic data reviewed. ASSESSMENT AND PLAN: Overall, the patient's general medical condition is stable and improving. The patient still has positive blood culture. The cultures done on 04/20/2018 is negative. Plan as ordered. Rashid Maldonado MD
[2018-04-23] MEDS: Meropenem 1 GM in Sodium Chloride 0.9% 100 ML IVPB SCH ×2 (00:31→09:02)
[2018-04-23] MEDS: Insulin Regular 100 units/ml SC SCH ×5 (07:01→21:58)
[2018-04-23 08:33] LABS: HEMOGLOBIN 10.7 g/dL (12.0-16.0); MEAN CELL VOLUME 80.5 fl (81.0-99.0); MEAN CORPUSCULAR HEMOGLOBIN 27.4 pg (27.0-31.0); RBC 3.9 Mil/uL (3.80-5.20); RED CELL DISTRIBUTION WIDTH 13.7 % (11.5-14.5); WHITE BLOOD COUNT 5.2 K/uL (4.8-10.8)
[2018-04-23] MEDS: Insulin NPH Human 100 Units/ml Inj SC SCH ×2 (08:59→21:59)
[2018-04-23] MEDS: Enoxaparin 40 mg Syringe SC SCH (09:01)
[2018-04-23 09:02] LABS: ALB/GLOB RATIO 0.9 (1.0-2.1); ALBUMIN 3.6 g/dL (3.5-5.0); ALT/SGPT 48 U/L (9-52); AST/SGOT 82 U/L (14-36); BLOOD UREA NITROGEN 13 mg/dl (7-17); CALCIUM 9.2 mg/dL (8.4-10.2); GFR AFRICAN-AMERICAN > 60; GFR NON-AFRICAN AMERICAN > 60
[2018-04-23] MEDS: Pantoprazole 40 mg EC Tab PO SCH (09:02)
--- NOTE | 2018-04-23 10:37 | CP.PCM.PN ---
Subjective - Date & Time of Evaluation Date of Evaluation: 04/23/18 Time of Evaluation: 10:37 - Subjective Subjective: ID note- pt. seen and examined today. pt. denies any fever or chills. denies any nausea. denies any dysurea. However, c/o pain in b/l lower abd/pelvic region that started last night. denies any back pain. Objective - Vital Signs/Intake and Output Vital Signs (last 24 hours): Temp Pulse Resp BP Pulse Ox 98.3 F 66 18 125/79 99 04/23/18 08:00 04/23/18 09:00 04/23/18 08:00 04/23/18 09:00 04/23/18 08:00 - Medications Medications: Current Medications Acetaminophen (Tylenol 325mg Tab) 650 mg PO Q6 PRN PRN Reason: Pain, moderate (4-7) Last Admin: 04/22/18 21:43 Dose: 650 mg Atorvastatin Calcium (Lipitor) 40 mg PO DAILY [facility] Last Admin: 04/23/18 09:00 Dose: 40 mg Enalapril Maleate (Vasotec) 5 mg PO DAILY [facility] Last Admin: 04/23/18 09:04 Dose: 5 mg Enoxaparin Sodium (Lovenox) 40 mg SC DAILY [facility] PRN Reason: Protocol Last Admin: 04/23/18 09:01 Dose: 40 mg Gabapentin (Neurontin) 300 mg PO BID [facility] Last Admin: 04/23/18 09:02 Dose: 300 mg Vancomycin HCl 1 gm/ Sodium (Chloride) 250 mls @ 166.667 mls/hr IVPB Q12 [facility] PRN Reason: Protocol Last Admin: 04/23/18 09:03 Dose: 166.667 mls/hr Meropenem 1 gm/ Sodium (Chloride) 100 mls @ 100 mls/hr IVPB Q8 [facility] PRN Reason: Protocol Last Admin: 04/23/18 09:02 Dose: 100 mls/hr Insulin Human NPH (Humulin N) 30 units SC ACB [facility] Last Admin: 04/23/18 08:59 Dose: 30 units Insulin Human NPH (Humulin N) 14 units SC HS [facility] Last Admin: 04/22/18 21:39 Dose: 14 u Insulin Human Regular (Humulin R) 0 units SC ACHS [facility] PRN Reason: Protocol Last Admin: 04/23/18 07:01 Dose: Not Given Metoprolol Tartrate (Lopressor) 25 mg PO Q12 [facility] Last Admin: 04/23/18 09:00 Dose: 25 mg Pantoprazole Sodium (Protonix Ec Tab) 40 mg PO DAILY [facility] Last Admin: 04/23/18 09:02 Dose: 40 mg Senna/Docusate Sodium (Senokot S 50 Mg-8.6 Mg) 1 tab PO HS [facility] - Labs Labs: - Additional Findings Additional findings: - Constitutional Appears: No Acute Distress - Head Exam Head Exam: ATRAUMATIC - Eye Exam Eye Exam: EOMI, PERRL - ENT Exam ENT Exam: Normal Oropharynx - Neck Exam Neck exam: Positive for: Full Rom - Respiratory Exam Respiratory Exam: Clear to Auscultation Bilateral, NORMAL BREATHING PATTERN - Cardiovascular Exam Cardiovascular Exam: RRR, +S1, +S2 - GI/Abdominal Exam GI & Abdominal Exam: Normal Bowel Sounds, Soft Additional comments: ND mild tendernss in right and left lower abd/pelvic region No guarding, no rebound - Extremities Exam Extremities exam: Positive for: normal inspection - Neurological Exam Neurological exam: Alert, Oriented x 3 Laboratory Results - last 72 hr 04/20/18 04/20/18 04/21/18 16:28 21:16 05:24 WBC RBC Hgb Hct MCV MCH MCHC RDW Plt Count Sodium Potassium Chloride Carbon Dioxide Anion Gap BUN Creatinine Est GFR ( Amer) Est GFR (Non-Af Amer) POC Glucose (mg/dL) 206 H 185 H 100 Random Glucose Calcium Iron TIBC % Saturation Ferritin Total Bilirubin AST ALT Alkaline Phosphatase Total Protein Albumin Globulin Albumin/Globulin Ratio Vitamin B12 Folate Vancomycin Trough 04/21/18 04/21/18 04/21/18 05:30 05:30 08:45 WBC RBC Hgb Hct MCV MCH MCHC RDW Plt Count Sodium Potassium Chloride Carbon Dioxide Anion Gap BUN Creatinine Est GFR ( Amer) Est GFR (Non-Af Amer) POC Glucose (mg/dL) Random Glucose Calcium Iron 28 L TIBC 260 % Saturation 11 L Ferritin 206.0 Total Bilirubin AST ALT Alkaline Phosphatase Total Protein Albumin Globulin Albumin/Globulin Ratio Vitamin B12 969 H Folate 8.4 Vancomycin Trough 13.7 H 04/21/18 04/21/18 04/21/18 11:30 15:59 21:30 WBC RBC Hgb Hct MCV MCH MCHC RDW Plt Count Sodium Potassium Chloride Carbon Dioxide Anion Gap BUN Creatinine Est GFR ( Amer) Est GFR (Non-Af Amer) POC Glucose (mg/dL) 155 H 221 H 293 H Random Glucose Calcium Iron TIBC % Saturation Ferritin Total Bilirubin AST ALT Alkaline Phosphatase Total Protein Albumin Globulin Albumin/Globulin Ratio Vitamin B12 Folate Vancomycin Trough 04/22/18 04/22/18 04/22/18 05:42 06:00 06:00 WBC 4.0 L RBC 3.73 L Hgb 10.2 L Hct 30.2 L MCV 81.0 MCH 27.3 MCHC 33.7 RDW 13.4 Plt Count 263 Sodium 138 Potassium 3.9 Chloride 102 Carbon Dioxide 30 Anion Gap 10 BUN 10 Creatinine 0.8 Est GFR ( Amer) > 60 Est GFR (Non-Af Amer) > 60 POC Glucose (mg/dL) 293 H Random Glucose 244 H Calcium 8.8 Iron TIBC % Saturation Ferritin Total Bilirubin 0.3 AST 57 H D ALT 35 Alkaline Phosphatase 187 H D Total Protein 7.2 Albumin 3.4 L Globulin 3.9 Albumin/Globulin Ratio 0.9 L Vitamin B12 Folate Vancomycin Trough 04/22/18 04/22/18 04/23/18 11:06 15:44 08:17 WBC 5.2 RBC 3.90 Hgb 10.7 L Hct 31.4 L MCV 80.5 L MCH 27.4 MCHC 34.0 RDW 13.7 Plt Count 312 Sodium Potassium Chloride Carbon Dioxide Anion Gap BUN Creatinine Est GFR ( Amer) Est GFR (Non-Af Amer) POC Glucose (mg/dL) 249 H 197 H Random Glucose Calcium Iron TIBC % Saturation Ferritin Total Bilirubin AST ALT Alkaline Phosphatase Total Protein Albumin Globulin Albumin/Globulin Ratio Vitamin B12 Folate Vancomycin Trough 04/23/18 04/23/18 04/23/18 08:17 10:46 15:25 WBC RBC Hgb Hct MCV MCH MCHC RDW Plt Count Sodium 142 Potassium 3.7 Chloride 103 Carbon Dioxide 32 H Anion Gap 11 BUN 13 Creatinine 0.7 Est GFR ( Amer) > 60 Est GFR (Non-Af Amer) > 60 POC Glucose (mg/dL) 219 H 179 H Random Glucose 86 Calcium 9.2 Iron TIBC % Saturation Ferritin Total Bilirubin 0.3 AST 82 H D ALT 48 Alkaline Phosphatase 144 H D Total Protein 7.6 Albumin 3.6 Globulin 3.9 Albumin/Globulin Ratio 0.9 L Vitamin B12 Folate Vancomycin Trough Microbiology 04/21/18 13:22 Blood-Venous Blood Culture - Preliminary NO GROWTH AFTER 48 HOURS 04/20/18 20:06 Blood-Venous Blood Culture - Preliminary NO GROWTH AFTER 48 HOURS 04/19/18 12:49 Blood S.aureus & Coag-Neg Staph PNA FISH - Final 04/19/18 12:49 Blood Blood Culture - Final Coagulase Neg Staphylococcus 04/19/18 12:49 Blood Gram Stain - Final 04/19/18 21:00 Urine,Clean Catch Urine Culture - Final No Growth (<1,000 CFU/ML) 04/17/18 17:25 Blood Blood Culture - Final Coagulase Neg Staphylococcus 04/17/18 17:25 Blood Gram Stain - Final 04/17/18 17:25 Blood S.aureus & Coag-Neg Staph PNA FISH - Final 04/17/18 17:25 Blood Blood Culture - Final Coagulase Neg Staphylococcus 04/17/18 17:25 Blood Gram Stain - Final 04/17/18 17:16 Urine,Clean Catch Urine Culture - Final 10-50,000 CFU/ML. MULTIPLE SPECIES. PROBABLE CONTAMINATION. Assessment and Plan (1) Bacteremia Status: Acute (3) UTI (urinary tract infection) Status: Acute (4) Pyelonephritis Status: Acute - Assessment and Plan (Free Text) Assessment: A/P- 53 year old female with HTN, DM II admitted with UTI,pyelonephritis . afebrile normal wbc count + UA urine cx- multiple organisms hence contaminant Blood cx- coag neg staph x 3 repeat blood cx- neg x 2 TTE- no vegetations as per report. plan- continue with IV vancomycin day #5 for coag neg staph bacteremia. Keep trough <20. can d/c IV meropnem as urien cx was negative. completed 5 days of Iv meropnem. advise to check abd ct or pelvic US to further evaluate this lower abd/pelvic pain r/o ovarian cyst perhaps. d/w ELECTRICIAN WIRING sonal at length.
[2018-04-23] MEDS ORDERED: Iohexol 240 (50 ml) PO ONE (12:35)
--- NOTE | 2018-04-23 18:27 | CT ---
Date of service: 04/23/2018 PROCEDURE: CT Abdomen and Pelvis with contrast HISTORY: RUQ pain, tenderness, f/u on pyelo COMPARISON: 04/17/2018 TECHNIQUE: Contrast dose: Oral contrast only. Radiation dose: Total exam DLP = she 898.11 mGy-cm. This CT exam was performed using one or more of the following dose reduction techniques: Automated exposure control, adjustment of the mA and/or kV according to patient size, and/or use of iterative reconstruction technique. FINDINGS: LOWER THORAX: Unremarkable. LIVER: Unremarkable. No gross lesion or ductal dilatation. GALLBLADDER AND BILE DUCTS: Unremarkable. PANCREAS: Unremarkable. No gross lesion or ductal dilatation. SPLEEN: Mild splenomegaly. Orthogonal measurements 8.7 x 13.2 cm ADRENALS: Unremarkable. No mass. KIDNEYS AND URETERS: Staghorn calculi left kidney. No compelling evidence for acute pyelonephritis on this noncontrast enhanced study. VASCULATURE: Unremarkable. No aortic aneurysm. BOWEL: Constipation without fecal impaction or obstruction. APPENDIX: No abnormalities to suggest acute appendicitis. No right lower quadrant inflammatory processes identified. PERITONEUM: Unremarkable. No free fluid. No free air. LYMPH NODES: Unremarkable. No enlarged lymph nodes. BLADDER: Unremarkable. REPRODUCTIVE: Unremarkable. BONES: No acute fracture. OTHER FINDINGS: None. IMPRESSION: No acute findings related to/accounting for the clinical presentation. Additional benign and/or incidental findings described above.
[2018-04-23] MEDS: Docusate-Senna 50 mg-8.6 mg Tab PO SCH (21:14)
[2018-04-24 06:35] LABS: HEMOGLOBIN 10.4 g/dL (12.0-16.0); MEAN CELL VOLUME 81.2 fl (81.0-99.0); MEAN CORPUSCULAR HGB CONC 33.2 g/dL (33.0-37.0); RBC 3.86 Mil/uL (3.80-5.20); RED CELL DISTRIBUTION WIDTH 13.4 % (11.5-14.5); WHITE BLOOD COUNT 4.7 K/uL (4.8-10.8)
[2018-04-24 06:47] LABS: ALB/GLOB RATIO 0.9 (1.0-2.1); ALBUMIN 3.6 g/dL (3.5-5.0); ALT/SGPT 55 U/L (9-52); AST/SGOT 84 U/L (14-36); BLOOD UREA NITROGEN 13 mg/dl (7-17); CALCIUM 9.2 mg/dL (8.4-10.2); GFR AFRICAN-AMERICAN > 60; GFR NON-AFRICAN AMERICAN > 60
--- NOTE | 2018-04-24 08:22 | CP.PCM.PN ---
<Arcelia Magana - Last Filed: 04/24/18 12:57> Subjective - Date & Time of Evaluation Date of Evaluation: 04/24/18 Time of Evaluation: 07:55 - Subjective Subjective: Pt seen and evaluated at bedside this morning with Dr. Maldonado. Reports she still has some mild abdominal pain but feels better overall. CT done yesterday did now show any acute indication for pain. Objective - Vital Signs/Intake and Output Vital Signs (last 24 hours): Temp Pulse Resp BP Pulse Ox 97.8 F 69 20 137/80 97 04/24/18 08:05 04/24/18 08:05 04/24/18 08:05 04/24/18 08:05 04/24/18 08:05 - Medications Medications: Current Medications Acetaminophen (Tylenol 325mg Tab) 650 mg PO Q6 PRN PRN Reason: Pain, moderate (4-7) Last Admin: 04/23/18 21:06 Dose: 650 mg Atorvastatin Calcium (Lipitor) 40 mg PO DAILY [facility] Last Admin: 04/23/18 09:00 Dose: 40 mg Enalapril Maleate (Vasotec) 5 mg PO DAILY [facility] Last Admin: 04/23/18 09:04 Dose: 5 mg Enoxaparin Sodium (Lovenox) 40 mg SC DAILY [facility] PRN Reason: Protocol Last Admin: 04/23/18 09:01 Dose: 40 mg Gabapentin (Neurontin) 300 mg PO BID [facility] Last Admin: 04/23/18 16:19 Dose: 300 mg Vancomycin HCl 1 gm/ Sodium (Chloride) 250 mls @ 166.667 mls/hr IVPB Q12 [facility] PRN Reason: Protocol Last Admin: 04/23/18 21:09 Dose: 166.667 mls/hr Insulin Human NPH (Humulin N) 30 units SC ACB [facility] Last Admin: 04/23/18 08:59 Dose: 30 units Insulin Human NPH (Humulin N) 14 units SC HS [facility] Last Admin: 04/23/18 21:59 Dose: 14 u Insulin Human Regular (Humulin R) 0 units SC ACHS [facility] PRN Reason: Protocol Last Admin: 04/23/18 21:58 Dose: Not Given Metoprolol Tartrate (Lopressor) 25 mg PO Q12 [facility] Last Admin: 04/23/18 21:14 Dose: 25 mg Ondansetron HCl (Zofran Inj) 4 mg IVP Q6 PRN PRN Reason: Nausea/Vomiting Last Admin: 04/23/18 21:15 Dose: 4 mg Pantoprazole Sodium (Protonix Ec Tab) 40 mg PO DAILY [facility] Last Admin: 04/23/18 09:02 Dose: 40 mg Senna/Docusate Sodium (Senokot S 50 Mg-8.6 Mg) 1 tab PO HS [facility] Last Admin: 04/23/18 21:14 Dose: 1 tab - Labs Labs: 04/24/18 05:45 04/24/18 05:45 - Constitutional Appears: No Acute Distress - Head Exam Head Exam: NORMAL INSPECTION - ENT Exam ENT Exam: Mucous Membranes Moist - Respiratory Exam Respiratory Exam: Clear to Ausculation Bilateral, NORMAL BREATHING PATTERN - Cardiovascular Exam Cardiovascular Exam: REGULAR RHYTHM, +S1, +S2 - GI/Abdominal Exam GI & Abdominal Exam: Soft, Normal Bowel Sounds. absent: Guarding, Rigid - Neurological Exam Neurological Exam: Alert, Oriented x3 Assessment and Plan - Assessment and Plan (Free Text) Assessment: 53 yo F with hx hyperlipidemia, hypertension, IDDM admitted due to pyelonephritis/ UTI. Plan: - ID consult; Dr. Solares, recs appreciated, Iv vancomycin day 6; leslee d/ c - CT abd - no acute findings - echo- no vegetations on TTE - resume home meds for diabetes, HTN, HLD - heart healthy diet - lovenox - rest of plan as ordered <Rashid Maldonado - Last Filed: 04/25/18 10:17> Objective - Vital Signs/Intake and Output Vital Signs (last 24 hours): Temp Pulse Resp BP Pulse Ox 98.1 F 98 H 20 110/72 98 04/25/18 08:09 04/25/18 08:54 04/25/18 08:09 04/25/18 08:54 04/25/18 08:09 - Medications Medications: Current Medications Acetaminophen (Tylenol 325mg Tab) 650 mg PO Q6 PRN PRN Reason: Pain, moderate (4-7) Last Admin: 04/23/18 21:06 Dose: 650 mg Atorvastatin Calcium (Lipitor) 40 mg PO DAILY [facility] Last Admin: 04/25/18 08:53 Dose: 40 mg Enalapril Maleate (Vasotec) 5 mg PO DAILY [facility] Last Admin: 04/25/18 08:54 Dose: 5 mg Enoxaparin Sodium (Lovenox) 40 mg SC DAILY [facility] PRN Reason: Protocol Last Admin: 04/25/18 08:54 Dose: 40 mg Gabapentin (Neurontin) 300 mg PO BID [facility] Last Admin: 04/25/18 08:55 Dose: 300 mg Vancomycin HCl 1 gm/ Sodium (Chloride) 250 mls @ 166.667 mls/hr IVPB Q12 [facility] PRN Reason: Protocol Last Admin: 04/25/18 08:55 Dose: 166.667 mls/hr Insulin Human NPH (Humulin N) 30 units SC ACB [facility] Last Admin: 04/25/18 08:53 Dose: 30 units Insulin Human NPH (Humulin N) 14 units SC HS [facility] Last Admin: 04/24/18 21:25 Dose: 14 u Insulin Human Regular (Humulin R) 0 units SC ACHS [facility] PRN Reason: Protocol Last Admin: 04/25/18 07:39 Dose: Not Given Metoprolol Tartrate (Lopressor) 25 mg PO Q12 [facility] Last Admin: 04/25/18 08:54 Dose: 25 mg Ondansetron HCl (Zofran Inj) 4 mg IVP Q6 PRN PRN Reason: Nausea/Vomiting Last Admin: 04/23/18 21:15 Dose: 4 mg Pantoprazole Sodium (Protonix Ec Tab) 40 mg PO DAILY [facility] Last Admin: 04/25/18 08:55 Dose: 40 mg Polyethylene Glycol (Miralax) 17 gm PO DAILY [facility] Last Admin: 04/25/18 08:54 Dose: 17 gm Senna/Docusate Sodium (Senokot S 50 Mg-8.6 Mg) 1 tab PO [facility] Last Admin: 04/24/18 21:24 Dose: 1 tab - Labs Labs: 04/24/18 05:45 04/24/18 05:45 PT 12.2 Seconds (9.8-13.1) 04/24/18 18:30 INR 1.1 04/24/18 18:30 Assessment and Plan - Assessment and Plan (Free Text) Plan: Patient was personally seen and examined by me in rounds with residents. Available labs and diagnostic data reviewed. Case, Patient's condition and management plan discussed with residents in rounds. Agree with resident's progress note. Plan: As ordered.
--- NOTE | 2018-04-24 08:32 | PN ---
Copied To: Rashid Maldonado MD Attending MD: Rashid Maldonado MD DATE: 04/23/2018 SUBJECTIVE: The patient seen and examined. Interim events noted. The patient remains in regular medical floor. Feels much better. No chest pain. No shortness of breath. PHYSICAL EXAMINATION: GENERAL: The patient is in no acute distress. VITAL SIGNS: Stable. HEART: S1 and S2. Normal and regular. LUNGS: Good bilateral air exchange. ABDOMEN: Somewhat distended. EXTREMITIES: No edema. No calf swelling. No tenderness. No acute ischemia. [facility]: Exam is essentially unchanged. DIAGNOSTIC DATA: Available diagnostic data reviewed. Blood culture remains negative. ASSESSMENT AND PLAN: Overall, the patient is medically stable. We will follow Infectious Disease's recommendation and possibly discharge on oral antibiotics. Plan as ordered. Case and plan discussed with the patient. Rashid Maldonado MD
[2018-04-24] MEDS: Insulin NPH Human 100 Units/ml Inj SC SCH ×2 (09:19→21:25)
[2018-04-24] MEDS: Insulin Regular 100 units/ml SC SCH ×4 (09:19→21:26)
[2018-04-24] MEDS ORDERED: Magnesium Hydroxide Susp 30 ml UD PO STA (09:23)
[2018-04-24] MEDS: Enoxaparin 40 mg Syringe SC SCH (09:23)
[2018-04-24] MEDS: Pantoprazole 40 mg EC Tab PO SCH (09:23)
[2018-04-24] MEDS ORDERED: Bisacodyl 5mg EC Tab PO ONE (14:08)
[2018-04-24] MEDS: POLYETHYLENE GLYCOL 3350 17 GM/Dose PACKET PO SCH (16:51)
[2018-04-24 19:16] LABS: INR 1.1; PROTHROMBIN TIME 12.2 Seconds (9.8-13.1)
[2018-04-24] MEDS: Docusate-Senna 50 mg-8.6 mg Tab PO SCH (21:24)
[2018-04-25] MEDS: Insulin Regular 100 units/ml SC SCH ×3 (07:39→16:16)
--- NOTE | 2018-04-25 08:07 | CP.PCM.PN ---
<Erick Maganaa - Last Filed: 04/25/18 16:23> Subjective - Date & Time of Evaluation Date of Evaluation: 04/25/18 Time of Evaluation: 07:45 - Subjective Subjective: Pt seen this morning; no acute events overnight. Reports pain improvement in abdominal pain, no longer has complaints. Discussed with pt that she is scheduled to get PICC line today; will need to come in every day to finish antibiotics course. Objective - Vital Signs/Intake and Output Vital Signs (last 24 hours): Temp Pulse Resp BP Pulse Ox 98.1 F 66 20 102/67 98 04/25/18 00:28 04/25/18 00:28 04/25/18 00:28 04/25/18 00:28 04/25/18 00:28 - Medications Medications: Current Medications Acetaminophen (Tylenol 325mg Tab) 650 mg PO Q6 PRN PRN Reason: Pain, moderate (4-7) Last Admin: 04/23/18 21:06 Dose: 650 mg Atorvastatin Calcium (Lipitor) 40 mg PO DAILY [facility] Last Admin: 04/24/18 09:20 Dose: 40 mg Enalapril Maleate (Vasotec) 5 mg PO DAILY [facility] Last Admin: 04/24/18 09:23 Dose: 5 mg Enoxaparin Sodium (Lovenox) 40 mg SC DAILY [facility] PRN Reason: Protocol Last Admin: 04/24/18 09:23 Dose: 40 mg Gabapentin (Neurontin) 300 mg PO BID [facility] Last Admin: 04/24/18 16:53 Dose: 300 mg Vancomycin HCl 1 gm/ Sodium (Chloride) 250 mls @ 166.667 mls/hr IVPB Q12 [facility] PRN Reason: Protocol Last Admin: 04/24/18 21:23 Dose: 166.667 mls/hr Insulin Human NPH (Humulin N) 30 units SC ACB [facility] Last Admin: 04/24/18 09:19 Dose: 30 units Insulin Human NPH (Humulin N) 14 units SC HS [facility] Last Admin: 04/24/18 21:25 Dose: 14 u Insulin Human Regular (Humulin R) 0 units SC ACHS [facility] PRN Reason: Protocol Last Admin: 04/25/18 07:39 Dose: Not Given Metoprolol Tartrate (Lopressor) 25 mg PO Q12 [facility] Last Admin: 04/24/18 21:23 Dose: 25 mg Ondansetron HCl (Zofran Inj) 4 mg IVP Q6 PRN PRN Reason: Nausea/Vomiting Last Admin: 04/23/18 21:15 Dose: 4 mg Pantoprazole Sodium (Protonix Ec Tab) 40 mg PO DAILY [facility] Last Admin: 04/24/18 09:23 Dose: 40 mg Polyethylene Glycol (Miralax) 17 gm PO DAILY [facility] Last Admin: 04/24/18 16:51 Dose: 17 gm Senna/Docusate Sodium (Senokot S 50 Mg-8.6 Mg) 1 tab PO HS [facility] Last Admin: 04/24/18 21:24 Dose: 1 tab - Labs Labs: 04/24/18 05:45 04/24/18 05:45 PT 12.2 Seconds (9.8-13.1) 04/24/18 18:30 INR 1.1 04/24/18 18:30 - Constitutional Appears: No Acute Distress - Eye Exam Eye Exam: Normal appearance - Respiratory Exam Respiratory Exam: Clear to Ausculation Bilateral, NORMAL BREATHING PATTERN. absent: Respiratory Distress - Cardiovascular Exam Cardiovascular Exam: REGULAR RHYTHM, +S1, +S2 - GI/Abdominal Exam GI & Abdominal Exam: Soft - Extremities Exam Extremities Exam: Normal Inspection. absent: Calf Tenderness - Neurological Exam Neurological Exam: Alert, Oriented x3 Assessment and Plan - Assessment and Plan (Free Text) Assessment: 53 yo F with hx hyperlipidemia, hypertension, IDDM admitted due to pyelonephritis/ UTI. On IV vancomycin. Plan: - ID consult; Dr. Solares, recs appreciated, Iv vancomycin day 7; leslee d/ c - PICC line pending today - CT abd - no acute findings - echo- no vegetations on TTE - resume home meds for diabetes, HTN, HLD - heart healthy diet - lovenox - rest of plan as ordered <Rashid Maldonado K - Last Filed: 04/27/18 08:52> Objective - Vital Signs/Intake and Output Vital Signs (last 24 hours): Temp Pulse Resp BP Pulse Ox 97.8 F 70 18 135/79 93 L 04/25/18 16:25 04/25/18 16:25 04/25/18 16:25 04/25/18 16:25 04/25/18 16:25 - Labs Labs: 04/24/18 05:45 04/24/18 05:45 PT 12.2 Seconds (9.8-13.1) 04/24/18 18:30 INR 1.1 04/24/18 18:30 Assessment and Plan - Assessment and Plan (Free Text) Plan: Patient was personally seen and examined by me in rounds with residents. Available labs and diagnostic data reviewed. Case, Patient's condition and management plan discussed with residents in rounds. Agree with resident's progress note. Plan: As ordered.
[2018-04-25] MEDS: Insulin NPH Human 100 Units/ml Inj SC SCH (08:53)
[2018-04-25] MEDS: POLYETHYLENE GLYCOL 3350 17 GM/Dose PACKET PO SCH (08:54)
[2018-04-25] MEDS: Enoxaparin 40 mg Syringe SC SCH (08:54)
[2018-04-25] MEDS: Pantoprazole 40 mg EC Tab PO SCH (08:55)
[2018-04-25 11:23] VITALS: RESP 18
[2018-04-25] MEDS ORDERED: Lidocaine 1% 5ml Abboject IV ONE (11:26)
--- NOTE | 2018-04-25 11:54 | PCM.SURG1 ---
Surgeon's Initial Post Op Note - Surgeon's Notes Surgeon: Norman Andersen MD Home Theater Expert: NONE Type of Anesthesia: Local Pre-Operative Diagnosis: Pyelonephritis Operative Findings: US showed patent right brachial vein Post-Operative Diagnosis: Pyelonephritis Operation Performed: Single lumen picc right arm, 35 cm. Tip is in the SVC. Specimen/Specimens Removed: None Estimated Blood Loss: EBL {In ML}: 2 Blood Products Given: N/A Drains Used: No Drains Post-Op Condition: Fair Date of Surgery/Procedure: 04/25/18 Time of Surgery/Procedure: 11:50
--- NOTE | 2018-04-25 13:52 | VASCULAR ---
PROCEDURE: Date of procedure: 04/25/2018 Procedure: 1. Placement of a right arm PICC with ultrasound and fluoroscopic guidance, CPT 83312 2. PICC tip confirmation with spot radiograph and is in the superior vena cava Medications: 1 percent lidocaine Total Fluoro time: 2.3 seconds Radiation: 0.32 MGy EBL: 2 cc HISTORY: Infection requiring long-term IV antibiotics TECHNIQUE: Following informed consent and procedure time-out, the patient was placed supine on the interventional table and the right arm prepped and draped in the usual sterile fashion. Ultrasound showed a patent and compressible right basilic vein. After the skin was anesthetized with lidocaine, the basilic vein was accessed with micro micropuncture technique using ultrasound guidance. A guidewire was then advanced under fluoroscopic guidance into the superior vena cava. An image documenting ultrasound guidance for vascular access was permanently saved. The length of the single-lumen 4 Ethiopian PICC was trimmed to 35 centimeters and advanced through a peel-away sheath. The PICC was position with tip of PICC confirm a spot radiograph the superior vena cava. The PICC was secured to the patient's skin. The PICC was flushed. A biopatch and sterile dressing was applied. IMPRESSION: Placement of a single-lumen 4 Ethiopian PICC trimmed to 35 centimeters via right basilic vein. The tip of the PICC is confirmed with spot radiograph and is in the superior vena cava.
--- NOTE | 2018-04-25 16:23 | CP.PCM.DIS ---
Provider - Provider Date of Admission: 04/17/18 19:49 Attending physician: Rashid Maldonado MD Primary care physician: García French Consults: ID Time Spent in preparation of Discharge (in minutes): 30 Diagnosis - Discharge Diagnosis (1) UTI (urinary tract infection) Status: Acute (2) Bacteremia Status: Acute Hospital Course - Lab Results Lab Results: Micro Results 04/21/18 13:22 Blood-Venous Blood Culture - Preliminary NO GROWTH AFTER 4 DAYS 04/20/18 20:06 Blood-Venous Blood Culture - Preliminary NO GROWTH AFTER 4 DAYS 04/19/18 12:49 Blood S.aureus & Coag-Neg Staph PNA FISH - Final 04/19/18 12:49 Blood Blood Culture - Final Coagulase Neg Staphylococcus 04/19/18 12:49 Blood Gram Stain - Final 04/19/18 21:00 Urine,Clean Catch Urine Culture - Final No Growth (<1,000 CFU/ML) 04/17/18 17:25 Blood Blood Culture - Final Coagulase Neg Staphylococcus 04/17/18 17:25 Blood Gram Stain - Final 04/17/18 17:25 Blood S.aureus & Coag-Neg Staph PNA FISH - Final 04/17/18 17:25 Blood Blood Culture - Final Coagulase Neg Staphylococcus 04/17/18 17:25 Blood Gram Stain - Final 04/17/18 17:16 Urine,Clean Catch Urine Culture - Final 10-50,000 CFU/ML. MULTIPLE SPECIES. PROBABLE CONTAMINATION. Most Recent Lab Values WBC 4.7 K/uL (4.8-10.8) L 04/24/18 05:45 RBC 3.86 Mil/uL (3.80-5.20) 04/24/18 05:45 Hgb 10.4 g/dL (12.0-16.0) L 04/24/18 05:45 Hct 31.4 % (34.0-47.0) L 04/24/18 05:45 MCV 81.2 fl (81.0-99.0) 04/24/18 05:45 MCH 27.0 pg (27.0-31.0) 04/24/18 05:45 MCHC 33.2 g/dL (33.0-37.0) 04/24/18 05:45 RDW 13.4 % (11.5-14.5) 04/24/18 05:45 Plt Count 288 K/uL (130-400) 04/24/18 05:45 MPV 8.2 fl (7.2-11.7) 04/17/18 17:40 Neut % (Auto) 66.9 % (50.0-75.0) 04/17/18 17:40 Lymph % (Auto) 23.6 % (20.0-40.0) 04/17/18 17:40 Tillman % (Auto) 8.3 % (0.0-10.0) 04/17/18 17:40 Eos % (Auto) 0.5 % (0.0-4.0) 04/17/18 17:40 Baso % (Auto) 0.7 % (0.0-2.0) 04/17/18 17:40 Neut # (Auto) 5.3 K/uL (1.8-7.0) 04/17/18 17:40 Lymph # (Auto) 1.9 K/uL (1.0-4.3) 04/17/18 17:40 Tillman # (Auto) 0.7 K/uL (0.0-0.8) 04/17/18 17:40 Eos # (Auto) 0.0 K/uL (0.0-0.7) 04/17/18 17:40 Baso # (Auto) 0.1 K/uL (0.0-0.2) 04/17/18 17:40 PT 12.2 Seconds (9.8-13.1) 04/24/18 18:30 INR 1.1 04/24/18 18:30 pO2 49 mm/Hg (30-55) 04/17/18 17:54 VBG pH 7.39 (7.32-7.43) 04/17/18 17:54 VBG pCO2 40 mmHg (40-60) 04/17/18 17:54 VBG HCO3 24.0 mmol/L 04/17/18 17:54 VBG Total CO2 25.4 mmol/L (22-28) 04/17/18 17:54 VBG O2 Sat (Calc) 88.1 % (40-65) H 04/17/18 17:54 VBG Base Excess -0.7 mmol/L (0.0-2.0) L 04/17/18 17:54 VBG Potassium 3.7 mmol/L (3.6-5.2) 04/17/18 17:54 Sodium 137.0 mmol/L (132-148) 04/17/18 17:54 Chloride 106.0 mmol/L (98-107) 04/17/18 17:54 Glucose 108 mg/dL (65-105) H 04/17/18 17:54 Lactate 1.0 mmol/L (0.7-2.1) 04/17/18 17:54 FiO2 21.0 % 04/17/18 17:54 Sodium 144 mmol/l (132-148) 04/24/18 05:45 Potassium 4.0 MMOL/L (3.6-5.0) 04/24/18 05:45 Chloride 104 mmol/L (98-107) 04/24/18 05:45 Carbon Dioxide 32 mmol/L (22-30) H 04/24/18 05:45 Anion Gap 12 (10-20) 04/24/18 05:45 BUN 13 mg/dl (7-17) 04/24/18 05:45 Creatinine 0.7 mg/dl (0.7-1.2) 04/24/18 05:45 Est GFR ( Amer) > 60 04/24/18 05:45 Est GFR (Non-Af Amer) > 60 04/24/18 05:45 POC Glucose (mg/dL) 253 mg/dL (65-110) H 04/25/18 15:37 Random Glucose 104 mg/dL (65-105) 04/24/18 05:45 Calcium 9.2 mg/dL (8.4-10.2) 04/24/18 05:45 Phosphorus 4.2 mg/dl (2.5-4.5) 04/24/18 05:45 Magnesium 2.0 MG/DL (1.6-2.3) 04/24/18 05:45 Iron 28 ug/dL (37-170) L 04/21/18 05:30 TIBC 260 ug/dL (250-450) 04/21/18 05:30 % Saturation 11 % (20-55) L 04/21/18 05:30 Ferritin 206.0 ng/Ml (11.1-264.0) 04/21/18 05:30 Total Bilirubin 0.3 mg/dl (0.2-1.3) 04/24/18 05:45 AST 84 U/L (14-36) H 04/24/18 05:45 ALT 55 U/L (9-52) H 04/24/18 05:45 Alkaline Phosphatase 133 U/L (38-126) H 04/24/18 05:45 Total Protein 7.5 G/DL (6.3-8.2) 04/24/18 05:45 Albumin 3.6 g/dL (3.5-5.0) 04/24/18 05:45 Globulin 4.0 gm/dL (2.2-3.9) H 04/24/18 05:45 Albumin/Globulin Ratio 0.9 (1.0-2.1) L 04/24/18 05:45 Lipase 44 U/L (23-300) 04/17/18 17:40 Vitamin B12 969 pg/mL (239-931) H 04/21/18 05:30 Folate 8.4 ng/mL 04/21/18 05:30 Venous Blood Potassium 3.7 mmol/L (3.6-5.2) 04/17/18 17:54 Urine Color Yellow (YELLOW) 04/17/18 17:16 Urine Clarity Cloudy (Clear) 04/17/18 17:16 Urine pH 6.0 (5.0-8.0) 04/17/18 17:16 Ur Specific Maxwell 1.015 (1.003-1.030) 04/17/18 17:16 Urine Protein 100 mg/dL (NEGATIVE) 04/17/18 17:16 Urine Glucose (UA) Neg mg/dL (Normal) 04/17/18 17:16 Urine Ketones Negative mg/dL (NEGATIVE) 04/17/18 17:16 Urine Blood Moderate (NEGATIVE) 04/17/18 17:16 Urine Nitrate Negative (NEGATIVE) 04/17/18 17:16 Urine Bilirubin Negative (NEGATIVE) 04/17/18 17:16 Urine Urobilinogen 2.0 mg/dL (0.2-1.0) H 04/17/18 17:16 Ur Leukocyte Esterase Large Tsering/uL (Negative) 04/17/18 17:16 Urine RBC (Auto) 76 /hpf (0-3) H 04/17/18 17:16 Urine Microscopic WBC 425 /hpf (0-5) H 04/17/18 17:16 Ur Squamous Epith Cells 1 /hpf (0-5) 04/17/18 17:16 Urine Bacteria Occ (<OCC) H 04/17/18 17:16 Hyaline Casts 0-2 /hpf (0-2) 04/17/18 17:16 Vancomycin Trough 13.2 ug/mL (5.0-10.0) H 04/25/18 12:50 - Hospital Course Hospital Course: 53 yo F with HTN, HDL, IDDM2, hx of ESBL admitted due to suspected pyelonephritis and UTI; found to have positive blood cultures x3 for coag neg staph, urine cx was contaminated. ID consulted - pt received IV vancomycin. Repeat cultures neg x2, repeat urine culture neg. Pt had PICC line placed, and will come daily for the next 6 days for vancomycin infusion. During admission she underwent echo to r/o subacute endocarditis, which did not show any vegetations on valves. During the admission she also complained of diffuse abdominal pain; CT was done and did not show any acute indication for pain; pain resolved. Discharge Exam - Head Exam Head Exam: NORMAL INSPECTION - Eye Exam Eye Exam: Normal appearance - Respiratory Exam Respiratory Exam: NORMAL BREATHING PATTERN, UNREMARKABLE - GI/Abdominal Exam GI & Abdominal Exam: Normal Bowel Sounds, Soft - Extremities Exam Extremities exam: normal inspection - Neurological Exam Neurological exam: Alert, Oriented x3 - Psychiatric Exam Psychiatric exam: Normal Mood - Skin Skin Exam: Normal Color, Warm Discharge Plan - Discharge Medications Prescriptions: Docusate Sodium/Sennosides A [Senokot S 50 MG-8.6 MG] 1 tab PO HS #30 tab Pantoprazole [Protonix EC Tab] 40 mg PO DAILY #30 ect Polyethylene Glycol 3350 [Miralax] 17 gm PO DAILY #30 packet Vancomycin 1 GM [Vancomycin 1GM in Normal Saline Addvantage] 1 gm IVPB DAILY 6 Days bag - Follow Up Plan Condition: FAIR Disposition: HOME/ ROUTINE Instructions: Urinary Tract Infection, Adult (DC), Peripherally-Inserted Central Catheter (DC) Additional Instructions: follow up with primary MD 1 week Referrals: Parish Solares MD [Staff Provider] - Bonilla French MD [Family Provider] -
[2018-04-25 16:26] VITALS: BP 135/79; PULSE 70; TEMP 97.8; O2SAT 93
== END 2018-04-25 18:30 | disposition home or self-care (01) | DRG 690 ==
LOC: H.ER 15:47 → H.ERHOLD 19:49 → H.MEDSURG1 23:59
PROVIDERS: ADMIT Internal Medicine; ATTEND Internal Medicine
PROC: 02HV33Z Insertion of Infusion Device into Superior Vena Cava, Percutaneous Approach (ICD-10-PCS; principal; 2018-04-25)
DX: N10 Acute pyelonephritis (principal); R78.81 Bacteremia; I10 Essential (primary) hypertension; E78.5 Hyperlipidemia, unspecified; E78.00 Pure hypercholesterolemia, unspecified; Z79.4 Long term (current) use of insulin; E11.9 Type 2 diabetes mellitus without complications; B95.7 Other staphylococcus as the cause of diseases classified elsewhere; F32.9 Major depressive disorder, single episode, unspecified; M19.90 Unspecified osteoarthritis, unspecified site; R16.2 Hepatomegaly with splenomegaly, not elsewhere classified; Z89.422 Acquired absence of other left toe(s); N20.0 Calculus of kidney